=== PATIENT | female | born 1940 | race Caucasian/White ===

== ENCOUNTER 2017-08-03 22:46 | Inpatient (IN) | payer MEDICARE ==
--- NOTE | 2017-08-03 23:11 | ED ---
SOB HPI - General Chief Complaint: Shortness of Breath Stated Complaint: SOB Time Seen by Provider: 08/03/17 22:49 Source: patient Mode of arrival: ambulatory Limitations: no limitations - History of Present Illness Initial Comments: This patient is 76-year-old woman who presents to be evaluated for worsening shortness of breath. The patient states that it is been in about 1 week since she was in her usual state of health. She developed onset of some congestion and cough about a week ago. She states that after he continued to few days she scheduled and then saw her physician yesterday. She states that she had a chest x-ray performed and was started on azithromycin yesterday for diagnosed pneumonia. She states that she had worsening shortness of breath over the past day or so and tonight was not able to catch her breath so she was brought here for evaluation. Patient denies fever or chills. She denies chest pain. She denies underlying lung disease, but states she does have a heart valve condition. MD Complaint: shortness of breath, cough Onset/Timin -: week(s) Consistency: constant Improves With: nothing Worsens With: nothing Treatments Prior to Arrival: none - Related Data Home Medications Medication Instructions Recorded Confirmed Aspirin EC [Ecotrin] 325 mg PO DAILY 08/03/17 08/04/17 Atenolol 25 mg PO BID 08/03/17 08/04/17 Azithromycin [Zithromax Z-pack] See Taper PO DAILY 08/03/17 08/04/17 Febuxostat [Uloric] 40 mg PO DAILY 08/03/17 08/04/17 Irbesartan/Hydrochlorothiazide 1 tab PO DAILY 08/03/17 08/04/17 [Avalide 150-12.5 mg Tablet] Magnesium Carbonate 250 mg PO DAILY 08/03/17 08/04/17 Pantoprazole Sodium [Protonix] 40 mg PO DAILY 08/03/17 08/04/17 Pravastatin Sodium [Pravachol] 20 mg PO HS 08/03/17 08/04/17 Vortioxetine Hydrobromide 10 - 20 mg PO DIRECTED 08/03/17 08/05/17 [Trintellix] amLODIPine [Norvasc] 10 mg PO DAILY 08/03/17 08/04/17 metFORMIN HCL [Glucophage] 500 mg PO DAILY 08/03/17 08/04/17 Multivitamins, Thera [Multivitamin 1 tab PO DAILY 08/04/17 08/04/17 (formulary)] Allergies Allergy/AdvReac Type Severity Reaction Status Date / Time atorvastatin [From Lipitor] Allergy Unknown Verified 08/04/17 11:58 codeine Allergy Unknown Verified 08/04/17 11:58 duloxetine [From Cymbalta] Allergy Unknown Verified 08/04/17 11:58 ezetimibe [From Zetia] Allergy Unknown Verified 08/04/17 11:58 fenofibrate [From Tricor] Allergy Unknown Verified 08/04/17 11:58 latex Allergy Unknown Verified 08/04/17 11:58 niacin Allergy Unknown Verified 08/04/17 11:58 tetracycline Allergy Unknown Verified 08/04/17 11:58 Review of Systems ROS Statement: Those systems with pertinent positive or pertinent negative responses have been documented in the HPI. ROS Other: All systems not noted in ROS Statement are negative. Constitutional: Denies: fever, chills Respiratory: Reports: cough, dyspnea. Denies: wheezes, hemoptysis Cardiovascular: Reports: dyspnea on exertion. Denies: chest pain, palpitations , orthopnea, edema, syncope Gastrointestinal: Denies: abdominal pain, vomiting, diarrhea, melena Genitourinary: Denies: dysuria, hematuria Skin: Denies: rash Neurological: Denies: headache, weakness, numbness Past Medical History Past Medical History: Coronary Artery Disease (CAD), Diabetes Mellitus Additional Past Medical History / Comment(s): Gout, heart murmur. History of Any Multi-Drug Resistant Organisms: None Reported Past Surgical History: Appendectomy, Heart Catheterization With Stent Additional Past Surgical History / Comment(s): Ovary removal, 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 Past Psychological History: Anxiety, Depression Smoking Status: Former smoker Past Alcohol Use History: None Reported Past Drug Use History: None Reported General Exam Limitations: no limitations General appearance: alert, in no apparent distress Head exam: Present: atraumatic, normocephalic Eye exam: Present: normal appearance. Absent: scleral icterus, conjunctival injection ENT exam: Present: normal oropharynx Neck exam: Present: normal inspection Respiratory exam: Present: normal lung sounds bilaterally. Absent: respiratory distress, wheezes, rales, rhonchi, stridor Cardiovascular Exam: Present: regular rate, normal rhythm, systolic murmur ( There is a grade 3/6 systolic ejection murmur.). Absent: diastolic murmur, rubs , gallop GI/Abdominal exam: Present: soft. Absent: distended, tenderness, guarding, rebound, mass Extremities exam: Present: normal inspection, normal capillary refill. Absent: pedal edema, calf tenderness Back exam: Absent: CVA tenderness (R), CVA tenderness (L) Neurological exam: Present: alert Skin exam: Present: warm, dry, intact, normal color. Absent: rash Course Vital Signs 08/03/17 08/04/17 08/04/17 22:49 00:06 01:00 Temperature 97.9 F Pulse Rate 88 73 75 Respiratory 20 18 Rate Blood Pressure 159/67 171/70 O2 Sat by Pulse 91 L 95 Oximetry 08/04/17 01:11 Temperature Pulse Rate 75 Respiratory Rate Blood Pressure O2 Sat by Pulse Oximetry Medical Decision Making - Medical Decision Making This patient is 76-year-old woman presenting with progressive dyspnea over the past week. She is currently being treated for possible pneumonia with azithromycin started in the clinic. Today's x-ray does appear to show degree of fibrosis that was not present on the last x-ray although that was a number of years previous. Given that the patient's room air sats are on the low and, and she is not feeling well following the treatment here, will admit the patient for further treatment and consult pulmonology. Also patient has not had recent echo and does have significant murmur so that can be scheduled as well. - Lab Data Result diagrams: 08/08/17 06:06 08/08/17 06:06 Lab Results 08/03/17 08/03/17 08/03/17 Range/Units 22:45 22:45 22:45 WBC 8.9 (3.8-10.6) k/uL RBC 4.29 (3.80-5.40) m/uL Hgb 11.0 L (11.4-16.0) gm/dL Hct 34.7 (34.0-46.0) % MCV 80.9 (80.0-100.0) fL MCH 25.7 (25.0-35.0) pg MCHC 31.8 (31.0-37.0) g/dL RDW 15.2 (11.5-15.5) % Plt Count 282 (150-450) k/uL Neutrophils % 57 % Lymphocytes % 33 % Monocytes % 5 % Eosinophils % 3 % Basophils % 0 % Neutrophils # 5.1 (1.3-7.7) k/uL Lymphocytes # 2.9 (1.0-4.8) k/uL Monocytes # 0.5 (0-1.0) k/uL Eosinophils # 0.2 (0-0.7) k/uL Basophils # 0.0 (0-0.2) k/uL PT (9.0-12.0) sec INR (<1.2) APTT (22.0-30.0) sec Sodium 140 (137-145) mmol/L Potassium 4.7 (3.5-5.1) mmol/L Chloride 103 (98-107) mmol/L Carbon Dioxide 22 (22-30) mmol/L Anion Gap 15 mmol/L BUN 28 H (7-17) mg/dL Creatinine 1.10 H (0.52-1.04) mg/dL Est GFR (CKD-EPI)AfAm 56 (>60 ml/min/1.73 sqM) Est GFR (CKD-EPI)NonAf 49 (>60 ml/min/1.73 sqM) Glucose 123 H (74-99) mg/dL POC Glucose (mg/dL) (75-99) mg/dL POC Glu [facility] Calcium 9.7 (8.4-10.2) mg/dL Magnesium 1.8 (1.6-2.3) mg/dL Total Bilirubin 0.2 (0.2-1.3) mg/dL AST 30 (14-36) U/L ALT 36 (9-52) U/L Alkaline Phosphatase 96 (38-126) U/L Total Creatine Kinase 71 (30-135) U/L CK-MB (CK-2) 1.3 (0.0-2.4) ng/mL CK-MB (CK-2) Rel Index 1.8 Troponin I 0.014 (0.000-0.034) ng/mL NT-Pro-B Natriuret Pep pg/mL Total Protein 6.7 (6.3-8.2) g/dL Albumin 3.8 (3.5-5.0) g/dL 08/03/17 08/03/1718 Range/Units 22:45 22:45 17:08 WBC (3.8-10.6) k/uL RBC (3.80-5.40) m/uL Hgb (11.4-16.0) gm/dL Hct (34.0-46.0) % MCV (80.0-100.0) fL MCH (25.0-35.0) pg MCHC (31.0-37.0) g/dL RDW (11.5-15.5) % Plt Count (150-450) k/uL Neutrophils % % Lymphocytes % % Monocytes % % Eosinophils % % Basophils % % Neutrophils # (1.3-7.7) k/uL Lymphocytes # (1.0-4.8) k/uL Monocytes # (0-1.0) k/uL Eosinophils # (0-0.7) k/uL Basophils # (0-0.2) k/uL PT 9.8 (9.0-12.0) sec INR 1.0 (<1.2) APTT 22.4 (22.0-30.0) sec Sodium (137-145) mmol/L Potassium (3.5-5.1) mmol/L Chloride (98-107) mmol/L Carbon Dioxide (22-30) mmol/L Anion Gap mmol/L BUN (7-17) mg/dL Creatinine (0.52-1.04) mg/dL Est GFR (CKD-EPI)AfAm (>60 ml/min/1.73 sqM) Est GFR (CKD-EPI)NonAf (>60 ml/min/1.73 sqM) Glucose (74-99) mg/dL POC Glucose (mg/dL) 146 H (75-99) mg/dL POC Glu [facility] Sroka, Rosa Isela Calcium (8.4-10.2) mg/dL Magnesium (1.6-2.3) mg/dL Total Bilirubin (0.2-1.3) mg/dL AST (14-36) U/L ALT (9-52) U/L Alkaline Phosphatase (38-126) U/L Total Creatine Kinase (30-135) U/L CK-MB (CK-2) (0.0-2.4) ng/mL CK-MB (CK-2) Rel Index Troponin I (0.000-0.034) ng/mL NT-Pro-B Natriuret Pep 1300 pg/mL Total Protein (6.3-8.2) g/dL Albumin (3.5-5.0) g/dL 08/04/17 08/04/17 08/05/17 Range/Units 20:34 21:22 05:58 WBC 14.3 H (3.8-10.6) k/uL RBC 4.11 (3.80-5.40) m/uL Hgb 10.7 L (11.4-16.0) gm/dL Hct 32.6 L (34.0-46.0) % MCV 79.5 L (80.0-100.0) fL MCH 26.0 (25.0-35.0) pg MCHC 32.7 (31.0-37.0) g/dL RDW 14.9 (11.5-15.5) % Plt Count 337 (150-450) k/uL Neutrophils % 88 % Lymphocytes % 10 % Monocytes % 2 % Eosinophils % 0 % Basophils % 0 % Neutrophils # 12.6 H (1.3-7.7) k/uL Lymphocytes # 1.4 (1.0-4.8) k/uL Monocytes # 0.2 (0-1.0) k/uL Eosinophils # 0.1 (0-0.7) k/uL Basophils # 0.0 (0-0.2) k/uL PT (9.0-12.0) sec INR (<1.2) APTT (22.0-30.0) sec Sodium (137-145) mmol/L Potassium (3.5-5.1) mmol/L Chloride (98-107) mmol/L Carbon Dioxide (22-30) mmol/L Anion Gap mmol/L BUN (7-17) mg/dL Creatinine (0.52-1.04) mg/dL Est GFR (CKD-EPI)AfAm (>60 ml/min/1.73 sqM) Est GFR (CKD-EPI)NonAf (>60 ml/min/1.73 sqM) Glucose (74-99) mg/dL POC Glucose (mg/dL) 246 H (75-99) mg/dL POC Glu [facility] Bloink, Jennifer Calcium (8.4-10.2) mg/dL Magnesium (1.6-2.3) mg/dL Total Bilirubin (0.2-1.3) mg/dL AST (14-36) U/L ALT (9-52) U/L Alkaline Phosphatase (38-126) U/L Total Creatine Kinase (30-135) U/L CK-MB (CK-2) (0.0-2.4) ng/mL CK-MB (CK-2) Rel Index Troponin I 0.172 H* (0.000-0.034) ng/mL NT-Pro-B Natriuret Pep pg/mL Total Protein (6.3-8.2) g/dL Albumin (3.5-5.0) g/dL 08/05/17 08/05/17 08/05/17 Range/Units 05:58 05:58 05:58 WBC (3.8-10.6) k/uL RBC (3.80-5.40) m/uL Hgb (11.4-16.0) gm/dL Hct (34.0-46.0) % MCV (80.0-100.0) fL MCH (25.0-35.0) pg MCHC (31.0-37.0) g/dL RDW (11.5-15.5) % Plt Count (150-450) k/uL Neutrophils % % Lymphocytes % % Monocytes % % Eosinophils % % Basophils % % Neutrophils # (1.3-7.7) k/uL Lymphocytes # (1.0-4.8) k/uL Monocytes # (0-1.0) k/uL Eosinophils # (0-0.7) k/uL Basophils # (0-0.2) k/uL PT (9.0-12.0) sec INR (<1.2) APTT 52.1 H (22.0-30.0) sec Sodium 138 (137-145) mmol/L Potassium 5.2 H (3.5-5.1) mmol/L Chloride 102 (98-107) mmol/L Carbon Dioxide 22 (22-30) mmol/L Anion Gap 14 mmol/L BUN 37 H (7-17) mg/dL Creatinine 1.10 H (0.52-1.04) mg/dL Est GFR (CKD-EPI)AfAm 56 (>60 ml/min/1.73 sqM) Est GFR (CKD-EPI)NonAf 49 (>60 ml/min/1.73 sqM) Glucose 158 H (74-99) mg/dL POC Glucose (mg/dL) (75-99) mg/dL POC Glu [facility] Calcium 9.8 (8.4-10.2) mg/dL Magnesium (1.6-2.3) mg/dL Total Bilirubin (0.2-1.3) mg/dL AST (14-36) U/L ALT (9-52) U/L Alkaline Phosphatase (38-126) U/L Total Creatine Kinase (30-135) U/L CK-MB (CK-2) (0.0-2.4) ng/mL CK-MB (CK-2) Rel Index Troponin I 1.500 H* (0.000-0.034) ng/mL NT-Pro-B Natriuret Pep pg/mL Total Protein (6.3-8.2) g/dL Albumin (3.5-5.0) g/dL 08/05/17 08/05/17 Range/Units 06:15 11:35 WBC (3.8-10.6) k/uL RBC (3.80-5.40) m/uL Hgb (11.4-16.0) gm/dL Hct (34.0-46.0) % MCV (80.0-100.0) fL MCH (25.0-35.0) pg MCHC (31.0-37.0) g/dL RDW (11.5-15.5) % Plt Count (150-450) k/uL Neutrophils % % Lymphocytes % % Monocytes % % Eosinophils % % Basophils % % Neutrophils # (1.3-7.7) k/uL Lymphocytes # (1.0-4.8) k/uL Monocytes # (0-1.0) k/uL Eosinophils # (0-0.7) k/uL Basophils # (0-0.2) k/uL PT (9.0-12.0) sec INR (<1.2) APTT (22.0-30.0) sec Sodium (137-145) mmol/L Potassium (3.5-5.1) mmol/L Chloride (98-107) mmol/L Carbon Dioxide (22-30) mmol/L Anion Gap mmol/L BUN (7-17) mg/dL Creatinine (0.52-1.04) mg/dL Est GFR (CKD-EPI)AfAm (>60 ml/min/1.73 sqM) Est GFR (CKD-EPI)NonAf (>60 ml/min/1.73 sqM) Glucose (74-99) mg/dL POC Glucose (mg/dL) 176 H 239 H (75-99) mg/dL POC Glu [facility] Callie Hancock Stacie Calcium (8.4-10.2) mg/dL Magnesium (1.6-2.3) mg/dL Total Bilirubin (0.2-1.3) mg/dL AST (14-36) U/L ALT (9-52) U/L Alkaline Phosphatase (38-126) U/L Total Creatine Kinase (30-135) U/L CK-MB (CK-2) (0.0-2.4) ng/mL CK-MB (CK-2) Rel Index Troponin I (0.000-0.034) ng/mL NT-Pro-B Natriuret Pep pg/mL Total Protein (6.3-8.2) g/dL Albumin (3.5-5.0) g/dL - EKG Data -: EKG Interpreted by Ia EKG shows normal: sinus rhythm, axis (Normal), intervals (Normal), ST-T waves ( Normal) Rate: normal (Rate 77 bpm) Interpretation: LVH, other (Possible old septal infarct.) Disposition Clinical Impression: Pulmonary fibrosis, Dyspnea, Aortic stenosis Disposition: ADMITTED IP TO THIS HOSP Condition: Fair Is patient prescribed a controlled substance at d/c from ED?: No
[2017-08-03 23:24] LABS: Basophils % (A) 0 %; Eosinophils # (A) 0.2 k/uL (0-0.7); Eosinophils % (A) 3 %; HCT 34.7 % (34.0-46.0); Lymphocytes # (A) 2.9 k/uL (1.0-4.8); Lymphocytes % (A) 33 %; MCH 25.7 pg (25.0-35.0); MCHC 31.8 g/dL (31.0-37.0); MCV 80.9 fL (80.0-100.0); Mean Platelet Volume 7.3; Monocytes # (A) 0.5 k/uL (0-1.0); Monocytes % (A) 5 %; Neutrophils # (A) 5.1 k/uL (1.3-7.7); Neutrophils % (A) 57 %; Platelet Count 282 k/uL (150-450); RBC 4.29 m/uL (3.80-5.40); RDW 15.2 % (11.5-15.5); WBC 8.9 k/uL (3.8-10.6)
[2017-08-03 23:36] LABS: Albumin 3.8 g/dL (3.5-5.0); Calcium 9.7 mg/dL (8.4-10.2); Magnesium 1.8 mg/dL (1.6-2.3); Potassium 4.7 mmol/L (3.5-5.1); Total Bilirubin 0.2 mg/dL (0.2-1.3); Total Protein 6.7 g/dL (6.3-8.2)
--- NOTE | 2017-08-03 23:39 | XR ---
EXAMINATION TYPE: XR chest 2V DATE OF EXAM: 08/03/2017 COMPARISON: 02/02/2011 HISTORY: Short of breath TECHNIQUE: Frontal and lateral views of the chest are obtained. FINDINGS: Heart is normal. Thoracic aorta is atheromatous. There is no gross heart failure. There is coarsening of interstitial markings. There are chest leads. Bony thorax is intact. IMPRESSION: Pulmonary fibrotic changes. No heart failure. Fibrosis appears new compared to old exam.
[2017-08-03 23:42] LABS: Partial Thromboplastin Time 22.4 sec (22.0-30.0); Prothrombin Time 9.8 sec (9.0-12.0)
[2017-08-03 23:52] LABS: Creatine Kinase MB 1.3 ng/mL (0.0-2.4); Troponin I 0.014 ng/mL (0.000-0.034)
[2017-08-04] MEDS ORDERED: IPRATROPIUM-ALBUTEROL 3 ML NEB INHALATION STA (00:12)
[2017-08-04] MEDS ORDERED: predniSONE 20 MG TAB PO STA (00:24)
[2017-08-04 01:57] VITALS: BMI 37.8
[2017-08-04] MEDS: ATENOLOL 50 MG TAB PO SCH (07:28)
[2017-08-04] MEDS: amLODIPine 10 MG TAB PO SCH (07:28)
[2017-08-04] MEDS: metFORMIN 500 MG TAB PO SCH ×2 (07:29→07:34)
[2017-08-04] MEDS: MAGNESIUM OXIDE 400 MG TAB PO SCH (07:30)
[2017-08-04] MEDS: LOSARTAN-HCTZ 50-12.5 MG 1 EACH TAB PO SCH (07:30)
[2017-08-04] MEDS: ALLOPURINOL 100 MG TAB PO SCH (07:30)
[2017-08-04] MEDS: PANTOPRAZOLE 40 MG TABLET PO SCH (07:32)
[2017-08-04] MEDS: Vortioxetine Hydrobromide [Trintellix] 10 MG PO SCH (07:33)
[2017-08-04] MEDS ORDERED: AZITHROMYCIN 500 MG TAB PO SCH (09:00)
[2017-08-04] MEDS ORDERED: predniSONE 20 MG TAB PO SCH (09:00)
[2017-08-04] MEDS ORDERED: FLUoxetine HCL 20 MG CAP PO SCH (09:00)
[2017-08-04] MEDS ORDERED: ASPIRIN 325 MG TAB PO SCH ×2 (09:00→21:00)
[2017-08-04] MEDS: IPRATROPIUM-ALBUTEROL 3 ML NEB INHALATION SCH ×4 (09:02→20:24)
[2017-08-04] MEDS: BUDESONIDE 0.5 MG/2 ML NEBU INHALATION SCH ×2 (09:02→20:25)
[2017-08-04] MEDS ORDERED: RX INFO: IV CONTRAST WAS GIVEN 1 EACH MISC MISCELLANE PRN (11:54)
[2017-08-04] MEDS ORDERED: MULTIVITAMINS, THERA 1 EACH TAB PO SCH (12:00)
[2017-08-04] MEDS: INSULIN ASPART 100 UNIT/ML 1 ML 10 ML VIAL SQ SCH ×3 (13:30→22:55)
[2017-08-04] MEDS: methylPREDNISolone SOD SUCCI 125 MG/2 ML VIAL IV SCH ×2 (13:40→17:17)
[2017-08-04] MEDS ORDERED: ENOXAPARIN 30 MG/0.3 ML SYRINGE SQ SCH (14:00)
--- NOTE | 2017-08-04 14:06 | P.HPIM ---
History of Present Illness This is a pleasant 76 years old female with past medical history of CAD S/P stent, DM, hypertension, gout, cardiac murmur, hyperlipidemia, obesity who presents with progressive dyspnea associated with cough and yellowish phlegm over one week, patient denies chest pain. Patient was started on Zithromax already for respiratory infection. Repeat chest x-ray and emergency room showed new fibrosis with known new consolidation Review of Systems Review of Systems All systems: negative Constitutional: Denies chills, Denies fever Eyes: denies blurred vision, denies pain Ears, nose, mouth and throat: Denies headache, Denies sore throat Cardiovascular: Denies chest pain, Denies shortness of breath Respiratory: Reports congestion, Reports home oxygen, Denies cough Gastrointestinal: Denies abdominal pain, Denies diarrhea, Denies nausea, Denies vomiting Musculoskeletal: Denies myalgias Integumentary: Denies pruritus, Denies rash Neurological: Denies numbness, Denies weakness Psychiatric: Denies anxiety, Denies depression Endocrine: Denies fatigue, Denies weight change Past Medical History Past Medical History: Coronary Artery Disease (CAD), Diabetes Mellitus Additional Past Medical History / Comment(s): CAD, Hypertension, Gout, cardiac murmur, hyperlipidemia, obesity History of Any Multi-Drug Resistant Organisms: None Reported Past Surgical History: Appendectomy, Heart Catheterization With Stent Additional Past Surgical History / Comment(s): Oophorectomy (fibrous cyst) , 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) Date of Last Stent Placement:: unknown Past Psychological History: Anxiety, Depression Smoking Status: Former smoker (quit smoking 20 years ago and has 30 pyear) Past Alcohol Use History: None Reported Past Drug Use History: None Reported Medications and Allergies Home Medications Medication Instructions Recorded Confirmed Type Aspirin EC [Ecotrin] 325 mg PO DAILY 08/03/17 08/04/17 History Atenolol 25 mg PO BID 08/03/17 08/04/17 History Azithromycin [Zithromax Z-pack] See Taper PO DAILY 08/03/17 08/04/17 History Febuxostat [Uloric] 40 mg PO DAILY 08/03/17 08/04/17 History Irbesartan/Hydrochlorothiazide 1 tab PO DAILY 08/03/17 08/04/17 History [Avalide 150-12.5 mg Tablet] Magnesium Carbonate 250 mg PO DAILY 08/03/17 08/04/17 History Pantoprazole Sodium [Protonix] 40 mg PO DAILY 08/03/17 08/04/17 History Pravastatin Sodium [Pravachol] 20 mg PO HS 08/03/17 08/04/17 History Vortioxetine Hydrobromide 10 mg PO DIRECTED 08/03/17 08/04/17 History [Trintellix] amLODIPine [Norvasc] 10 mg PO DAILY 08/03/17 08/04/17 History metFORMIN HCL [Glucophage] 500 mg PO DAILY 08/03/17 08/04/17 History Multivitamins, Thera [Multivitamin 1 tab PO DAILY 08/04/17 08/04/17 History (formulary)] Allergies Allergy/AdvReac Type Severity Reaction Status Date / Time atorvastatin [From Lipitor] Allergy Unknown Verified 08/04/17 11:58 codeine Allergy Unknown Verified 08/04/17 11:58 duloxetine [From Cymbalta] Allergy Unknown Verified 08/04/17 11:58 ezetimibe [From Zetia] Allergy Unknown Verified 08/04/17 11:58 fenofibrate [From Tricor] Allergy Unknown Verified 08/04/17 11:58 latex Allergy Unknown Verified 08/04/17 11:58 niacin Allergy Unknown Verified 08/04/17 11:58 tetracycline Allergy Unknown Verified 08/04/17 11:58 Physical Exam Vitals: Vital Signs Temp Pulse Pulse Resp BP BP Pulse Ox 08/04/17 13:30 72 08/04/17 13:20 68 08/04/17 09:30 110 H 148/67 08/04/17 09:11 72 08/04/17 09:03 76 08/04/17 07:30 18 08/04/17 07:00 96.4 F L 78 20 186/79 94 L 08/04/17 01:48 98.1 F 87 16 166/67 95 08/04/17 01:11 75 08/04/17 01:00 75 08/04/17 00:06 73 18 171/70 95 08/03/17 22:49 97.9 F 88 20 159/67 91 L Intake and Output 08/03/17 08/04/17 08/04/17 22:59 06:59 14:59 Other: # Voids 2 Weight 97.522 kg 97 kg Constitutional: No acute distress, conversant, pleasant Eyes: Anicteric sclerae, moist conjunctiva, no lid-lag PERRLA ENMT: NC/AT Oropharynx clear, no erythema, exudates Neck: Supple, FROM, no masses, or JVD No carotid bruits No thyromegaly Lungs: Clear to auscultation Clear to percussion Normal respiratory effort, no accessory muscle use Cardiovascular: Heart regular in rate and rhythm, No murmurs, gallops, or rubs No peripheral edema Abdominal: Soft Nontender, no guarding, rebound or rigidity Abdomen moving with respiration Normoactive bowel sounds No palpable mass No abdominal wall hernia noted Skin: Normal temperature, tone, texture, turgor No induration No subcutaneous nodules No rash, lesions No ulcers Extremities: No digital cyanosis No clubbing Pedal pulses intact and symmetrical Radial pulses intact and symmetrical Normal gait and station No calf tenderness Psychiatric: Alert and oriented to person, place and time Appropriate affect Intact judgement Neuro: Muscles Strength 5/5 in all 4 extremities Sensation to light touch grossly present throughout Cranial nerves II-XII grossly intact No focal sensory deficits Results CBC & Chem 7: 08/03/17 22:45 08/03/17 22:45 Labs: Abnormal Lab Results - Last 24 Hours (Table) 08/03/17 08/03/17 Range/Units 22:45 22:45 Hgb 11.0 L (11.4-16.0) gm/dL BUN 28 H (7-17) mg/dL Creatinine 1.10 H (0.52-1.04) mg/dL Glucose 123 H (74-99) mg/dL Thrombosis Risk Factor Assmnt - Choose All That Apply Each Risk Factor Represents 3 Points: Age 75 years or older Thrombosis Risk Factor Assessment Total Risk Factor Score: 3 Thrombosis Risk Factor Assessment Level: Moderate Risk Assessment and Plan Plan: -COPD acute exacerbation, progressive. Continue with oxygen, breathing treatment, steroids, and antibiotic. Call pulmonary consult -Pulmonary fibrosis,On chest x-ray, call pulmonary consult -Dehydration, continue with IV fluid -Hypertension continue with HCTZ/low Zartan -DM hold metformin 500 twice a day, continue with ISS -Cardiac murmur, echo was already ordered and is pending DVT prophylaxis heparin GI prophylaxis Pepcid Patient was discussed about her problem list and management plan, although above , and she verbalized understanding and acceptance
[2017-08-04] MEDS ORDERED: SODIUM CHLORIDE 0.9% 1,000 ML IV SCH (14:15)
--- NOTE | 2017-08-04 14:38 | P.CNPUL ---
History of Present Illness Consult date: 08/04/17 Reason for consult: dyspnea History of present illness: Is a 76-year-old female patient with known history of coronary artery disease and previous coronary intervention and stenting many years back, who has been developing increased shortness of breath and cough and congestion over the past month or so. The patient was seen by the nurse practitioner at the primary care physician's office and the patient was given Zithromax. Nevertheless, the patient is not improved. In fact her exertional dyspnea was getting worse and she was also complaining of cough congestion and wheeze. For that reason she came into the hospital for further evaluation. Her chest x-ray shows no evidence of any pneumonia. Unlikely reports given, no clear indication of any pulmonary fibrosis. 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 She has quit smoking many years back. She does not utilize any form of maintenance respiratory medications at home. She is known to have cardiac murmur which is very typical of an underlying aortic valve disease, probably a stenosis that needs to be further followed up. She hasn't been seeing a foreign exchange student coordinator on a regular basis. She has trace edema in lower extremities. No previous history of DVT or pulmonary embolism. No orthopnea. No paroxysmal nocturnal dyspnea. She is obese with ongoing weight gain. Her EKG showing normal sinus rhythm with LVH criteria and septal infarct, likely old. The BNP level is mildly elevated and a troponin is negative. Review of Systems Constitutional: Reports as per HPI, Reports weight gain Eyes: denies blurred vision, denies bulging eye, denies decreased vision Ears: deny: decreased hearing, ear discharge, earache, tinnitus Ears, nose, mouth and throat: Denies headache, Denies sore throat Cardiovascular: Reports decreased exercise tolerance Respiratory: Reports cough, Reports dyspnea Genitourinary: Denies dysuria, Denies hematuria Menstruation: Reports as per HPI Musculoskeletal: Denies myalgias Musculoskeletal: absent: ankle pain, ankle stiffness, ankle swelling Integumentary: Denies pruritus, Denies rash Neurological: Denies numbness, Denies weakness Psychiatric: Reports as per HPI Endocrine: Reports as per HPI Hematologic/Lymphatic: Reports as per HPI Allergic/Immunologic: Reports as per HPI Past Medical History Past Medical History: Coronary Artery Disease (CAD), Diabetes Mellitus Additional Past Medical History / Comment(s): CAD, Hypertension, Gout, cardiac murmur, hyperlipidemia, obesity History of Any Multi-Drug Resistant Organisms: None Reported Past Surgical History: Appendectomy, Heart Catheterization With Stent Additional Past Surgical History / Comment(s): Oophorectomy (fibrous cyst) , 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) Date of Last Stent Placement:: unknown Past Psychological History: Anxiety, Depression Smoking Status: Former smoker (quit smoking 20 years ago and has 30 pyear) Past Alcohol Use History: None Reported Past Drug Use History: None Reported Medications and Allergies Home Medications Medication Instructions Recorded Confirmed Type Aspirin EC [Ecotrin] 325 mg PO DAILY 08/03/17 08/04/17 History Atenolol 25 mg PO BID 08/03/17 08/04/17 History Azithromycin [Zithromax Z-pack] See Taper PO DAILY 08/03/17 08/04/17 History Febuxostat [Uloric] 40 mg PO DAILY 08/03/17 08/04/17 History Irbesartan/Hydrochlorothiazide 1 tab PO DAILY 08/03/17 08/04/17 History [Avalide 150-12.5 mg Tablet] Magnesium Carbonate 250 mg PO DAILY 08/03/17 08/04/17 History Pantoprazole Sodium [Protonix] 40 mg PO DAILY 08/03/17 08/04/17 History Pravastatin Sodium [Pravachol] 20 mg PO HS 08/03/17 08/04/17 History Vortioxetine Hydrobromide 10 mg PO DIRECTED 08/03/17 08/04/17 History [Trintellix] amLODIPine [Norvasc] 10 mg PO DAILY 08/03/17 08/04/17 History metFORMIN HCL [Glucophage] 500 mg PO DAILY 08/03/17 08/04/17 History Multivitamins, Thera [Multivitamin 1 tab PO DAILY 08/04/17 08/04/17 History (formulary)] Allergies Allergy/AdvReac Type Severity Reaction Status Date / Time atorvastatin [From Lipitor] Allergy Unknown Verified 08/04/17 11:58 codeine Allergy Unknown Verified 08/04/17 11:58 duloxetine [From Cymbalta] Allergy Unknown Verified 08/04/17 11:58 ezetimibe [From Zetia] Allergy Unknown Verified 08/04/17 11:58 fenofibrate [From Tricor] Allergy Unknown Verified 08/04/17 11:58 latex Allergy Unknown Verified 08/04/17 11:58 niacin Allergy Unknown Verified 08/04/17 11:58 tetracycline Allergy Unknown Verified 08/04/17 11:58 Physical Exam Vitals: Vital Signs Temp Pulse Pulse Resp BP BP Pulse Ox 08/04/17 09:30 110 H 148/67 08/04/17 09:11 72 08/04/17 09:03 76 08/04/17 07:30 18 08/04/17 07:00 96.4 F L 78 20 186/79 94 L 08/04/17 01:48 98.1 F 87 16 166/67 95 08/04/17 01:11 75 08/04/17 01:00 75 08/04/17 00:06 73 18 171/70 95 08/03/17 22:49 97.9 F 88 20 159/67 91 L Intake and Output 08/03/17 08/04/17 08/04/17 22:59 06:59 14:59 Other: # Voids 2 Weight 97.522 kg 97 kg Obese, comfortable no acute distress Head exam was generally normal. There was no scleral icterus or corneal arcus. Mucous membranes were moist. Neck was supple and without jugular venous distension, thyromegaly, or carotid bruits. Carotids were easily palpable bilaterally. There was no adenopathy. Patient has Mallampati class IV with significant crowding of the posterior oropharynx Lung sounds are diminished bilaterally along with some scattered expiratory wheezes heard throughout the lung burk Heart sounds are regular and there is a harsh systolic ejection murmur grade 4/ 6 heard throughout the precordium mainly in the left lateral sternal border and apex radiating to the neck. Abdominal exam revealed normal bowel sounds. The abdomen was soft, non-tender, and without masses, organomegaly, or appreciable enlargement of the abdominal aorta. Examination of the extremities revealed easily palpable radial, femoral and pedal pulses. There was no cyanosis, clubbing or edema. Examination of the skin revealed no evidence of significant rashes, suspicious appearing nevi or other concerning lesions. Neurologically the patient is awake and alert and there is no focal neurological deficit Psychiatrically the patient has a normal mood and affect Results - Laboratory Findings CBC and BMP: 08/03/17 22:45 08/03/17 22:45 PT/INR, D-dimer PT 9.8 sec (9.0-12.0) 08/03/17 22:45 INR 1.0 (<1.2) 08/03/17 22:45 Abnormal lab findings: Abnormal Labs 08/03/17 08/03/17 22:45 22:45 Hgb 11.0 L BUN 28 H Creatinine 1.10 H Glucose 123 H - Diagnostic Findings Chest x-ray: image reviewed Assessment and Plan Plan: Assessment 1 shortness of breath on the basis of an acute COPD exacerbation. Nevertheless , the patient has an underlying valvular heart disease and needs to be further investigated. Strongly suspect aortic valve stenosis. 2 exertional dyspnea secondary to above 3 obesity with BMI of 37.9 4 coronary artery disease with previous coronary intervention and stenting 5 diabetes mellitus 6 hyperlipidemia. 7 gout Plan Proceed with a CT of the chest to investigate her shortness of breath. Echocardiogram. DuoNeb about treatments around the clock. IV Solu Medrol 63 g every 6 hours. Continue oral Zithromax. Outpatient pulmonary function test. We'll continue to follow
--- NOTE | 2017-08-04 15:20 | CT ---
EXAMINATION TYPE: CT chest angio for PE DATE OF EXAM: 08/04/2017 COMPARISON: NONE HISTORY: Dyspnea CT DLP: 622 mGycm. Automated Exposure Control for Dose Reduction was Utilized. CONTRAST: CTA scan of the thorax is performed with IV Contrast, patient injected with 80 mL of Isovue 370, pulm onary embolism protocol. MIP Images are created on CT scanner and reviewed. FINDINGS: LUNGS: There are 2 radiographic groundglass opacities scattered throughout the entirety of the lungs and scattered areas of atelectasis and pleural parenchymal scarring. No discrete pulmonary mass. Subp leural 2 mm right upper lobe pulmonary nodule seen laterally on image 40 of series 11. The lungs are grossly clear, there is no concerning parenchymal mass or nodule identified. There is no pleural ef fusion or pneumothorax seen. The tracheobronchial tree is patent. MEDIASTINUM: There is satisfactory enhancement of the pulmonary artery and its branches, there is no CT evidence for pulmonary embolism. Numerous enlarged mediastinal lymph nodes are seen measuring up t o 1.4 cm in the precarinal region and 1.3 cm in the subcarinal region.. No cardiomegaly or pericard ial effusion is seen. Moderate coronary artery calcifications are seen. Extensive atherosclerosis is seen of the thoracic aorta. No axillary adenopathy. OTHER: Liver is diffusely hypoattenuated most commonly related to hepatic steatosis. Moderate multile ambreen degenerative changes of the thoracic spine. IMPRESSION: 1. No evidence of pulmonary embolus. 2. Diffuse geographic ground glass opacities most commonly related to fluid overload. This may be car diogenic or noncardiogenic. Diffuse pneumonitis is considered much less likely. 3. Mediastinal adenopathy, possibly reactive. 4. 2 mm right upper lobe pulmonary nodule. CT thorax could be performed in 12 months to ensure stabil ity.
[2017-08-04 17:19] LABS: Glucose,Whole Blood 146 mg/dL (75-99)
[2017-08-04 20:39] LABS: Glucose,Whole Blood 246 mg/dL (75-99)
[2017-08-04] MEDS ORDERED: HEPARIN SODIUM,PORCINE 5,000 UNIT/ML 1 ML VIAL SQ SCH (21:00)
[2017-08-04] MEDS: ALBUTEROL NEBULIZED 2.5 MG/3 ML INHALATION SCH ×4 (21:34→23:14)
[2017-08-04] MEDS: FAMOTIDINE 20 MG/2 ML VIAL IV SCH (22:54)
[2017-08-04] MEDS: PRAVASTATIN SODIUM 20 MG TAB PO SCH (22:56)
[2017-08-04] MEDS ORDERED: HEPARIN SODIUM,PORCINE 5,000 UNIT/ML 1 ML VIAL IV ONE (23:14)
[2017-08-04] MEDS ORDERED: HEPARIN SODIUM,PORCINE 5,000 UNIT/ML 1 ML VIAL IV PRN (23:14)
[2017-08-05] MEDS: HEPARIN SODIUM,PORCINE/D5W PMX 25,000 UNIT in DEXTROSE/WATER 1 500ML.BAG IV SCH ×2 (00:13→21:32)
[2017-08-05] MEDS: methylPREDNISolone SOD SUCCI 125 MG/2 ML VIAL IV SCH ×2 (00:14→06:24)
[2017-08-05 06:17] LABS: Glucose,Whole Blood 176 mg/dL (75-99)
[2017-08-05] MEDS: INSULIN ASPART 100 UNIT/ML 1 ML 10 ML VIAL SQ SCH ×5 (06:24→21:37)
[2017-08-05 06:28] LABS: Basophils % (A) 0 %; Eosinophils # (A) 0.1 k/uL (0-0.7); Eosinophils % (A) 0 %; HCT 32.6 % (34.0-46.0); HGB 10.7 gm/dL (11.4-16.0); Lymphocytes # (A) 1.4 k/uL (1.0-4.8); Lymphocytes % (A) 10 %; MCHC 32.7 g/dL (31.0-37.0); MCV 79.5 fL (80.0-100.0); Mean Platelet Volume 7.2; Monocytes # (A) 0.2 k/uL (0-1.0); Monocytes % (A) 2 %; Neutrophils # (A) 12.6 k/uL (1.3-7.7); Neutrophils % (A) 88 %; Platelet Count 337 k/uL (150-450); RBC 4.11 m/uL (3.80-5.40); RDW 14.9 % (11.5-15.5); WBC 14.3 k/uL (3.8-10.6)
[2017-08-05 06:44] LABS: Calcium 9.8 mg/dL (8.4-10.2); Potassium 5.2 mmol/L (3.5-5.1)
[2017-08-05] MEDS: ALBUTEROL NEBULIZED 2.5 MG/3 ML INHALATION SCH ×4 (07:28→19:02)
[2017-08-05] MEDS: BUDESONIDE 0.5 MG/2 ML NEBU INHALATION SCH ×2 (07:28→19:05)
--- NOTE | 2017-08-05 09:07 | P.CRDCN ---
History of Present Illness Consult date: 08/05/17 Requesting physician: Suki Burris Consult reason: chest pain, shortness of breath Chief complaint: Chest tightness and shortness of breath History of present illness: This is a pleasant 76-year-old female with history of hyperlipidemia, hypertension, diabetes, prior stent placement, valvular issues, who used to follow with Dr. Worrell in the office, she has not seen him since 2013. She presents to the hospital on this occasion with what initially started as a congested cough. She had a chest x-ray performed at her primary care doctor, who felt that she may have early pneumonia so she started an antibiotic. In spite of that, patient became more and more short of breath, and she states that she was experiencing intermittent tightness in the upper part of her chest which she attributed to her Atrovent. Because of the shortness of breath and chest tightness she presented to the hospital. Chest x-ray on admission here showed pulmonary fibrotic changes with no heart failure. EKG shows normal sinus rhythm with no acute changes, subsequent EKG performed this morning showed normal sinus rhythm with mild ST-T wave changes in the inferior leads. CT of the chest was performed which did not reveal evidence for pulmonary embolism. Diffuse groundglass opacities were noted. Mediastinal adenopathy, possibly reactive. 2 mm right upper lobe pulmonary nodule noted. Patient was seen in consultation by pulmonary service, who felt that the shortness of breath may be secondary to acute COPD exacerbation and possibly underlying valvular heart disease. Duo neb and Solu-Medrol initiated. Blood pressure 152/ 70 with a heart rate in the 90s, 94% on 2 L of oxygen. White blood cell count on admission, 8.9, 14.3 this morning. Hemoglobin 10.7, platelets 337. Sodium 138, potassium 5.2, BUN 37, creatinine 1.1. Initial troponin 0.014, subsequent troponin 0.17, and a 1.5. BNP level 1300. At the time of my examination this morning, patient is currently free of any chest tightness, breathing has improved overall. Past Medical History Past Medical History: Coronary Artery Disease (CAD), Diabetes Mellitus Additional Past Medical History / Comment(s): CAD, Hypertension, Gout, cardiac murmur, hyperlipidemia, obesity History of Any Multi-Drug Resistant Organisms: None Reported Past Surgical History: Appendectomy, Heart Catheterization With Stent Additional Past Surgical History / Comment(s): Oophorectomy (fibrous cyst) , 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) Date of Last Stent Placement:: unknown Past Psychological History: Anxiety, Depression Smoking Status: Former smoker (quit smoking 20 years ago and has 30 pyear) Past Alcohol Use History: None Reported Past Drug Use History: None Reported Medications and Allergies Home Medications Medication Instructions Recorded Confirmed Type Aspirin EC [Ecotrin] 325 mg PO DAILY 08/03/17 08/04/17 History Atenolol 25 mg PO BID 08/03/17 08/04/17 History Azithromycin [Zithromax Z-pack] See Taper PO DAILY 08/03/17 08/04/17 History Febuxostat [Uloric] 40 mg PO DAILY 08/03/17 08/04/17 History Irbesartan/Hydrochlorothiazide 1 tab PO DAILY 08/03/17 08/04/17 History [Avalide 150-12.5 mg Tablet] Magnesium Carbonate 250 mg PO DAILY 08/03/17 08/04/17 History Pantoprazole Sodium [Protonix] 40 mg PO DAILY 08/03/17 08/04/17 History Pravastatin Sodium [Pravachol] 20 mg PO HS 08/03/17 08/04/17 History Vortioxetine Hydrobromide 10 mg PO DIRECTED 08/03/17 08/04/17 History [Trintellix] amLODIPine [Norvasc] 10 mg PO DAILY 08/03/17 08/04/17 History metFORMIN HCL [Glucophage] 500 mg PO DAILY 08/03/17 08/04/17 History Multivitamins, Thera [Multivitamin 1 tab PO DAILY 08/04/17 08/04/17 History (formulary)] Allergies Allergy/AdvReac Type Severity Reaction Status Date / Time atorvastatin [From Lipitor] Allergy Unknown Verified 08/04/17 11:58 codeine Allergy Unknown Verified 08/04/17 11:58 duloxetine [From Cymbalta] Allergy Unknown Verified 08/04/17 11:58 ezetimibe [From Zetia] Allergy Unknown Verified 08/04/17 11:58 fenofibrate [From Tricor] Allergy Unknown Verified 08/04/17 11:58 latex Allergy Unknown Verified 08/04/17 11:58 niacin Allergy Unknown Verified 08/04/17 11:58 tetracycline Allergy Unknown Verified 08/04/17 11:58 Physical Exam Vitals: Vital Signs Temp Pulse Pulse Resp BP BP Pulse Ox 08/05/17 08:26 97.4 F L 91 18 161/78 94 L 08/05/17 06:18 97/50 153/72 08/05/17 04:00 94 18 190/80 94 L 08/05/17 00:00 96.7 F L 88 18 149/58 93 L 08/04/17 22:40 97.6 F 94 16 142/58 95 08/04/17 20:35 86 16 08/04/17 20:25 86 16 08/04/17 15:48 18 08/04/17 15:00 97.0 F L 98 16 171/108 93 L 08/04/17 13:30 72 08/04/17 13:20 68 08/04/17 09:30 110 H 148/67 08/04/17 09:11 72 08/04/17 09:03 76 Intake and Output 08/04/17 08/05/17 08/05/17 22:59 06:59 14:59 Intake Total 0 Balance 0 Intake: Oral 0 Other: # Voids 1 1 Weight 99.6 kg PHYSICAL EXAMINATION: HEENT: Head is atraumatic, normocephalic. Pupils equal, round. Neck is supple. There is no elevated jugular venous pressure. HEART EXAMINATION: Heart S1-S2 not audible a systolic ejection murmur is heard CHEST EXAMINATION: Lungs reveal some fine expiratory wheezes throughout otherwise essentially clear. ABDOMEN: Soft, nontender. Bowel sounds are heard. No organomegaly noted. EXTREMITIES: 2+ peripheral pulses with no evidence of peripheral edema and no calf tenderness noted. NEUROLOGIC patient is awake, alert and oriented -3. . Results 08/05/17 05:58 08/05/17 05:58 Cardiac Enzymes 08/04/17 08/05/17 Range/Units 21:22 05:58 Troponin I 0.172 H* 1.500 H* (0.000-0.034) ng/mL Coagulation 08/05/17 Range/Units 05:58 APTT 52.1 H (22.0-30.0) sec CBC 08/05/17 Range/Units 05:58 WBC 14.3 H (3.8-10.6) k/uL RBC 4.11 (3.80-5.40) m/uL Hgb 10.7 L (11.4-16.0) gm/dL Hct 32.6 L (34.0-46.0) % Plt Count 337 (150-450) k/uL Comprehensive Metabolic Panel 08/05/17 Range/Units 05:58 Sodium 138 (137-145) mmol/L Potassium 5.2 H (3.5-5.1) mmol/L Chloride 102 (98-107) mmol/L Carbon Dioxide 22 (22-30) mmol/L BUN 37 H (7-17) mg/dL Creatinine 1.10 H (0.52-1.04) mg/dL Glucose 158 H (74-99) mg/dL Calcium 9.8 (8.4-10.2) mg/dL Current Medications Generic Name Dose Route Start Last Admin Trade Name Freq PRN Reason Stop Dose Admin Albuterol Sulfate 2.5 mg 08/05/17 02:00 08/05/17 07:28 Ventolin Nebulized INHALATION Not Given RT-QID [facility] Allopurinol 200 mg 08/04/17 09:00 08/04/17 07:30 Zyloprim PO 200 mg DAILY ALEXANDRA Administration Amlodipine Besylate 10 mg 08/04/17 09:00 08/04/17 07:28 Norvasc PO 10 mg DAILY ALEXANDRA Administration Aspirin 81 mg 08/05/17 09:00 Aspirin PO DAILY ALEXANDRA Atenolol 50 mg 08/04/17 09:00 08/04/17 07:28 Tenormin PO 50 mg DAILY ALEXANDRA Administration Azithromycin 250 mg 08/05/17 09:00 Zithromax PO 08/09/17 09:01 DAILY [facility] Budesonide 0.5 mg 08/04/17 08:00 08/05/17 07:28 Pulmicort INHALATION Not Given RT-BID ALEXANDRA Famotidine 20 mg 08/04/17 21:00 08/04/17 22:54 Pepcid IV 20 mg Q12HR ALEXANDRA Administration HCTZ/Losartan Potassium 1 each 08/04/17 09:00 08/04/17 07:30 Hyzaar 50-12.5 PO 1 each DAILY ALEXANDRA Administration Heparin Sodium (Porcine) 0 unit 08/04/17 23:14 Heparin IV PER PROTOCOL PRN Low PTT Protocol Heparin Sodium/Dextrose 25,000 500 mls @ 23.28 mls/hr 08/04/17 23:00 00:13 unit/ IV Solution IV 12 units/kg/hr .[id number] ALEXANDRA 23.28 mls/hr Protocol Administration 12 UNITS/KG/HR Insulin Aspart 0 unit 08/04/17 12:30 08/05/17 06:24 Novolog SQ 2 unit ACHS ALEXANDRA Administration Protocol Magnesium Oxide 400 mg 08/04/17 09:00 08/04/17 07:30 Mag-Ox PO 400 mg DAILY ALEXANDRA Administration Methylprednisolone Sodium Succinate 60 mg 08/04/17 12:00 08/05/17 06:24 Solu-Medrol IV 60 mg Q6HR ALEXANDRA Administration Miscellaneous Information 1 each 08/04/17 11:54 Rx Info: Iv Contrast Was Given MISCELLANE 08/06/17 11:54 DAILY PRN Per Protocol Vortioxetine 10 mg 08/04/17 09:00 08/04/17 07:33 Hydrobromide [ PO Not Given Trintellix] 10 Mg DAILY ALEXANDRA Pantoprazole Sodium 40 mg 08/04/17 09:00 08/04/17 07:32 Protonix PO 40 mg DAILY ALEXANDRA Administration Pravastatin Sodium 20 mg 08/04/17 21:00 08/04/17 22:56 Pravachol PO 20 mg HS ALEXANDRA Administration Intake and Output 08/04/17 08/05/17 08/05/17 22:59 06:59 14:59 Intake Total 0 Balance 0 Intake: Oral 0 Other: # Voids 1 1 Weight 99.6 kg 08/05/17 05:58 08/05/17 05:58 EKG Interpretations (text) EKG shows a normal sinus rhythm with LVH strain pattern, nonspecific ST-T wave changes noted on repeat EKG in the inferior leads. Assessment and Plan Plan: Assessment and plan #1 shortness of breath, likely combination of COPD exacerbation and aortic valve disorder #2 chest tightness, troponins 0.014, 0.172, 1.5. Suggesting possible acute coronary syndrome. #3 known history of coronary artery disease with prior RCA stenting #4 diabetes # 5 hypertension #6 hyperlipidemia #7 prior history of smoking Plan We will continue IV heparin. Obtain an echocardiogram with Doppler study to evaluate LV function and valves. Patient had intolerance to Lipitor in the past , we will start the patient on study along with the pravastatin she is on at this time. Patient was advised that she may need to undergo cardiac catheterization, the risks and the benefits were explained to her in detail, she is willing to proceed. Patient did have issues with her groin at the time of prior intervention, and is requesting if at all possible to have a radial approach. Further recommendations will be based on these findings and patient' s clinical course. DNP note has been reviewed, I agree with a documented findings and plan of care. Patient was seen and examined.
--- NOTE | 2017-08-05 10:22 | ECHOF ---
Referral Reason:evaluate murmur MEASUREMENTS -------- HEIGHT: 160.0 cm WEIGHT: 99.3 kg BP: 153/72 IVSd: 1.6 cm (0.6 - 1.1) LVIDd: 4.2 cm (3.9 - 5.3) LVPWd: 1.7 cm (0.6 - 1.1) IVSs: 2.2 cm LVIDs: 2.6 cm LVPWs: 2.0 cm LAESV Index (A-L): 28.99 ml/m Ao Diam: 2.4 cm (2.0 - 3.7) AV Cusp: 0.8 cm (1.5 - 2.6) LA Diam: 3.4 cm (2.7 - 3.8) MV EXCURSION: 13.883 mm (> 18.000) MV EF SLOPE: 51 mm/s (70 - 150) EPSS: 0.5 cm MV E Deny: 1.67 m/s MV DecT: 188 ms MV A Deny: 1.49 m/s MV E/A Ratio: 1.12 AV maxP.60 mmHg AV meanP.59 mmHg AR PHT: 306 ms RAP: 5.00 mmHg RVSP: 43.95 mmHg FINDINGS -------- Sinus rhythm. This was a technically adequate study. The left ventricular size is normal. There is severe concentric left ventricular hypertrophy. Ove rall left ventricular systolic function is normal with, an EF between 55 - 60 %. The right ventricle is normal in size and function. LA is midly dilated 29-33ml/m2. The right atrium is normal in size. Aortic valve is trileaflet and is severely thickened. There is mild aortic regurgitation. There i s severe aortic stenosis present. Peak/mean gradient across the Aortic Valve is 77.60mmHg / 52.59mm Hg. The mitral valve leaflets are mildly thickened. Moderate mitral regurgitation is present. Mild tricuspid regurgitation present. There is mild pulmonary hypertension. The right ventricular systolic pressure, as measured by Doppler, is 43.95mmHg. The pulmonic valve was not well visualized. There is no pulmonic regurgitation present. The aortic root size is normal. There is no pericardial effusion. CONCLUSIONS -------- 1. Sinus rhythm. 2. This was a technically adequate study. 3. The left ventricular size is normal. 4. There is severe concentric left ventricular hypertrophy. 5. Overall left ventricular systolic function is normal with, an EF between 55 - 60 %. 6. LA is midly dilated 29-33ml/m2. 7. Aortic valve is trileaflet and is severely thickened. 8. There is mild aortic regurgitation. 9. There is severe aortic stenosis present. 10. Peak/mean gradient across the Aortic Valve is 77.60mmHg / 52.59mmHg. 11. The mitral valve leaflets are mildly thickened. 12. Moderate mitral regurgitation is present. 13. Mild tricuspid regurgitation present. 14. There is mild pulmonary hypertension. 15. There is no pulmonic regurgitation present. 16. The aortic root size is normal. 17. There is no pericardial effusion. RESIDENTIAL LEASING MANAGER: Lou Drummond RDCS
--- NOTE | 2017-08-05 11:20 | P.PN ---
Subjective Progress Note Date: 08/05/17 Principal diagnosis: Acute exacerbation chronic obstructive pulmonary disease as well as valvular heart disease. Is a 76-year-old female patient with known history of coronary artery disease and previous coronary intervention and stenting many years back, who has been developing increased shortness of breath and cough and congestion over the past month or so. The patient was seen by the nurse practitioner at the primary care physician's office and the patient was given Zithromax. Nevertheless, the patient is not improved. In fact her exertional dyspnea was getting worse and she was also complaining of cough congestion and wheeze. For that reason she came into the hospital for further evaluation. Her chest x-ray shows no evidence of any pneumonia. Unlikely reports given, no clear indication of any pulmonary fibrosis. 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 She has quit smoking many years back. She does not utilize any form of maintenance respiratory medications at home. She is known to have cardiac murmur which is very typical of an underlying aortic valve disease, probably a stenosis that needs to be further followed up. She hasn't been seeing a auto repair technician on a regular basis. She has trace edema in lower extremities. No previous history of DVT or pulmonary embolism. No orthopnea. No paroxysmal nocturnal dyspnea. She is obese with ongoing weight gain. Her EKG showing normal sinus rhythm with LVH criteria and septal infarct, likely old. The BNP level is mildly elevated and a troponin is negative. The patient is seen again today 08/05/2017 in follow-up on the selective care unit. She is currently resting quite comfortably in bed. She is awake and alert in no acute distress. She states she is breathing easier today as compared to yesterday. She still has some dyspnea on minimal exertion however. No chest pain or palpitations. No cough or congestion. She is currently afebrile. Maintaining good O2 saturations in the mid 90s on 2 L/m per nasal cannula. She's been hemodynamically stable. White count 14.3. Hemoglobin 10.7. Creatinine 1.10. Troponin 0.172, 1.50. Cardiology is considering catheterization. She is on heparin drip. Echocardiogram reveals preserved left ventricular systolic function with ejection fraction 55-60%. She is noted to have severe aortic stenosis with a mean gradient 52.59 mmHg. Objective - Vital Signs Vital signs: Vital Signs Temp 97.4 F L 08/05/17 08:26 Pulse 84 08/05/17 10:33 Resp 18 08/05/17 08:26 BP 161/78 08/05/17 08:26 Pulse Ox 94 L 08/05/17 08:26 Intake & Output 08/04/17 08/05/17 08/05/17 18:59 06:59 18:59 Intake Total 0 Balance 0 Weight 99.6 kg Intake: Oral 0 Other: # Voids 3 1 # Bowel Movements 1 - Exam Obese, comfortable no acute distress Head exam was generally normal. There was no scleral icterus or corneal arcus. Mucous membranes were moist. Neck was supple and without jugular venous distension, thyromegaly, or carotid bruits. Carotids were easily palpable bilaterally. There was no adenopathy. Patient has Mallampati class IV with significant crowding of the posterior oropharynx Lung sounds are diminished bilaterally along with some scattered expiratory wheezes heard throughout the lung burk Heart sounds are regular and there is a harsh systolic ejection murmur grade 4/ 6 heard throughout the precordium mainly in the left lateral sternal border and apex radiating to the neck. Abdominal exam revealed normal bowel sounds. The abdomen was soft, non-tender, and without masses, organomegaly, or appreciable enlargement of the abdominal aorta. Examination of the extremities revealed easily palpable radial, femoral and pedal pulses. There was no cyanosis, clubbing or edema. Examination of the skin revealed no evidence of significant rashes, suspicious appearing nevi or other concerning lesions. Neurologically the patient is awake and alert and there is no focal neurological deficit Psychiatrically the patient has a normal mood and affect - Labs CBC & Chem 7: 08/05/17 05:58 08/05/17 05:58 Labs: Abnormal Lab Results - Last 24 Hours (Table) 08/04/17 08/04/17 08/04/17 Range/Units 17:08 20:34 21:22 WBC (3.8-10.6) k/uL Hgb (11.4-16.0) gm/dL Hct (34.0-46.0) % MCV (80.0-100.0) fL Neutrophils # (1.3-7.7) k/uL APTT (22.0-30.0) sec Potassium (3.5-5.1) mmol/L BUN (7-17) mg/dL Creatinine (0.52-1.04) mg/dL Glucose (74-99) mg/dL POC Glucose (mg/dL) 146 H 246 H (75-99) mg/dL Troponin I 0.172 H* (0.000-0.034) ng/mL 08/05/17 08/05/17 08/05/17 Range/Units 05:58 05:58 05:58 WBC 14.3 H (3.8-10.6) k/uL Hgb 10.7 L (11.4-16.0) gm/dL Hct 32.6 L (34.0-46.0) % MCV 79.5 L (80.0-100.0) fL Neutrophils # 12.6 H (1.3-7.7) k/uL APTT (22.0-30.0) sec Potassium 5.2 H (3.5-5.1) mmol/L BUN 37 H (7-17) mg/dL Creatinine 1.10 H (0.52-1.04) mg/dL Glucose 158 H (74-99) mg/dL POC Glucose (mg/dL) (75-99) mg/dL Troponin I 1.500 H* (0.000-0.034) ng/mL 08/05/17 08/05/17 Range/Units 05:58 06:15 WBC (3.8-10.6) k/uL Hgb (11.4-16.0) gm/dL Hct (34.0-46.0) % MCV (80.0-100.0) fL Neutrophils # (1.3-7.7) k/uL APTT 52.1 H (22.0-30.0) sec Potassium (3.5-5.1) mmol/L BUN (7-17) mg/dL Creatinine (0.52-1.04) mg/dL Glucose (74-99) mg/dL POC Glucose (mg/dL) 176 H (75-99) mg/dL Troponin I (0.000-0.034) ng/mL Assessment and Plan Assessment: Assessment 1 shortness of breath on the basis of an acute COPD exacerbation as well as severe aortic stenosis with a mean gradient of 52.59 mmHg 2 elevated troponins. Currently on a heparin drip. Plan is for catheterization. 3 obesity with BMI of 37.9 4 coronary artery disease with previous coronary intervention and stenting 5 diabetes mellitus 6 hyperlipidemia. 7 gout Plan: The patient was seen and evaluated by Dr. Slaughter. She is breathing easier today as compared to yesterday. Continue bronchodilators, decreased IV Solu- Medrol. Echocardiogram and labs were reviewed. The plan is for cardiac catheterization. She is currently on heparin drip. Protonix for GI prophylaxis. We will continue to follow and make further recommendations based on her clinical status. I, the cosigning physician, performed a history & physical examination of the patient. Lungs sounds with faint crackles in the posterior bases more so on the left. Maintaining good O2 saturations in the 90s on 2 L/m per nasal cannula. I discussed the assessment and plan of care with my nurse practitioner, Alina Musa. I attest to the above note as dictated by her.
[2017-08-05] MEDS: ATENOLOL 50 MG TAB PO SCH (11:33)
[2017-08-05] MEDS: LOSARTAN-HCTZ 50-12.5 MG 1 EACH TAB PO SCH (11:33)
[2017-08-05] MEDS: PANTOPRAZOLE 40 MG TABLET PO SCH (11:34)
[2017-08-05] MEDS: AZITHROMYCIN 500 MG TAB PO SCH (11:34)
[2017-08-05] MEDS: ALLOPURINOL 100 MG TAB PO SCH (11:34)
[2017-08-05] MEDS: amLODIPine 10 MG TAB PO SCH (11:34)
[2017-08-05] MEDS: MAGNESIUM OXIDE 400 MG TAB PO SCH (11:35)
[2017-08-05 11:36] LABS: Glucose,Whole Blood 239 mg/dL (75-99)
[2017-08-05] MEDS: ASPIRIN 81 MG PO SCH (11:36)
[2017-08-05] MEDS: FAMOTIDINE 20 MG/2 ML VIAL IV SCH (11:37)
[2017-08-05] MEDS: Vortioxetine Hydrobromide [Trintellix] 10 MG PO SCH (12:11)
[2017-08-05] MEDS ORDERED: ASPIRIN 81 MG PO STA (13:17)
[2017-08-05] MEDS ORDERED: NITROGLYCERIN SL TABS 0.4 MG TAB SUBLINGUAL PRN (13:17)
[2017-08-05] MEDS ORDERED: SODIUM CHLORIDE 0.9% 1,000 ML in EMPTY BAG 1 BAG IV ONE (13:17)
[2017-08-05] MEDS ORDERED: ALPRAZolam 0.5 MG TAB PO PRN (13:17)
[2017-08-05] MEDS ORDERED: ATORVASTATIN 80 MG TAB PO STA (13:17)
[2017-08-05] MEDS ORDERED: PANTOPRAZOLE 40 MG TABLET PO SCH (15:09)
[2017-08-05 16:34] LABS: Glucose,Whole Blood 154 mg/dL (75-99)
[2017-08-05] MEDS: methylPREDNISolone SOD SUCCI 40 MG/ML 1 ML VIAL IV SCH (17:31)
[2017-08-05 20:49] LABS: Glucose,Whole Blood 156 mg/dL (75-99)
[2017-08-05] MEDS: PRAVASTATIN SODIUM 20 MG TAB PO SCH (21:32)
--- NOTE | 2017-08-05 21:54 | P.PN ---
Subjective pt was lying in bed in mild distress, still dyspnic , pt has high troponin , cardilogist evaluated pt and pt is possible going for cath of the heart , pt has leukocytosis today at 14K but she is on steroid too no chest pain , no abd pain , no change in bowel or uring habit or fever , CTPA did not show PE but has possible fluid overload , Echo done showing severe Objective - Vital Signs Vital signs: Vital Signs Temp 97.6 F 08/05/17 16:00 Pulse 80 08/05/17 19:16 Resp 16 08/05/17 16:00 BP 145/56 08/05/17 16:00 Pulse Ox 92 L 08/05/17 16:00 Intake & Output 08/05/17 08/05/17 08/06/17 06:59 18:59 06:59 Intake Total 0 1185 496.252 Balance 0 1185 496.252 Weight 99.6 kg Intake: Intake, IV Titration 105 496.252 Amount Heparin Sodium,Porcine/ 496.252 D5w Pmx 25,000 unit In Dextrose/Water 1 500ml. bag @ 12 UNITS/KG/HR 23. 28 mls/hr IV .[id number] [facility] Rx#:[id number] Sodium Chloride 0.9% 1, 105 000 ml In Empty Bag 1 bag @ 1 ML/KG/HR 99.6 mls/hr IV .Q10H3M [facility] Rx#: [id number] Oral 0 1080 Other: # Voids 1 2 # Bowel Movements 0 - Exam Constitutional: No acute distress, conversant, pleasant Eyes: Anicteric sclerae, moist conjunctiva, no lid-lag PERRLA ENMT: NC/AT Oropharynx clear, no erythema, exudates Neck: Supple, FROM, no masses, or JVD No carotid bruits No thyromegaly Lungs: Clear to auscultation - has scattered wheezing B/L Normal respiratory effort, no accessory muscle use Cardiovascular: Heart regular in rate and rhythm, No murmurs, gallops, or rubs No peripheral edema Abdominal: Soft Nontender, no guarding, rebound or rigidity Abdomen moving with respiration Normoactive bowel sounds No palpable mass No abdominal wall hernia noted Skin: Normal temperature, tone, texture, turgor No induration No subcutaneous nodules No rash, lesions No ulcers Extremities: No digital cyanosis No clubbing Pedal pulses intact and symmetrical Radial pulses intact and symmetrical Normal gait and station No calf tenderness Psychiatric: Alert and oriented to person, place and time Appropriate affect Intact judgement Neuro: Muscles Strength 5/5 in all 4 extremities Sensation to light touch grossly present throughout Cranial nerves II-XII grossly intact No focal sensory deficits - Labs CBC & Chem 7: 18 05:58 18 05:58 Labs: Abnormal Lab Results - Last 24 Hours (Table) 08/04/17 08/05/17 08/05/17 Range/Units 21:22 05:58 05:58 WBC 14.3 H (3.8-10.6) k/uL Hgb 10.7 L (11.4-16.0) gm/dL Hct 32.6 L (34.0-46.0) % MCV 79.5 L (80.0-100.0) fL Neutrophils # 12.6 H (1.3-7.7) k/uL APTT (22.0-30.0) sec Potassium 5.2 H (3.5-5.1) mmol/L BUN 37 H (7-17) mg/dL Creatinine 1.10 H (0.52-1.04) mg/dL Glucose 158 H (74-99) mg/dL POC Glucose (mg/dL) (75-99) mg/dL Troponin I 0.172 H* (0.000-0.034) ng/mL 08/05/17 08/05/17 08/05/17 Range/Units 05:58 05:58 06:15 WBC (3.8-10.6) k/uL Hgb (11.4-16.0) gm/dL Hct (34.0-46.0) % MCV (80.0-100.0) fL Neutrophils # (1.3-7.7) k/uL APTT 52.1 H (22.0-30.0) sec Potassium (3.5-5.1) mmol/L BUN (7-17) mg/dL Creatinine (0.52-1.04) mg/dL Glucose (74-99) mg/dL POC Glucose (mg/dL) 176 H (75-99) mg/dL Troponin I 1.500 H* (0.000-0.034) ng/mL 08/05/17 08/05/17 08/05/17 Range/Units 11:35 16:32 20:46 WBC (3.8-10.6) k/uL Hgb (11.4-16.0) gm/dL Hct (34.0-46.0) % MCV (80.0-100.0) fL Neutrophils # (1.3-7.7) k/uL APTT (22.0-30.0) sec Potassium (3.5-5.1) mmol/L BUN (7-17) mg/dL Creatinine (0.52-1.04) mg/dL Glucose (74-99) mg/dL POC Glucose (mg/dL) 239 H 154 H 156 H (75-99) mg/dL Troponin I (0.000-0.034) ng/mL Assessment and Plan Plan: -COPD acute exacerbation, progressive. Continue with oxygen, breathing treatment, steroids, and antibiotic. pulmonary consult is appreciated -Pulmonary fibrosis On chest x-ray, pulmonary consult is appreciated , CTPA: possible fluid overload rather than fibrosis -Dehydration, resolving -Cardiac murmur, echo:severe , cardilogy following pt and plan now for cardiac cath -high troponin , going for cardiac cath on 08/06 -Hypertension continue with HCTZ/low Zartan -DM hold metformin 500 twice a day, continue with ISS DVT prophylaxis heparin drip GI prophylaxis Pepcid Patient was discussed about her problem list and management plan, although above , and she verbalized understanding and acceptance
[2017-08-06] MEDS ORDERED: SODIUM CHLORIDE 0.9% 1,000 ML in EMPTY BAG 1 BAG IV ONE
[2017-08-06] MEDS: methylPREDNISolone SOD SUCCI 40 MG/ML 1 ML VIAL IV SCH ×4 (00:58→23:10)
[2017-08-06] MEDS ORDERED: ASPIRIN 81 MG PO ONE (06:00)
[2017-08-06 06:14] LABS: Basophils % (A) 0 %; Eosinophils # (A) 0.1 k/uL (0-0.7); Eosinophils % (A) 1 %; HCT 34.2 % (34.0-46.0); HGB 10.9 gm/dL (11.4-16.0); Hypochromasia Slight; Lymphocytes # (A) 1.1 k/uL (1.0-4.8); Lymphocytes % (A) 6 %; MCH 25.9 pg (25.0-35.0); MCHC 31.9 g/dL (31.0-37.0); MCV 81.3 fL (80.0-100.0); Mean Platelet Volume 7.4; Monocytes # (A) 0.3 k/uL (0-1.0); Monocytes % (A) 2 %; Neutrophils # (A) 16.4 k/uL (1.3-7.7); Neutrophils % (A) 92 %; Platelet Count 353 k/uL (150-450); RBC 4.21 m/uL (3.80-5.40); RDW 15.3 % (11.5-15.5); WBC 17.9 k/uL (3.8-10.6)
[2017-08-06 06:16] LABS: Glucose,Whole Blood 159 mg/dL (75-99)
[2017-08-06 06:35] LABS: Calcium 9.7 mg/dL (8.4-10.2); Potassium 4.7 mmol/L (3.5-5.1)
[2017-08-06] MEDS: MAGNESIUM OXIDE 400 MG TAB PO SCH (06:37)
[2017-08-06] MEDS: ALPRAZolam 0.25 MG TAB PO PRN ×2 (06:37→21:17)
[2017-08-06] MEDS: PANTOPRAZOLE 40 MG TABLET PO SCH (06:37)
[2017-08-06] MEDS: amLODIPine 10 MG TAB PO SCH (06:38)
[2017-08-06] MEDS: AZITHROMYCIN 500 MG TAB PO SCH (06:38)
[2017-08-06] MEDS: ALLOPURINOL 100 MG TAB PO SCH (06:38)
[2017-08-06] MEDS: ATENOLOL 50 MG TAB PO SCH (06:38)
[2017-08-06] MEDS: LOSARTAN-HCTZ 50-12.5 MG 1 EACH TAB PO SCH (06:38)
[2017-08-06] MEDS: INSULIN ASPART 100 UNIT/ML 1 ML 10 ML VIAL SQ SCH ×4 (06:40→21:17)
[2017-08-06] MEDS ORDERED: INSULIN ASPART 100 UNIT/ML 1 ML 10 ML VIAL SQ SCH (07:30)
[2017-08-06] MEDS: ALBUTEROL NEBULIZED 2.5 MG/3 ML INHALATION SCH ×4 (08:01→19:29)
[2017-08-06] MEDS: BUDESONIDE 0.5 MG/2 ML NEBU INHALATION SCH ×2 (08:01→19:32)
[2017-08-06] MEDS: Vortioxetine Hydrobromide [Trintellix] 10 MG PO SCH (09:18)
[2017-08-06] MEDS: ASPIRIN 81 MG PO SCH (09:24)
[2017-08-06] MEDS ORDERED: hydrALAZINE HCL 20 MG/ML 1 ML VIAL IVP PRN (10:46)
--- NOTE | 2017-08-06 10:48 | P.PN ---
Subjective pt was lying in bed in mild distress, still dyspnic , pt has high troponin , still on heparin drip, mine exploration engineer evaluated pt and pt is possible going for cath of the heart , pt has leukocytosis today at 14K but she is on steroid too no chest pain , no abd pain , no change in bowel or uring habit or fever , CTPA did not show PE but has possible fluid overload , Echo done showing severe , her cr is up today to 1.3, pt informed about her cr and she agrees to go to cardiac cath on 08/06, she is going to cath today Objective - Vital Signs Vital signs: Vital Signs Temp 96.1 F L 08/06/17 08:00 Pulse 63 08/06/17 08:11 Resp 16 08/06/17 08:01 BP 161/69 08/06/17 08:00 Pulse Ox 95 08/06/17 08:01 Intake & Output 08/05/17 08/06/17 08/06/17 18:59 06:59 18:59 Intake Total 1185 708.876 Balance 1185 708.876 Weight 98.8 kg Intake: Intake, IV Titration 105 708.876 Amount Heparin Sodium,Porcine/ 708.876 D5w Pmx 25,000 unit In Dextrose/Water 1 500ml. bag @ 12 UNITS/KG/HR 23. 28 mls/hr IV .[id number] [facility] Rx#:[id number] Sodium Chloride 0.9% 1, 105 000 ml In Empty Bag 1 bag @ 1 ML/KG/HR 99.6 mls/hr IV .Q10H3M [facility] Rx#: [id number] Oral 1080 Other: # Voids 2 2 # Bowel Movements 0 - Exam Constitutional: No acute distress, conversant, pleasant Eyes: Anicteric sclerae, moist conjunctiva, no lid-lag PERRLA ENMT: NC/AT Oropharynx clear, no erythema, exudates Neck: Supple, FROM, no masses, or JVD No carotid bruits No thyromegaly Lungs: Clear to auscultation - has scattered wheezing B/L Normal respiratory effort, no accessory muscle use Cardiovascular: Heart regular in rate and rhythm, No murmurs, gallops, or rubs No peripheral edema Abdominal: Soft Nontender, no guarding, rebound or rigidity Abdomen moving with respiration Normoactive bowel sounds No palpable mass No abdominal wall hernia noted Skin: Normal temperature, tone, texture, turgor No induration No subcutaneous nodules No rash, lesions No ulcers Extremities: No digital cyanosis No clubbing Pedal pulses intact and symmetrical Radial pulses intact and symmetrical Normal gait and station No calf tenderness Psychiatric: Alert and oriented to person, place and time Appropriate affect Intact judgement Neuro: Muscles Strength 5/5 in all 4 extremities Sensation to light touch grossly present throughout Cranial nerves II-XII grossly intact No focal sensory deficits - Labs CBC & Chem 7: 08/06/17 05:30 08/06/17 05:30 Labs: Abnormal Lab Results - Last 24 Hours (Table) 08/05/17 08/05/17 08/05/17 Range/Units 11:35 16:32 20:46 WBC (3.8-10.6) k/uL Hgb (11.4-16.0) gm/dL Neutrophils # (1.3-7.7) k/uL APTT (22.0-30.0) sec BUN (7-17) mg/dL Creatinine (0.52-1.04) mg/dL Glucose (74-99) mg/dL POC Glucose (mg/dL) 239 H 154 H 156 H (75-99) mg/dL 08/06/17 08/06/17 08/06/17 Range/Units 05:30 05:30 05:45 WBC 17.9 H (3.8-10.6) k/uL Hgb 10.9 L (11.4-16.0) gm/dL Neutrophils # 16.4 H (1.3-7.7) k/uL APTT 44.4 H (22.0-30.0) sec BUN 46 H (7-17) mg/dL Creatinine 1.30 H (0.52-1.04) mg/dL Glucose 143 H (74-99) mg/dL POC Glucose (mg/dL) (75-99) mg/dL 08/06/17 Range/Units 06:12 WBC (3.8-10.6) k/uL Hgb (11.4-16.0) gm/dL Neutrophils # (1.3-7.7) k/uL APTT (22.0-30.0) sec BUN (7-17) mg/dL Creatinine (0.52-1.04) mg/dL Glucose (74-99) mg/dL POC Glucose (mg/dL) 159 H (75-99) mg/dL Assessment and Plan Plan: -COPD acute exacerbation, progressive. Continue with oxygen, breathing treatment, steroids, and antibiotic. pulmonary consult is appreciated -Pulmonary fibrosis On chest x-ray, pulmonary consult is appreciated , CTPA: possible fluid overload rather than fibrosis -Dehydration, resolving -Cardiac murmur, echo:severe , cardilogy following pt and plan now for cardiac cath -high troponin , on heparin drip, going for cardiac cath on 08/06 -Hypertension continue with HCTZ/losartan , dc losartan for now , start hydralazine., Check with mine exploration engineer team for further recommendation. D/W staff -DM hold metformin 500 twice a day, continue with ISS -Trending up creatinine from 1.1-1.3 DC HCTZ/losartan, DVT prophylaxis heparin drip GI prophylaxis Pepcid Patient was discussed about her problem list and management plan, although above , and she verbalized understanding and acceptance
[2017-08-06 11:40] LABS: Glucose,Whole Blood 120 mg/dL (75-99)
--- NOTE | 2017-08-06 12:48 | P.PN ---
Subjective Progress Note Date: 08/06/17 Principal diagnosis: Acute exacerbation chronic obstructive pulmonary disease as well as valvular heart disease. Is a 76-year-old female patient with known history of coronary artery disease and previous coronary intervention and stenting many years back, who has been developing increased shortness of breath and cough and congestion over the past month or so. The patient was seen by the nurse practitioner at the primary care physician's office and the patient was given Zithromax. Nevertheless, the patient is not improved. In fact her exertional dyspnea was getting worse and she was also complaining of cough congestion and wheeze. For that reason she came into the hospital for further evaluation. Her chest x-ray shows no evidence of any pneumonia. Unlikely reports given, no clear indication of any pulmonary fibrosis. 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 She has quit smoking many years back. She does not utilize any form of maintenance respiratory medications at home. She is known to have cardiac murmur which is very typical of an underlying aortic valve disease, probably a stenosis that needs to be further followed up. She hasn't been seeing a director of cath lab on a regular basis. She has trace edema in lower extremities. No previous history of DVT or pulmonary embolism. No orthopnea. No paroxysmal nocturnal dyspnea. She is obese with ongoing weight gain. Her EKG showing normal sinus rhythm with LVH criteria and septal infarct, likely old. The BNP level is mildly elevated and a troponin is negative. The patient is seen again today 08/05/2017 in follow-up on the selective care unit. She is currently resting quite comfortably in bed. She is awake and alert in no acute distress. She states she is breathing easier today as compared to yesterday. She still has some dyspnea on minimal exertion however. No chest pain or palpitations. No cough or congestion. She is currently afebrile. Maintaining good O2 saturations in the mid 90s on 2 L/m per nasal cannula. She's been hemodynamically stable. White count 14.3. Hemoglobin 10.7. Creatinine 1.10. Troponin 0.172, 1.50. Cardiology is considering catheterization. She is on heparin drip. Echocardiogram reveals preserved left ventricular systolic function with ejection fraction 55-60%. She is noted to have severe aortic stenosis with a mean gradient 52.59 mmHg. The patient is seen again today 08/06/2017 in follow-up on the selective care unit. She denies any worsening shortness of breath, cough or congestion. She does get quite dyspneic with minimal exertion. She is maintaining good O2 saturations in the mid 90s on 2 L/m per nasal cannula. The plan is for cardiac catheterization today. Objective - Vital Signs Vital signs: Vital Signs Temp 96.1 F L 08/06/17 08:00 Pulse 70 08/06/17 12:00 Resp 16 08/06/17 08:01 BP 174/69 08/06/17 12:00 Pulse Ox 94 L 08/06/17 12:00 Intake & Output 08/05/17 08/06/17 08/06/17 18:59 06:59 18:59 Intake Total 1185 708.876 Balance 1185 708.876 Weight 98.8 kg Intake: Intake, IV Titration 105 708.876 Amount Heparin Sodium,Porcine/ 708.876 D5w Pmx 25,000 unit In Dextrose/Water 1 500ml. bag @ 12 UNITS/KG/HR 23. 28 mls/hr IV .[id number] [facility] Rx#:[id number] Sodium Chloride 0.9% 1, 105 000 ml In Empty Bag 1 bag @ 1 ML/KG/HR 99.6 mls/hr IV .Q10H3M [facility] Rx#: [id number] Oral 1080 Other: # Voids 2 2 1 # Bowel Movements 0 0 - Exam Obese, comfortable no acute distress Head exam was generally normal. There was no scleral icterus or corneal arcus. Mucous membranes were moist. Neck was supple and without jugular venous distension, thyromegaly, or carotid bruits. Carotids were easily palpable bilaterally. There was no adenopathy. Patient has Mallampati class IV with significant crowding of the posterior oropharynx Lung sounds are diminished bilaterally along with some scattered expiratory wheezes heard throughout the lung burk Heart sounds are regular and there is a harsh systolic ejection murmur grade 4/ 6 heard throughout the precordium mainly in the left lateral sternal border and apex radiating to the neck. Abdominal exam revealed normal bowel sounds. The abdomen was soft, non-tender, and without masses, organomegaly, or appreciable enlargement of the abdominal aorta. Examination of the extremities revealed easily palpable radial, femoral and pedal pulses. There was no cyanosis, clubbing or edema. Examination of the skin revealed no evidence of significant rashes, suspicious appearing nevi or other concerning lesions. Neurologically the patient is awake and alert and there is no focal neurological deficit Psychiatrically the patient has a normal mood and affect - Labs CBC & Chem 7: 08/06/17 05:30 08/06/17 05:30 Labs: Abnormal Lab Results - Last 24 Hours (Table) 08/05/17 08/05/17 08/06/17 Range/Units 16:32 20:46 05:30 WBC 17.9 H (3.8-10.6) k/uL Hgb 10.9 L (11.4-16.0) gm/dL Neutrophils # 16.4 H (1.3-7.7) k/uL APTT (22.0-30.0) sec BUN (7-17) mg/dL Creatinine (0.52-1.04) mg/dL Glucose (74-99) mg/dL POC Glucose (mg/dL) 154 H 156 H (75-99) mg/dL 08/06/17 08/06/17 08/06/17 Range/Units 05:30 05:45 06:12 WBC (3.8-10.6) k/uL Hgb (11.4-16.0) gm/dL Neutrophils # (1.3-7.7) k/uL APTT 44.4 H (22.0-30.0) sec BUN 46 H (7-17) mg/dL Creatinine 1.30 H (0.52-1.04) mg/dL Glucose 143 H (74-99) mg/dL POC Glucose (mg/dL) 159 H (75-99) mg/dL 08/06/17 Range/Units 11:38 WBC (3.8-10.6) k/uL Hgb (11.4-16.0) gm/dL Neutrophils # (1.3-7.7) k/uL APTT (22.0-30.0) sec BUN (7-17) mg/dL Creatinine (0.52-1.04) mg/dL Glucose (74-99) mg/dL POC Glucose (mg/dL) 120 H (75-99) mg/dL Assessment and Plan Assessment: Assessment 1 shortness of breath on the basis of an acute COPD exacerbation as well as severe aortic stenosis with a mean gradient of 52.59 mmHg 2 elevated troponins. Currently on a heparin drip. Plan is for catheterization today. 3 obesity with BMI of 37.9 4 coronary artery disease with previous coronary intervention and stenting 5 diabetes mellitus 6 hyperlipidemia. 7 gout Plan: The patient was seen and evaluated by Dr. Slaughter. She is breathing easier today as compared to yesterday. Continue bronchodilators, decreased IV Solu- Medrol. The plan is for cardiac catheterization. We will continue to follow and make further recommendations based on her clinical status. I, the cosigning physician, performed a history & physical examination of the patient. Lungs sounds with faint crackles in the posterior bases more so on the left. Maintaining good O2 saturations in the 90s on 2 L/m per nasal cannula. I discussed the assessment and plan of care with my nurse practitioner, Alina Musa. I attest to the above note as dictated by her.
--- NOTE | 2017-08-06 15:52 | P.PN ---
Subjective Progress Note Date: 08/06/17 This is a pleasant 76-year-old female with history of hyperlipidemia, hypertension, diabetes, prior stent placement, valvular issues, who used to follow with Dr. Worrell in the office, she has not seen him since 2013. She presents to the hospital on this occasion with what initially started as a congested cough. She had a chest x-ray performed at her primary care doctor, who felt that she may have early pneumonia so she started an antibiotic. In spite of that, patient became more and more short of breath, and she states that she was experiencing intermittent tightness in the upper part of her chest which she attributed to her Atrovent. Because of the shortness of breath and chest tightness she presented to the hospital. Chest x-ray on admission here showed pulmonary fibrotic changes with no heart failure. EKG shows normal sinus rhythm with no acute changes, subsequent EKG performed this morning showed normal sinus rhythm with mild ST-T wave changes in the inferior leads. CT of the chest was performed which did not reveal evidence for pulmonary embolism. Diffuse groundglass opacities were noted. Mediastinal adenopathy, possibly reactive. 2 mm right upper lobe pulmonary nodule noted. Patient was seen in consultation by pulmonary service, who felt that the shortness of breath may be secondary to acute COPD exacerbation and possibly underlying valvular heart disease. Duo neb and Solu-Medrol initiated. Blood pressure 152/ 70 with a heart rate in the 90s, 94% on 2 L of oxygen. White blood cell count on admission, 8.9, 14.3 this morning. Hemoglobin 10.7, platelets 337. Sodium 138, potassium 5.2, BUN 37, creatinine 1.1. Initial troponin 0.014, subsequent troponin 0.17, and a 1.5. BNP level 1300. At the time of my examination this morning, patient is currently free of any chest tightness, breathing has improved overall. 08/06/2017 Patient seen and examined this morning, denies any further chest discomfort. She was originally scheduled to undergo cardiac catheterization today, but because of scheduling issues this was deferred until tomorrow. Echocardiogram with Doppler study revealed an ejection fraction of 55-60%, severe aortic stenosis was present. Objective - Vital Signs Vital signs: Vital Signs Temp 96.1 F L 08/06/17 08:00 Pulse 68 08/06/17 15:05 Resp 16 08/06/17 15:05 BP 174/69 08/06/17 12:00 Pulse Ox 95 08/06/17 15:00 Intake & Output 08/05/17 08/06/17 08/06/17 18:59 06:59 18:59 Intake Total 1185 708.876 Balance 1185 708.876 Weight 98.8 kg Intake: Intake, IV Titration 105 708.876 Amount Heparin Sodium,Porcine/ 708.876 D5w Pmx 25,000 unit In Dextrose/Water 1 500ml. bag @ 12 UNITS/KG/HR 23. 28 mls/hr IV .[id number] [facility] Rx#:[id number] Sodium Chloride 0.9% 1, 105 000 ml In Empty Bag 1 bag @ 1 ML/KG/HR 99.6 mls/hr IV .[id number] Rx#: [id number] Oral 1080 Other: # Voids 2 2 1 # Bowel Movements 0 0 - Exam PHYSICAL EXAMINATION: HEENT: Head is atraumatic, normocephalic. Pupils equal, round. Neck is supple. There is no elevated jugular venous pressure. HEART EXAMINATION: Heart S1 S2 not audible systolic ejection murmur is heard. CHEST EXAMINATION: Lungs are clear to auscultation and precussion. No chest wall tenderness is noted on palpation or with deep breathing. ABDOMEN: Soft, nontender. Bowel sounds are heard. No organomegaly noted. EXTREMITIES: 2+ peripheral pulses with no evidence of peripheral edema and no calf tenderness noted. NEUROLOGIC patient is awake, alert and oriented -3. . - Labs CBC & Chem 7: 08/06/17 05:30 08/06/17 05:30 Labs: Abnormal Lab Results - Last 24 Hours (Table) 08/05/17 08/05/17 08/06/17 Range/Units 16:32 20:46 05:30 WBC 17.9 H (3.8-10.6) k/uL Hgb 10.9 L (11.4-16.0) gm/dL Neutrophils # 16.4 H (1.3-7.7) k/uL APTT (22.0-30.0) sec BUN (7-17) mg/dL Creatinine (0.52-1.04) mg/dL Glucose (74-99) mg/dL POC Glucose (mg/dL) 154 H 156 H (75-99) mg/dL 08/06/17 08/06/17 08/06/17 Range/Units 05:30 05:45 06:12 WBC (3.8-10.6) k/uL Hgb (11.4-16.0) gm/dL Neutrophils # (1.3-7.7) k/uL APTT 44.4 H (22.0-30.0) sec BUN 46 H (7-17) mg/dL Creatinine 1.30 H (0.52-1.04) mg/dL Glucose 143 H (74-99) mg/dL POC Glucose (mg/dL) 159 H (75-99) mg/dL 08/06/17 Range/Units 11:38 WBC (3.8-10.6) k/uL Hgb (11.4-16.0) gm/dL Neutrophils # (1.3-7.7) k/uL APTT (22.0-30.0) sec BUN (7-17) mg/dL Creatinine (0.52-1.04) mg/dL Glucose (74-99) mg/dL POC Glucose (mg/dL) 120 H (75-99) mg/dL Assessment and Plan Plan: Assessment and plan #1 shortness of breath, likely combination of COPD exacerbation and aortic valve disorder #2 chest tightness, troponins 0.014, 0.172, 1.5. Suggesting possible acute coronary syndrome. #3 known history of coronary artery disease with prior RCA stenting #4 diabetes # 5 hypertension #6 hyperlipidemia #7 prior history of smoking Plan We will continue IV heparin. Patient will be scheduled to undergo cardiac catheterization tomorrow, the risks and the benefits were explained in detail. DNP note has been reviewed, I agree with a documented findings and plan of care. Patient was seen and examined.
[2017-08-06 16:42] LABS: Glucose,Whole Blood 197 mg/dL (75-99)
[2017-08-06] MEDS: HEPARIN SODIUM,PORCINE/D5W PMX 25,000 UNIT in DEXTROSE/WATER 1 500ML.BAG IV SCH (20:25)
[2017-08-06 20:58] LABS: Glucose,Whole Blood 211 mg/dL (75-99)
[2017-08-06] MEDS: PRAVASTATIN SODIUM 20 MG TAB PO SCH (21:17)
[2017-08-07 02:27] LABS: Calcium 9.2 mg/dL (8.4-10.2); Potassium 4.3 mmol/L (3.5-5.1)
[2017-08-07 02:53] LABS: Basophils % (A) 0 %; Eosinophils # (A) 0.1 k/uL (0-0.7); Eosinophils % (A) 0 %; HCT 34.4 % (34.0-46.0); HGB 10.7 gm/dL (11.4-16.0); Hypochromasia Slight; Lymphocytes % (A) 6 %; MCH 25.4 pg (25.0-35.0); MCV 81.8 fL (80.0-100.0); Mean Platelet Volume 6.8; Monocytes # (A) 0.5 k/uL (0-1.0); Monocytes % (A) 3 %; Neutrophils # (A) 14.9 k/uL (1.3-7.7); Neutrophils % (A) 90 %; Platelet Count 357 k/uL (150-450); RDW 15.3 % (11.5-15.5); WBC 16.5 k/uL (3.8-10.6)
[2017-08-07 05:53] LABS: Glucose,Whole Blood 165 mg/dL (75-99)
[2017-08-07] MEDS: INSULIN ASPART 100 UNIT/ML 1 ML 10 ML VIAL SQ SCH ×4 (06:44→21:50)
[2017-08-07] MEDS: PANTOPRAZOLE 40 MG TABLET PO SCH (06:44)
[2017-08-07] MEDS: MAGNESIUM OXIDE 400 MG TAB PO SCH (06:45)
[2017-08-07] MEDS: ASPIRIN 81 MG PO SCH (06:45)
[2017-08-07] MEDS: ALPRAZolam 0.25 MG TAB PO PRN (06:45)
[2017-08-07] MEDS: amLODIPine 10 MG TAB PO SCH (06:45)
[2017-08-07] MEDS: AZITHROMYCIN 500 MG TAB PO SCH (06:45)
[2017-08-07] MEDS: ALLOPURINOL 100 MG TAB PO SCH (06:45)
[2017-08-07] MEDS: ATENOLOL 50 MG TAB PO SCH (06:45)
[2017-08-07] MEDS: methylPREDNISolone SOD SUCCI 40 MG/ML 1 ML VIAL IV SCH ×3 (06:46→22:58)
[2017-08-07] MEDS: ALBUTEROL NEBULIZED 2.5 MG/3 ML INHALATION SCH ×4 (07:50→19:38)
[2017-08-07] MEDS: BUDESONIDE 0.5 MG/2 ML NEBU INHALATION SCH ×2 (07:50→19:39)
[2017-08-07] MEDS: Vortioxetine Hydrobromide [Trintellix] 10 MG PO SCH (08:51)
--- NOTE | 2017-08-07 10:03 | P.PN ---
Subjective Progress Note Date: 08/07/17 Principal diagnosis: Acute exacerbation chronic obstructive pulmonary disease as well as valvular heart disease. Is a 76-year-old female patient with known history of coronary artery disease and previous coronary intervention and stenting many years back, who has been developing increased shortness of breath and cough and congestion over the past month or so. The patient was seen by the nurse practitioner at the primary care physician's office and the patient was given Zithromax. Nevertheless, the patient is not improved. In fact her exertional dyspnea was getting worse and she was also complaining of cough congestion and wheeze. For that reason she came into the hospital for further evaluation. Her chest x-ray shows no evidence of any pneumonia. Unlikely reports given, no clear indication of any pulmonary fibrosis. 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 She has quit smoking many years back. She does not utilize any form of maintenance respiratory medications at home. She is known to have cardiac murmur which is very typical of an underlying aortic valve disease, probably a stenosis that needs to be further followed up. She hasn't been seeing a pinion and wheel truer on a regular basis. She has trace edema in lower extremities. No previous history of DVT or pulmonary embolism. No orthopnea. No paroxysmal nocturnal dyspnea. She is obese with ongoing weight gain. Her EKG showing normal sinus rhythm with LVH criteria and septal infarct, likely old. The BNP level is mildly elevated and a troponin is negative. The patient is seen again today 08/05/2017 in follow-up on the selective care unit. She is currently resting quite comfortably in bed. She is awake and alert in no acute distress. She states she is breathing easier today as compared to yesterday. She still has some dyspnea on minimal exertion however. No chest pain or palpitations. No cough or congestion. She is currently afebrile. Maintaining good O2 saturations in the mid 90s on 2 L/m per nasal cannula. She's been hemodynamically stable. White count 14.3. Hemoglobin 10.7. Creatinine 1.10. Troponin 0.172, 1.50. Cardiology is considering catheterization. She is on heparin drip. Echocardiogram reveals preserved left ventricular systolic function with ejection fraction 55-60%. She is noted to have severe aortic stenosis with a mean gradient 52.59 mmHg. The patient is seen again today 08/06/2017 in follow-up on the selective care unit. She denies any worsening shortness of breath, cough or congestion. She does get quite dyspneic with minimal exertion. She is maintaining good O2 saturations in the mid 90s on 2 L/m per nasal cannula. The plan is for cardiac catheterization today. The patient is seen again today 08/07/2017 in follow-up on the selective care unit. She is awake and alert in no acute distress. She is resting quite comfortably in bed. Her cardiac catheterization was rescheduled from yesterday to today. She denies any worsening shortness of breath, cough or congestion. No chest pain, palpitations lightheadedness or dizziness. She is maintaining O2 saturations in the 90s on room air. She's been afebrile. Hemodynamically stable. White count 16.5. Hemoglobin 10.7. Creatinine 1.20. Objective - Vital Signs Vital signs: Vital Signs Temp 96.8 F L 08/07/17 07:52 Pulse 74 08/07/17 08:03 Resp 20 08/07/17 07:52 BP 169/70 08/07/17 07:52 Pulse Ox 93 L 08/07/17 07:52 Intake & Output 08/06/17 08/07/17 08/07/17 18:59 06:59 18:59 Intake Total 767.376 227.627 720 Balance 767.376 227.627 720 Weight 100.4 kg Intake: Intake, IV Titration 287.376 227.627 Amount Heparin Sodium,Porcine/ 287.376 227.627 D5w Pmx 25,000 unit In Dextrose/Water 1 500ml. bag @ 12 UNITS/KG/HR 23. 28 mls/hr IV .[id number] [facility] Rx#:[id number] Oral 480 720 Other: # Voids 2 2 # Bowel Movements 0 - Exam Obese, comfortable no acute distress Head exam was generally normal. There was no scleral icterus or corneal arcus. Mucous membranes were moist. Neck was supple and without jugular venous distension, thyromegaly, or carotid bruits. Carotids were easily palpable bilaterally. There was no adenopathy. Patient has Mallampati class IV with significant crowding of the posterior oropharynx Lung sounds are diminished bilaterally along with some scattered expiratory wheezes heard throughout the lung burk Heart sounds are regular and there is a harsh systolic ejection murmur grade 4/ 6 heard throughout the precordium mainly in the left lateral sternal border and apex radiating to the neck. Abdominal exam revealed normal bowel sounds. The abdomen was soft, non-tender, and without masses, organomegaly, or appreciable enlargement of the abdominal aorta. Examination of the extremities revealed easily palpable radial, femoral and pedal pulses. There was no cyanosis, clubbing or edema. Examination of the skin revealed no evidence of significant rashes, suspicious appearing nevi or other concerning lesions. Neurologically the patient is awake and alert and there is no focal neurological deficit Psychiatrically the patient has a normal mood and affect - Labs CBC & Chem 7: 08/07/17 02:05 08/07/17 02:05 Labs: Abnormal Lab Results - Last 24 Hours (Table) 08/06/17 08/06/17 08/06/17 Range/Units 11:38 16:40 19:03 WBC (3.8-10.6) k/uL Hgb (11.4-16.0) gm/dL Neutrophils # (1.3-7.7) k/uL APTT 45.8 H (22.0-30.0) sec Carbon Dioxide (22-30) mmol/L BUN (7-17) mg/dL Creatinine (0.52-1.04) mg/dL Glucose (74-99) mg/dL POC Glucose (mg/dL) 120 H 197 H (75-99) mg/dL 08/06/17 08/07/17 08/07/17 Range/Units 20:53 02:05 02:05 WBC 16.5 H (3.8-10.6) k/uL Hgb 10.7 L (11.4-16.0) gm/dL Neutrophils # 14.9 H (1.3-7.7) k/uL APTT (22.0-30.0) sec Carbon Dioxide 18 L (22-30) mmol/L BUN 48 H (7-17) mg/dL Creatinine 1.20 H (0.52-1.04) mg/dL Glucose 158 H (74-99) mg/dL POC Glucose (mg/dL) 211 H (75-99) mg/dL 08/07/17 08/07/17 Range/Units 02:05 05:51 WBC (3.8-10.6) k/uL Hgb (11.4-16.0) gm/dL Neutrophils # (1.3-7.7) k/uL APTT 79.8 H (22.0-30.0) sec Carbon Dioxide (22-30) mmol/L BUN (7-17) mg/dL Creatinine (0.52-1.04) mg/dL Glucose (74-99) mg/dL POC Glucose (mg/dL) 165 H (75-99) mg/dL Assessment and Plan Assessment: Assessment 1 shortness of breath on the basis of an acute COPD exacerbation as well as severe aortic stenosis with a mean gradient of 52.59 mmHg 2 elevated troponins. Currently on a heparin drip. Plan is for catheterization today. 3 obesity with BMI of 37.9 4 coronary artery disease with previous coronary intervention and stenting 5 diabetes mellitus 6 hyperlipidemia. 7 gout Plan: The patient was seen and evaluated by Dr. Slaughter. She is breathing easier today as compared to yesterday. Continue bronchodilators, IV Solu-Medrol. The plan is for cardiac catheterization today. We will continue to follow and make further recommendations based on her clinical status. I, the cosigning physician, performed a history & physical examination of the patient. Lungs sounds with faint crackles in the posterior bases more so on the left. Maintaining good O2 saturations in the 90s on 2 L/m per nasal cannula. I discussed the assessment and plan of care with my nurse practitioner, Alina Musa. I attest to the above note as dictated by her.
[2017-08-07] MEDS ORDERED: IV FLUID CONTINUATION 1,000 ML IV ONE (11:20)
[2017-08-07] MEDS ORDERED: LIDOCAINE 2% INJ 20 MG/ML (20 ML MDV) ONE (11:25)
[2017-08-07] MEDS ORDERED: VERAPAMIL 2.5 MG/ML 2 ML AMP ONE (11:36)
[2017-08-07] MEDS ORDERED: fentaNYL (PF) 50 MCG/ML 2 ML AMP ONE (11:53)
[2017-08-07] MEDS ORDERED: MIDAZOLAM 2 MG/2 ML VIAL ONE (11:53)
[2017-08-07] MEDS: LIDOCAINE 2% INJ 20 MG/ML SQ ONE ×2 (11:53→12:09)
[2017-08-07] MEDS ORDERED: fentaNYL (PF) 50 MCG/ML 2 ML AMP IV ONE (11:54)
[2017-08-07] MEDS ORDERED: MIDAZOLAM 2 MG/2 ML VIAL IV ONE (11:56)
[2017-08-07] MEDS ORDERED: VERAPAMIL SYRINGE (5 MG/10 ML) INTRAARTER ONE (12:01)
[2017-08-07] MEDS ORDERED: RX INFO: IV CONTRAST WAS GIVEN 1 EACH MISC MISCELLANE PRN (12:47)
[2017-08-07] MEDS ORDERED: IOPAMIDOL-370 125ML BTL INJ ONE (12:50)
[2017-08-07] MEDS: SODIUM CHLORIDE 0.9% 1,000 ML IV SCH (13:26)
[2017-08-07] MEDS ORDERED: FUROSEMIDE 10 MG/ML 4 ML VIAL IV SCH (14:30)
[2017-08-07] MEDS: POTASSIUM CHLORIDE ER 20 MEQ TAB.ER PO SCH (15:02)
[2017-08-07 16:43] LABS: Glucose,Whole Blood 163 mg/dL (75-99)
[2017-08-07] MEDS: FUROSEMIDE 10 MG/ML 4 ML VIAL IV SCH (16:49)
[2017-08-07 21:26] LABS: Glucose,Whole Blood 188 mg/dL (75-99)
[2017-08-07] MEDS: PRAVASTATIN SODIUM 20 MG TAB PO SCH (21:51)
--- NOTE | 2017-08-07 22:22 | P.PN ---
Subjective pt was lying in bed in mild distress, still dyspnic ,pt went to cardiac cath today, results are pending, pt has leukocytosis today at 14K but she is on steroid too no chest pain , no abd pain , no change in bowel or urine habit or fever , CTPA did not show PE but has possible fluid overload , Echo done showing severe , her cr today 1.3 to 1.2 Objective - Vital Signs Vital signs: Vital Signs Temp 97 F L 08/07/17 20:00 Pulse 78 08/07/17 20:00 Resp 16 08/07/17 20:00 BP 146/62 08/07/17 20:00 Pulse Ox 94 L 08/07/17 20:00 Intake & Output 08/07/17 08/07/17 08/08/17 06:59 18:59 06:59 Intake Total 239.581 4967.383 Output Total 800 Balance 227.627 912.383 Weight 100.4 kg Intake: IV 200 Intake, IV Titration 227.627 792.383 Amount Heparin Sodium,Porcine/ 227.627 192.383 D5w Pmx 25,000 unit In Dextrose/Water 1 500ml. bag @ 12 UNITS/KG/HR 23. 28 mls/hr IV .[id number] [facility] Rx#:[id number] Sodium Chloride 0.9% 1, 600 000 ml @ 75 mls/hr IV . [id number] [facility] Rx#:[id number] Oral 720 Output: Urine 800 Other: Voiding Method Toilet # Voids 2 1 # Bowel Movements 1 - Exam Constitutional: No acute distress, conversant, pleasant Eyes: Anicteric sclerae, moist conjunctiva, no lid-lag PERRLA ENMT: NC/AT Oropharynx clear, no erythema, exudates Neck: Supple, FROM, no masses, or JVD No carotid bruits No thyromegaly Lungs: Clear to auscultation - has scattered wheezing B/L Normal respiratory effort, no accessory muscle use Cardiovascular: Heart regular in rate and rhythm, No murmurs, gallops, or rubs No peripheral edema Abdominal: Soft Nontender, no guarding, rebound or rigidity Abdomen moving with respiration Normoactive bowel sounds No palpable mass No abdominal wall hernia noted Skin: Normal temperature, tone, texture, turgor No induration No subcutaneous nodules No rash, lesions No ulcers Extremities: No digital cyanosis No clubbing Pedal pulses intact and symmetrical Radial pulses intact and symmetrical Normal gait and station No calf tenderness Psychiatric: Alert and oriented to person, place and time Appropriate affect Intact judgement Neuro: Muscles Strength 5/5 in all 4 extremities Sensation to light touch grossly present throughout Cranial nerves II-XII grossly intact No focal sensory deficits - Labs CBC & Chem 7: 08/07/17 02:05 08/07/17 02:05 Labs: Abnormal Lab Results - Last 24 Hours (Table) 08/07/17 08/07/17 08/07/17 Range/Units 02:05 02:05 02:05 WBC 16.5 H (3.8-10.6) k/uL Hgb 10.7 L (11.4-16.0) gm/dL Neutrophils # 14.9 H (1.3-7.7) k/uL APTT 79.8 H (22.0-30.0) sec Carbon Dioxide 18 L (22-30) mmol/L BUN 48 H (7-17) mg/dL Creatinine 1.20 H (0.52-1.04) mg/dL Glucose 158 H (74-99) mg/dL POC Glucose (mg/dL) (75-99) mg/dL 08/07/17 08/07/17 08/07/17 Range/Units 05:51 16:37 21:24 WBC (3.8-10.6) k/uL Hgb (11.4-16.0) gm/dL Neutrophils # (1.3-7.7) k/uL APTT (22.0-30.0) sec Carbon Dioxide (22-30) mmol/L BUN (7-17) mg/dL Creatinine (0.52-1.04) mg/dL Glucose (74-99) mg/dL POC Glucose (mg/dL) 165 H 163 H 188 H (75-99) mg/dL Assessment and Plan Plan: -COPD acute exacerbation, progressive. Continue with oxygen, breathing treatment, steroids, and antibiotic. pulmonary consult is appreciated -Pulmonary fibrosis On chest x-ray, pulmonary consult is appreciated , CTPA: possible fluid overload rather than fibrosis -Cardiac murmur, echo:severe , cardilogy following pt and plan now for cardiac cath -high troponin , on heparin drip, going for cardiac cath on 08/06 -Hypertension continue with HCTZ/losartan , dc losartan for now , start iv hydralazine., Check with pigment furnace tender team for further recommendation. D/W staff -DM hold metformin 500 twice a day, continue with ISS -Trending up creatinine from 1.1-1.3 DC HCTZ/losartan, cr improved to 1.2 DVT prophylaxis was heparin drip GI prophylaxis Pepcid Patient was discussed about her problem list and management plan, although above , and she verbalized understanding and acceptance
[2017-08-08] MEDS: SODIUM CHLORIDE 0.9% 1,000 ML IV SCH ×2 (03:21→11:41)
[2017-08-08 06:20] LABS: Glucose,Whole Blood 167 mg/dL (75-99)
[2017-08-08] MEDS: INSULIN ASPART 100 UNIT/ML 1 ML 10 ML VIAL SQ SCH ×4 (06:21→22:04)
[2017-08-08] MEDS: PANTOPRAZOLE 40 MG TABLET PO SCH (06:22)
[2017-08-08 06:33] LABS: Basophils % (A) 0 %; Eosinophils % (A) 0 %; HCT 31.8 % (34.0-46.0); Lymphocytes # (A) 0.8 k/uL (1.0-4.8); Lymphocytes % (A) 8 %; MCH 25.5 pg (25.0-35.0); MCHC 31.4 g/dL (31.0-37.0); MCV 81.3 fL (80.0-100.0); Mean Platelet Volume 6.6; Monocytes # (A) 0.3 k/uL (0-1.0); Monocytes % (A) 3 %; Neutrophils # (A) 8.9 k/uL (1.3-7.7); Neutrophils % (A) 88 %; Platelet Count 315 k/uL (150-450); RBC 3.91 m/uL (3.80-5.40); RDW 15.3 % (11.5-15.5); WBC 10.1 k/uL (3.8-10.6)
[2017-08-08 06:53] LABS: Calcium 9.2 mg/dL (8.4-10.2); Potassium 4.6 mmol/L (3.5-5.1)
[2017-08-08] MEDS: ALBUTEROL NEBULIZED 2.5 MG/3 ML INHALATION SCH ×4 (07:14→20:36)
[2017-08-08] MEDS: BUDESONIDE 0.5 MG/2 ML NEBU INHALATION SCH ×2 (07:14→20:36)
[2017-08-08] MEDS: FUROSEMIDE 10 MG/ML 4 ML VIAL IV SCH ×2 (07:43→20:43)
[2017-08-08] MEDS: AZITHROMYCIN 500 MG TAB PO SCH (07:43)
[2017-08-08] MEDS: ATENOLOL 50 MG TAB PO SCH (07:43)
[2017-08-08] MEDS: methylPREDNISolone SOD SUCCI 40 MG/ML 1 ML VIAL IV SCH (07:43)
[2017-08-08] MEDS: MAGNESIUM OXIDE 400 MG TAB PO SCH (07:43)
[2017-08-08] MEDS: amLODIPine 10 MG TAB PO SCH (07:43)
[2017-08-08] MEDS: Vortioxetine Hydrobromide [Trintellix] 10 MG PO SCH (07:44)
[2017-08-08] MEDS: ASPIRIN 81 MG PO SCH (07:44)
[2017-08-08] MEDS: POTASSIUM CHLORIDE ER 20 MEQ TAB.ER PO SCH (07:44)
[2017-08-08] MEDS: ALLOPURINOL 100 MG TAB PO SCH (07:44)
--- NOTE | 2017-08-08 11:19 | P.PN ---
Subjective Progress Note Date: 08/08/17 Principal diagnosis: Acute exacerbation of COPD and valvular heart disease Is a 76-year-old female patient with known history of coronary artery disease and previous coronary intervention and stenting many years back, who has been developing increased shortness of breath and cough and congestion over the past month or so. The patient was seen by the nurse practitioner at the primary care physician's office and the patient was given Zithromax. Nevertheless, the patient is not improved. In fact her exertional dyspnea was getting worse and she was also complaining of cough congestion and wheeze. For that reason she came into the hospital for further evaluation. Her chest x-ray shows no evidence of any pneumonia. Unlikely reports given, no clear indication of any pulmonary fibrosis. 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 She has quit smoking many years back. She does not utilize any form of maintenance respiratory medications at home. She is known to have cardiac murmur which is very typical of an underlying aortic valve disease, probably a stenosis that needs to be further followed up. She hasn't been seeing a sterilizer machine operator on a regular basis. She has trace edema in lower extremities. No previous history of DVT or pulmonary embolism. No orthopnea. No paroxysmal nocturnal dyspnea. She is obese with ongoing weight gain. Her EKG showing normal sinus rhythm with LVH criteria and septal infarct, likely old. The BNP level is mildly elevated and a troponin is negative. The patient is seen again today 08/05/2017 in follow-up on the selective care unit. She is currently resting quite comfortably in bed. She is awake and alert in no acute distress. She states she is breathing easier today as compared to yesterday. She still has some dyspnea on minimal exertion however. No chest pain or palpitations. No cough or congestion. She is currently afebrile. Maintaining good O2 saturations in the mid 90s on 2 L/m per nasal cannula. She's been hemodynamically stable. White count 14.3. Hemoglobin 10.7. Creatinine 1.10. Troponin 0.172, 1.50. Cardiology is considering catheterization. She is on heparin drip. Echocardiogram reveals preserved left ventricular systolic function with ejection fraction 55-60%. She is noted to have severe aortic stenosis with a mean gradient 52.59 mmHg. The patient is seen again today 08/06/2017 in follow-up on the selective care unit. She denies any worsening shortness of breath, cough or congestion. She does get quite dyspneic with minimal exertion. She is maintaining good O2 saturations in the mid 90s on 2 L/m per nasal cannula. The plan is for cardiac catheterization today. The patient is seen again today 08/07/2017 in follow-up on the selective care unit. She is awake and alert in no acute distress. She is resting quite comfortably in bed. Her cardiac catheterization was rescheduled from yesterday to today. She denies any worsening shortness of breath, cough or congestion. No chest pain, palpitations lightheadedness or dizziness. She is maintaining O2 saturations in the 90s on room air. She's been afebrile. Hemodynamically stable. White count 16.5. Hemoglobin 10.7. Creatinine 1.20. Reevaluated today on 08/08/2017, patient is doing quite well, relatively asymptomatic, she underwent cardiac catheterization yesterday, and she was told that she will not need any surgical intervention. No operative report noted on the chart, and no notes from cardiology on the chart from today. Pulmonary- lepe the patient is doing better, hardly any cough no wheezing no shortness of breath. Hence if cleared by cardiology patient could be considered for discharge planning from our perspective. Objective - Vital Signs Vital signs: Vital Signs Temp 96.9 F L 08/08/17 07:50 Pulse 68 08/08/17 11:02 Resp 18 08/08/17 07:51 BP 159/61 08/08/17 07:50 Pulse Ox 95 08/08/17 07:50 Intake & Output 08/07/17 08/08/17 08/08/17 18:59 06:59 18:59 Intake Total 1712.383 21 240 Output Total 800 Balance 912.383 21 240 Weight 100.1 kg Intake: IV 200 21 0.9 10 IV Solumedrol 11 Intake, IV Titration 792.383 Amount Heparin Sodium,Porcine/ 192.383 D5w Pmx 25,000 unit In Dextrose/Water 1 500ml. bag @ 12 UNITS/KG/HR 23. 28 mls/hr IV .[id number] [facility] Rx#:[id number] Sodium Chloride 0.9% 1, 600 000 ml @ 75 mls/hr IV . [id number] [facility] Rx#:[id number] Oral 720 240 Output: Urine 800 Other: Voiding Method Toilet Toilet # Voids 1 # Bowel Movements 1 - Exam Obese, comfortable no acute distress Head exam was generally normal. There was no scleral icterus or corneal arcus. Mucous membranes were moist. Neck was supple and without jugular venous distension, thyromegaly, or carotid bruits. Carotids were easily palpable bilaterally. There was no adenopathy. Patient has Mallampati class IV with significant crowding of the posterior oropharynx Lung sounds are diminished bilaterally along with some scattered expiratory wheezes heard throughout the lung burk Heart sounds are regular and there is a harsh systolic ejection murmur grade 4/ 6 heard throughout the precordium mainly in the left lateral sternal border and apex radiating to the neck. Abdominal exam revealed normal bowel sounds. The abdomen was soft, non-tender, and without masses, organomegaly, or appreciable enlargement of the abdominal aorta. Examination of the extremities revealed easily palpable radial, femoral and pedal pulses. There was no cyanosis, clubbing or edema. Examination of the skin revealed no evidence of significant rashes, suspicious appearing nevi or other concerning lesions. Neurologically the patient is awake and alert and there is no focal neurological deficit Psychiatrically the patient has a normal mood and affect - Labs CBC & Chem 7: 08/08/17 06:06 08/08/17 06:06 Labs: Abnormal Lab Results - Last 24 Hours (Table) 08/07/17 08/07/17 08/08/17 Range/Units 16:37 21:24 06:06 Hgb (11.4-16.0) gm/dL Hct (34.0-46.0) % Neutrophils # (1.3-7.7) k/uL Lymphocytes # (1.0-4.8) k/uL BUN 39 H (7-17) mg/dL Creatinine 1.10 H (0.52-1.04) mg/dL Glucose 143 H (74-99) mg/dL POC Glucose (mg/dL) 163 H 188 H (75-99) mg/dL 08/08/17 08/08/17 Range/Units 06:06 06:19 Hgb 10.0 L (11.4-16.0) gm/dL Hct 31.8 L (34.0-46.0) % Neutrophils # 8.9 H (1.3-7.7) k/uL Lymphocytes # 0.8 L (1.0-4.8) k/uL BUN (7-17) mg/dL Creatinine (0.52-1.04) mg/dL Glucose (74-99) mg/dL POC Glucose (mg/dL) 167 H (75-99) mg/dL Assessment and Plan Assessment: 1 shortness of breath on the basis of an acute COPD exacerbation as well as severe aortic stenosis with a mean gradient of 52.59 mmHg 2 elevated troponins. Currently on a heparin drip. Plan is for catheterization today. 3 obesity with BMI of 37.9 4 coronary artery disease with previous coronary intervention and stenting 5 diabetes mellitus 6 hyperlipidemia. 7 gout Plan: Continue present supportive care measures, consider discharge planning, and follow-up with us on outpatient basis however the patient needs to BE cleared by cardiology before discharge planning. We will go ahead and discontinue Solu-Medrol, and start on prednisone which needs to be tapered over 2 weeks. Time with Patient: Less than 30
[2017-08-08 11:36] LABS: Glucose,Whole Blood 135 mg/dL (75-99)
[2017-08-08] MEDS: predniSONE 20 MG TAB PO SCH (11:38)
--- NOTE | 2017-08-08 11:50 | P.PN ---
Subjective pt was lying in bed in mild distress, still dyspnic ,pt S/p cardiac cath and result is pending, her leukocytosis resolved, no abd pain , no change in bowel or urine habit or fever , no chest pain, CTPA did not show PE but has possible fluid overload , Echo done showing severe , her cr today 1.3 to 1.1 Pulmonary team evaluated the patient and they cleared her for discharge with 2 weeks of tapering steroids, she is currently on prednisone 40 mg daily. Objective - Vital Signs Vital signs: Vital Signs Temp 96.8 F L 08/08/17 11:15 Pulse 68 08/08/17 11:19 Resp 20 08/08/17 11:17 BP 152/76 08/08/17 11:15 Pulse Ox 95 08/08/17 11:15 Intake & Output 08/07/17 08/08/17 08/08/17 18:59 06:59 18:59 Intake Total 1712.383 21 240 Output Total 800 Balance 912.383 21 240 Weight 100.1 kg Intake: IV 200 21 0.9 10 IV Solumedrol 11 Intake, IV Titration 792.383 Amount Heparin Sodium,Porcine/ 192.383 D5w Pmx 25,000 unit In Dextrose/Water 1 500ml. bag @ 12 UNITS/KG/HR 23. 28 mls/hr IV .[id number] [facility] Rx#:[id number] Sodium Chloride 0.9% 1, 600 000 ml @ 75 mls/hr IV . [id number] [facility] Rx#:[id number] Oral 720 240 Output: Urine 800 Other: Voiding Method Toilet Toilet # Voids 1 # Bowel Movements 1 - Exam Constitutional: No acute distress, conversant, pleasant Eyes: Anicteric sclerae, moist conjunctiva, no lid-lag PERRLA ENMT: NC/AT Oropharynx clear, no erythema, exudates Neck: Supple, FROM, no masses, or JVD No carotid bruits No thyromegaly Lungs: Clear to auscultation - no more wheezing B/L Normal respiratory effort, no accessory muscle use Cardiovascular: Heart regular in rate and rhythm, No murmurs, gallops, or rubs No peripheral edema Abdominal: Soft Nontender, no guarding, rebound or rigidity Abdomen moving with respiration Normoactive bowel sounds No palpable mass No abdominal wall hernia noted Skin: Normal temperature, tone, texture, turgor No induration No subcutaneous nodules No rash, lesions No ulcers Extremities: No digital cyanosis No clubbing Pedal pulses intact and symmetrical Radial pulses intact and symmetrical Normal gait and station No calf tenderness Psychiatric: Alert and oriented to person, place and time Appropriate affect Intact judgement Neuro: Muscles Strength 5/5 in all 4 extremities Sensation to light touch grossly present throughout Cranial nerves II-XII grossly intact No focal sensory deficits - Labs CBC & Chem 7: 08/08/17 06:06 08/08/17 06:06 Labs: Abnormal Lab Results - Last 24 Hours (Table) 08/07/17 08/07/17 08/08/17 Range/Units 16:37 21:24 06:06 Hgb (11.4-16.0) gm/dL Hct (34.0-46.0) % Neutrophils # (1.3-7.7) k/uL Lymphocytes # (1.0-4.8) k/uL BUN 39 H (7-17) mg/dL Creatinine 1.10 H (0.52-1.04) mg/dL Glucose 143 H (74-99) mg/dL POC Glucose (mg/dL) 163 H 188 H (75-99) mg/dL 08/08/17 08/08/17 08/08/17 Range/Units 06:06 06:19 11:35 Hgb 10.0 L (11.4-16.0) gm/dL Hct 31.8 L (34.0-46.0) % Neutrophils # 8.9 H (1.3-7.7) k/uL Lymphocytes # 0.8 L (1.0-4.8) k/uL BUN (7-17) mg/dL Creatinine (0.52-1.04) mg/dL Glucose (74-99) mg/dL POC Glucose (mg/dL) 167 H 135 H (75-99) mg/dL Assessment and Plan Plan: -COPD acute exacerbation, progressive. Continue with oxygen, breathing treatment, steroids, and antibiotic. pulmonary consult is appreciated , patient can be discharged on tapered steroids -Pulmonary fibrosis On chest x-ray, pulmonary consult is appreciated , CTPA: possible fluid overload rather than fibrosis -Cardiac murmur, echo:severe , cardilogy following pt and plan now for cardiac cath -high troponin , on heparin drip, going for cardiac cath on 08/06 -Hypertension: Restart HCTZ/losartan -DM hold metformin 500 twice a day, continue with ISS -Trending up creatinine from 1.1-1.3 , cr improved to 1.1 DVT prophylaxis was heparin drip GI prophylaxis Pepcid Patient was discussed about her problem list and management plan, although above , and she verbalized understanding and acceptance
--- NOTE | 2017-08-08 15:09 | P.PN ---
Subjective Progress Note Date: 08/08/17 This is a pleasant 76-year-old female with history of hyperlipidemia, hypertension, diabetes, prior stent placement, valvular issues, who used to follow with Dr. Worrell in the office, she has not seen him since 2013. She presents to the hospital on this occasion with what initially started as a congested cough. She had a chest x-ray performed at her primary care doctor, who felt that she may have early pneumonia so she started an antibiotic. In spite of that, patient became more and more short of breath, and she states that she was experiencing intermittent tightness in the upper part of her chest which she attributed to her Atrovent. Because of the shortness of breath and chest tightness she presented to the hospital. Chest x-ray on admission here showed pulmonary fibrotic changes with no heart failure. EKG shows normal sinus rhythm with no acute changes, subsequent EKG performed this morning showed normal sinus rhythm with mild ST-T wave changes in the inferior leads. CT of the chest was performed which did not reveal evidence for pulmonary embolism. Diffuse groundglass opacities were noted. Mediastinal adenopathy, possibly reactive. 2 mm right upper lobe pulmonary nodule noted. Patient was seen in consultation by pulmonary service, who felt that the shortness of breath may be secondary to acute COPD exacerbation and possibly underlying valvular heart disease. Duo neb and Solu-Medrol initiated. Blood pressure 152/ 70 with a heart rate in the 90s, 94% on 2 L of oxygen. White blood cell count on admission, 8.9, 14.3 this morning. Hemoglobin 10.7, platelets 337. Sodium 138, potassium 5.2, BUN 37, creatinine 1.1. Initial troponin 0.014, subsequent troponin 0.17, and a 1.5. BNP level 1300. At the time of my examination this morning, patient is currently free of any chest tightness, breathing has improved overall. 08/06/2017 Patient seen and examined this morning, denies any further chest discomfort. She was originally scheduled to undergo cardiac catheterization today, but because of scheduling issues this was deferred until tomorrow. Echocardiogram with Doppler study revealed an ejection fraction of 55-60%, severe aortic stenosis was present. 08/08/2017 Patient seen and examined this morning, status post cardiac catheterization yesterday that did not reveal any significant obstructive coronary artery disease. Echocardiogram with Doppler study did reveal severe aortic stenosis, and patient was advised by Dr. Fu that she may need to have a ALLEY. Patient is going to think about whether or not she wants to pursue the ALLEY here or go out of town. Overall she is doing well today. She is sitting up in the chair, still complains of feeling mildly short of breath at times, although better when sitting up. She continues to be on IV Lasix, creatinine today is 1.1. We will continue with the IV Lasix for 24 hours, check lytes BUN creatinine and daily weights in the morning. Objective - Vital Signs Vital signs: Vital Signs Temp 96.8 F L 08/08/17 11:15 Pulse 68 08/08/17 11:19 Resp 20 08/08/17 11:17 BP 152/76 08/08/17 11:15 Pulse Ox 95 08/08/17 11:15 Intake & Output 08/07/17 08/08/17 08/08/17 18:59 06:59 18:59 Intake Total 1712.383 21 430 Output Total 800 Balance 912.383 21 430 Weight 100.1 kg Intake: IV 200 21 0.9 10 IV Solumedrol 11 Intake, IV Titration 792.383 Amount Heparin Sodium,Porcine/ 192.383 D5w Pmx 25,000 unit In Dextrose/Water 1 500ml. bag @ 12 UNITS/KG/HR 23. 28 mls/hr IV .[id number] [facility] Rx#:[id number] Sodium Chloride 0.9% 1, 600 000 ml @ 75 mls/hr IV . [id number] [facility] Rx#:[id number] Oral 720 430 Output: Urine 800 Other: Voiding Method Toilet Toilet # Voids 1 # Bowel Movements 1 - Exam PHYSICAL EXAMINATION: HEENT: Head is atraumatic, normocephalic. Pupils equal, round. Neck is supple. There is no elevated jugular venous pressure. HEART EXAMINATION: Heart S1 S2 not audible systolic ejection murmur is heard. CHEST EXAMINATION: Lungs are clear to auscultation and precussion. No chest wall tenderness is noted on palpation or with deep breathing. ABDOMEN: Soft, nontender. Bowel sounds are heard. No organomegaly noted. EXTREMITIES: 2+ peripheral pulses with no evidence of peripheral edema and no calf tenderness noted. Right radial site and right groin soft, no evidence of any hematoma. NEUROLOGIC patient is awake, alert and oriented -3. . - Labs CBC & Chem 7: 08/08/17 06:06 08/08/17 06:06 Labs: Abnormal Lab Results - Last 24 Hours (Table) 08/07/17 08/07/17 08/08/17 Range/Units 16:37 21:24 06:06 Hgb (11.4-16.0) gm/dL Hct (34.0-46.0) % Neutrophils # (1.3-7.7) k/uL Lymphocytes # (1.0-4.8) k/uL BUN 39 H (7-17) mg/dL Creatinine 1.10 H (0.52-1.04) mg/dL Glucose 143 H (74-99) mg/dL POC Glucose (mg/dL) 163 H 188 H (75-99) mg/dL 08/08/17 08/08/17 08/08/17 Range/Units 06:06 06:19 11:35 Hgb 10.0 L (11.4-16.0) gm/dL Hct 31.8 L (34.0-46.0) % Neutrophils # 8.9 H (1.3-7.7) k/uL Lymphocytes # 0.8 L (1.0-4.8) k/uL BUN (7-17) mg/dL Creatinine (0.52-1.04) mg/dL Glucose (74-99) mg/dL POC Glucose (mg/dL) 167 H 135 H (75-99) mg/dL Assessment and Plan Plan: Assessment and plan #1 shortness of breath, likely combination of COPD exacerbation and aortic valve disorder #2 chest tightness, troponins 0.014, 0.172, 1.5. Suggesting possible acute coronary syndrome. #3 known history of coronary artery disease with prior RCA stenting #4 diabetes # 5 hypertension #6 hyperlipidemia #7 prior history of smoking Plan She underwent a cardiac catheterization yesterday which did not reveal any significant obstructive coronary artery disease. Patient does have severe aortic stenosis. We will continue IV Lasix for 24 hours, check lytes BUN and creatinine in the morning. Patient was advised that as an outpatient she may need to undergo transesophageal echocardiographic study for further evaluation of the valve. DNP note has been reviewed, I agree with a documented findings and plan of care. Patient was seen and examined.
[2017-08-08 16:50] LABS: Glucose,Whole Blood 204 mg/dL (75-99)
[2017-08-08] MEDS: PRAVASTATIN SODIUM 20 MG TAB PO SCH (20:43)
[2017-08-08 21:54] LABS: Glucose,Whole Blood 151 mg/dL (75-99)
[2017-08-08] MEDS: ALPRAZolam 0.25 MG TAB PO PRN (22:44)
[2017-08-09] MEDS: SODIUM CHLORIDE 0.9% 1,000 ML IV SCH ×2 (04:53→10:39)
[2017-08-09 06:13] LABS: Basophils % (A) 0 %; Eosinophils # (A) 0.1 k/uL (0-0.7); Eosinophils % (A) 0 %; HGB 10.3 gm/dL (11.4-16.0); Lymphocytes % (A) 15 %; MCH 25.8 pg (25.0-35.0); MCV 80.5 fL (80.0-100.0); Mean Platelet Volume 6.6; Monocytes # (A) 0.7 k/uL (0-1.0); Monocytes % (A) 5 %; Neutrophils # (A) 10.6 k/uL (1.3-7.7); Neutrophils % (A) 79 %; Platelet Count 320 k/uL (150-450); RBC 3.98 m/uL (3.80-5.40); RDW 15.5 % (11.5-15.5); WBC 13.5 k/uL (3.8-10.6)
[2017-08-09 06:14] LABS: Glucose,Whole Blood 130 mg/dL (75-99)
[2017-08-09] MEDS: INSULIN ASPART 100 UNIT/ML 1 ML 10 ML VIAL SQ SCH ×2 (06:15→11:31)
[2017-08-09] MEDS: PANTOPRAZOLE 40 MG TABLET PO SCH (06:20)
[2017-08-09 06:22] LABS: Calcium 9.3 mg/dL (8.4-10.2); Potassium 4.2 mmol/L (3.5-5.1)
[2017-08-09] MEDS: ALBUTEROL NEBULIZED 2.5 MG/3 ML INHALATION SCH ×3 (07:05→15:23)
[2017-08-09] MEDS: BUDESONIDE 0.5 MG/2 ML NEBU INHALATION SCH (07:05)
[2017-08-09 08:28] VITALS: RESP 20
[2017-08-09] MEDS: FUROSEMIDE 10 MG/ML 4 ML VIAL IV SCH (08:32)
[2017-08-09] MEDS: predniSONE 20 MG TAB PO SCH (08:33)
[2017-08-09] MEDS: ASPIRIN 81 MG PO SCH (08:33)
[2017-08-09] MEDS: ALLOPURINOL 100 MG TAB PO SCH (08:33)
[2017-08-09] MEDS: amLODIPine 10 MG TAB PO SCH (08:33)
[2017-08-09] MEDS: MAGNESIUM OXIDE 400 MG TAB PO SCH (08:33)
[2017-08-09] MEDS: ATENOLOL 50 MG TAB PO SCH (08:33)
[2017-08-09] MEDS: POTASSIUM CHLORIDE ER 20 MEQ TAB.ER PO SCH (08:33)
[2017-08-09] MEDS: AZITHROMYCIN 500 MG TAB PO SCH (08:33)
[2017-08-09] MEDS: Vortioxetine Hydrobromide [Trintellix] 10 MG PO SCH (08:34)
[2017-08-09] MEDS ORDERED: LOSARTAN-HCTZ 50-12.5 MG 1 EACH TAB PO SCH (09:00)
[2017-08-09 11:30] LABS: Glucose,Whole Blood 99 mg/dL (75-99)
--- NOTE | 2017-08-09 11:44 | P.PN ---
Subjective Progress Note Date: 08/09/17 Principal diagnosis: Acute exacerbation chronic obstructive pulmonary disease as well as valvular heart disease. A 76-year-old female patient with known history of coronary artery disease and previous coronary intervention and stenting many years back, who has been developing increased shortness of breath and cough and congestion over the past month or so. The patient was seen by the nurse practitioner at the primary care physician's office and the patient was given Zithromax. Nevertheless, the patient is not improved. In fact her exertional dyspnea was getting worse and she was also complaining of cough congestion and wheeze. For that reason she came into the hospital for further evaluation. Her chest x-ray shows no evidence of any pneumonia. Unlikely reports given, no clear indication of any pulmonary fibrosis. 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 She has quit smoking many years back. She does not utilize any form of maintenance respiratory medications at home. She is known to have cardiac murmur which is very typical of an underlying aortic valve disease, probably a stenosis that needs to be further followed up. She hasn't been seeing a trailer mechanic on a regular basis. She has trace edema in lower extremities. No previous history of DVT or pulmonary embolism. No orthopnea. No paroxysmal nocturnal dyspnea. She is obese with ongoing weight gain. Her EKG showing normal sinus rhythm with LVH criteria and septal infarct, likely old. The BNP level is mildly elevated and a troponin is negative. The patient is seen again today 08/05/2017 in follow-up on the selective care unit. She is currently resting quite comfortably in bed. She is awake and alert in no acute distress. She states she is breathing easier today as compared to yesterday. She still has some dyspnea on minimal exertion however. No chest pain or palpitations. No cough or congestion. She is currently afebrile. Maintaining good O2 saturations in the mid 90s on 2 L/m per nasal cannula. She's been hemodynamically stable. White count 14.3. Hemoglobin 10.7. Creatinine 1.10. Troponin 0.172, 1.50. Cardiology is considering catheterization. She is on heparin drip. Echocardiogram reveals preserved left ventricular systolic function with ejection fraction 55-60%. She is noted to have severe aortic stenosis with a mean gradient 52.59 mmHg. The patient is seen again today 08/06/2017 in follow-up on the selective care unit. She denies any worsening shortness of breath, cough or congestion. She does get quite dyspneic with minimal exertion. She is maintaining good O2 saturations in the mid 90s on 2 L/m per nasal cannula. The plan is for cardiac catheterization today. The patient is seen again today 08/07/2017 in follow-up on the selective care unit. She is awake and alert in no acute distress. She is resting quite comfortably in bed. Her cardiac catheterization was rescheduled from yesterday to today. She denies any worsening shortness of breath, cough or congestion. No chest pain, palpitations lightheadedness or dizziness. She is maintaining O2 saturations in the 90s on room air. She's been afebrile. Hemodynamically stable. White count 16.5. Hemoglobin 10.7. Creatinine 1.20. Reevaluated today on 08/08/2017, patient is doing quite well, relatively asymptomatic, she underwent cardiac catheterization yesterday, and she was told that she will not need any surgical intervention. No operative report noted on the chart, and no notes from cardiology on the chart from today. Pulmonary- lepe the patient is doing better, hardly any cough no wheezing no shortness of breath. Hence if cleared by cardiology patient could be considered for discharge planning from our perspective. The patient is seen again today 08/09/2017 in follow-up on the selective care unit. She is currently sitting up in a chair at the bedside. She is awake and alert in no acute distress. No shortness of breath, cough or congestion. No chest pain or palpitations. She is maintaining good O2 saturations in the 90s on room air. She is afebrile. Hemodynamically stable. White count 13.5. Hemoglobin 10.3. Creatinine 1.10. Cardiac catheterization did not reveal any obstructive coronary artery disease. There is severe aortic stenosis noted. The patient is planning to be seen out of town in this regard. Objective - Vital Signs Vital signs: Vital Signs Temp 96.8 F L 08/09/17 11:33 Pulse 65 08/09/17 11:33 Resp 20 08/09/17 11:33 BP 144/66 08/09/17 11:33 Pulse Ox 95 08/09/17 11:33 Intake & Output 05/08/09/17 08/09/17 18:59 06:59 18:59 Intake Total 610 20 360 Output Total 575 Balance 610 20 -215 Weight 99.4 kg Intake: IV 20 0.9 20 Oral 610 360 Output: Urine 575 Other: Voiding Method Toilet Toilet Toilet # Voids 2 1 2 # Bowel Movements 1 - Exam Obese, comfortable no acute distress Head exam was generally normal. There was no scleral icterus or corneal arcus. Mucous membranes were moist. Neck was supple and without jugular venous distension, thyromegaly, or carotid bruits. Carotids were easily palpable bilaterally. There was no adenopathy. Patient has Mallampati class IV with significant crowding of the posterior oropharynx Lung sounds are diminished bilaterally Heart sounds are regular and there is a harsh systolic ejection murmur grade 4/ 6 heard throughout the precordium mainly in the left lateral sternal border and apex radiating to the neck. Abdominal exam revealed normal bowel sounds. The abdomen was soft, non-tender, and without masses, organomegaly, or appreciable enlargement of the abdominal aorta. Examination of the extremities revealed easily palpable radial, femoral and pedal pulses. There was no cyanosis, clubbing or edema. Examination of the skin revealed no evidence of significant rashes, suspicious appearing nevi or other concerning lesions. Neurologically the patient is awake and alert and there is no focal neurological deficit Psychiatrically the patient has a normal mood and affect - Labs CBC & Chem 7: 08/09/17 05:45 08/09/17 05:45 Labs: Abnormal Lab Results - Last 24 Hours (Table) 08/08/17 08/08/17 08/09/17 Range/Units 16:48 21:53 05:45 WBC 13.5 H (3.8-10.6) k/uL Hgb 10.3 L (11.4-16.0) gm/dL Hct 32.0 L (34.0-46.0) % Neutrophils # 10.6 H (1.3-7.7) k/uL BUN (7-17) mg/dL Creatinine (0.52-1.04) mg/dL Glucose (74-99) mg/dL POC Glucose (mg/dL) 204 H 151 H (75-99) mg/dL 08/09/17 08/09/17 Range/Units 05:45 06:12 WBC (3.8-10.6) k/uL Hgb (11.4-16.0) gm/dL Hct (34.0-46.0) % Neutrophils # (1.3-7.7) k/uL BUN 37 H (7-17) mg/dL Creatinine 1.10 H (0.52-1.04) mg/dL Glucose 120 H (74-99) mg/dL POC Glucose (mg/dL) 130 H (75-99) mg/dL Assessment and Plan Assessment: Assessment 1 shortness of breath on the basis of an acute COPD exacerbation as well as severe aortic stenosis with a mean gradient of 52.59 mmHg 2 elevated troponins. No significant obstructive coronary artery disease per cardiac catheterization. 3 obesity with BMI of 37.9 4 coronary artery disease with previous coronary intervention and stenting 5 diabetes mellitus 6 hyperlipidemia. 7 gout Plan: The patient was seen and evaluated by Dr. Slaughter. She is breathing easier today as compared to yesterday. She is cleared for discharge from the pulmonary standpoint. Continue albuterol. Complete a prednisone taper. She is offered an appointment in our office for further pulmonary workup however she does state she has physicians out of town. She also plans to see a trailer mechanic out of town regarding the severe aortic stenosis. We'll see her on as-needed basis. I, the cosigning physician, performed a history & physical examination of the patient. Lungs sounds clear. Diminished. Maintaining good O2 saturations in the 90s on room air. I discussed the assessment and plan of care with my nurse practitioner, Alina Musa. I attest to the above note as dictated by her.
[2017-08-09] MEDS ORDERED: ALBUTEROL NEBULIZED 2.5 MG/3 ML INHALATION PRN (11:45)
[2017-08-09 15:40] VITALS: BP 155/66; PULSE 79; TEMP 97.1
[2017-08-09] MEDS ORDERED: FUROSEMIDE 40 MG TAB PO SCH (16:00)
--- NOTE | 2017-08-09 16:01 | P.PN ---
Subjective Progress Note Date: 08/09/17 This patient is admitted to the hospital with shortness of breath. She is known to have aortic stenosis and also ischemic heart disease. She had a cardiac catheterization yesterday and was found to have patent stents in the right coronary artery without any other significant obstructive disease. Appear gained of 35 was obtained across the aortic valve. Patient's end- diastolic pressures were high. His foot felt that patient had diastolic CHF. She was treated with IV Lasix with improvement of her symptoms. She is switched to by mouth Lasix. Her groin site is soft. Radial puncture site is healing well. Patient is being discharged home. Follow-up as an outpatient in one week Objective - Vital Signs Vital signs: Vital Signs Temp 97.1 F L 08/09/17 15:35 Pulse 76 08/09/17 15:38 Resp 20 08/09/17 15:35 BP 155/66 08/09/17 15:35 Pulse Ox 95 08/09/17 15:35 Intake & Output 08/08/17 08/09/17 08/09/17 18:59 06:59 18:59 Intake Total 610 20 478 Output Total 575 Balance 610 20 -97 Weight 99.4 kg Intake: IV 20 0.9 20 Oral 610 478 Output: Urine 575 Other: Voiding Method Toilet Toilet Toilet # Voids 2 1 2 # Bowel Movements 1 - Exam GENERAL EXAM: Patient is alert and oriented and doesn't appear to be in any acute distress HEENT: Normocephalic. Normal reaction of pupils, equal size, normal range of extraocular motion. No erythema or exudates in the throat. NECK: No masses, no nuchal rigidity. CHEST: No chest wall deformity. LUNGS: Equal air entry with no crackles or wheeze. HEART: S1 and S2 normal . Systolic murmur in the aortic area ABDOMEN: No hepatosplenomegaly, normal bowel sounds, no guarding or rigidity. SKIN: No rashes CENTRAL NERVOUS SYSTEM: No focal deficits. EXTREMITIES: No cyanosis, clubbing or edema. - Labs CBC & Chem 7: 08/09/17 05:45 08/09/17 05:45 Labs: Abnormal Lab Results - Last 24 Hours (Table) 08/08/17 08/08/17 08/09/17 Range/Units 16:48 21:53 05:45 WBC 13.5 H (3.8-10.6) k/uL Hgb 10.3 L (11.4-16.0) gm/dL Hct 32.0 L (34.0-46.0) % Neutrophils # 10.6 H (1.3-7.7) k/uL BUN (7-17) mg/dL Creatinine (0.52-1.04) mg/dL Glucose (74-99) mg/dL POC Glucose (mg/dL) 204 H 151 H (75-99) mg/dL 08/09/17 08/09/17 Range/Units 05:45 06:12 WBC (3.8-10.6) k/uL Hgb (11.4-16.0) gm/dL Hct (34.0-46.0) % Neutrophils # (1.3-7.7) k/uL BUN 37 H (7-17) mg/dL Creatinine 1.10 H (0.52-1.04) mg/dL Glucose 120 H (74-99) mg/dL POC Glucose (mg/dL) 130 H (75-99) mg/dL Assessment and Plan (1) Diastolic CHF Current Visit: Yes Status: Acute Code(s): I50.30 - UNSPECIFIED DIASTOLIC ( CONGESTIVE) HEART FAILURE SNOMED Code(s): 776253428 (2) Aortic stenosis Current Visit: Yes Status: Acute Code(s): I35.0 - NONRHEUMATIC AORTIC (VALVE ) STENOSIS SNOMED Code(s): 58855858 (3) Pulmonary fibrosis Current Visit: Yes Status: Acute Code(s): J84.10 - PULMONARY FIBROSIS, UNSPECIFIED SNOMED Code(s): 51502875 (4) CAD (coronary artery disease) Current Visit: Yes Status: Acute Code(s): I25.10 - ATHSCL HEART DISEASE OF [place] CORONARY ARTERY W/O ANG PCTRS SNOMED Code(s): 06163317 Plan: Patient is critically stable. Being discharged on by mouth diuretics along with rest of the medication. Follow-up in the office in one week
--- NOTE | 2017-08-10 18:58 | P.DS ---
Providers Date of admission: 08/05/17 13:39 Attending physician: Suki Burris Consults: 08/04/17 00:25 Consult Physician Routine Consulting Provider: Joseph David Consult Reason/Comments: new onset pulmonary fibrosis Do you want consulting provider notified?: Yes 08/04/17 21:22 Consult Physician Routine Consulting Provider: Billy Duarte Consult Reason/Comments: fluid overload Do you want consulting provider notified?: Yes Primary care physician: [facility] Course: Date of service: 08/09/2017 This is a pleasant 76 years old female with past medical history of CAD S/P stent, DM, hypertension, gout, cardiac murmur, hyperlipidemia, obesity who presents with progressive dyspnea associated with cough and yellowish phlegm over one week, patient denies chest pain. Repeat chest x-ray and emergency room showed new fibrosis. CTPA: possible fluid overload rather than fibrosis pt had elevated Troponin 0.172, 1.50. . She was treated with heparin drip. , Cardiology team performed cardiac catheterization showed patent stents in the right coronary artery without any other significant obstructive disease. Echocardiogram reveals preserved left ventricular systolic function with ejection fraction 55-60%. Patient's end-diastolic pressures were high. Hit is felt that patient had diastolic CHF. She is noted to have severe aortic stenosis with a mean gradient 52.59 mmHg. Pt was advised that as an outpatient she may need to undergo transesophageal echocardiographic study for further evaluation of the valve. As per cardiology note "patient was advised by Dr. Fu that she may need to have a ALLEY for her . Patient is going to think about whether or not she wants to pursue the ALLEY here or go out of town." pt was evaluated by junior database administrator and diagnosed with COPD acute exacerbation, progressive. pt is treated with oxygen, breathing treatment, steroids, and antibiotic. pt showed interval improvement and upon discharge pt states "my breathing now is better than normal" patient is discharged on tapered steroids pt is Hypertensive on HCTZ/losartan and Diabetic on metformin 500 twice a day, cr upon discharge is 1.1 pt problem and management plan was discussed with pt and she verbalized understanding and acceptance pt was cleared by cardiology and junior database administrator teams for discharge pt appointment with cardiology and pulmonology officed are made, pt infomred and she agrees with them pt is found stable and can be discharged home but she needs f/u as outpt exam general: comfortable , AAOx3, not in distress , breathing qiuetly CVS: s1s2, RRR, No murmur Lung: B/L CTA, no wheezing abd: soft, NT, ND, positive BS ext: no edema time spent more than 35 min Patient Condition at Discharge: Good Plan - Discharge Summary New Discharge Prescriptions: New Albuterol Inhaler [Ventolin Hfa Inhaler] 1 - 2 puff INHALATION RT-Q6H PRN #1 inhaler PRN Reason: Dyspnea ALPRAZolam [Xanax] 0.25 mg PO HS PRN #4 tab PRN Reason: Mild Anxiety Atenolol [Tenormin] 50 mg PO DAILY #30 tab Budesonide [Pulmicort] 0.5 mg INHALATION RT-BID #1 nebu Furosemide [Lasix] 40 mg PO BID@0900,1600 #60 tab Potassium Chloride ER [K-Dur 20] 20 meq PO DAILY 30 Days #30 tab.er.prt predniSONE 0 mg PO DIRECTED #15 tab Continue Magnesium Carbonate 250 mg PO DAILY Aspirin EC [Ecotrin] 325 mg PO DAILY Pravastatin Sodium [Pravachol] 20 mg PO HS Pantoprazole Sodium [Protonix] 40 mg PO DAILY metFORMIN HCL [Glucophage] 500 mg PO DAILY amLODIPine [Norvasc] 10 mg PO DAILY Febuxostat [Uloric] 40 mg PO DAILY Irbesartan/Hydrochlorothiazide [Avalide 150-12.5 mg Tablet] 1 tab PO DAILY Atenolol 25 mg PO BID Vortioxetine Hydrobromide [Trintellix] 10 - 20 mg PO DIRECTED Discontinued Azithromycin [Zithromax Z-pack] See Taper PO DAILY Multivitamins, Thera [Multivitamin (formulary)] 1 tab PO DAILY Discharge Medication List Aspirin EC [Ecotrin] 325 mg PO DAILY 08/03/17 [History] Atenolol 25 mg PO BID 08/03/17 [History] Febuxostat [Uloric] 40 mg PO DAILY 08/03/17 [History] Irbesartan/Hydrochlorothiazide [Avalide 150-12.5 mg Tablet] 1 tab PO DAILY 08/03 [History] Magnesium Carbonate 250 mg PO DAILY 08/03/17 [History] Pantoprazole Sodium [Protonix] 40 mg PO DAILY 08/03/17 [History] Pravastatin Sodium [Pravachol] 20 mg PO HS 08/03/17 [History] Vortioxetine Hydrobromide [Trintellix] 10 - 20 mg PO DIRECTED 08/03/17 [ History] amLODIPine [Norvasc] 10 mg PO DAILY 08/03/17 [History] metFORMIN HCL [Glucophage] 500 mg PO DAILY 08/03/17 [History] ALPRAZolam [Xanax] 0.25 mg PO HS PRN #4 tab 08/09/17 [Rx] Albuterol Inhaler [Ventolin Hfa Inhaler] 1 - 2 puff INHALATION RT-Q6H PRN #1 inhaler 08/09/17 [Rx] Atenolol [Tenormin] 50 mg PO DAILY #30 tab 08/09/17 [Rx] Budesonide [Pulmicort] 0.5 mg INHALATION RT-BID #1 nebu 08/09/17 [Rx] Furosemide [Lasix] 40 mg PO BID@0900,1600 #60 tab 08/09/17 [Rx] Potassium Chloride ER [K-Dur 20] 20 meq PO DAILY 30 Days #30 tab.er.prt [Rx] predniSONE 0 mg PO DIRECTED #15 tab 08/09/17 [Rx] Follow up Appointment(s)/Referral(s): Juan Slaughter MD [STAFF PHYSICIAN] - 1 Week Mellissa Espinal DO [Primary Care Provider] - 08/13/17 11:00 am (Saturday) Bruno Fu MD [STAFF PHYSICIAN] - 08/23/17 2:15 pm Patient Instructions/Handouts: *Surgery [facility] - After Heart Catheterization - Cap Maker Instructions, Left Heart Catheterization (DC), Meal Planning with Diabetes Exchanges (DC) Activity/Diet/Wound Care/Special Instructions: diabetic diet of 1800 k Du per day please check your sugar 3 times before meals and at bed time and bring the reading to your doctor in one week Discharge Disposition: HOME SELF-CARE
== END 2017-08-09 16:32 | disposition home or self-care (01) | DRG 190 ==
LOC: EC 22:46 → 4MS4W 08-04 00:28 → 6SEL 08-04 22:43 → OBSVTOIN 08-05 13:39
PROVIDERS: ADMIT Hospitalist; ATTEND Hospitalist
DX: J44.1 Chronic obstructive pulmonary disease with (acute) exacerbation (principal); J18.9 Pneumonia, unspecified organism; I50.30 Unspecified diastolic (congestive) heart failure; E86.0 Dehydration; J84.10 Pulmonary fibrosis, unspecified; I11.0 Hypertensive heart disease with heart failure; E11.9 Type 2 diabetes mellitus without complications; F32.9 Major depressive disorder, single episode, unspecified; R01.1 Cardiac murmur, unspecified; M10.9 Gout, unspecified; F41.9 Anxiety disorder, unspecified; I25.10 Atherosclerotic heart disease of native coronary artery without angina pectoris; I35.0 Nonrheumatic aortic (valve) stenosis; J44.0 Chronic obstructive pulmonary disease with (acute) lower respiratory infection; E66.9 Obesity, unspecified; R77.8 Other specified abnormalities of plasma proteins; E78.5 Hyperlipidemia, unspecified; Z88.8 Allergy status to other drugs, medicaments and biological substances; Z88.6 Allergy status to analgesic agent; Z88.1 Allergy status to other antibiotic agents; Z91.040 Latex allergy status; Z79.899 Other long term (current) drug therapy; Z79.84 Long term (current) use of oral hypoglycemic drugs; Z79.82 Long term (current) use of aspirin; Z87.891 Personal history of nicotine dependence; Z68.37 Body mass index [BMI] 37.0-37.9, adult; Z95.5 Presence of coronary angioplasty implant and graft
CPT/HCPCS: 36415; 71046; 71275; 80048; 80053; 82550; 82553; 83735; 83880; 84484; 85025; 85610; 85730; 87077; 87086; 87186; 93005; 93306; 93458; 94640; 94760; 99285

== ENCOUNTER → 2017-09-18 | Day surgery (SDC) | payer MEDICARE ==
[2017-09-12 11:17] VITALS: BMI 37.3
[~2017-09-18] MED LIST: MIDAZOLAM 2 MG/2 ML VIAL ONE; SODIUM CHLORIDE 0.9% 500 ML IV ONE; fentaNYL (PF) 50 MCG/ML 2 ML AMP ONE
[2017-09-18 07:59] LABS: Glucose,Whole Blood 120 mg/dL (75-99)
[2017-09-18] MEDS: BENZOCAINE SPRAY 1 CAN TOPICAL ONE ×2 (08:32→08:38)
[2017-09-18] MEDS: MIDAZOLAM 2 MG/2 ML VIAL IVP ONE ×2 (08:42→08:45)
[2017-09-18] MEDS: fentaNYL (PF) 50 MCG/ML 2 ML AMP IVP ONE ×2 (08:42→08:45)
--- NOTE | 2017-09-18 11:09 | ECHOT ---
TRANSESOPHAGEAL ECHOCARDIOGRAM INDICATIONS: Assessment of aortic stenosis and regurgitation and evidence of CHF. The patient has history of hypertension, diabetes, and also moderate mitral regurgitation. Informed consent was obtained from the patient verbally. PROCEDURE: The patient was brought to the lab in a fasting state. She was prepped and draped in the usual fashion. The throat was sprayed with Cetacaine. The patient was given IV Versed a total of 2 mg in bolus of 1 mg and also 37.5 mcg of fentanyl for sedation. A lubricated Omni probe was introduced into the oropharynx and was advanced into the esophagus. Multiple views were obtained, both from the esophagus and also stomach. The patient tolerated the procedure well. No immediate complications. FINDINGS: The aortic valve is sclerotic, but tricuspid with . By planimetry, we got a valve area of 0.721 square centimeters. There is also moderate to severe aortic regurgitation. Aortic root is measured about 2.2 cm. There is moderate mitral regurgitation, which is central. Mitral valve structure otherwise seemed to be normal. The PISA is about 2.5. Left atrium is dilated. The left atrial appendage is free of any clot. There is no reversal of flow in the pulmonary veins. Left ventricle function appeared to be preserved. The interatrial septum appeared to be intact without any spontaneous shunt. There is no shunt detected with injection of the contrast saline bubbles. A peak gradient of about 49 with a mean of 28 was obtained across the aortic valve. FINAL IMPRESSION: 1. Severe aortic stenosis. 2. [id number] aortic regurgitation. 3. Moderate mitral regurgitation. 4. Preserved left ventricular function. 5. No clot in the left atrial appendage. 6. No reversal of flow in the pulmonary veins. 7. Left atrium is enlarged. PLAN: The patient will continue current medical therapy and will be discharged home later today. A cardiac surgery consult is requested for possible aortic valve replacement plus or minus mitral valve repair. MMODL / IJN: [id number] /
--- NOTE | 2017-09-18 11:47 | P.GSCN ---
History of Present Illness Consult date: 09/18/17 Reason for Consult: Aortic stenosis, surgical recommendations. Requesting physician: Bruno Fu History of present illness: This is a 76-year-old female patient who follows on an outpatient basis with a nurse practitioner and Dr. Rodriguez's office. She has been followed by cardiology associates for some time regarding aortic stenosis. Recently she has noticed she is had increasing shortness of breath, fatigue, and inability to perform her normal daily activities. She was recently hospitalized with increasing shortness of breath and cough and was worked up for heart failure. She had heart catheterization done at that time which demonstrated no significant obstructive disease. During that admission she had a transthoracic echocardiogram completed which demonstrated a normal ejection fraction of 55-60% , mild aortic regurgitation, severe aortic stenosis with peak/mean gradients across the aortic valve of 77.6/52.59 mmHg, and moderate mitral regurgitation. She was thought to have diastolic heart failure, was treated with diuretics, and continued to feel better. She was discharged to follow up with Dr. Fu in the office. She was recommended to have a transesophageal echocardiogram which was completed this morning which demonstrated a tricuspid aortic valve, severe aortic stenosis with peak/mean gradients of 49/28 mmHg, moderate to severe aortic regurgitation, moderate mitral regurgitation, and preserved left ventricular function. Dr. Hanson from cardiothoracic surgery was consulted regarding surgical aortic valve replacement. Review of Systems Review of systems was completed and was negative except as noted. - Constitutional Reports fatigue - Cardiovascular Reports decreased exercise tolerance, Reports dyspnea on exertion - Respiratory Reports cough, Reports dyspnea Past Medical History Past Medical History: Coronary Artery Disease (CAD), Heart Failure, Diabetes Mellitus, Hyperlipidemia, Hypertension Additional Past Medical History / Comment(s): heart murmur; Hx gout; see Dr Fu's H&P , gout, diastolic heart failure History of Any Multi-Drug Resistant Organisms: None Reported Past Surgical History: Appendectomy, Heart Catheterization, Heart Catheterization With Stent Additional Past Surgical History / Comment(s): Ovary removal, 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 Bilateral carotid endarterectomy. Past Anesthesia/Blood Transfusion Reactions: No Reported Reaction Date of Last Stent Placement:: unknown Past Psychological History: No Psychological Hx Reported Smoking Status: Former smoker Past Alcohol Use History: None Reported Past Drug Use History: None Reported - Past Family History Mother Family Medical History: No Reported History Medications and Allergies Home Medications Medication Instructions Recorded Confirmed Type Aspirin EC [Ecotrin] 325 mg PO DAILY 08/03/17 09/12/17 History Atenolol 25 mg PO BID 08/03/17 09/12/17 History Febuxostat [Uloric] 40 mg PO DAILY 08/03/17 09/12/17 History Magnesium Carbonate 250 mg PO DAILY 08/03/17 09/12/17 History Pantoprazole Sodium [Protonix] 40 mg PO DAILY 08/03/17 09/12/17 History Pravastatin Sodium [Pravachol] 20 mg PO HS 08/03/17 09/12/17 History amLODIPine [Norvasc] 10 mg PO DAILY 08/03/17 09/12/17 History metFORMIN HCL [Glucophage] 500 mg PO DAILY 08/03/17 09/12/17 History Albuterol Inhaler [Ventolin Hfa 1 - 2 puff INHALATION RT-Q6H PRN 08/09/17 Rx Inhaler] #1 inhaler Furosemide [Lasix] 40 mg PO BID@0900,1600 #60 tab 08/09/17 09/12/17 Rx Potassium Chloride ER [K-Dur 20] 20 meq PO DAILY 30 Days #30 08/09/17 09/12/17 Rx tab.er.prt Budesonide [Pulmicort] 0.5 mg INHALATION RT-BID PRN 09/12/17 09/12/17 History Allergies Allergy/AdvReac Type Severity Reaction Status Date / Time atorvastatin [From Lipitor] Allergy Unknown Verified 08/04/17 11:58 codeine Allergy Rash/Hives Verified 09/12/17 11:09 duloxetine [From Cymbalta] Allergy Unknown Verified 09/12/17 11:09 ezetimibe [From Zetia] Allergy Unknown Verified 08/04/17 11:58 fenofibrate [From Tricor] Allergy Unknown Verified 08/04/17 11:58 latex Allergy Rash/Hives Verified 09/12/17 11:09 niacin Allergy Unknown Verified 08/04/17 11:58 tetracycline Allergy Unknown Verified 08/04/17 11:58 Surgical - Exam - General well developed, well nourished, no distress, no pain, obese - Eyes PERRL, normal ocular movement - ENT no hearing loss, poor correction - Neck no masses, trachea midline - Respiratory Lungs sounds clear bilaterally. Respirations even, nonlabored. Currently 2 L nasal cannula with oxygen saturation 96%. No chest wall deformities. - Cardiovascular S1, S2 present. Systolic murmur present with radiation to her neck. Regular rate and rhythm, sinus rhythm on telemetry. Palpable peripheral pulses bilaterally. No edema present. No calf pain or tenderness noted. - Abdomen Abdomen: soft, non tender, bowel sounds - Genitourinary Deferred - Rectum Deferred - Integumentary Well-healed bilateral endarterectomy scars present. no rash, no growths - Neurologic normal coordination, normal sensation - Psychiatric oriented to time, oriented to person, oriented to place, speech is normal, memory intact Results - Labs Abnormal Lab Results - Last 24 Hours (Table) 09/18/17 Range/Units 07:57 POC Glucose (mg/dL) 120 H (75-99) mg/dL Assessment and Plan (1) Hypertension Current Visit: Yes Status: Chronic Code(s): I10 - ESSENTIAL (PRIMARY) HYPERTENSION SNOMED Code(s): 14288042 (2) Hyperlipidemia Current Visit: Yes Status: Chronic Code(s): E78.5 - HYPERLIPIDEMIA, UNSPECIFIED SNOMED Code(s): 02861907 (3) Gout Current Visit: Yes Status: Chronic Code(s): M10.9 - GOUT, UNSPECIFIED SNOMED Code(s): 95988027 (4) History of left-sided carotid endarterectomy Current Visit: No Status: Resolved Code(s): Z98.890 - OTHER SPECIFIED POSTPROCEDURAL STATES SNOMED Code(s): 405375128 (5) History of right-sided carotid endarterectomy Current Visit: No Status: Resolved Code(s): Z98.890 - OTHER SPECIFIED POSTPROCEDURAL STATES SNOMED Code(s): 050224796 (6) Tobacco dependence in remission Current Visit: No Status: Resolved Code(s): F17.201 - NICOTINE DEPENDENCE, UNSPECIFIED, IN REMISSION SNOMED Code(s): 448363100 (7) Obesity (BMI 30-39.9) Current Visit: Yes Status: Chronic Code(s): E66.9 - OBESITY, UNSPECIFIED SNOMED Code(s): 526406339 (8) Diabetes mellitus Current Visit: Yes Status: Chronic Code(s): E11.9 - TYPE 2 DIABETES MELLITUS WITHOUT COMPLICATIONS SNOMED Code(s): 64641185 (9) Aortic stenosis Current Visit: Yes Status: Chronic Code(s): I35.0 - NONRHEUMATIC AORTIC ( VALVE) STENOSIS SNOMED Code(s): 50899448 (10) CAD (coronary artery disease) Current Visit: No Status: Resolved Code(s): I25.10 - ATHSCL HEART DISEASE OF [place] CORONARY ARTERY W/O ANG PCTRS SNOMED Code(s): 99450589 (11) Diastolic CHF Current Visit: Yes Status: Chronic Code(s): I50.30 - UNSPECIFIED DIASTOLIC ( CONGESTIVE) HEART FAILURE SNOMED Code(s): 419965840 (12) Mitral regurgitation Current Visit: Yes Status: Chronic Code(s): I34.0 - NONRHEUMATIC MITRAL ( VALVE) INSUFFICIENCY SNOMED Code(s): 61104720 (13) Aortic insufficiency Current Visit: Yes Status: Chronic Code(s): I35.1 - NONRHEUMATIC AORTIC ( VALVE) INSUFFICIENCY SNOMED Code(s): 57168715 Plan: The patient was seen and examined in the extended stay unit after her transesophageal echocardiogram. Transverse diagnostics reviewed. Preoperative teaching initiated with the patient and her daughter. Appointment made for patient to see Dr. Hanson in the office to discuss plans for aortic valve replacement. Continue medical management per primary care and cardiology services. Patient will need to have dental clearance before any surgical intervention and preoperative testing would need to be initiated. This was discussed with the patient and her daughter, and they are in agreement. More recommendations to follow. Thank you Dr. Fu for this consult. We look forward to working with you in the care of your patient. Time with Patient: Greater than 30
== END ==
LOC: CATHCVL 07:27
PROVIDERS: ATTEND Internal Medicine Cardiovascular Disease
DX: I08.0 Rheumatic disorders of both mitral and aortic valves (principal); I25.10 Atherosclerotic heart disease of native coronary artery without angina pectoris; I11.0 Hypertensive heart disease with heart failure; I50.32 Chronic diastolic (congestive) heart failure; Z87.891 Personal history of nicotine dependence; E11.9 Type 2 diabetes mellitus without complications; Z79.84 Long term (current) use of oral hypoglycemic drugs; E66.9 Obesity, unspecified; Z68.37 Body mass index [BMI] 37.0-37.9, adult; Z79.82 Long term (current) use of aspirin; Z79.899 Other long term (current) drug therapy; Z88.1 Allergy status to other antibiotic agents; Z91.040 Latex allergy status; Z88.5 Allergy status to narcotic agent; Z91.018 Allergy to other foods
CPT/HCPCS: 93312; 93320; 93325; J2250; J3010

== ENCOUNTER 2018-04-22 07:57 | Emergency (ER) | payer MEDICARE ==
[2018-04-22 08:09] VITALS: RESP 18; TEMP 97.6
[2018-04-22] MEDS ORDERED: DIPH,PERTUS(ACELL)TETVAC-LF 0.5 ML VIAL IM ONE (08:20)
[2018-04-22] MEDS ORDERED: LIDOCAINE 1% INJ 10MG/ML (20 ML MDV) SQ STA (08:26)
--- NOTE | 2018-04-22 08:42 | ED ---
General Adult HPI <Santos Rivera - Last Filed: 04/22/18 10:43> - General Source: patient, EMS, RN notes reviewed Mode of arrival: EMS Limitations: no limitations <Eliecer Amor - Last Filed: 04/22/18 11:05> - General Chief complaint: Fall Stated complaint: Fall Time Seen by Provider: 04/22/18 08:12 - History of Present Illness Initial comments: Patient 69-year-old female presenting to the emergency room today by EMS, the chief complaint of a fall that occurred just prior to arrival. Patient states that she woke up this morning she was going to the bathroom tripped over the bathroom rug falling forward onto the ground. She does admit to cut into the house and had a bloody nose. Patient also admits to come to the right hand. She states she's unsure of her tetanus status. Patient states was no loss consciousness. She denies any back pain, extremity pain. (Eliecer Amor) - Related Data Home Medications Medication Instructions Recorded Confirmed RX: Aspirin EC [Ecotrin] 325 mg PO DAILY 08/03/17 04/22/18 RX: Atenolol 25 mg PO BID 08/03/17 04/22/18 RX: Febuxostat [Uloric] 40 mg PO DAILY 08/03/17 04/22/18 RX: Pantoprazole Sodium [Protonix] 40 mg PO HS 08/03/17 04/22/18 RX: Pravastatin Sodium [Pravachol] 20 mg PO HS 08/03/17 04/22/18 RX: amLODIPine [Norvasc] 10 mg PO DAILY 08/03/17 04/22/18 RX: metFORMIN HCL [Glucophage] 500 mg PO DAILY 08/03/17 04/22/18 RX: Budesonide [Pulmicort] 0.5 mg INHALATION RT-BID PRN 09/12/17 04/22/18 Magnesium Oxide [Mendez] 500 mg PO DAILY 04/22/18 04/22/18 Mometasone/Formoterol [Dulera 200 2 puff INHALATION RT-BID 04/22/18 04/22/18 Mcg/5 Mcg Inhaler] RX: Irbesartan/Hydrochlorothiazide 1 tab PO DAILY 04/22/18 04/22/18 [Irbesartan-Hctz 150-12.5 mg Tb] Previous Rx's Medication Instructions Recorded RX: Furosemide [Lasix] 40 mg PO BID@0900,1600 #60 tab 08/09/17 RX: Potassium Chloride ER [K-Dur 20 meq PO DAILY 30 Days #30 08/09/17 20] tab.er.prt Allergies Allergy/AdvReac Type Severity Reaction Status Date / Time atorvastatin [From Lipitor] Allergy Unknown Verified 04/22/18 10:54 codeine Allergy Rash/Hives Verified 04/22/18 10:54 duloxetine [From Cymbalta] Allergy Unknown Verified 04/22/18 10:54 ezetimibe [From Zetia] Allergy Unknown Verified 04/22/18 10:54 fenofibrate [From Tricor] Allergy Unknown Verified 04/22/18 10:54 latex Allergy Rash/Hives Verified 04/22/18 10:54 niacin Allergy Unknown Verified 04/22/18 10:54 tetracycline Allergy Unknown Verified 04/22/18 10:54 Review of Systems ROS Other: All systems not noted in ROS Statement are negative. <Santos Rivera - Last Filed: 04/22/18 10:43> ROS Other: All systems not noted in ROS Statement are negative. <Eliecer Amor - Last Filed: 04/22/18 11:05> ROS Statement: Those systems with pertinent positive or pertinent negative responses have been documented in the HPI. 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 Bilateral carotid endarterectomy. Aortic valve replacement 02/2018 Past Anesthesia/Blood Transfusion Reactions: No Reported Reaction Date of Last Stent Placement:: unknown Past Psychological History: Anxiety, Depression Smoking Status: Former smoker Past Alcohol Use History: None Reported Past Drug Use History: None Reported - Past Family History Mother Family Medical History: No Reported History <Eliecer Amor - Last Filed: 04/22/18 11:05> General Exam <Santos Rivera - Last Filed: 04/22/18 10:43> Limitations: no limitations <Eliecer Amor - Last Filed: 04/22/18 11:05> - General Exam Comments Initial Comments: General: The patient is awake and alert, in no distress, and does not appear acutely ill. Eye: Pupils are equal, round and reactive to light, extra-ocular movements are intact. No nystagmus. There is normal conjunctiva bilaterally. No signs of icterus. Ears, nose, mouth and throat: There are moist mucous membranes and no oral lesions. Neck: The neck is supple Cardiovascular: There is a regular rate and rhythm. No murmur, rub or gallop is appreciated. Respiratory: Lungs are clear to auscultation, respirations are non-labored, breath sounds are equal. No wheezes, stridor, rales, or rhonchi. Gastrointestinal: Abdomen soft nontender. Musculoskeletal: Normal ROM, no tenderness. No tenderness to cervical, thoracic or lumbar spine. No bony tenderness to the upper and lower extremities. Strength 5/5. Sensation intact. Pulses equal bilaterally 2+. Neurological: A&O x 3. CN II-XII intact, There are no obvious motor or sensory deficits. Coordination appears grossly intact. Speech is normal. Skin: Superficial laceration to the bridge of nose. Laceration to the upper lip. Laceration to the palmar aspect of right hand. Psychiatric: Cooperative, appropriate mood & affect, normal judgment. (Eliecer Amor) Course <Santos Rivera - Last Filed: 04/22/18 10:43> <Eliecer Amor - Last Filed: 04/22/18 11:05> Vital Signs 04/22/18 04/22/18 07:59 09:17 Temperature 97.6 F Pulse Rate 95 Respiratory 18 Rate Blood Pressure 192/74 215/74 O2 Sat by Pulse 95 Oximetry - Reevaluation(s) Reevaluation #1: 04/22/18 10:43 PA supervision: I proceeded [id number] evaluation the patient did discuss the findings with the patient and her daughter. Patient does have a left lip laceration as well as a hand laceration were repaired. I do agree with the assessment and plan. (Santos Rivera) Procedures <Santos Rivera - Last Filed: 04/22/18 10:43> <Eliecer Amor - Last Filed: 04/22/18 11:05> - Procedures Initial comment: Patient had superficial laceration across the nasal bridge with no sutures were required. Second laceration Patient does have a 1 cm laceration to the upper lip just across into the posterior border. The skin was anesthetized with 1% lidocaine. The laceration was then cleansed with and irrigated with normal saline. The wound was inspected, and there was no evidence of injury to deep structures. No foreign body was noted in the wound. A total of 3 skin sutures were placed utilizing 5-0 nylon. Laceration was to the right hypothenar eminence and a be shaped measuring a total of 4 cm in total length.The skin was anesthetized with 1% lidocaine. The laceration was then cleansed with and irrigated with normal saline. The wound was inspected, and there was no evidence of injury to deep structures. No foreign body was noted in the wound. A total of 10 skin sutures were placed utilizing 4-0 nylon. (Eliecer Amor) Medical Decision Making <Santos Rivera - Last Filed: 04/22/18 10:43> <Eliecer Amor - Last Filed: 04/22/18 11:05> - Medical Decision Making Patient reexamined at this time shows no signs of distress. She is resting comfortably. Patient's CT of the head and neck is negative for any acute abnormality. CT of facial bones didn't show nasal bone fracture. No septal hematoma. Patient's blood pressure elevated here in the emergency room but did not take her morning medications. She was given her morning meds and blood pressure is improving. Patient's lacerations were closed here in emergency room. Tetanus updated. Patient will be discharged home. (Eliecer Amor) Disposition <Santos Rivera - Last Filed: 04/22/18 10:43> Is patient prescribed a controlled substance at d/c from ED?: No Time of Disposition: 11:04 <Eliecer Amor - Last Filed: 04/22/18 11:05> Clinical Impression: Fall, Laceration of hand, Facial laceration, Nasal fracture Disposition: HOME SELF-CARE Condition: Good Instructions (If sedation given, give patient instructions): Laceration (DC) Additional Instructions: Please return to the emergency room in 8-10 days to have sutures removed of the hand. Sutures to the patient is removed in 5 days. Please watch for any signs of infection which may include increased pain, swelling, redness, fever or chills. Please return to emergency room for any signs of infection do occur. Please use clean soap and water over the area to prevent scabbing over your stitches. Please leave wound covered for the first 24-48 hours and then leave wound open to air. Please return to the emergency room for any other concerns. Referrals: Mellissa Espinal DO [Primary Care Provider] - 1-2 days
--- NOTE | 2018-04-22 08:45 | CT ---
EXAMINATION TYPE: CT brain yahaira carreon DATE OF EXAM: 04/22/2018 COMPARISON: None HISTORY: fall today with facial lacerations CT DLP: CSP: 373.9 Brain/Facial : 645.[address] of the brain was performed. The ventricles, basal cisterns and sulci overlying the cerebral convexities demonstrate enlargement. There is no evidence for intracranial hemorrhage or sulcal effacement. There is decreased attenuatio n about the periventricular white matter and deep white matter of both cerebral hemispheres, compatib le with chronic small vessel ischemia. Remote insult high right frontal parietal region. No mass effects are seen. If symptoms persist consider MRI. Osseous calvarium is intact. IMPRESSION: 1. Age related atrophic and chronic small vessel ischemic change without acute intracranial process seen at this time. CT Cervical Spine: Unenhanced CT of the cervical spine was performed with bone and soft tissue window settings submitted . Coronal and sagittal reconstruction is obtained. There is normal alignment and prevertebral soft tissues. No evidence for acute cervical fracture . Scattered degenerative disc disease and spondylosis. Biapical scarring. IMPRESSION: 1. No evidence for acute fracture or subluxation of the cervical spine.
--- NOTE | 2018-04-22 08:49 | CT ---
EXAMINATION TYPE: CT facial bones wo con DATE OF EXAM: 04/22/2018 COMPARISON: None HISTORY: fall today with facial lacerations CT DLP: 645.[address] of the facial bones was performed in the axial and coronal planes. Bone and soft tissu e window settings are submitted. Paranasal soft tissue swelling noted. Small nondisplaced fracture at the tip of the nasal bone. No ad ditional facial bone fractures identified. The globes are intact. Paranasal sinuses are well-aerated. Mild mucosal thickening left maxillary sinus and ethmoid air cell s. Incidental dentigerous cyst left hemimandible. IMPRESSION: 1. Nondisplaced nasal bone fracture at its tip. Surrounding soft tissue swelling.
[2018-04-22] MEDS ORDERED: TOPICAL SKIN ADHESIVE 1 EACH AMP TOPICAL ONE (08:54)
[2018-04-22] MEDS ORDERED: FUROSEMIDE 40 MG TAB PO STA (09:21)
[2018-04-22] MEDS ORDERED: amLODIPine 10 MG TAB PO STA (09:21)
[2018-04-22 11:07] LABS: Glucose,Whole Blood 124 mg/dL (75-99)
[2018-04-22 11:17] VITALS: BP 177/97; PULSE 92
== END 2018-04-22 11:17 | disposition home or self-care (01) ==
LOC: EC 07:57
DX: S02.2XXA Fracture of nasal bones, initial encounter for closed fracture (principal); S61.411A Laceration without foreign body of right hand, initial encounter; S01.511A Laceration without foreign body of lip, initial encounter; I25.10 Atherosclerotic heart disease of native coronary artery without angina pectoris; I11.0 Hypertensive heart disease with heart failure; I50.9 Heart failure, unspecified; E11.9 Type 2 diabetes mellitus without complications; M10.9 Gout, unspecified; E78.5 Hyperlipidemia, unspecified; F32.9 Major depressive disorder, single episode, unspecified; F41.9 Anxiety disorder, unspecified; Z87.891 Personal history of nicotine dependence; Z23 Encounter for immunization; Z79.82 Long term (current) use of aspirin; Z79.84 Long term (current) use of oral hypoglycemic drugs; Z79.899 Other long term (current) drug therapy; Z88.5 Allergy status to narcotic agent; Z91.040 Latex allergy status; Z88.1 Allergy status to other antibiotic agents; Z88.8 Allergy status to other drugs, medicaments and biological substances; Z95.5 Presence of coronary angioplasty implant and graft; Z95.2 Presence of prosthetic heart valve; W18.09XA Striking against other object with subsequent fall, initial encounter; Y92.002 Bathroom of unspecified non-institutional (private) residence as the place of occurrence of the external cause
CPT/HCPCS: 36415; 72125; 70486; 70450; 90715; 99284; 90471; 12011; 12002; J2001

== ENCOUNTER → 2018-09-02 | Outpatient (CLI) | payer MEDICARE ==
--- NOTE | 2018-09-02 15:21 | US ---
EXAMINATION TYPE: US kidneys/renal and bladder DATE OF EXAM: 09/02/2018 COMPARISON: NONE CLINICAL HISTORY: N17.9 Acute kidney injury. Diabetic; valve replacement in March 2018 EXAM MEASUREMENTS: Right Kidney: 10.9 x 6.0 x 5.1 cm Left Kidney: 7.9 x 4.2 x 3.8 cm Post Void Residual Volume: 20.1 mL Right Kidney: No hydronephrosis or masses seen. Mild cortical renal thinning. Left Kidney: thin cortex, smaller than right kidney. Cortical medullary differentiation is diminished . Bladder: wnl as seen Bilateral Jets seen: no, only right ureteral jet was seen after 3 minute observation Normal Post Void Residual: yes Possible small pleural effusions noted bilaterally. There is no evidence for hydronephrosis at this point in time. No nephrolithiasis is seen. No taras s are identified. The urinary bladder is anechoic. IMPRESSION: Sonographic sequela of medical renal disease, greater on the left than the right. No hydronephrosis o r nephrolithiasis of either kidney. Small bilateral pleural effusions are questioned.
== END | disposition home or self-care (01) ==
LOC: RADUSWWP 14:10
PROVIDERS: ATTEND Internal Medicine Nephrology
DX: N28.9 Disorder of kidney and ureter, unspecified (principal); N17.9 Acute kidney failure, unspecified
CPT/HCPCS: 76770

== ENCOUNTER → 2018-09-26 | Outpatient (CLI) | payer MEDICARE ==
--- NOTE | 2018-09-26 09:48 | US ---
EXAMINATION TYPE: US renal artery duplex complete DATE OF EXAM: 09/26/2018 COMPARISON: US CLINICAL HISTORY: I10 Primary hypertension, I12.9 Hypertensive. MEASUREMENTS: Aortic peak systolic velocity: 113.6. RENAL SIZE: Rt Kidney: 11.2 x 5.3 x 6.1 cm Lt Kidney: 7.4 x 4.1 x 3.8 cm RESISTANCE INDEX Right: 0.6 Left: unable to obtain RA/AO RATIO (< 3.5 ) Right: 1.5 Left: unable to obtain RA VELOCITY ( < 180 cm/s) Right: 172 Left: unable to obtain Aorta is heavily calcified. Right kidney is unremarkable. Left kidney is atrophic. Unable to detect a rterial signals, venous flow is documented. No evidence of renal artery stenosis on the right side, e albino though there is turbulent flow pattern demonstrated on color doppler. Unable to produce arterial doppler signals on the left side either in the renal artery or the kidney itself. IMPRESSION: 1. Left kidney is very atrophic. Venous flow is demonstrated. Unable to detect an adequate arterial s ignal either within the kidney or at the level of the renal artery. Unclear if this is due to technic al limitations or to a chronic subtotal occlusion of the left renal artery. 2. Borderline elevated right renal artery velocity of 172 cm/s. This still falls within acceptable li mits. The renal artery to aortic ratio also falls within acceptable limits. No right renal artery lee nosis by Doppler criteria.
== END | disposition home or self-care (01) ==
LOC: RADUSWWP 07:19
PROVIDERS: ATTEND Family Medicine
DX: I12.9 Hypertensive chronic kidney disease with stage 1 through stage 4 chronic kidney disease, or unspecified chronic kidney disease (principal); N18.9 Chronic kidney disease, unspecified
CPT/HCPCS: 93975

== ENCOUNTER → 2018-10-24 | Outpatient (CLI) | payer MEDICARE ==
--- NOTE | 2018-10-25 11:30 | US ---
EXAMINATION TYPE: US carotid duplex BILAT DATE OF EXAM: 10/24/2018 COMPARISON: CTA neck CLINICAL HISTORY: R09.89, G45.8Other transient cerebral ischemic att. Bilateral CEA. EXAM MEASUREMENTS: RIGHT: Peak Systolic Velocity (PSV) cm/sec ----- Right CCA: 133.5 ----- Right ICA: 188.3 ----- Right ECA: 278.3 ICA/CCA ratio: 1.4 RIGHT: End Diastole cm/sec ----- Right CCA: 20.4 ----- Right ICA: 31.8 ----- Right ECA: 25.7 LEFT: Peak Systolic Velocity (PSV) cm/sec ----- Left CCA: 196.0 ----- Left ICA: 196.0 ----- Left ECA: 236.7 ICA/CCA ratio: 1.0 LEFT: End Diastole cm/sec ----- Left CCA: 26.8 ----- Left ICA: 11.6 ----- Left ECA: 21.5 VERTEBRALS (direction of flow): Right Vertebral: Antegrade Left Vertebral: Antegrade, and only seen low in neck. Rhythm: Normal Abnormally elevated PSV is present in bilateral CCA, ECA and ICA post bilateral carotid endarterectom y with irregular, mixed wall plaque noted in bilateral CCA, ECA, and ICA. Bilateral ICA/CCA ratios do not reflect abnormal carotid status since bilateral distal CCA is elevated. Soliman scale images show significant eccentric plaque centered near right carotid bulb. Increased peak systolic velocity right internal carotid artery noted. Moderate to severe eccentric plaque centered a t left carotid bulb is present. Increased peak systolic velocity left internal carotid artery noted. Elevated velocity bilateral common carotid arteries is present. This raises concern for underlying hy pertension or proximal significant stenosis. IMPRESSION: Abnormal study with severe eccentric plaque bilaterally and elevated peak systolic veloci ties, cannot exclude hemodynamically significant stenosis. Further investigation with CTA or MRA of t he neck is advised. Criteria for Assigning % of Stenosis / Diameter reduction (Estimation based on the indirect measurements of the internal carotid artery velocities (ICA PSV). 1. Normal (no stenosis)=ICA PSV < 125 cm/s: ratio < 2.0: ICA EDV<40 cm/s. 2. Less than 50% stenosis=ICA PSV < 125 cm/s: ratio < 2.0: ICA EDV<40 cm/s. 3. 50 to 69% stenosis=ICA PSV of 125 to 230 cm/s: ration 2.0 ? 4.0: ICA EDV 40-100 cm/s. 4. Greater than 70% stenosis to near occlusion= ICA PSV > 230 cm/s: ratio > 4.0: ICA EDV > 100 cm/s. 5. Near occlusion= ICA PSV velocities may be low or undetectable: variable ratio and ICA EDV. 6. Total occlusion=unable to detect flow.
== END | disposition home or self-care (01) ==
LOC: RADUSWWP 15:14
PROVIDERS: ATTEND Family Medicine
DX: G45.8 Other transient cerebral ischemic attacks and related syndromes (principal); R09.89 Other specified symptoms and signs involving the circulatory and respiratory systems
CPT/HCPCS: 93880

== ENCOUNTER → 2018-11-28 | Outpatient (CLI) | payer MEDICARE ==
--- NOTE | 2018-11-28 14:26 | MR ---
EXAMINATION TYPE: MR angio neck wo con DATE OF EXAM: 11/28/2018 COMPARISON: Carotid ultrasound dated 10/24/2018 HISTORY: Occlusion and stenosis of unspecified carotid TECHNIQUE: Multiplanar, MRA of the neck was performed without intravenous contrast using [id number] imaging. Three-D imaging of the vasculature of the neck was performed at a separate workstation an d submitted for review. FINDINGS: The examination is markedly limited secondary to extensive patient motion. There appears to be complete occlusion of the left vertebral artery from origin to nearly the formation of the basila r artery. Minimal flow in the most distal aspect of the vertebral artery may be retrograde from the b asilar artery. Stenosis is presumed of the distal common carotid arteries, microadenoma just proximal to the common carotid arteries however exam is nondiagnostic for evaluation of degree of stenosis se condary to extensive patient motion. There is also caliber narrowing of the proximal bilateral marketing summer intern al carotid arteries and eccentric plaque formation of the bilateral common carotid arteries. No focal occlusion is seen of the common carotid arteries, carotid bulbs, or right vertebral artery. IMPRESSION: 1. 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 2. Exam is extremely limited secondary to extensive patient motion and nondiagnostic for evaluation o f degree of stenosis. Nonocclusive stenoses are seen in the distal common carotid arteries, carotid b ulbs and proximal internal carotid arteries bilaterally. For assessment of degree of stenosis CTA nec k would be recommended as this is a much shorter exam and the patient may be able to remain still. If there is claustrophobia anxiolytics could be administered.
== END | disposition home or self-care (01) ==
LOC: RADMRIMAIN 11:53
PROVIDERS: ATTEND Nurse Practitioner Family
DX: I65.02 Occlusion and stenosis of left vertebral artery (principal)
CPT/HCPCS: 70547

== ENCOUNTER 2020-05-16 11:22 | Day surgery (SDC) | payer MEDICARE ==
[2020-05-12 16:34] VITALS: BMI 36.2
[~2020-05-16 11:22] MED LIST changes: +HYDROmorphone 0.5 MG/0.5 ML SYRINGE IVP PRN; +LACTATED RINGERS 1,000 ML IV SCH; +LIDOCAINE 1% (10MG/ML) FOR IV START INTRADERMA PRN; -MIDAZOLAM 2 MG/2 ML VIAL ONE; -SODIUM CHLORIDE 0.9% 500 ML IV ONE; -fentaNYL (PF) 50 MCG/ML 2 ML AMP ONE
[2020-05-16] MEDS ORDERED: ONDANSETRON 4 MG/2 ML VIAL ONE (11:42)
[2020-05-16 12:09] LABS: Glucose,Whole Blood 107 mg/dL (75-99)
[2020-05-16 12:14] LABS: HCT 34.6 % (34.0-46.0); HGB 11.5 gm/dL (11.4-16.0); MCH 28.7 pg (25.0-35.0); MCHC 33.1 g/dL (31.0-37.0); MCV 86.7 fL (80.0-100.0); Mean Platelet Volume 7.2; Platelet Count 224 k/uL (150-450); RBC 3.99 m/uL (3.80-5.40); RDW 14.5 % (11.5-15.5); WBC 7.7 k/uL (3.8-10.6)
[2020-05-16] MEDS ORDERED: SODIUM CHLORIDE 0.9% 1,000 ML IV ONE (12:17)
[2020-05-16] MEDS ORDERED: LIDOCAINE 1% (10MG/ML) FOR IV START INTRADERMA ONE (12:20)
[2020-05-16 12:24] LABS: Calcium 9.9 mg/dL (8.4-10.2); Potassium 4.3 mmol/L (3.5-5.1)
[2020-05-16] MEDS ORDERED: DEXAMETHASONE SOD PHOSPHATE 4 MG/ML 1 ML VIAL IV ONE (12:45)
[2020-05-16] MEDS ORDERED: ONDANSETRON 4 MG/2 ML VIAL IVP ONE (12:45)
[2020-05-16] MEDS ORDERED: MIDAZOLAM 2 MG/2 ML VIAL IV ONE (12:46)
[2020-05-16] MEDS ORDERED: ROPIVACAINE 5 MG/ML 30 ML VIAL ONE (13:01)
[2020-05-16] MEDS ORDERED: SUCCINYLCHOLINE CHLORIDE 100 MG/5 ML SYR IV ONE (13:01)
[2020-05-16] MEDS ORDERED: PROPOFOL 10 MG/ML 20 ML VIAL IV ONE (13:01)
[2020-05-16] MEDS ORDERED: LIDOCAINE 1% INJ 10MG/ML (20 ML MDV) ONE (13:01)
[2020-05-16] MEDS ORDERED: fentaNYL (PF) 50 MCG/ML 2 ML AMP ONE (13:01)
[2020-05-16] MEDS ORDERED: MIDAZOLAM 2 MG/2 ML VIAL ONE (13:01)
[2020-05-16] MEDS ORDERED: ePHEDrine SULFATE/0.9% NACL/PF 50 MG/5 ML SYRINGE IV ONE (13:01)
[2020-05-16] MEDS ORDERED: ceFAZolin 2,000 MG in SODIUM CHLORIDE 0.9% 500 ML IRRIGATION ONE (13:57)
[2020-05-16] MEDS ORDERED: HEPARIN SODIUM,PORCINE 2,000 UNIT in SODIUM CHLORIDE 0.9% 500 ML 500 ML IRRIGATION ONE (13:57)
--- NOTE | 2020-05-16 14:31 | P.ANPRN ---
Procedure Note - Anesthesia - Nerve Block Performed Right Supraclavicular Time Out Performed: Yes (12:45) Date of Procedure: 05/16/20 Procedure Start Time: 12:45 Procedure Stop Time: 12:59 Location of Patient: PreOp Indication: Acute Post-Operative Pain, Requested by Surgeon (Dr Vizcarra) Sedation Type: Sedate with meaningful contact maintained Preparation: Sterile Prep Position: Supine Catheter: None Needle Types: Pajunk (22g) Ultrasound used to visualize needle placement: Yes Ultrasound used to observe medication spread: Yes Injectate: 0.5% Ropivacaine (see comment for volume) (20cc) Blood Aspirated: No Pain Paresthesia on Injection Noted: No Resistance on Injection: Normal Image Stored and Saved: Yes Events: Uneventful and Well Tolerated
[2020-05-16 15:23] VITALS: RESP 16; TEMP 97
--- NOTE | 2020-05-16 15:35 | P.OP ---
Date of Procedure: 05/16/20 Preoperative Diagnosis: ESRD Postoperative Diagnosis: Same Procedure(s) Performed: Right upper extremity basilic vein transposition stage 1 Anesthesia: regional Surgeon: Abel Vizcarra Estimated Blood Loss (ml): 5 Pathology: none sent Condition: stable Disposition: PACU Indications for Procedure: 79-year-old female with history of end-stage renal disease on hemodialysis via right sided tunneled catheter presents for creation of right upper extremity basilic vein transposition. Patient underwent vein mapping in the office which demonstrated poor basilic and cephalic veins on the left upper extremity and therefore right upper extremity was utilized due to a large basilic vein above the elbow. 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 She has been having symptoms from the subclavian artery on the left consistent with numbness and weakness. She does state having some minor symptoms on the right upper extre mity but she states are not significant. She presents today for creation of the basilic vein transposition on the right. Description of Procedure: After written informed consent was obtained the patient all risks benefits competitions were described the patient is brought to the operative suite and laid in the supine position with the right arm placed on an armboard. The arm was prepped and draped in usual sterile fashion after appropriate anesthetic was performed per the anesthesiologist. Timeout was performed in normal fashion and antibiotics were administered prior to incision. A transverse incision was then created over the basilic vein just proximal to the elbow and dissection was carried down to the vein utilizing electrocautery. The vein was then dissected free in a circumferential manner. The brachial artery was then dissected free in a circumferential manner and controlled with vessel loops. Patient was administered heparin and the basilic vein was ligated distally with 4-0 silk suture and swung over to the brachial artery. An arteriotomy was then created in the brachial artery with an 11 blade scalpel and extended with Fong wu scissors for a 4 mm arteriotomy. Inflow and outflow was assessed and was adequate. The basilic vein was spatulated and an end to side anastomosis was then created with 6-0 Prolene suture. Prior to last bernal tures being placed control was released revealing good pulsatile blood flow into the anastomosis as well as good backbleeding from the vein itself. Final sutures were then placed and control was released. Good palpable thrill was noted and palpable ulnar pulse was noted but slightly diminished. Good multiphasic signal noted at the palmar arch. The area was then copiously irrigated with antibiotic solution and the incision was closed in a multilayer fashion. The skin was cleansed and dressings were placed. Patient tolerated procedure well and was sent to PACU for recovery. Plan - Discharge Summary Discharge Rx Participant: No New Discharge Prescriptions: No Action Aspirin EC [Ecotrin] 325 mg PO DAILY Pravastatin Sodium [Pravachol] 20 mg PO HS Pantoprazole Sodium [Protonix] 40 mg PO HS amLODIPine [Norvasc] 10 mg PO HS Febuxostat [Uloric] 40 mg PO HS Mometasone/Formoterol [Dulera 200 Mcg/5 Mcg Inhaler] 2 puff INHALATION RT-BID Furosemide [Lasix] 60 mg PO HS Metoprolol Tartrate [Lopressor] 50 mg PO QAM Losartan Potassium [Cozaar] 25 mg PO HS Metoprolol Tartrate [Lopressor] 25 mg PO HS Daily Vitamin 800 1 tab PO DAILY Discharge Medication List Aspirin EC [Ecotrin] 325 mg PO DAILY 08/03/17 [History] Febuxostat [Uloric] 40 mg PO HS 08/03/17 [History] Pantoprazole Sodium [Protonix] 40 mg PO HS 08/03/17 [History] Pravastatin Sodium [Pravachol] 20 mg PO HS 08/03/17 [History] amLODIPine [Norvasc] 10 mg PO HS 08/03/17 [History] Mometasone/Formoterol [Dulera 200 Mcg/5 Mcg Inhaler] 2 puff INHALATION RT-BID 04/22/18 [History] Daily Vitamin 800 1 tab PO DAILY 05/12/20 [History] Furosemide [Lasix] 60 mg PO HS 05/12/20 [History] Losartan Potassium [Cozaar] 25 mg PO HS 05/12/20 [History] Metoprolol Tartrate [Lopressor] 25 mg PO HS 05/12/20 [History] Metoprolol Tartrate [Lopressor] 50 mg PO QAM 05/12/20 [History] Follow up Appointment(s)/Referral(s): Abel Vizcarra DO [STAFF PHYSICIAN] - 2 Weeks Activity/Diet/Wound Care/Special Instructions: squeeze exercises for right hand 10x/ hour. ok to remove dressing and wrap in 48 hours. Discharge Disposition: HOME SELF-CARE
[2020-05-16 17:41] VITALS: BP 141/71; PULSE 76
== END 2020-05-16 17:55 | disposition home or self-care (01) ==
LOC: OR 11:22
PROVIDERS: ATTEND Surgery
DX: I12.0 Hypertensive chronic kidney disease with stage 5 chronic kidney disease or end stage renal disease (principal); E11.22 Type 2 diabetes mellitus with diabetic chronic kidney disease; N18.6 End stage renal disease; K21.9 Gastro-esophageal reflux disease without esophagitis; M10.9 Gout, unspecified; J44.9 Chronic obstructive pulmonary disease, unspecified; F32.9 Major depressive disorder, single episode, unspecified; Z79.82 Long term (current) use of aspirin; Z79.51 Long term (current) use of inhaled steroids; Z79.899 Other long term (current) drug therapy; Z88.5 Allergy status to narcotic agent; Z88.8 Allergy status to other drugs, medicaments and biological substances; Z88.1 Allergy status to other antibiotic agents; Z91.040 Latex allergy status; Z95.4 Presence of other heart-valve replacement; Z98.49 Cataract extraction status, unspecified eye; Z98.890 Other specified postprocedural states; Z87.891 Personal history of nicotine dependence
CPT/HCPCS: 64415; 76942; 80048; 85027; 36819; J2250; J1644; J1100; J0690 ×2; J2405; J2001; J3010; J2795; J0330; J2704

== ENCOUNTER 2020-08-16 05:49 | Day surgery (SDC) | payer MEDICARE ==
[2020-08-11 15:36] VITALS: BMI 35.5
[2020-08-16] MEDS ORDERED: LIDOCAINE 1% (10MG/ML) FOR IV START INTRADERMA PRN (06:06)
[2020-08-16] MEDS ORDERED: LACTATED RINGERS 1,000 ML IV SCH (06:06)
[2020-08-16] MEDS ORDERED: MIDAZOLAM 2 MG/2 ML VIAL IV PRN (06:06)
[2020-08-16] MEDS ORDERED: DEXAMETHASONE SOD PHOSPHATE 4 MG/ML 1 ML VIAL IV ONE (06:06)
[2020-08-16] MEDS ORDERED: ONDANSETRON 4 MG/2 ML VIAL IVP ONE (06:06)
[2020-08-16] MEDS ORDERED: LIDOCAINE 1% (10MG/ML) FOR IV START INTRADERMA ONE (06:38)
[2020-08-16] MEDS ORDERED: SODIUM CHLORIDE 0.9% 1,000 ML IV ONE (06:38)
[2020-08-16 06:50] LABS: Glucose,Whole Blood 108 mg/dL (75-99)
[2020-08-16] MEDS ORDERED: HYDROmorphone 0.5 MG/0.5 ML SYRINGE IVP PRN (07:00)
[2020-08-16 07:06] LABS: Calcium 9.4 mg/dL (8.4-10.2); Potassium 4.3 mmol/L (3.5-5.1)
[2020-08-16] MEDS ORDERED: SUCCINYLCHOLINE CHLORIDE 100 MG/5 ML SYR IV ONE ×2 (07:25)
[2020-08-16] MEDS ORDERED: ROCURONIUM 10 MG/ML (5 ML VIAL) IV ONE (07:25)
[2020-08-16] MEDS ORDERED: fentaNYL (PF) 50 MCG/ML 2 ML AMP ONE (07:25)
[2020-08-16] MEDS ORDERED: PROPOFOL 10 MG/ML 20 ML VIAL IV ONE (07:25)
[2020-08-16] MEDS ORDERED: HEPARIN SODIUM,PORCINE 5,000 UNIT/ML 1 ML VIAL ONE (07:25)
[2020-08-16] MEDS ORDERED: PHENYLEPHRINE-0.9% NACL SYG 1,000 MCG/10 ML SYRINGE ONE (07:25)
[2020-08-16] MEDS ORDERED: NEOSTIGMINE 1 MG/ML 10 ML VIAL ONE (07:25)
[2020-08-16] MEDS ORDERED: LIDOCAINE 1% INJ 10MG/ML (20 ML MDV) ONE (07:25)
[2020-08-16] MEDS ORDERED: GLYCOPYRROLATE 0.2 MG/ML 2 ML VIAL ONE (07:25)
[2020-08-16] MEDS ORDERED: ceFAZolin 2,000 MG in SODIUM CHLORIDE 0.9% 500 ML IRRIGATION ONE (08:03)
[2020-08-16] MEDS ORDERED: HEPARIN SODIUM,PORCINE 2,000 UNIT in SODIUM CHLORIDE 0.9% 500 ML 500 ML IRRIGATION ONE (08:04)
[2020-08-16] MEDS ORDERED: LIDOCAINE 1% INJ 10MG/ML (20 ML MDV) SQ ONE (08:15)
[2020-08-16 10:48] VITALS: RESP 16; TEMP 96.9
[2020-08-16 14:21] LABS: Glucose,Whole Blood 139 mg/dL (75-99)
[2020-08-16 15:04] VITALS: BP 146/74; PULSE 69
--- NOTE | 2020-08-22 10:22 | P.OP ---
Date of Procedure: 08/16/20 Preoperative Diagnosis: End-stage renal disease Postoperative Diagnosis: Same Procedure(s) Performed: Right basilic vein transposition stage II Anesthesia: MELITON Surgeon: Abel Vizcarra Estimated Blood Loss (ml): 50 Pathology: none sent Condition: stable Disposition: PACU Indications for Procedure: 79-year-old female with history of chronic kidney disease presents to the hospital for second stage basilic vein transposition. She had an ultrasound in the office which demonstrated widely patent fistula with good sizes. Description of Procedure: After written informed consent was obtained the patient all risks benefits competitions were described the patient is brought to the operative suite and laid in the supine position with the right arm placed on an armboard. The arm was prepped and draped in usual sterile fashion after appropriate anesthetic was performed per the anesthesiologist. Timeout was performed in normal fashion and antibiotics were administered prior to incision. A vertical incision was then created over the basilic vein just proximal to the elbow and dissection was carried down to the vein utilizing electrocautery. The vein was then dissected free in a circumferential manner. This was then followed up the medial aspect of the upper arm with serial incisions created to get access to the basilic vein. The basilic vein was dissected in a circumferential manner with branches ligated with 3-0 silk suture. Once comple te dissection was carried out to the axilla the vein at the elbow just proximal to the previous anastomosis was clamped and ligated. Patient was then administered 3000 units of heparin. The vein was then marked and tunneled from the axilla to the existing anastomosis at the elbow. An end and anastomosis was then created with 7-0 Prolene suture. Prior to last sutures being placed control was released revealing good pulsatile blood flow into the anastomosis as well as good backbleeding from the vein itself. Final sutures were then placed and control was released. Good palpable thrill was noted throughout the entirety of the fistula. Ultrasound was then utilized to visualize the fistula which demonstrated no evidence of twisting with good pulsatile blood flow throughout the entirety of the vein. The area was then copiously irrigated with an biotics solution and the incisions were then closed in a multilayer fashion. The skin was cleansed and dressings were placed. Patient tolerated procedure well had a palpable radial pulse at the conclusion of the procedure.
== END 2020-08-16 15:00 | disposition home or self-care (01) ==
LOC: OR 05:49
PROVIDERS: ATTEND Surgery
DX: I12.0 Hypertensive chronic kidney disease with stage 5 chronic kidney disease or end stage renal disease (principal); N18.6 End stage renal disease; I25.10 Atherosclerotic heart disease of native coronary artery without angina pectoris; J84.10 Pulmonary fibrosis, unspecified; Z88.5 Allergy status to narcotic agent; Z88.8 Allergy status to other drugs, medicaments and biological substances; Z95.5 Presence of coronary angioplasty implant and graft; M10.9 Gout, unspecified; K21.9 Gastro-esophageal reflux disease without esophagitis; Z79.899 Other long term (current) drug therapy
CPT/HCPCS: 36819; 80048; J1644; J1100; J2710; J0690 ×2; J2405; J2001; J3010; J2370; J0330; J2704

== ENCOUNTER 2021-04-11 12:56 | Inpatient (IN) | payer MEDICARE ==
--- NOTE | 2021-04-11 13:32 | ED ---
General Adult HPI - General Chief complaint: Shortness of Breath Stated complaint: SOB Time Seen by Provider: 04/11/21 13:01 Source: patient, EMS Mode of arrival: ambulatory Limitations: no limitations - History of Present Illness Initial comments: Dictation was produced using [employer] dictation software. please excuse any grammatical, word or spelling errors. Chief Complaint: 80-year-old female sent in from primary care physician's office for hypoxia History of Present Illness: She is 80-year-old female past medical history coronary artery disease, heart. Diabetes presents emergency department for hypoxia. Patient is dialysis Saturday. She described dialysis yesterday. Patient is at her PCPs office where she was found to be hypoxic measuring 80%. She was sent to our emergency department. Patient states that she has had a cough for the last 7 days. [place] some medicine for cough. Denies any of 6. her. She was distress for COVID-19 at the PCPs office found to be negative. She denies any fevers. States that the cough is better today than it was yesterday. Patient states she has history of low oxygen levels that have been noted by dialysis staff in the past. The ROS documented in this emergency department record has been reviewed and confirmed by me. Those systems with pertinent positive or negative responses have been documented in the HPI. All other systems are other negative and/or noncontributory. PHYSICAL EXAM: General Impression: Alert and oriented x3, not in acute distress HEENT: Normocephalic atraumatic, extra-ocular movements intact, pupils equal and reactive to light bilaterally, mucous membranes moist. Cardiovascular: Heart regular rate and rhythm Chest: Able to complete full sentences, no retractions, no tachypnea, diffuse lung crackles Abdomen: abdomen soft, non-tender, non-distended, no organomegaly Musculoskeletal: Pulses present and equal in all extremities, 1+ pitting peripheral edema Motor: no focal deficits noted Neurological: CN II-XII grossly intact, no focal motor or sensory deficits noted Skin: Intact with no visualized rashes Psych: Normal affect and mood ED course: 80-year-old female presents emergency department for hypoxia vital signs upon arrival shows oxygen of 89% on room air, rest of vital signs within acceptable limits. Patient placed on 2 L nasal cannula with improvement of oxygen levels to about 94%. Limited evaluation obtained. CBC within acceptable limits. Hemoglobin was 9.5 which is around patient's baseline. She has a hemoglobin 9.9 from 5 days ago. Hemoglobin continued to be monitored. Coag panel is unremarkable. Metabolic panel shows some 132. Troponin is 1.540. Patient has history of elevated troponin. Her troponin from July 2017 was 1.50. She is not having active chest symptoms. Brain natruretic peptide is 15,900. COVID-19 test negative. Chest x-ray shows pulmonary edema. Patient denies any cough symptoms today. She denies any constitutional symptoms. Patient has crackles bilaterally. Clinical presentation more likely heart failure but overload state. Given degree of hypoxia patient requiring oxygen supplementation. She'll be admitted to [facility] hospitalist group. Cardiology and nephrology will be consulted. Patient is agreeable to plan. EKG interpretation: Ventricular rate 83, sinus rhythm,. Interval to 20, QRS 160, QTc 460. No [place] prolongation, no QTC prolongation, no ST or T-wave changes noted. EKG compared to 08/03/2017 showing no changes. Overall, this EKG is unremarkable - Related Data Home Medications Medication Instructions Recorded Confirmed Febuxostat [Uloric] 40 mg PO HS 08/03/17 04/11/21 Pantoprazole Sodium [Protonix] 40 mg PO HS 08/03/17 04/11/21 Pravastatin Sodium [Pravachol] 20 mg PO HS 08/03/17 04/11/21 amLODIPine [Norvasc] 10 mg PO HS 08/03/17 04/11/21 Mometasone/Formoterol [Dulera 200 2 puff INHALATION RT-BID 04/22/18 04/11/21 Mcg/5 Mcg Inhaler] Metoprolol Tartrate [Lopressor] 25 mg PO HS 05/12/20 04/11/21 Aspirin EC [Ecotrin Low Dose] 81 mg PO HS 04/11/21 04/11/21 Cholecalciferol (Vitamin D3) 75 mcg PO DAILY 04/11/21 04/11/21 [Vitamin D3 (3000 Iu)] Dialyvite 800 1 tab PO HS 04/11/21 04/11/21 Fluticasone Nasal [place] [Flonase 2 spray EA NOSTRIL HS 04/11/21 04/11/21 Nasal [place]] Furosemide [Lasix] 60 mg PO HS 04/11/21 04/11/21 Lidocaine-Prilocaine Cream [Emla 1 applic TOPICAL DAILY PRN 04/11/21 04/11/21 Cream 2.5%/2.5%] Losartan Potassium [Cozaar] 50 mg PO HS 04/11/21 04/11/21 Magnesium Oxide [Mag-Ox] 250 mg PO HS 04/11/21 04/11/21 Metoprolol Tartrate [Lopressor] 50 mg PO QAM 04/11/21 04/11/21 Allergies Allergy/AdvReac Type Severity Reaction Status Date / Time atorvastatin [From Lipitor] Allergy Unknown Verified 04/11/21 14:11 codeine Allergy Rash/Hives Verified 04/11/21 14:11 duloxetine [From Cymbalta] Allergy Unknown Verified 04/11/21 14:11 ezetimibe [From Zetia] Allergy Unknown Verified 04/11/21 14:11 fenofibrate [From Tricor] Allergy Unknown Verified 04/11/21 14:11 latex Allergy Rash/Hives Verified 04/11/21 14:11 niacin Allergy Unknown Verified 04/11/21 14:11 tetracycline Allergy Unknown Verified 04/11/21 14:11 Review of Systems ROS Statement: Those systems with pertinent positive or pertinent negative responses have been documented in the HPI. ROS Other: All systems not noted in ROS Statement are negative. Past Medical History Past Medical History: Coronary Artery Disease (CAD), Heart Failure, Diabetes Mellitus, Hyperlipidemia, Hypertension, Renal Disease Additional Past Medical History / Comment(s): has hemodialysis MON,WED,FRI for 3 1/2 in [facility] Feb 2020,heart murmur; Hx gout; see Dr Fu's H&P , gout, diastolic heart failure History of Any Multi-Drug Resistant Organisms: None Reported Past Surgical History: Appendectomy, Heart Catheterization, Heart Catheterization With Stent Additional Past Surgical History / Comment(s): IV catheter rt chest, Ovary removal, 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 Bilateral carotid endarterectomy. Aortic valve replacement 02/2018 Past Anesthesia/Blood Transfusion Reactions: No Reported Reaction Date of Last Stent Placement:: unknown Past Psychological History: Anxiety, Depression Smoking Status: Former smoker Past Alcohol Use History: None Reported Past Drug Use History: None Reported - Past Family History Mother Family Medical History: No Reported History Sister(s) Family Medical History: Cancer General Exam Limitations: no limitations Course Vital Signs 04/11/21 13:06 Temperature 98.9 F Pulse Rate 88 Respiratory 18 Rate Blood Pressure 98/51 O2 Sat by Pulse 89 L Oximetry Medical Decision Making - Lab Data Result diagrams: 04/11/21 13:33 04/11/21 13:33 Lab Results 04/11/21 04/11/21 04/11/21 Range/Units 13:33 13:33 13:33 WBC 10.1 (3.8-10.6) k/uL RBC 3.14 L (3.80-5.40) m/uL Hgb 9.5 L (11.4-16.0) gm/dL Hct 28.5 L (34.0-46.0) % MCV 90.8 (80.0-100.0) fL MCH 30.4 (25.0-35.0) pg MCHC 33.5 (31.0-37.0) g/dL RDW 15.1 (11.5-15.5) % Plt Count 293 (150-450) k/uL MPV 7.6 Neutrophils % 76 % Lymphocytes % 16 % Monocytes % 5 % Eosinophils % 2 % Basophils % 1 % Neutrophils # 7.7 (1.3-7.7) k/uL Lymphocytes # 1.7 (1.0-4.8) k/uL Monocytes # 0.5 (0-1.0) k/uL Eosinophils # 0.2 (0-0.7) k/uL Basophils # 0.1 (0-0.2) k/uL PT 10.6 (9.0-12.0) sec INR 1.0 (<1.2) APTT 19.2 L (22.0-30.0) sec Sodium 132 L (137-145) mmol/L Potassium 3.7 (3.5-5.1) mmol/L Chloride 94 L (98-107) mmol/L Carbon Dioxide 28 (22-30) mmol/L Anion Gap 10 mmol/L BUN 37 H (7-17) mg/dL Creatinine 3.74 H (0.52-1.04) mg/dL Est GFR (CKD-EPI)AfAm 12 (>60 ml/min/1.73 sqM) Est GFR (CKD-EPI)NonAf 11 (>60 ml/min/1.73 sqM) Glucose 106 H (74-99) mg/dL Calcium 9.1 (8.4-10.2) mg/dL Magnesium 1.9 (1.6-2.3) mg/dL Troponin I (0.000-0.034) ng/mL NT-Pro-B Natriuret Pep pg/mL Coronavirus (PCR) (Not Detectd) 04/11/21 04/11/21 04/11/21 Range/Units 13:33 13:33 13:33 WBC (3.8-10.6) k/uL RBC (3.80-5.40) m/uL Hgb (11.4-16.0) gm/dL Hct (34.0-46.0) % MCV (80.0-100.0) fL MCH (25.0-35.0) pg MCHC (31.0-37.0) g/dL RDW (11.5-15.5) % Plt Count (150-450) k/uL MPV Neutrophils % % Lymphocytes % % Monocytes % % Eosinophils % % Basophils % % Neutrophils # (1.3-7.7) k/uL Lymphocytes # (1.0-4.8) k/uL Monocytes # (0-1.0) k/uL Eosinophils # (0-0.7) k/uL Basophils # (0-0.2) k/uL PT (9.0-12.0) sec INR (<1.2) APTT (22.0-30.0) sec Sodium (137-145) mmol/L Potassium (3.5-5.1) mmol/L Chloride (98-107) mmol/L Carbon Dioxide (22-30) mmol/L Anion Gap mmol/L BUN (7-17) mg/dL Creatinine (0.52-1.04) mg/dL Est GFR (CKD-EPI)AfAm (>60 ml/min/1.73 sqM) Est GFR (CKD-EPI)NonAf (>60 ml/min/1.73 sqM) Glucose (74-99) mg/dL Calcium (8.4-10.2) mg/dL Magnesium (1.6-2.3) mg/dL Troponin I 1.540 H* (0.000-0.034) ng/mL NT-Pro-B Natriuret Pep 20661 pg/mL Coronavirus (PCR) Not Detected (Not Detectd) Disposition Clinical Impression: Hypoxia, Fluid overload Disposition: ADMITTED IP TO THIS HOSP Condition: Fair Referrals: Mellissa Espinal DO [Primary Care Provider] - 1-2 days
[2021-04-11 13:46] LABS: Basophils # (A) 0.1 k/uL (0-0.2); Basophils % (A) 1 %; Eosinophils # (A) 0.2 k/uL (0-0.7); Eosinophils % (A) 2 %; HCT 28.5 % (34.0-46.0); HGB 9.5 gm/dL (11.4-16.0); Lymphocytes # (A) 1.7 k/uL (1.0-4.8); Lymphocytes % (A) 16 %; MCH 30.4 pg (25.0-35.0); MCHC 33.5 g/dL (31.0-37.0); MCV 90.8 fL (80.0-100.0); Mean Platelet Volume 7.6; Monocytes # (A) 0.5 k/uL (0-1.0); Monocytes % (A) 5 %; Neutrophils # (A) 7.7 k/uL (1.3-7.7); Neutrophils % (A) 76 %; Platelet Count 293 k/uL (150-450); RBC 3.14 m/uL (3.80-5.40); RDW 15.1 % (11.5-15.5); WBC 10.1 k/uL (3.8-10.6)
--- NOTE | 2021-04-11 13:51 | XR ---
EXAMINATION TYPE: XR chest 1V portable DATE OF EXAM: 04/11/2021 COMPARISON: 08/03/2017 HISTORY: Cough and shortness of breath TECHNIQUE: Single frontal view of the chest is obtained. FINDINGS: Diffuse interstitial pattern with small bilateral effusions and cardiomegaly. There is anne ateral perihilar areas of consolidation. No pneumothorax. Diffuse osteopenia and arthropathy of the s houlders. IMPRESSION: 1. Correlate for CHF with pulmonary edema versus bilateral pneumonia.
[2021-04-11 13:58] LABS: Calcium 9.1 mg/dL (8.4-10.2); Magnesium 1.9 mg/dL (1.6-2.3); Potassium 3.7 mmol/L (3.5-5.1)
[2021-04-11 14:09] LABS: Prothrombin Time 10.6 sec (9.0-12.0)
[2021-04-11 14:12] LABS: Partial Thromboplastin Time 19.2 sec (22.0-30.0)
[2021-04-11] MEDS ORDERED: LIDOCAINE-PRILOCAINE 2.5-2.5% CREAM 5 GM TUBE TOPICAL PRN (15:46)
[2021-04-11] MEDS ORDERED: LIDOCAINE-PRILOCAINE 2.5-2.5% CREAM 5 GM TUBE TOPICAL ONE (15:47)
[2021-04-11] MEDS: SYMBICORT 160-4.5 MCG INHALER INHALATION SCH (20:32)
[2021-04-11] MEDS: FUROSEMIDE 10 MG/ML 4 ML VIAL IV SCH (21:59)
[2021-04-11] MEDS: LOSARTAN 50 MG TAB PO SCH (22:01)
[2021-04-11] MEDS: PRAVASTATIN SODIUM 20 MG TAB PO SCH (22:01)
[2021-04-11] MEDS: MAGNESIUM OXIDE 400 MG TAB PO SCH (22:01)
[2021-04-11] MEDS: METOPROLOL TARTRATE 25 MG TAB PO SCH (22:02)
[2021-04-11] MEDS: PANTOPRAZOLE 40 MG TABLET PO SCH (22:02)
[2021-04-11] MEDS: amLODIPine 10 MG TAB PO SCH (22:03)
[2021-04-11] MEDS: ASPIRIN 81 MG PO SCH (22:03)
[2021-04-12] MEDS: allopurinoL 100 MG TAB PO SCH ×2 (01:25→21:09)
[2021-04-12] MEDS: FOLIC ACID-VIT B COMPLEX-VIT C 1 CAP PO SCH ×2 (01:25→21:10)
[2021-04-12] MEDS: FLUTICASONE 50MCG/SPRAY NASAL 16GM EA NOSTRIL SCH ×2 (01:25→21:10)
[2021-04-12 07:45] LABS: Basophils % (A) 0 %; Eosinophils # (A) 0.1 k/uL (0-0.7); Eosinophils % (A) 2 %; HCT 27.3 % (34.0-46.0); Lymphocytes # (A) 1.5 k/uL (1.0-4.8); Lymphocytes % (A) 17 %; MCH 29.9 pg (25.0-35.0); MCHC 32.9 g/dL (31.0-37.0); MCV 90.8 fL (80.0-100.0); Mean Platelet Volume 7.6; Monocytes # (A) 0.4 k/uL (0-1.0); Monocytes % (A) 5 %; Neutrophils # (A) 6.3 k/uL (1.3-7.7); Neutrophils % (A) 75 %; Platelet Count 310 k/uL (150-450); RDW 14.8 % (11.5-15.5); WBC 8.5 k/uL (3.8-10.6)
[2021-04-12 08:01] LABS: Calcium 8.9 mg/dL (8.4-10.2); Potassium 3.5 mmol/L (3.5-5.1)
--- NOTE | 2021-04-12 09:12 | P.NPCON ---
History of Present Illness - Reason for Consult end stage renal disease - History of Present Illness Reason for consultation: End-stage renal disease History of present illness: Patient is a 80-year-old female seen in renal consultation for end-stage renal disease. Patient was seen and examined in the emergency room. She is maintained on hemodialysis on Saturday schedule. She has AV fi stula. Patient states she's been having a cough for the last couple of weeks. She also admits to worsening shortness of breath over the last 1 week. Patient states she is getting short of breath even from walking one room to another. She denies chest pain. No vomiting or diarrhea. Oral intake has been fair. No fever or chills. She tested negative for coronavirus. last hemodialysis was on Saturday. Hemodynamically stable. Chest x-ray suggestive of fluid overload. She does have good urine output. Vital signs are stable. General: The patient appeared well nourished and normally developed. HEENT: Head exam is unremarkable. On nasal cannula. LUNGS: Breath sounds decreased. HEART: Rate and Rhythm are regular. ABDOMEN: Soft, no distention. EXTREMITITES: No edema. Past Medical History Past Medical History: Coronary Artery Disease (CAD), Heart Failure, Diabetes Mellitus, Hyperlipidemia, Hypertension, Renal Disease Additional Past Medical History / Comment(s): has [facility] SAT,SAT[facility],heart murmur; Hx gout; see Dr Fu's H&P , gout, diastolic heart failure History of Any Multi-Drug Resistant Organisms: None Reported Past Surgical History: Appendectomy, Heart Catheterization, Heart Catheterization With Stent Additional Past Surgical History / Comment(s): IV catheter rt chest, Ovary removal, 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 Bilateral carotid endarterectomy. Aortic valve replacement 02/2018 Past Anesthesia/Blood Transfusion Reactions: No Reported Reaction Date of Last Stent Placement:: unknown Past Psychological History: Anxiety, Depression Smoking Status: Former smoker Past Alcohol Use History: None Reported Past Drug Use History: None Reported - Past Family History Mother Family Medical History: No Reported History Sister(s) Family Medical History: Cancer Medications and Allergies Home Medications Medication Instructions Recorded Confirmed Type Febuxostat [Uloric] 40 mg PO HS 08/03/17 04/11/21 History Pantoprazole Sodium [Protonix] 40 mg PO HS 08/03/17 04/11/21 History Pravastatin Sodium [Pravachol] 20 mg PO HS 08/03/17 04/11/21 History amLODIPine [Norvasc] 10 mg PO HS 08/03/17 04/11/21 History Mometasone/Formoterol [Dulera 200 2 puff INHALATION RT-BID 04/22/18 04/11/21 History Mcg/5 Mcg Inhaler] Metoprolol Tartrate [Lopressor] 25 mg PO HS 05/12/20 04/11/21 History Aspirin EC [Ecotrin Low Dose] 81 mg PO HS 04/11/21 04/11/21 History Cholecalciferol (Vitamin D3) 75 mcg PO DAILY 04/11/21 04/11/21 History [Vitamin D3 (3000 Iu)] Dialyvite 800 1 tab PO HS 04/11/21 04/11/21 History Fluticasone Nasal [place] [Flonase 2 spray EA NOSTRIL HS 04/11/21 04/11/21 History Nasal [place]] Furosemide [Lasix] 60 mg PO HS 04/11/21 04/11/21 History Lidocaine-Prilocaine Cream [Emla 1 applic TOPICAL DAILY PRN 04/11/21 04/11/21 History Cream 2.5%/2.5%] Losartan Potassium [Cozaar] 50 mg PO HS 04/11/21 04/11/21 History Magnesium Oxide [Mag-Ox] 250 mg PO HS 04/11/21 04/11/21 History Metoprolol Tartrate [Lopressor] 50 mg PO QAM 04/11/21 04/11/21 History Allergies Allergy/AdvReac Type Severity Reaction Status Date / Time atorvastatin [From Lipitor] Allergy Unknown Verified 04/11/21 14:11 codeine Allergy Rash/Hives Verified 04/11/21 14:11 duloxetine [From Cymbalta] Allergy Unknown Verified 04/11/21 14:11 ezetimibe [From Zetia] Allergy Unknown Verified 04/11/21 14:11 fenofibrate [From Tricor] Allergy Unknown Verified 04/11/21 14:11 latex Allergy Rash/Hives Verified 04/11/21 14:11 niacin Allergy Unknown Verified 04/11/21 14:11 tetracycline Allergy Unknown Verified 04/11/21 14:11 Physical Exam Vitals: Vital Signs Temp Pulse Resp BP Pulse Ox 04/12/21 03:45 98.5 F 82 16 120/55 91 L 04/12/21 00:00 80 16 160/88 97 04/11/21 15:00 89 16 98/75 94 L 04/11/21 13:06 98.9 F 88 18 98/51 89 L 04/11/21 13:00 18 Results - Lab Results Most recent lab results Calcium 8.9 mg/dL (8.4-10.2) 04/12/21 07:16 Magnesium 2.0 mg/dL (1.6-2.3) 04/12/21 07:16 04/12/21 07:16 04/12/21 07:16 Assessment and Plan Plan: Assessment: 1. End-stage renal disease maintained on hemodialysis on Saturday schedule. 2. Acute hypoxic respiratory failure. 3. Volume overload. 4. Hypertension with chronic kidney disease. 5. Anemia of chronic kidney disease. Plan: Hemodialysis today. Check iron studies. Check phosphorus level. Follow-up echo. Thank you for the consultation. I will continue to follow the patient with you during her hospital stay.
[2021-04-12] MEDS: FUROSEMIDE 10 MG/ML 4 ML VIAL IV SCH ×2 (10:28→21:10)
[2021-04-12] MEDS: CHOLECALCIFEROL 25 MCG (1000 IU) TABLET PO SCH (10:28)
[2021-04-12] MEDS: METOPROLOL TARTRATE 50 MG TAB PO SCH (10:28)
[2021-04-12 10:38] LABS: Phosphorus 4.2 mg/dL (2.5-4.5)
--- NOTE | 2021-04-12 11:05 | P.CRDCN ---
History of Present Illness Consult date: 04/12/21 History of present illness: HISTORY OF PRESENTING ILLNESS This is a pleasant 80-year-old female past medical history significant for coronary artery disease, heart failure, diabetes, hyperlipidemia, hypertension, chronic renal disease on dialysis Saturday, right arm AV fistula. She follows in the office with Dr Fu. We have been asked to see in consultation for heart failure, fluid overload. Patient reports that she has been feeling short of breath and had a negative cough for the last 3 weeks. She was seen at her primary's office and was found to be hypoxic with an oxygen saturation of 88%. Patient also reports orthopnea and PND. She would also wake up at night with chest tightness. Patient is eating and resting comfortably in bed. States she is still unable to lay flat. She has dyspnea with activity and mild lower extremity edema. She denies chest pain, palpitations, dizziness, syncope. Blood pressure is 120/55, heart rate 82, respirations 16, 91% on 2 L nasal cannula, afebrile. DIAGNOSTICS EKG reveals sinus rhythm with a first-degree AV block. Echocardiogram pending Chest xray correlates for CHF with pulmonary edema versus bilateral pneumonia . Laboratory reviewed, WBC 8.5, hemoglobin 9, sodium 133, potassium 3.5, BUN 47, creatinine 4.91, troponins 1.54, 1.66, 1.63, proBNP 15,900. Current cardiac medications include amlodipine 10 mg daily, aspirin 81 mg daily, Lasix 40 mg IV every 12, losartan 50 mg daily, metoprolol 50 mg in the morning, 25 mg at night, pravastatin 20 mg at bedtime. Review of Systems REVIEW OF SYSTEMS At the time of my exam: CONSTITUTIONAL: Denies fever or chills. EYES: Negative for vision changes ENT: Negative for hearing loss CARDIOVASCULAR: Denies chest pain, shortness of breath, diaphoresis, orthopnea, PND or palpitations. VASCULAR: Ankle edema RESPIRATORY: cough and shortness of breath with activity, unable to lie flat GASTROINTESTINAL: Denies abdominal pain, diarrhea, constipation, nausea or vomiting. MUSCULOSKELETAL: Denies myalgias. NEUROLOGIC: Denies numbness, tingling, headache or weakness. ENDOCRINE: Denies fatigue, weight change, polydipsia or polyurina. GENITOURINARY: Denies burning, hematuria or urgency with micturation. HEMATOLOGIC: Denies history of anemia or bleeding. DERMATOLOGY: Denies rash or skin sores PSYCH: Negative for depression or hallucinations. Past Medical History Past Medical History: Coronary Artery Disease (CAD), Heart Failure, Diabetes Mellitus, Hyperlipidemia, Hypertension, Renal Disease Additional Past Medical History / Comment(s): has hemodialysis MON,WED,FRI for 3 1/2 in [facility] Feb 2020,heart murmur; Hx gout; see Dr Fu's H&P , gout, diastolic heart failure History of Any Multi-Drug Resistant Organisms: None Reported Past Surgical History: Appendectomy, Heart Catheterization, Heart Catheterization With Stent Additional Past Surgical History / Comment(s): IV catheter rt chest, Ovary removal, 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 Bilateral carotid endarterectomy. Aortic valve replacement 02/2018 Past Anesthesia/Blood Transfusion Reactions: No Reported Reaction Date of Last Stent Placement:: unknown Past Psychological History: Anxiety, Depression Smoking Status: Former smoker Past Alcohol Use History: None Reported Past Drug Use History: None Reported - Past Family History Mother Family Medical History: No Reported History Sister(s) Family Medical History: Cancer Medications and Allergies Home Medications Medication Instructions Recorded Confirmed Type Febuxostat [Uloric] 40 mg PO HS 08/03/17 04/11/21 History Pantoprazole Sodium [Protonix] 40 mg PO HS 08/03/17 04/11/21 History Pravastatin Sodium [Pravachol] 20 mg PO HS 08/03/17 04/11/21 History amLODIPine [Norvasc] 10 mg PO HS 08/03/17 04/11/21 History Mometasone/Formoterol [Dulera 200 2 puff INHALATION RT-BID 04/22/18 04/11/21 History Mcg/5 Mcg Inhaler] Metoprolol Tartrate [Lopressor] 25 mg PO HS 05/12/20 04/11/21 History Aspirin EC [Ecotrin Low Dose] 81 mg PO HS 04/11/21 04/11/21 History Cholecalciferol (Vitamin D3) 75 mcg PO DAILY 04/11/21 04/11/21 History [Vitamin D3 (3000 Iu)] Dialyvite 800 1 tab PO HS 04/11/21 04/11/21 History Fluticasone Nasal [place] [Flonase 2 spray EA NOSTRIL HS 04/11/21 04/11/21 History Nasal [place]] Furosemide [Lasix] 60 mg PO HS 04/11/21 04/11/21 History Lidocaine-Prilocaine Cream [Emla 1 applic TOPICAL DAILY PRN 04/11/21 04/11/21 History Cream 2.5%/2.5%] Losartan Potassium [Cozaar] 50 mg PO HS 04/11/21 04/11/21 History Magnesium Oxide [Mag-Ox] 250 mg PO HS 04/11/21 04/11/21 History Metoprolol Tartrate [Lopressor] 50 mg PO QAM 04/11/21 04/11/21 History Allergies Allergy/AdvReac Type Severity Reaction Status Date / Time atorvastatin [From Lipitor] Allergy Unknown Verified 04/11/21 14:11 codeine Allergy Rash/Hives Verified 04/11/21 14:11 duloxetine [From Cymbalta] Allergy Unknown Verified 04/11/21 14:11 ezetimibe [From Zetia] Allergy Unknown Verified 04/11/21 14:11 fenofibrate [From Tricor] Allergy Unknown Verified 04/11/21 14:11 latex Allergy Rash/Hives Verified 04/11/21 14:11 niacin Allergy Unknown Verified 04/11/21 14:11 tetracycline Allergy Unknown Verified 04/11/21 14:11 Physical Exam Vitals: Vital Signs Temp Pulse Resp BP Pulse Ox 04/12/21 03:45 98.5 F 82 16 120/55 91 L 04/12/21 00:00 80 16 160/88 97 04/11/21 15:00 89 16 98/75 94 L 04/11/21 13:06 98.9 F 88 18 98/51 89 L 04/11/21 13:00 18 PHYSICAL EXAMINATION VITAL SIGNS: Reviewed CONSTITUTIONAL: No apparent distress. HEENT: Head is normocephalic. Pupils are equal, round. Sclerae anicteric. Mucous membranes of the mouth are moist. NECK: No JVD. No carotid bruit. RESPIRATORY: Lungs are diminished to auscultation. No chest wall tenderness is noted on palpation or with deep breathing. CARDIAC: Regular rate and rhythm. S1, S2 heard. gallops or rub. Continuous murmur heard throughout, right arm AV fistula-positive thrill and bruit ABDOMEN: Soft, nontender. EXTREMITIES: 2+ peripheral pulses, mild lower extremity edema and no calf tenderness. NEUROLOGIC EXAMINATION: Patient is awake, alert and oriented x3. INTEGUMENTARY: Warm, absent for rashes or sores PSYCH: Negative for depression or hallucinations, mood appropriate. Results 04/12/21 07:16 04/12/21 07:16 Cardiac Enzymes 04/11/21 04/11/21 04/12/21 Range/Units 13:33 23:15 07:16 Troponin I 1.540 H* 1.660 H* 1.630 H* (0.000-0.034) ng/mL Coagulation 04/11/21 Range/Units 13:33 PT 10.6 (9.0-12.0) sec APTT 19.2 L (22.0-30.0) sec CBC 04/11/21 04/12/21 Range/Units 13:33 07:16 WBC 10.1 8.5 (3.8-10.6) k/uL RBC 3.14 L 3.00 L (3.80-5.40) m/uL Hgb 9.5 L 9.0 L (11.4-16.0) gm/dL Hct 28.5 L 27.3 L (34.0-46.0) % Plt Count 293 310 (150-450) k/uL Comprehensive Metabolic Panel 04/11/21 04/12/21 Range/Units 13:33 07:16 Sodium 132 L 133 L (137-145) mmol/L Potassium 3.7 3.5 (3.5-5.1) mmol/L Chloride 94 L 94 L (98-107) mmol/L Carbon Dioxide 28 29 (22-30) mmol/L BUN 37 H 47 H (7-17) mg/dL Creatinine 3.74 H 4.91 H (0.52-1.04) mg/dL Glucose 106 H 109 H (74-99) mg/dL Calcium 9.1 8.9 (8.4-10.2) mg/dL Current Medications Generic Name Dose Route Start Last Admin Trade Name Freq PRN Reason Stop Dose Admin Allopurinol 200 mg 04/11/21 21:00 04/12/21 01:25 Allopurinol 100 Mg Tab PO Not Given HS ALEXANDRA Amlodipine Besylate 10 mg 04/11/21 21:00 04/11/21 22:03 Amlodipine 10 Mg Tab PO 10 mg HS ALEXANDRA Administration Aspirin 81 mg 04/11/21 21:00 04/11/21 22:03 Aspirin 81 Mg PO 81 mg HS [facility] Administration Budesonide/Formoterol Fumarate 2 puff 04/11/21 20:00 04/11/21 20:32 Symbicort 160-4.5 Mcg Inhaler INHALATION 2 puff RT-BID ALEXANDRA Administration Cholecalciferol 75 mcg 04/12/21 09:00 04/12/21 10:28 Cholecalciferol 25 Mcg (1000 Iu) Tablet PO 75 mcg DAILY ALEXANDRA Administration Fluticasone Propionate 2 spray 04/11/21 21:00 04/12/21 01:25 Fluticasone 50mcg/[place] Nasal 16gm EA NOSTRIL Not Given HS [facility] Furosemide 40 mg 04/11/21 21:00 04/12/21 10:28 Furosemide 10 Mg/Ml 4 Ml Vial IV Not Given Q12HR [facility] Lidocaine/Prilocaine 1 applic 04/11/21 15:46 Lidocaine-Prilocaine 2.5-2.5% Cream 5 Gm Tube TOPICAL DAILY PRN port access Protocol Losartan Potassium 50 mg 04/11/21 21:00 04/11/21 22:01 Losartan 50 Mg Tab PO 50 mg HS [facility] Administration Magnesium Oxide 400 mg 04/11/21 21:00 04/11/21 22:01 Magnesium Oxide 400 Mg Tab PO 400 mg HS [facility] Administration Metoprolol Tartrate 25 mg 04/11/21 21:00 04/11/21 22:02 Metoprolol Tartrate 25 Mg Tab PO 25 mg HS [facility] Administration Metoprolol Tartrate 50 mg 04/12/21 09:00 04/12/21 10:28 Metoprolol Tartrate 50 Mg Tab PO Not Given QAM [facility] Multivit/Ca Carb/B Cmplx/FA/Prenat 1 each 04/11/21 21:00 04/12/21 01:25 Folic Acid-Vit B Complex-Vit C 1 Cap PO Not Given HS [facility] Pantoprazole Sodium 40 mg 04/11/21 21:00 04/11/21 22:02 Pantoprazole 40 Mg Tablet PO 40 mg HS [facility] Administration Pravastatin Sodium 20 mg 04/11/21 21:00 04/11/21 22:01 Pravastatin Sodium 20 Mg Tab PO 20 mg HS ALEXANDRA Administration 04/12/21 07:16 04/12/21 07:16 Assessment and Plan Assessment: Acute on chronic congestive heart failure Chronic end-stage renal disease requiring dialysis Elevated troponins likely related to advanced renal disease Hypertension Hyperlipidemia Plan: Continue to diurese with IV diuretics as tolerated by renal function Echocardiogram pending Continue with dialysis schedule Continue telemetry monitoring Continue with all current cardiac medications Further recommendations based on clinical course The above impression and plan of care have been discussed and directed by the signing physician. Yas Hurtado, nurse practitioner, acting as scribe for signing physician.
--- NOTE | 2021-04-12 12:00 | ECHOF ---
Referral Reason:shortness of breath, CHF, ESRD MEASUREMENTS -------- HEIGHT: 160.0 cm WEIGHT: 91.2 kg BP: 120/55 RVIDd: 3.0 cm (< 3.3) IVSd: 1.1 cm (0.6 - 1.1) LVIDd: 5.4 cm (3.9 - 5.3) LVPWd: 1.1 cm (0.6 - 1.1) IVSs: 1.8 cm LVIDs: 3.4 cm LVPWs: 1.8 cm LA Diam: 4.0 cm (2.7 - 3.8) LAESV Index (A-L): 23.83 ml/m Ao Diam: 2.1 cm (2.0 - 3.7) MV EXCURSION: 13.883 mm (> 18.000) MV EF SLOPE: 21 mm/s (70 - 150) EPSS: 0.9 cm MV E Deny: 1.92 m/s MV DecT: 212 ms MV A Deny: 1.73 m/s MV E/A Ratio: 1.11 AV maxP.46 mmHg AV meanP.64 mmHg RAP: 5.00 mmHg RVSP: 51.70 mmHg FINDINGS -------- Sinus rhythm. This was a technically adequate study. The left ventricular size is normal. There is borderline concentric left ventricular hypertrophy. Overall left ventricular systolic function is normal with, an EF between 55 - 60 %. The right ventricle is normal in size. Normal LA size by volume 22+/-6 ml/m2. The right atrium is normal in size. Interatrial and interventricular septum intact. Peak/mean gradient across the Aortic Valve is 31.46mmHg / 14.64mmHg. Normally functioning bioprosth etic valve. There is trivial dee-prosthetic regurgitation of the bioprosthetic aortic valve. TAV R procedure done The mitral valve leaflets are mildly thickened. Mild mitral annular calcification present. Modera te mitral regurgitation is present. The peak and mean MV gradients are 23.91mmHg 8.08mmHg as measu red by doppler. [id number] tricuspid regurgitation present. There is moderate pulmonary hypertension. The r ight ventricular systolic pressure, as measured by Doppler, is 51.70mmHg. The pulmonic valve is normal. The aortic root size is normal. Normal inferior vena cava with normal inspiratory collapse consistent with estimated right atrial pre ssure of 5 mmHg. There is no pericardial effusion. CONCLUSIONS -------- 1. The left ventricular size is normal. 2. There is borderline concentric left ventricular hypertrophy. 3. Overall left ventricular systolic function is normal with, an EF between 55 - 60 %. 4. Peak/mean gradient across the Aortic Valve is 31.46mmHg / 14.64mmHg. 5. Normally functioning bioprosthetic valve. 6. There is trivial dee-prosthetic regurgitation of the bioprosthetic aortic valve. 7. TAVR procedure done 8. The mitral valve leaflets are mildly thickened. 9. Mild mitral annular calcification present. 10. Moderate mitral regurgitation is present. 11. The peak and mean MV gradients are 23.91mmHg 8.08mmHg as measured by doppler. 12. [id number] tricuspid regurgitation present. 13. There is moderate pulmonary hypertension. 14. The right ventricular systolic pressure, as measured by Doppler, is 51.70mmHg. 15. Normal inferior vena cava with normal inspiratory collapse consistent with estimated right atrial pressure of 5 mmHg. 16. There is no pericardial effusion. MANAGER HEART FAILURE: Angely Davidson RDCS
[2021-04-12] MEDS: SYMBICORT 160-4.5 MCG INHALER INHALATION SCH ×2 (12:25→19:33)
--- NOTE | 2021-04-12 12:54 | P.HPIM ---
History of Present Illness H&P Date: 04/11/21 This is a 80-year-old female who had been having worsening shortness of breath over the last few days and went to her PCP and was given a steroid taper and continued with cough and oxygen saturation was found to be 80% and sent here from her primary care's office for further evaluation. Patient does have history of end-stage renal disease and is maintained on Saturday/Saturday/Saturday schedule and has been compliant. She reports to being vaccinated for COVID-19 and COVID-19 testing was negative. Patient denied any fevers or increasing cough with sputum just a dry hacking cough. Patient does have a past medical history of coronary artery disease, heart failure, diabetes mellitus, hyperlip idemia, hypertension, end-stage renal disease. Chest x-ray shows correlate for CHF with pulmonary edema versus bilateral pneumonia with small bilateral pleural effusions and cardiomegaly noted. 2-D echo was ordered and patient will be started on IV Lasix and nephrology also consulted along with cardiology for increased troponins. EKG revealed sinus rhythm with first-degree AV block with left axis deviation and left ventricular hypertrophy with QRS widening and repolarization abnormality. Labs: WBC is 10.1, hemoglobin is 9.5, platelets are 293, sodium is 132, potassium is 3.7, BUN is 37, creatinine 3.74, magnesium 1.9, initial troponin 1.540, BNP 15,900, COVID-19 negative Review of systems: Constitutional: reports of fatigue, no reports of fever, or chills Cardiovascular: No reports of chest pain or palpitations Respiratory: reports of shortness of breath and dry hacking cough GI: No reports of nausea, vomiting, or diarrhea : No reports of dysuria or retention Neurovascular: No reports of weakness or numbness All medications have been reviewed Active Medications Allopurinol (Allopurinol 100 Mg Tab) 200 mg PO [facility] Last Admin: 04/12/21 01:25 Dose: Not Given Documented by: Amlodipine Besylate (Amlodipine 10 Mg Tab) 10 mg PO [facility] Last Admin: 04/11/21 22:03 Dose: 10 mg Documented by: Aspirin (Aspirin 81 Mg) 81 mg PO [facility] Last Admin: 04/11/21 22:03 Dose: 81 mg Documented by: Budesonide/Formoterol Fumarate (Symbicort 160-4.5 Mcg Inhaler) 2 puff INHALATION RT-BID [facility]END[facility] TO [facility] Last Admin: 04/11/21 20:32 Dose: 2 puff Documented by: Cholecalciferol (Cholecalciferol 25 Mcg (1000 Iu) Tablet) 75 mcg PO DAILY PENDING [facility] TO [facility] Fluticasone Propionate (Fluticasone 50mcg/[place] Nasal 16gm) 2 spray EA NOSTRIL [facility] Last Admin: 04/12/21 01:25 Dose: Not Given Documented by: Furosemide (Furosemide 10 Mg/Ml 4 Ml Vial) 40 mg IV Q12HR [facility] Last Admin: 04/11/21 21:59 Dose: 40 mg Documented by: Lidocaine/Prilocaine (Lidocaine-Prilocaine 2.5-2.5% Cream 5 Gm Tube) 1 applic TOPICAL DAILY PRN; Protocol PRN Reason: port access Losartan Potassium (Losartan 50 Mg Tab) 50 mg PO [facility] Last Admin: 04/11/21 22:01 Dose: 50 mg Documented by: Magnesium Oxide (Magnesium Oxide 400 Mg Tab) 400 mg PO [facility] Last Admin: 04/11/21 22:01 Dose: 400 mg Documented by: Metoprolol Tartrate (Metoprolol Tartrate 25 Mg Tab) 25 mg PO [facility] Last Admin: 04/11/21 22:02 Dose: 25 mg Documented by: Metoprolol Tartrate (Metoprolol Tartrate 50 Mg Tab) 50 mg PO [facility] Multivit/Ca Carb/B Cmplx/FA/Prenat (Folic Acid-Vit B Complex-Vit C 1 Cap) 1 each PO [facility] Last Admin: 04/12/21 01:25 Dose: Not Given Documented by: Pantoprazole Sodium (Pantoprazole 40 Mg Tablet) 40 mg PO [facility] Last Admin: 04/11/21 22:02 Dose: 40 mg Documented by: Pravastatin Sodium (Pravastatin Sodium 20 Mg Tab) 20 mg PO [facility] Last Admin: 04/11/21 22:01 Dose: 20 mg Documented by: Physical Exam: Gen: This is 80-year-old female, alert and oriented 3. HEENT: Head is atraumatic, normocephalic. Pupils equal, round. Sclerae is anicteric. NECK: Supple. No JVD. No lymphadenopathy. No thyromegaly. subcutaneous emphysema noted in the neck and chest wall area bilaterally. LUNGS: Diminished breath sounds bilaterally with no wheezing or rhonchi noted some mild bibasilar crackles noted. No intercostal retractions. HEART: S1, S2 are muffled ABDOMEN: Soft. Bowel sounds are present. No masses. No tenderness. EXTREMITIES: No pedal edema. No calf tenderness. NEUROLOGICAL: Patient is awake, alert and oriented 3, no focal deficit noted Assessment: Shortness of breath most likely secondary to volume overload Acute on chronic congestive heart failure with diastolic dysfunction, EF 55-60% with moderate pulmonary hypertension noted Severe aortic stenosis regurgitation noted on echo Elevated troponins most likely secondary to chronic kidney disease Elevated BNP Acute hypoxic respiratory failure secondary to above End-stage renal disease on hemodialysis Saturday/Saturday/Saturday hypertension Diabetes mellitus type 2 Anemia of chronic kidney disease GI prophylaxis DVT prophylaxis Plan: Recommend to continue with current medications and cardiology and nephrology consulted. Patient continues shortness of breath and will continue supplemental oxygen and wean FiO2 as tolerated. Patient was started on IV Lasix and will continue and nephrology consulted as patient is maintaining on hemodialysis Saturday/Saturday/Saturday with her next session being due tomorrow. Patient's BNP was elevated and 2-D echo was ordered showing an LV systolic function normal with an EF of 55-60% with moderate pulmonary hypertension and severe aortic stenosis with regurgitation noted. We'll monitor troponins and cardiology has been consulted. Encourage increased activity as tolerated. patient does have history of diabetes although is diet controlled and does not take any medications for this and will continue to monitor closely and use sliding scale as needed. recommend repeat labs and await cardiology consultation. Prognosis remains guarded with multiple complex medical issues noted. Review of Systems Constitutional: Denies chills, Denies fever Ears, nose, mouth and throat: Denies headache, Denies sore throat Cardiovascular: Reports dyspnea on exertion, Reports shortness of breath Respiratory: Reports congestion, Reports cough, Reports dyspnea Gastrointestinal: Denies abdominal pain, Denies diarrhea, Denies nausea, Denies vomiting Genitourinary: Denies dysuria, Denies hematuria Musculoskeletal: Denies myalgias Integumentary: Denies pruritus, Denies rash Neurological: Denies numbness, Denies weakness Endocrine: Denies fatigue, Denies weight change Past Medical History Past Medical History: Coronary Artery Disease (CAD), Heart Failure, Diabetes Mellitus, Hyperlipidemia, Hypertension, Renal Disease Additional Past Medical History / Comment(s): has hemodialysis SAT,SAT,FRI for 3 1/2 in [facility] Feb 2020,heart murmur; Hx gout; see Dr Fu's H&P , gout, diastolic heart failure History of Any Multi-Drug Resistant Organisms: None Reported Past Surgical History: Appendectomy, Heart Catheterization, Heart Catheterization With Stent Additional Past Surgical History / Comment(s): IV catheter rt chest, Ovary removal, 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 Bilateral carotid endarterectomy. Aortic valve replacement 02/2018 Past Anesthesia/Blood Transfusion Reactions: No Reported Reaction Date of Last Stent Placement:: unknown Past Psychological History: Anxiety, Depression Smoking Status: Former smoker Past Alcohol Use History: None Reported Past Drug Use History: None Reported - Past Family History Mother Family Medical History: No Reported History Sister(s) Family Medical History: Cancer Father Family Medical History: Myocardial Infarction ([place]) Additional Family Medical History / Comment(s): Father of a [place] in his 60s. Medications and Allergies Home Medications Medication Instructions Recorded Confirmed Type Febuxostat [Uloric] 40 mg PO HS 08/03/17 04/11/21 History Pantoprazole Sodium [Protonix] 40 mg PO HS 08/03/17 04/11/21 History Pravastatin Sodium [Pravachol] 20 mg PO HS 08/03/17 04/11/21 History amLODIPine [Norvasc] 10 mg PO HS 08/03/17 04/11/21 History Mometasone/Formoterol [Dulera 200 2 puff INHALATION RT-BID 04/22/18 04/11/21 History Mcg/5 Mcg Inhaler] Metoprolol Tartrate [Lopressor] 25 mg PO HS 05/12/20 04/11/21 History Aspirin EC [Ecotrin Low Dose] 81 mg PO HS 04/11/21 04/11/21 History Cholecalciferol (Vitamin D3) 75 mcg PO DAILY 04/11/21 04/11/21 History [Vitamin D3 (3000 Iu)] Dialyvite 800 1 tab PO HS 04/11/21 04/11/21 History Fluticasone Nasal [place] [Flonase 2 spray EA NOSTRIL HS 04/11/21 04/11/21 History Nasal [place]] Furosemide [Lasix] 60 mg PO HS 04/11/21 04/11/21 History Lidocaine-Prilocaine Cream [Emla 1 applic TOPICAL DAILY PRN 04/11/21 04/11/21 History Cream 2.5%/2.5%] Losartan Potassium [Cozaar] 50 mg PO HS 04/11/21 04/11/21 History Magnesium Oxide [Mag-Ox] 250 mg PO HS 04/11/21 04/11/21 History Metoprolol Tartrate [Lopressor] 50 mg PO QAM 04/11/21 04/11/21 History Allergies Allergy/AdvReac Type Severity Reaction Status Date / Time atorvastatin [From Lipitor] Allergy Unknown Verified 04/11/21 14:11 codeine Allergy Rash/Hives Verified 04/11/21 14:11 duloxetine [From Cymbalta] Allergy Unknown Verified 04/11/21 14:11 ezetimibe [From Zetia] Allergy Unknown Verified 04/11/21 14:11 fenofibrate [From Tricor] Allergy Unknown Verified 04/11/21 14:11 latex Allergy Rash/Hives Verified 04/11/21 14:11 niacin Allergy Unknown Verified 04/11/21 14:11 tetracycline Allergy Unknown Verified 04/11/21 14:11 Physical Exam Vitals: Vital Signs Temp Pulse Resp BP Pulse Ox 04/11/21 13:06 98.9 F 88 18 98/51 89 L Intake and Output 04/11/21 04/11/21 04/11/21 06:59 14:59 22:59 Other: Weight 91.172 kg Results CBC & Chem 7: 04/12/21 07:16 04/12/21 07:16 Labs: Abnormal Lab Results - Last 24 Hours (Table) 04/11/21 04/11/21 04/11/21 Range/Units 13:33 13:33 13:33 RBC 3.14 L (3.80-5.40) m/uL Hgb 9.5 L (11.4-16.0) gm/dL Hct 28.5 L (34.0-46.0) % APTT 19.2 L (22.0-30.0) sec Sodium 132 L (137-145) mmol/L Chloride 94 L (98-107) mmol/L BUN 37 H (7-17) mg/dL Creatinine 3.74 H (0.52-1.04) mg/dL Glucose 106 H (74-99) mg/dL Troponin I (0.000-0.034) ng/mL 04/11/21 Range/Units 13:33 RBC (3.80-5.40) m/uL Hgb (11.4-16.0) gm/dL Hct (34.0-46.0) % APTT (22.0-30.0) sec Sodium (137-145) mmol/L Chloride (98-107) mmol/L BUN (7-17) mg/dL Creatinine (0.52-1.04) mg/dL Glucose (74-99) mg/dL Troponin I 1.540 H* (0.000-0.034) ng/mL Thrombosis Risk Factor Assmnt - DVT/VTE Prophylaxis DVT/VTE Prophylaxis: Pharmacologic Prophylaxis ordered Assessment and Plan Time with Patient: Greater than 30
[2021-04-12 14:57] LABS: % Iron Saturation 9.59 (12.00-45.00)
[2021-04-12] MEDS ORDERED: BENZONATATE 100 MG CAP PO PRN (15:41)
[2021-04-12] MEDS: SODIUM FERRIC GLUCONAT-SUCROSE 125 MG in SODIUM CHLORIDE 0.9% 100 ML IVPB SCH (16:30)
[2021-04-12 21:05] LABS: Glucose,Whole Blood 114 mg/dL (75-99)
[2021-04-12] MEDS: ASPIRIN 81 MG PO SCH (21:09)
[2021-04-12] MEDS: METOPROLOL TARTRATE 25 MG TAB PO SCH (21:09)
[2021-04-12] MEDS: PANTOPRAZOLE 40 MG TABLET PO SCH (21:09)
[2021-04-12] MEDS: LOSARTAN 50 MG TAB PO SCH (21:10)
[2021-04-12] MEDS: MAGNESIUM OXIDE 400 MG TAB PO SCH (21:10)
[2021-04-12] MEDS: PRAVASTATIN SODIUM 20 MG TAB PO SCH (21:10)
[2021-04-12] MEDS: amLODIPine 10 MG TAB PO SCH (21:10)
[2021-04-12] MEDS: HEPARIN SODIUM,PORCINE/PF 5,000 UNIT/0.5 ML SYRINGE SQ SCH (21:11)
--- NOTE | 2021-04-13 05:00 | P.PN ---
Subjective Progress Note Date: 04/12/21 This is a 80-year-old female who had been having worsening shortness of breath over the last few days and went to her PCP and was given a steroid taper and continued with cough and oxygen saturation was found to be 80% and sent here from her primary care's office for further evaluation. Patient does have history of end-stage renal disease and is maintained on Saturday/Saturday/Saturday schedule and has been compliant. She reports to being vaccinated for COVID-19 and COVID-19 testing was negative. Patient denied any fevers or increasing cough with sputum just a dry hacking cough. Patient does have a past medical history of coronary artery disease, heart failure, diabetes mellitus, hyperlipidemia, hypertension, end-stage renal disease. Chest x-ray shows correlate for CHF with pulmonary edema versus bilateral pneumonia with small bilateral pleural effusions and cardiomegaly noted. 2-D echo was ordered and patient will be started on IV Lasix and nephrology also consulted along with cardiology for increased troponins. EKG revealed sinus rhythm with first-degree AV block with left axis deviation and left ventricular hypertrophy with QRS widening and repolarization abnormality. 04/12/2021 Patient is seen and evaluated in follow-up this morning with no acute overnight issues noted. Patient continued on IV lasix and nephrology and cardiology following. Patient had mildly elevated troponins and most likely related to chronic kidney disease. Patient denies any chest pain or palpitations. Patient is scheduled for hemodialysis today. Patient continues with shortness of breath and maintained on 2-3 L via NC. Patient has been refusing IV lasix as she has been having increased urination. Patient tolerating diet with no reports of nausea or vomiting noted. Iron studies ordered Labs: WBC is 8.5, hemoglobin is 9.0, platelets are 310, sodium is 133, potassium 3.5, BUN 47, creatinine 4.91, calcium 8.9, phosphorus 4.2, magnesium 2.0, iron 18, TIBC 188, transferrin 134, troponin 1.630 Review of systems: Constitutional: reports of fatigue, no reports of fever, or chills Cardiovascular: No reports of chest pain or palpitations Respiratory: reports of shortness of breath and dry hacking cough GI: No reports of nausea, vomiting, or diarrhea : No reports of dysuria or retention Neurovascular: No reports of weakness or numbness All medications have been reviewed Active Medications Allopurinol (Allopurinol 100 Mg Tab) 200 mg PO [facility] Last Admin: 04/12/21 01:25 Dose: Not Given Documented by: Amlodipine Besylate (Amlodipine 10 Mg Tab) 10 mg PO [facility] Last Admin: 04/11/21 22:03 Dose: 10 mg Documented by: Aspirin (Aspirin 81 Mg) 81 mg PO [facility] Last Admin: 04/11/21 22:03 Dose: 81 mg Documented by: Budesonide/Formoterol Fumarate (Symbicort 160-4.5 Mcg Inhaler) 2 puff INHALATION RT-BID [facility] Last Admin: 04/12/21 12:25 Dose: Not Given Documented by: Cholecalciferol (Cholecalciferol 25 Mcg (1000 Iu) Tablet) 75 mcg PO DAILY [facility] Last Admin: 04/12/21 10:28 Dose: 75 mcg Documented by: Fluticasone Propionate (Fluticasone 50mcg/[place] Nasal 16gm) 2 spray EA NOSTRIL [facility] Last Admin: 04/12/21 01:25 Dose: Not Given Documented by: Furosemide (Furosemide 10 Mg/Ml 4 Ml Vial) 40 mg IV Q12HR [facility] Last Admin: 04/12/21 10:28 Dose: Not Given Documented by: Heparin Sodium (Porcine) (Heparin Sodium,Porcine/Pf 5,000 Unit/0.5 Ml Syringe) 5,000 unit SQ Q12HR [facility] Lidocaine/Prilocaine (Lidocaine-Prilocaine 2.5-2.5% Cream 5 Gm Tube) 1 applic TOPICAL DAILY PRN; Protocol PRN Reason: port access Losartan Potassium (Losartan 50 Mg Tab) 50 mg PO [facility] Last Admin: 04/11/21 22:01 Dose: 50 mg Documented by: Magnesium Oxide (Magnesium Oxide 400 Mg Tab) 400 mg PO [facility] Last Admin: 04/11/21 22:01 Dose: 400 mg Documented by: Metoprolol Tartrate (Metoprolol Tartrate 25 Mg Tab) 25 mg PO [facility] Last Admin: 04/11/21 22:02 Dose: 25 mg Documented by: Metoprolol Tartrate (Metoprolol Tartrate 50 Mg Tab) 50 mg PO QAM [facility] Last Admin: 04/12/21 10:28 Dose: Not Given Documented by: Multivit/Ca Carb/B Cmplx/FA/Prenat (Folic Acid-Vit B Complex-Vit C 1 Cap) 1 each PO [facility] Last Admin: 04/12/21 01:25 Dose: Not Given Documented by: Pantoprazole Sodium (Pantoprazole 40 Mg Tablet) 40 mg PO [facility] Last Admin: 04/11/21 22:02 Dose: 40 mg Documented by: Pravastatin Sodium (Pravastatin Sodium 20 Mg Tab) 20 mg PO [facility] Last Admin: 04/11/21 22:01 Dose: 20 mg Documented by: Physical Exam: Gen: This is 80-year-old female, alert and oriented 3. HEENT: Head is atraumatic, normocephalic. Pupils equal, round. Sclerae is anicteric. NECK: Supple. No JVD. No lymphadenopathy. No thyromegaly. LUNGS: Diminished breath sounds bilaterally with no wheezing or rhonchi noted some mild bibasilar crackles noted. No intercostal retractions. HEART: S1, S2 are muffled ABDOMEN: Soft. Bowel sounds are present. No masses. No tenderness. EXTREMITIES: No pedal edema. No calf tenderness. NEUROLOGICAL: Patient is awake, alert and oriented 3, no focal deficit noted Assessment: Shortness of breath most likely secondary to volume overload Acute on chronic congestive heart failure with diastolic dysfunction, EF 55-60% with moderate pulmonary hypertension noted Severe aortic stenosis regurgitation noted on echo Elevated troponins most likely secondary to chronic kidney disease Elevated BNP Acute hypoxic respiratory failure secondary to above End-stage renal disease on hemodialysis Saturday/Saturday/Saturday hypertension Diabetes mellitus type 2 Anemia of chronic kidney disease GI prophylaxis DVT prophylaxis Plan: Recommend to continue with current medications and cardiology and nephrology following. Patient continues shortness of breath and will continue supplemental oxygen and wean FiO2 as tolerated. Patient continued on IV Lasix and will continue and nephrology following and ordered hemodialysis. 2-D echo was ordered showing an LV systolic function normal with an EF of 55-60% with moderate pulmonary hypertension and severe aortic stenosis with regurgitation noted. Cardiology following. Encourage increased activity as tolerated. patient does have history of diabetes although is diet controlled and does not take any medications for this and will continue to monitor closely and use sli ding scale as needed. Iron studies are low and will transfuse IV iron. Will perform home 02 study. Possible discharge in 24-48 hours. Objective - Vital Signs Vital signs: Vital Signs Temp 98.5 F 04/12/21 03:45 Pulse 89 04/12/21 10:00 Resp 18 04/12/21 10:00 BP 120/55 04/12/21 03:45 Pulse Ox 97 04/12/21 10:00 Intake & Output 04/11/21 04/12/21 04/12/21 18:59 06:59 18:59 Weight 91.172 kg - Labs CBC & Chem 7: 04/12/21 07:16 04/12/21 07:16 Labs: Abnormal Lab Results - Last 24 Hours (Table) 04/11/21 04/11/21 04/11/21 Range/Units 13:33 13:33 13:33 RBC 3.14 L (3.80-5.40) m/uL Hgb 9.5 L (11.4-16.0) gm/dL Hct 28.5 L (34.0-46.0) % APTT 19.2 L (22.0-30.0) sec Sodium 132 L (137-145) mmol/L Chloride 94 L (98-107) mmol/L BUN 37 H (7-17) mg/dL Creatinine 3.74 H (0.52-1.04) mg/dL Glucose 106 H (74-99) mg/dL Troponin I (0.000-0.034) ng/mL 04/11/21 04/11/21 04/12/21 Range/Units 13:33 23:15 07:16 RBC 3.00 L (3.80-5.40) m/uL Hgb 9.0 L (11.4-16.0) gm/dL Hct 27.3 L (34.0-46.0) % APTT (22.0-30.0) sec Sodium (137-145) mmol/L Chloride (98-107) mmol/L BUN (7-17) mg/dL Creatinine (0.52-1.04) mg/dL Glucose (74-99) mg/dL Troponin I 1.540 H* 1.660 H* (0.000-0.034) ng/mL 04/12/21 04/12/21 Range/Units 07:16 07:16 RBC (3.80-5.40) m/uL Hgb (11.4-16.0) gm/dL Hct (34.0-46.0) % APTT (22.0-30.0) sec Sodium 133 L (137-145) mmol/L Chloride 94 L (98-107) mmol/L BUN 47 H (7-17) mg/dL Creatinine 4.91 H (0.52-1.04) mg/dL Glucose 109 H (74-99) mg/dL Troponin I 1.630 H* (0.000-0.034) ng/mL
[2021-04-13] MEDS: SYMBICORT 160-4.5 MCG INHALER INHALATION SCH ×2 (08:00→20:38)
[2021-04-13] MEDS: METOPROLOL TARTRATE 50 MG TAB PO SCH (08:52)
[2021-04-13] MEDS: HEPARIN SODIUM,PORCINE/PF 5,000 UNIT/0.5 ML SYRINGE SQ SCH ×2 (08:53→20:29)
[2021-04-13] MEDS: CHOLECALCIFEROL 25 MCG (1000 IU) TABLET PO SCH (08:53)
[2021-04-13] MEDS: FUROSEMIDE 10 MG/ML 4 ML VIAL IV SCH ×3 (08:53→20:30)
--- NOTE | 2021-04-13 09:28 | P.PN ---
Subjective Patient is seen in follow-up for end-stage renal disease. She is maintained on hemodialysis on Saturday schedule. Sitting up in chair. Denies chest pain or shortness of breath. On 3 L nasal cannula. Blood pressure stable. Vital signs are stable. General: The patient appeared well nourished and normally developed. HEENT: Head exam is unremarkable. LUNGS: Breath sounds decreased. HEART: Rate and Rhythm are regular. ABDOMEN: Soft, no distention. EXTREMITITES: No edema. Objective - Vital Signs Vital signs: Vital Signs Temp 97.7 F 04/13/21 08:00 Pulse 89 04/13/21 08:00 Resp 18 04/13/21 08:00 BP 108/48 04/13/21 08:00 Pulse Ox 100 04/13/21 08:03 Intake & Output 04/12/21 04/13/21 04/13/21 18:59 06:59 18:59 Intake Total 300 360 Output Total 2000 Balance -1700 360 Weight 91.9 kg Intake: Oral 360 Hemodialysis 300 Output: Hemodialysis 1999 Other: # Voids 2 - Labs CBC & Chem 7: 04/12/21 07:16 04/12/21 07:16 Labs: Abnormal Lab Results - Last 24 Hours (Table) 04/12/21 04/12/21 Range/Units 07:16 21:03 POC Glucose (mg/dL) 114 H (75-99) mg/dL Iron 18 L (50-170) ug/dL TIBC 188 L (228-460) ug/dL % Saturation 9.59 L (12.00-45.00) Transferrin 134.0 L (204.0-354.0) mg/dL Ferritin 1795.0 H (10.0-291.0) ng/mL Assessment and Plan Plan: Assessment: 1. End-stage renal disease maintained on hemodialysis on Saturday schedule. 2. Acute hypoxic respiratory failure. 3. Volume overload. Tolerated 2 L ultrafiltration yesterday. 4. Hypertension with chronic kidney disease. Controlled. 5. Anemia of chronic kidney disease. High ferritin noted. 6. Acute on chronic diastolic CHF and moderate mitral regurgitation and pulmonary hypertension. Plan: Hemodialysis tomorrow. Add Aranesp. Phosphorus 4.2. Hold amlodipine and losartan for systolic blood pressure less than 120. Decrease dose of amlodipine to 5 mg daily.
[2021-04-13 09:39] LABS: Calcium 8.8 mg/dL (8.4-10.2); Potassium 3.5 mmol/L (3.5-5.1)
[2021-04-13 09:49] LABS: Glucose,Whole Blood 110 mg/dL (75-99)
[2021-04-13] MEDS ORDERED: DARBEPOETIN ALFA 40 MCG/0.4 ML SYRINGE SQ SCH (10:00)
--- NOTE | 2021-04-13 10:13 | XR ---
EXAMINATION TYPE: XR chest 1V portable DATE OF EXAM: 04/13/2021 COMPARISON: 04/11/2021 INDICATION: Short of breath TECHNIQUE: Single frontal view of the chest is obtained. FINDINGS: The heart size is normal. The pulmonary vasculature is normal. Patchy suprahilar infiltrates are present bilaterally appears stable from comparison. Small left pleu ral effusion is not excluded. IMPRESSION: 1. Stable patchy bilateral suprahilar infiltrates. 2. Small left pleural effusion.
[2021-04-13 10:22] VITALS: BMI 35.9
[2021-04-13] MEDS: SODIUM FERRIC GLUCONAT-SUCROSE 125 MG in SODIUM CHLORIDE 0.9% 100 ML IVPB SCH (11:06)
--- NOTE | 2021-04-13 11:45 | P.PN ---
Subjective HISTORY OF PRESENTING ILLNESS This is a pleasant 80-year-old female past medical history significant for coronary artery disease sp prior PCI to RCA, chronic diastolic heart failure, diabetes, hyperlipidemia, hypertension, End stage renal disease on dialysis Saturday, right arm AV fistula. She follows in the office with Dr Fu. We have been asked to see in consultation for heart failure, fluid overload. Patient reports that she has been feeling short of breath and had a negative cough for the last 3 weeks. She was seen at her primary's office and was found to be hypoxic with an oxygen saturation of 88% and had symptoms of orthopnea and PND. Patient was started on IV Lasix. She also received hemodialysis with 2L removed. She is feeling much better. Her breathing has improved. Her echocardiogram revealed EF 5560%, normal functioning bioprosthetic aortic valve. Trivial Prosthetic regurgitation of the bioprosthetic aortic valve, moderate mitral regurgitation, mild to moderate tricuspid regurgitation, moderat e pulmonary hypertension with RVSP of 52 mmHg. Telemetry reviewed she is in sinus mechanism HR 70s-80s Labs, Sodium 134, K 3.5, BUN 33, sCr 3.76. She's currently maintained on aspirin 81 mg daily, amlodipine 5 mg nightly, Lasix 40 mg IV twice a day, losartan 50 mg nightly, metoprolol tartrate 25 mg nightly, 50 mg in the morning, pravastatin 20 mg nightly GENERAL: Well-appearing, well-nourished and in no acute distress. NECK: Supple without JVD or thyromegaly. LUNGS: Breath sounds mild crackles in the bases to auscultation bilaterally. Respiration equal and unlabored. No wheezes, rales or rhonchi. HEART: Regular rate and rhythm without murmurs, rubs or gallops. S1 and S2 heard. EXTREMITIES: Normal range of motion, no edema. No clubbing or cyanosis. Peripheral pulses intact. ASSESSMENT Acute on chronic diastolic congestive heart failure End-stage renal disease on dialysis Elevated troponins likely related to advanced renal disease, no indicative of acute coronary syndrome Hypertension Hyperlipidemia Type 2 diabetes Coronary artery disease with prior PCI to RCA PLAN Patient has improved since admission, 2D echocardiogram reviewed. We will switch patient to PO Lasix Continue home cardiac medications Further recommendations based on clinical course Nurse Practitioner note has been reviewed, I agree with a documented findings and plan of care. Patient was seen and examined. Objective - Vital Signs Vital signs: Vital Signs Temp 97.7 F 04/13/21 08:00 Pulse 89 04/13/21 08:00 Resp 18 04/13/21 08:00 BP 108/48 04/13/21 08:00 Pulse Ox 100 04/13/21 08:03 Intake & Output 04/12/21 04/13/21 04/13/21 18:59 06:59 18:59 Intake Total 300 360 Output Total 1999 Balance -1700 360 Weight 91.9 kg 91.9 kg Intake: Oral 360 Hemodialysis 300 Output: Hemodialysis 1999 Other: # Voids 2 - Labs CBC & Chem 7: 04/12/21 07:16 04/13/21 09:07 Labs: Abnormal Lab Results - Last 24 Hours (Table) 04/12/21 04/12/21 04/13/21 Range/Units 07:16 21:03 06:20 Sodium (137-145) mmol/L BUN (7-17) mg/dL Creatinine (0.52-1.04) mg/dL Glucose (74-99) mg/dL POC Glucose (mg/dL) 114 H 110 H (75-99) mg/dL Iron 18 L (50-170) ug/dL TIBC 188 L (228-460) ug/dL % Saturation 9.59 L (12.00-45.00) Transferrin 134.0 L (204.0-354.0) mg/dL Ferritin 1795.0 H (10.0-291.0) ng/mL 04/13/21 Range/Units 09:07 Sodium 134 L (137-145) mmol/L BUN 33 H (7-17) mg/dL Creatinine 3.76 H (0.52-1.04) mg/dL Glucose 116 H (74-99) mg/dL POC Glucose (mg/dL) (75-99) mg/dL Iron (50-170) ug/dL TIBC (228-460) ug/dL % Saturation (12.00-45.00) Transferrin (204.0-354.0) mg/dL Ferritin (10.0-291.0) ng/mL
[2021-04-13 11:58] LABS: Glucose,Whole Blood 97 mg/dL (75-99)
--- NOTE | 2021-04-13 15:37 | P.PN ---
Subjective Progress Note Date: 04/13/21 This is a 80-year-old female who had been having worsening shortness of breath over the last few days and went to her PCP and was given a steroid taper and continued with cough and oxygen saturation was found to be 80% and sent here from her primary care's office for further evaluation. Patient does have history of end-stage renal disease and is maintained on Saturday/Saturday/Saturday schedule and has been compliant. She reports to being vaccinated for COVID-19 and COVID-19 testing was negative. Patient denied any fevers or increasing cough with sputum just a dry hacking cough. Patient does have a past medical history of coronary artery disease, heart failure, diabetes mellitus, hyperlipidemia, hypertension, end-stage renal disease. Chest x-ray shows correlate for CHF with pulmonary edema versus bilateral pneumonia with small bilateral pleural effusions and cardiomegaly noted. 2-D echo was ordered and patient will be started on IV Lasix and nephrology also consulted along with cardiology for increased troponins. EKG revealed sinus rhythm with first-degree AV block with left axis deviation and left ventricular hypertrophy with QRS widening and repolarization abnormality. 04/12/2021 Patient is seen and evaluated in follow-up this morning with no acute overnight issues noted. Patient continued on IV lasix and nephrology and cardiology following. Patient had mildly elevated troponins and most likely related to chronic kidney disease. Patient denies any chest pain or palpitations. Patient is scheduled for hemodialysis today. Patient continues with shortness of breath and maintained on 2-3 L via NC. Patient has been refusing IV lasix as she has been having increased urination. Patient tolerating diet with no reports of nausea or vomiting noted. Iron studies ordered 04/13/2021 Patient is seen today currently sitting up in the chair on 5 L at 100% and discussed with the patient along with nursing staff about weaning FiO2 as tolerated. Patient currently on 3 L and continues to maintain oxygen saturation above 90%. Patient is also being followed by cardiology and switched to oral Lasix although would still consider IV Lasix for another 24 hours as her chest x-ray continues to show improvement. Patient is receiving dialysis and is scheduled for hemodialysis tomorrow with nephrology following. Case management also consulted with the possibility of home oxygen being required and will perform home O2 eval. Encouraged increased activity as tolerated and increase ambulation. Labs: Sodium is 134, potassium is 3.5, BUN is 33, creatinine is 3.76, calcium is 8.8 Review of systems: Constitutional: no reports of fatigue, no reports of fever, or chills Cardiovascular: No reports of chest pain or palpitations Respiratory: no reports of worsening shortness of breath and somewhat improved cough GI: No reports of nausea, vomiting, or diarrhea : No reports of dysuria or retention Neurovascular: No reports of weakness or numbness All medications have been reviewed Active Medications Allopurinol (Allopurinol 100 Mg Tab) 200 mg PO [facility] Last Admin: 04/12/21 21:09 Dose: 200 mg Documented by: Amlodipine Besylate (Amlodipine 5 Mg Tab) 5 mg PO [facility] Aspirin (Aspirin 81 Mg) 81 mg PO [facility] Last Admin: 04/12/21 21:09 Dose: 81 mg Documented by: Benzonatate (Benzonatate 100 Mg Cap) 100 mg PO TID PRN PRN Reason: Cough Budesonide/Formoterol Fumarate (Symbicort 160-4.5 Mcg Inhaler) 2 puff INHALATION RT-BID [facility] Last Admin: 04/13/21 08:00 Dose: 2 puff Documented by: Cholecalciferol (Cholecalciferol 25 Mcg (1000 Iu) Tablet) 75 mcg PO DAILY [facility] Last Admin: 04/13/21 08:53 Dose: 75 mcg Documented by: Darbepoetin Rafael (Darbepoetin Rafael 40 Mcg/0.4 Ml Syringe) 40 mcg SQ Q7D [facility] Fluticasone Propionate (Fluticasone 50mcg/[place] Nasal 16gm) 2 spray EA NOSTRIL [facility] Last Admin: 04/12/21 21:10 Dose: Not Given Documented by: Furosemide (Furosemide 40 Mg Tab) 40 mg PO BID@0900,1600 [facility] Heparin Sodium (Porcine) (Heparin Sodium,Porcine/Pf 5,000 Unit/0.5 Ml Syringe) 5,000 unit SQ Q12HR [facility] Last Admin: 04/13/21 08:53 Dose: Not Given Documented by: Lidocaine/Prilocaine (Lidocaine-Prilocaine 2.5-2.5% Cream 5 Gm Tube) 1 applic TOPICAL DAILY PRN; Protocol PRN Reason: port access Losartan Potassium (Losartan 50 Mg Tab) 50 mg PO [facility] Last Admin: 04/12/21 21:10 Dose: 50 mg Documented by: Magnesium Oxide (Magnesium Oxide 400 Mg Tab) 400 mg PO [facility] Last Admin: 04/12/21 21:10 Dose: 400 mg Documented by: Metoprolol Tartrate (Metoprolol Tartrate 25 Mg Tab) 25 mg PO [facility] Last Admin: 04/12/21 21:09 Dose: 25 mg Documented by: Metoprolol Tartrate (Metoprolol Tartrate 50 Mg Tab) 50 mg PO [facility] Last Admin: 04/13/21 08:52 Dose: 50 mg Documented by: Multivit/Ca Carb/B Cmplx/FA/Prenat (Folic Acid-Vit B Complex-Vit C 1 Cap) 1 each PO [facility] Last Admin: 04/12/21 21:10 Dose: 1 each Documented by: Pantoprazole Sodium (Pantoprazole 40 Mg Tablet) 40 mg PO [facility] Last Admin: 04/12/21 21:09 Dose: 40 mg Documented by: Pravastatin Sodium (Pravastatin Sodium 20 Mg Tab) 20 mg PO [facility] Last Admin: 04/12/21 21:10 Dose: 20 mg Documented by: Physical Exam: Gen: This is 80-year-old female, alert and oriented 3. HEENT: Head is atraumatic, normocephalic. Pupils equal, round. Sclerae is anicteric. NECK: Supple. No JVD. No lymphadenopathy. No thyromegaly. LUNGS: Diminished breath sounds bilaterally with no wheezing or noted, mild scattered rhonchi noted. No intercostal retractions. HEART: S1, S2 are muffled ABDOMEN: Soft. Bowel sounds are present. No masses. No tenderness. EXTREMITIES: No pedal edema. No calf tenderness. NEUROLOGICAL: Patient is awake, alert and oriented 3, no focal deficit noted Assessment: Shortness of breath most likely secondary to volume overload Acute on chronic congestive heart failure with diastolic dysfunction, EF 55-60% with moderate pulmonary hypertension noted Severe aortic stenosis regurgitation noted on echo Elevated troponins most likely secondary to chronic kidney disease Elevated BNP Acute hypoxic respiratory failure secondary to above End-stage renal disease on hemodialysis Saturday/Saturday/Saturday hypertension Diabetes mellitus type 2 Anemia of chronic kidney disease GI prophylaxis DVT prophylaxis Plan: Recommend to continue with current medications and cardiology and nephrology following. Patient continues shortness of breath and will continue supplemental oxygen and wean FiO2 as tolerated. Oxygen saturation is 100% on 5 L and discussed with nursing staff and patient about weaning as tolerated. Patient continued on oral Lasix although would consider continuing IV Lasix for another 24 hours . nephrology following and receiving hemodialysis at her scheduled days of Saturday/Saturday/Saturday.. 2-D echo was ordered showing an LV systolic function normal with an EF of 55-60% with moderate pulmonary hypertension and severe aortic stenosis with regurgitation noted. Cardiology following. Encourage increased activity as tolerated. patient does have history of diabetes although is diet controlled and does not take any medications for this and will continue to monitor closely and use sliding scale as needed. Will perform home 02 study. Case management provided prescription for possible home O2 if required. Possible discharge in 24 hours. Objective - Vital Signs Vital signs: Vital Signs Temp 97.7 F 04/13/21 08:00 Pulse 89 04/13/21 08:00 Resp 18 04/13/21 08:00 BP 108/48 04/13/21 08:00 Pulse Ox 100 04/13/21 08:03 Intake & Output 04/12/21 04/13/21 04/13/21 18:59 06:59 18:59 Intake Total 300 360 Output Total 2000 Balance -1700 360 Weight 91.9 kg Intake: Oral 360 Hemodialysis 300 Output: Hemodialysis 1999 Other: # Voids 2 - Labs CBC & Chem 7: 04/12/21 07:16 04/13/21 09:07 Labs: Abnormal Lab Results - Last 24 Hours (Table) 04/12/21 04/12/21 Range/Units 07:16 21:03 POC Glucose (mg/dL) 114 H (75-99) mg/dL Iron 18 L (50-170) ug/dL TIBC 188 L (228-460) ug/dL % Saturation 9.59 L (12.00-45.00) Transferrin 134.0 L (204.0-354.0) mg/dL Ferritin 1795.0 H (10.0-291.0) ng/mL
[2021-04-13] MEDS ORDERED: FUROSEMIDE 40 MG TAB PO SCH (16:00)
[2021-04-13 16:52] LABS: Glucose,Whole Blood 113 mg/dL (75-99)
[2021-04-13 20:24] LABS: Glucose,Whole Blood 117 mg/dL (75-99)
[2021-04-13] MEDS: allopurinoL 100 MG TAB PO SCH (20:28)
[2021-04-13] MEDS: PANTOPRAZOLE 40 MG TABLET PO SCH (20:28)
[2021-04-13] MEDS: amLODIPine 5 MG TAB PO SCH (20:28)
[2021-04-13] MEDS: METOPROLOL TARTRATE 25 MG TAB PO SCH (20:28)
[2021-04-13] MEDS: LOSARTAN 50 MG TAB PO SCH (20:28)
[2021-04-13] MEDS: FOLIC ACID-VIT B COMPLEX-VIT C 1 CAP PO SCH (20:28)
[2021-04-13] MEDS: PRAVASTATIN SODIUM 20 MG TAB PO SCH (20:28)
[2021-04-13] MEDS: MAGNESIUM OXIDE 400 MG TAB PO SCH (20:28)
[2021-04-13] MEDS: ASPIRIN 81 MG PO SCH (20:29)
[2021-04-13] MEDS: FLUTICASONE 50MCG/SPRAY NASAL 16GM EA NOSTRIL SCH (20:29)
[2021-04-14 06:23] LABS: Glucose,Whole Blood 109 mg/dL (75-99)
[2021-04-14] MEDS: SYMBICORT 160-4.5 MCG INHALER INHALATION SCH ×2 (08:53→19:39)
--- NOTE | 2021-04-14 08:53 | P.PN ---
Subjective Patient is seen in follow-up for end-stage renal disease. She is maintained on hemodialysis on Saturday schedule. Sitting up in chair. Denies chest pain or shortness of breath. On 4 L nasal cannula. Blood pressure stable. States she had an anxiety attack yesterday evening. Vital signs are stable. General: The patient appeared well nourished and normally developed. HEENT: Head exam is unremarkable. LUNGS: Breath sounds decreased. HEART: Rate and Rhythm are regular. ABDOMEN: Soft, no distention. EXTREMITITES: No edema. Objective - Vital Signs Vital signs: Vital Signs Temp 97.6 F 04/13/21 15:51 Pulse 78 04/14/21 03:36 Resp 17 04/14/21 03:36 BP 109/57 04/14/21 03:36 Pulse Ox 96 04/14/21 03:36 Intake & Output 04/13/21 04/14/21 04/14/21 18:59 06:59 18:59 Intake Total 600 Balance 600 Weight 91.9 kg 92.9 kg Intake: Oral 600 Other: # Voids 1 2 # Bowel Movements 1 - Labs CBC & Chem 7: 04/12/21 07:16 04/13/21 09:07 Labs: Abnormal Lab Results - Last 24 Hours (Table) 04/13/21 04/13/21 04/13/21 Range/Units 06:20 09:07 16:33 Sodium 134 L (137-145) mmol/L BUN 33 H (7-17) mg/dL Creatinine 3.76 H (0.52-1.04) mg/dL Glucose 116 H (74-99) mg/dL POC Glucose (mg/dL) 110 H 113 H (75-99) mg/dL 04/13/21 04/14/21 Range/Units 20:22 06:20 Sodium (137-145) mmol/L BUN (7-17) mg/dL Creatinine (0.52-1.04) mg/dL Glucose (74-99) mg/dL POC Glucose (mg/dL) 117 H 109 H (75-99) mg/dL Assessment and Plan Plan: Assessment: 1. End-stage renal disease maintained on hemodialysis on Saturday schedule. 2. Acute hypoxic respiratory failure. 3. Volume overload. 4. Hypertension with chronic kidney disease. Controlled. 5. Anemia of chronic kidney disease. High ferritin noted.on Aranesp. 6. Acute on chronic diastolic CHF and moderate mitral regurgitation and pulmonary hypertension. Plan: Hemodialysis today. Phosphorus 4.2. Hold amlodipine and losartan for systolic blood pressure less than 120.
[2021-04-14] MEDS: METOPROLOL TARTRATE 50 MG TAB PO SCH (09:43)
[2021-04-14] MEDS: HEPARIN SODIUM,PORCINE/PF 5,000 UNIT/0.5 ML SYRINGE SQ SCH ×3 (09:43→21:03)
[2021-04-14] MEDS: CHOLECALCIFEROL 25 MCG (1000 IU) TABLET PO SCH (09:43)
[2021-04-14] MEDS: FUROSEMIDE 10 MG/ML 4 ML VIAL IV SCH ×2 (09:44→20:45)
[2021-04-14 11:37] LABS: Glucose,Whole Blood 104 mg/dL (75-99)
--- NOTE | 2021-04-14 12:42 | P.PN ---
Subjective HISTORY OF PRESENTING ILLNESS This is a pleasant 80-year-old female past medical history significant for coronary artery disease sp prior PCI to RCA, chronic diastolic heart failure, diabetes, hyperlipidemia, hypertension, End stage renal disease on dialysis Saturday, right arm AV fistula. She follows in the office with Dr Fu. We have been asked to see in consultation for heart failure, fluid overload. Patient reports that she has been feeling short of breath and had a negative cough for the last 3 weeks. She was seen at her primary's office and was found to be hypoxic with an oxygen saturation of 88% and had symptoms of orthopnea and PND. Patient was started on IV Lasix. She also received hemodialysis with 2L removed. She is feeling much better. Her breathing has improved. Patient endorses not much urine output change from IV Lasix. Overnight she states she had an anxiety attack, was short of breath worried about going home. She states this resolved once she did proper breathing exercises. She was placed back on IV Lasix Her echocardiogram revealed EF 5560%, normal functioning bioprosthetic aortic valve. Trivial Prosthetic regurgitation of the bioprosthetic aortic valve, moderate mitral regurgitation, mild to moderate tricuspid regurgitation, moderate pulmonary hypertension with RVSP of 52 mmHg. Telemetry reviewed she is in sinus mechanism HR 70s-80s She's currently maintained on aspirin 81 mg daily, amlodipine 5 mg nightly, Lasix 40 mg IV twice a day, losartan 50 mg nightly, metoprolol tartrate 25 mg nightly, 50 mg in the morning, pravastatin 20 mg nightly GENERAL: Well-appearing, well-nourished and in no acute distress. NECK: Supple without JVD or thyromegaly. LUNGS: Breath sounds mild crackles in the bases to auscultation bilaterally. Respiration equal and unlabored. No wheezes, rales or rhonchi. HEART: Regular rate and rhythm without murmurs, rubs or gallops. S1 and S2 heard. EXTREMITIES: Normal range of motion, no edema. No clubbing or cyanosis. Peripheral pulses intact. ASSESSMENT Acute on chronic diastolic congestive heart failure End-stage renal disease on dialysis Elevated troponins likely related to advanced renal disease, no indicative of acute coronary syndrome Hypertension Hyperlipidemia Type 2 diabetes Coronary artery disease with prior PCI to RCA PLAN Patient has improved since admission, 2D echocardiogram reviewed. Recommend transitioning to PO Lasix. Plan for Hemodialysis today. Continue home cardiac medications Further recommendations based on clinical course Nurse Practitioner note has been reviewed, I agree with a documented findings and plan of care. Patient was seen and examined. Objective - Vital Signs Vital signs: Vital Signs Temp 97.6 F 04/13/21 15:51 Pulse 78 04/14/21 03:36 Resp 17 04/14/21 03:36 BP 109/57 04/14/21 03:36 Pulse Ox 96 04/14/21 03:36 Intake & Output 04/13/21 04/14/21 04/14/21 18:59 06:59 18:59 Intake Total 600 240 Output Total 0 Balance 600 240 Weight 91.9 kg 92.9 kg Intake: Oral 600 240 Output: Urine 0 Stool 0 Other: # Voids 1 2 0 # Bowel Movements 1 0 - Labs CBC & Chem 7: 04/12/21 07:16 04/13/21 09:07 Labs: Abnormal Lab Results - Last 24 Hours (Table) 04/13/21 04/13/21 04/13/21 Range/Units 06:20 09:07 16:33 Sodium 134 L (137-145) mmol/L BUN 33 H (7-17) mg/dL Creatinine 3.76 H (0.52-1.04) mg/dL Glucose 116 H (74-99) mg/dL POC Glucose (mg/dL) 110 H 113 H (75-99) mg/dL 04/13/21 04/14/21 Range/Units 20:22 06:20 Sodium (137-145) mmol/L BUN (7-17) mg/dL Creatinine (0.52-1.04) mg/dL Glucose (74-99) mg/dL POC Glucose (mg/dL) 117 H 109 H (75-99) mg/dL
--- NOTE | 2021-04-14 15:38 | P.PN ---
Subjective Progress Note Date: 04/14/21 This is a 80-year-old female who had been having worsening shortness of breath over the last few days and went to her PCP and was given a steroid taper and continued with cough and oxygen saturation was found to be 80% and sent here from her primary care's office for further evaluation. Patient does have history of end-stage renal disease and is maintained on Saturday/Saturday/Saturday schedule and has been compliant. She reports to being vaccinated for COVID-19 and COVID-19 testing was negative. Patient denied any fevers or increasing cough with sputum just a dry hacking cough. Patient does have a past medical history of coronary artery disease, heart failure, diabetes mellitus, hyperlipidemia, hypertension, end-stage renal disease. Chest x-ray shows correlate for CHF with pulmonary edema versus bilateral pneumonia with small bilateral pleural effusions and cardiomegaly noted. 2-D echo was ordered and patient will be started on IV Lasix and nephrology also consulted along with cardiology for increased troponins. EKG revealed sinus rhythm with first-degree AV block with left axis deviation and left ventricular hypertrophy with QRS widening and repolarization abnormality. 04/12/2021 Patient is seen and evaluated in follow-up this morning with no acute overnight issues noted. Patient continued on IV lasix and nephrology and cardiology following. Patient had mildly elevated troponins and most likely related to chronic kidney disease. Patient denies any chest pain or palpitations. Patient is scheduled for hemodialysis today. Patient continues with shortness of breath and maintained on 2-3 L via NC. Patient has been refusing IV lasix as she has been having increased urination. Patient tolerating diet with no reports of nausea or vomiting noted. Iron studies ordered 04/13/2021 Patient is seen today currently sitting up in the chair on 5 L at 100% and discussed with the patient along with nursing staff about weaning FiO2 as tolerated. Patient currently on 3 L and continues to maintain oxygen saturation above 90%. Patient is also being followed by cardiology and switched to oral Lasix although would still consider IV Lasix for another 24 hours as her chest x-ray continues to show improvement. Patient is receiving dialysis and is scheduled for hemodialysis tomorrow with nephrology following. Case management also consulted with the possibility of home oxygen being required and will perform home O2 eval. Encouraged increased activity as tolerated and increase ambulation. 04/14/2021 Patient is seen in follow-up this morning currently weaning FiO2 as tolerated and maintained on 3 L via nasal cannula. Patient continues with shortness of breath and also appears to be a component of anxiety as patient is extremely anxious about going home and continuing to be short of breath. Will have physical therapy evaluate the patient and encouraged increased activity as tolerated. Patient to receive dialysis today and maintained on Saturday/Saturday/Saturday schedule with nephrology following closely. Recommend continue with IV Lasix every 12 hours and will reevaluate in the morning. Review of systems: Constitutional: no reports of fatigue, no reports of fever, or chills, reports anxiety Cardiovascular: No reports of chest pain or palpitations Respiratory: no reports of worsening shortness of breath and somewhat improved cough, although reports continued shortness of breath with exertion GI: No reports of nausea, vomiting, or diarrhea : No reports of dysuria or retention Neurovascular: No reports of weakness or numbness All medications have been reviewed Active Medications Allopurinol (Allopurinol 100 Mg Tab) 200 mg PO [facility] Last Admin: 04/13/21 20:28 Dose: 200 mg Documented by: Amlodipine Besylate (Amlodipine 5 Mg Tab) 5 mg PO [facility] Last Admin: 04/13/21 20:28 Dose: 5 mg Documented by: Aspirin (Aspirin 81 Mg) 81 mg PO [facility] Last Admin: 04/13/21 20:29 Dose: 81 mg Documented by: Benzonatate (Benzonatate 100 Mg Cap) 100 mg PO TID PRN PRN Reason: Cough Budesonide/Formoterol Fumarate (Symbicort 160-4.5 Mcg Inhaler) 2 puff INHALATION RT-BID [facility] Last Admin: 04/14/21 08:53 Dose: 2 puff Documented by: Cholecalciferol (Cholecalciferol 25 Mcg (1000 Iu) Tablet) 75 mcg PO DAILY [facility] Last Admin: 04/14/21 09:43 Dose: 75 mcg Documented by: Darbepoetin Rafael (Darbepoetin Rafael 40 Mcg/0.4 Ml Syringe) 40 mcg SQ Q7D [facility] Last Admin: 04/13/21 17:50 Dose: 40 mcg Documented by: Fluticasone Propionate (Fluticasone 50mcg/[place] Nasal 16gm) 2 spray EA NOSTRIL [facility] Last Admin: 01/20/22 20:29 Dose: Not Given Documented by: Furosemide (Furosemide 10 Mg/Ml 4 Ml Vial) 40 mg IV Q12HR [facility] Last Admin: 04/14/21 09:44 Dose: 40 mg Documented by: Heparin Sodium (Porcine) (Heparin Sodium,Porcine/Pf 5,000 Unit/0.5 Ml Syringe) 5,000 unit SQ Q12HR [facility] Last Admin: 04/14/21 09:43 Dose: Not Given Documented by: Lidocaine/Prilocaine (Lidocaine-Prilocaine 2.5-2.5% Cream 5 Gm Tube) 1 applic TOPICAL DAILY PRN; Protocol PRN Reason: port access Losartan Potassium (Losartan 50 Mg Tab) 50 mg PO [facility] Last Admin: 04/13/21 20:28 Dose: 50 mg Documented by: Magnesium Oxide (Magnesium Oxide 400 Mg Tab) 400 mg PO [facility] Last Admin: 04/13/21 20:28 Dose: 400 mg Documented by: Metoprolol Tartrate (Metoprolol Tartrate 25 Mg Tab) 25 mg PO [facility] Last Admin: 04/13/21 20:28 Dose: 25 mg Documented by: Metoprolol Tartrate (Metoprolol Tartrate 50 Mg Tab) 50 mg PO [facility] Last Admin: 04/14/21 09:43 Dose: 50 mg Documented by: Multivit/Ca Carb/B Cmplx/FA/Prenat (Folic Acid-Vit B Complex-Vit C 1 Cap) 1 each PO [facility] Last Admin: 04/13/21 20:28 Dose: 1 each Documented by: Pantoprazole Sodium (Pantoprazole 40 Mg Tablet) 40 mg PO [facility] Last Admin: 04/13/21 20:28 Dose: 40 mg Documented by: Pravastatin Sodium (Pravastatin Sodium 20 Mg Tab) 20 mg PO [facility] Last Admin: 04/13/21 20:28 Dose: 20 mg Documented by: Physical Exam: Gen: This is 80-year-old female, alert and oriented 3. Currently 94% on 2 L via nasal cannula HEENT: Head is atraumatic, normocephalic. Pupils equal, round. Sclerae is anicteric. NECK: Supple. No JVD. No lymphadenopathy. No thyromegaly. LUNGS: Diminished breath sounds bilaterally with no wheezing or noted, mild scattered rhonchi noted. No intercostal retractions. HEART: S1, S2 are muffled ABDOMEN: Soft. Bowel sounds are present. No masses. No tenderness. EXTREMITIES: No pedal edema. No calf tenderness. NEUROLOGICAL: Patient is awake, alert and oriented 3, no focal deficit noted Assessment: Shortness of breath most likely secondary to volume overload Acute on chronic congestive heart failure with diastolic dysfunction, EF 55-60% with moderate pulmonary hypertension noted Severe aortic stenosis regurgitation noted on echo Elevated troponins most likely secondary to chronic kidney disease Elevated BNP Acute hypoxic respiratory failure secondary to above End-stage renal disease on hemodialysis Saturday/Saturday/Saturday hypertension Diabetes mellitus type 2 Anemia of chronic kidney disease GI prophylaxis DVT prophylaxis Plan: Recommend to continue with current medications and cardiology and nephrology following. Patient continues with shortness of breath and will continue supplemental oxygen and wean FiO2 as tolerated. Patient currently maintained on 3 L and titrating down to 2 L and will continue with another 24 hours of IV Lasix with continued attempts to wean the patient off oxygen prior to discharge. nephrology following and receiving hemodialysis at her scheduled days of Saturday/Saturday/Saturday. Cardiology following as needed and patient will follow- up outpatient once discharged. Encourage increased activity as tolerated. Patient states she was told she is unable to get out of the bed or chair without assistance and will have physical therapy evaluate the patient patient does have history of diabetes although is diet controlled and does not take any medications for this and will continue to monitor closely and use sliding scale as needed. Case management provided prescription for possible home O2 if required. Possible discharge in 24 hours. Objective - Vital Signs Vital signs: Vital Signs Temp 98.8 F 04/14/21 08:00 Pulse 84 04/14/21 08:00 Resp 18 04/14/21 08:00 BP 125/56 04/14/21 08:00 Pulse Ox 97 04/14/21 08:00 Intake & Output 04/13/21 04/14/21 04/14/21 18:59 06:59 18:59 Intake Total 600 240 Output Total 0 Balance 600 240 Weight 91.9 kg 92.9 kg Intake: Oral 600 240 Output: Urine 0 Stool 0 Other: # Voids 1 2 0 # Bowel Movements 1 0 - Labs CBC & Chem 7: 04/12/21 07:16 04/13/21 09:07 Labs: Abnormal Lab Results - Last 24 Hours (Table) 01/20/22 01/20/22 01/21/22 Range/Units 16:33 20:22 06:20 POC Glucose (mg/dL) 113 H 117 H 109 H (75-99) mg/dL
[2021-04-14 16:28] LABS: Glucose,Whole Blood 124 mg/dL (75-99)
[2021-04-14] MEDS ORDERED: LORazepam 0.5 MG TAB PO STA (19:07)
[2021-04-14 20:07] LABS: Glucose,Whole Blood 118 mg/dL (75-99)
[2021-04-14] MEDS: allopurinoL 100 MG TAB PO SCH (20:44)
[2021-04-14] MEDS: LOSARTAN 50 MG TAB PO SCH (20:44)
[2021-04-14] MEDS: amLODIPine 5 MG TAB PO SCH (20:44)
[2021-04-14] MEDS: ASPIRIN 81 MG PO SCH (20:44)
[2021-04-14] MEDS: FOLIC ACID-VIT B COMPLEX-VIT C 1 CAP PO SCH (20:45)
[2021-04-14] MEDS: MAGNESIUM OXIDE 400 MG TAB PO SCH (20:45)
[2021-04-14] MEDS: FLUTICASONE 50MCG/SPRAY NASAL 16GM EA NOSTRIL SCH (20:46)
[2021-04-14] MEDS: PRAVASTATIN SODIUM 20 MG TAB PO SCH (21:07)
[2021-04-14] MEDS: PANTOPRAZOLE 40 MG TABLET PO SCH (21:07)
[2021-04-14] MEDS: METOPROLOL TARTRATE 25 MG TAB PO SCH (21:07)
[2021-04-14 23:36] VITALS: RESP 18
[2021-04-15 06:52] LABS: Glucose,Whole Blood 101 mg/dL (75-99)
[2021-04-15] MEDS: SYMBICORT 160-4.5 MCG INHALER INHALATION SCH (07:30)
[2021-04-15] MEDS: HEPARIN SODIUM,PORCINE/PF 5,000 UNIT/0.5 ML SYRINGE SQ SCH (08:26)
[2021-04-15 08:28] VITALS: BP 114/65; PULSE 87; TEMP 97.7
[2021-04-15] MEDS: CHOLECALCIFEROL 25 MCG (1000 IU) TABLET PO SCH (10:52)
[2021-04-15] MEDS: METOPROLOL TARTRATE 50 MG TAB PO SCH (10:52)
[2021-04-15] MEDS: FUROSEMIDE 10 MG/ML 4 ML VIAL IV SCH (10:52)
--- NOTE | 2021-04-15 10:52 | P.DS ---
Providers Date of admission: 04/11/21 14:28 Attending physician: Yanci Concepcion Consults: 04/11/21 14:28 Consult Physician Routine Consulting Provider: Amadou Weiss Consult Reason/Comments: fluid overload Do you want consulting provider notified?: Yes Consult Physician Routine Consulting Provider: Ashkan Chowdary Consult Reason/Comments: heart failure Do you want consulting provider notified?: Yes Primary care physician: [facility] Course: This is a 80-year-old female who had been having worsening shortness of breath over the last few days and went to her PCP and was given a steroid taper and continued with cough and oxygen saturation was found to be 80% and sent here from her primary care's office for further evaluation. Patient does have history of end-stage renal disease and is maintained on Saturday/Saturday/Saturday schedule and has been compliant. She reports to being vaccinated for COVID-19 and COVID-19 testing was negative. Patient denied any fevers or increasing cough with sputum just a dry hacking cough. Patient does have a past medical history of coronary artery disease, heart failure, diabetes mellitus, hyperlipidemia, hypertension, end-stage renal disease. Chest x-ray shows correlate for CHF with pulmonary edema versus bilateral pneumonia with small bilateral pleural effusions and cardiomegaly noted. 2-D echo was ordered and patient will be started on IV Lasix and nephrology also consulted along with cardiology for increased troponins. EKG revealed sinus rhythm with first-degree AV block with left axis deviation and left ventricular hypertrophy with QRS widening and repolarization abnormality. 04/12/2021 Patient is seen and evaluated in follow-up this morning with no acute overnight issues noted. Patient continued on IV lasix and nephrology and cardiology following. Patient had mildly elevated troponins and most likely related to chronic kidney disease. Patient denies any chest pain or palpitations. Patient is scheduled for hemodialysis today. Patient continues with shortness of breath and maintained on 2-3 L via NC. Patient has been refusing IV lasix as she has been having increased urination. Patient tolerating diet with no reports of nausea or vomiting noted. Iron studies ordered 04/13/2021 Patient is seen today currently sitting up in the chair on 5 L at 100% and discussed with the patient along with nursing staff about weaning FiO2 as tolerated. Patient currently on 3 L and continues to maintain oxygen saturation above 90%. Patient is also being followed by cardiology and switched to oral Lasix although would still consider IV Lasix for another 24 hours as her chest x-ray continues to show improvement. Patient is receiving dialysis and is scheduled for hemodialysis tomorrow with nephrology following. Case management also consulted with the possibility of home oxygen being required and will perform home O2 eval. Encouraged increased activity as tolerated and increase ambulation. 04/14/2021 Patient is seen in follow-up this morning currently weaning FiO2 as tolerated and maintained on 3 L via nasal cannula. Patient continues with shortness of breath and also appears to be a component of anxiety as patient is extremely anxious about going home and continuing to be short of breath. Will have physical therapy evaluate the patient and encouraged increased activity as tolerated. Patient to receive dialysis today and maintained on Saturday/Saturday/Saturday schedule with nephrology following closely. Recommend continue with IV Lasix every 12 hours and will reevaluate in the morning. 04/15/2021 Patient is unable to be clinically at this time test x-ray showed significant improvement patient will be discharged today may require oxygen upon discharge. Patient is presently on 2 L saturating well. Physical Exam: Gen: This is 80-year-old female, alert and oriented 3. on 2 L via nasal cannula HEENT: Head is atraumatic, normocephalic. Pupils equal, round. Sclerae is anicteric. NECK: Supple. No JVD. No lymphadenopathy. No thyromegaly. LUNGS: Diminished breath sounds bilaterally with no wheezing or noted, mild scattered rhonchi noted. No intercostal retractions. HEART: S1, S2 are muffled ABDOMEN: Soft. Bowel sounds are present. No masses. No tenderness. EXTREMITIES: No pedal edema. No calf tenderness. NEUROLOGICAL: Patient is awake, alert and oriented 3, no focal deficit noted Assessment: Shortness of breath most likely secondary to volume overload from congestive heart failure chronic diastolic dysfunction with acute exacerbation. Patient will be discharged on 40 mg oral twice a day of Lasix Acute on chronic congestive heart failure with diastolic dysfunction, EF 55-60% with moderate pulmonary hypertension noted Severe aortic stenosis regurgitation noted on echo Elevated troponins most likely secondary to chronic kidney disease Acute hypoxic respiratory failure secondary to above End-stage renal disease on hemodialysis Saturday/Saturday/Saturday hypertension Diabetes mellitus type 2 Anemia of chronic kidney disease GI prophylaxis DVT prophylaxis Patient Condition at Discharge: Fair Plan - Discharge Summary New Discharge Prescriptions: Continue Pravastatin Sodium [Pravachol] 20 mg PO HS Pantoprazole Sodium [Protonix] 40 mg PO HS Febuxostat [Uloric] 40 mg PO HS Mometasone/Formoterol [Dulera 200 Mcg-5 Mcg Inhaler] 2 puff INHALATION RT-BID Metoprolol Tartrate [Lopressor] 25 mg PO HS Losartan Potassium [Cozaar] 50 mg PO HS Fluticasone Nasal [place] [Flonase Nasal [place]] 2 spray EA NOSTRIL HS Metoprolol Tartrate [Lopressor] 50 mg PO QAM Lidocaine-Prilocaine Cream [Emla Cream 2.5%/2.5%] 1 applic TOPICAL DAILY PRN PRN Reason: port access Cholecalciferol (Vitamin D3) [Vitamin D3 (3000 Iu)] 75 mcg PO DAILY Aspirin EC [Ecotrin Low Dose] 81 mg PO HS Dialyvite 800 1 tab PO HS Magnesium Oxide [Mag-Ox] 250 mg PO HS Changed Furosemide [Lasix] 40 mg PO BID #0 Discontinued amLODIPine [Norvasc] 10 mg PO HS Discharge Medication List Febuxostat [Uloric] 40 mg PO HS 08/03/17 [History] Pantoprazole Sodium [Protonix] 40 mg PO HS 08/03/17 [History] Pravastatin Sodium [Pravachol] 20 mg PO HS 08/03/17 [History] Mometasone/Formoterol [Dulera 200 Mcg-5 Mcg Inhaler] 2 puff INHALATION RT-BID 04/22/18 [History] Metoprolol Tartrate [Lopressor] 25 mg PO HS 05/12/20 [History] Aspirin EC [Ecotrin Low Dose] 81 mg PO HS 04/11/21 [History] Cholecalciferol (Vitamin D3) [Vitamin D3 (3000 Iu)] 75 mcg PO DAILY 04/11/21 [History] Dialyvite 800 1 tab PO HS 04/11/21 [History] Fluticasone Nasal [place] [Flonase Nasal [place]] 2 spray EA NOSTRIL HS 04/11/21 [History] Lidocaine-Prilocaine Cream [Emla Cream 2.5%/2.5%] 1 applic TOPICAL DAILY PRN 04/11/21 [History] Losartan Potassium [Cozaar] 50 mg PO HS 04/11/21 [History] Magnesium Oxide [Mag-Ox] 250 mg PO HS 04/11/21 [History] Metoprolol Tartrate [Lopressor] 50 mg PO QAM 04/11/21 [History] Furosemide [Lasix] 40 mg PO BID #0 04/15/21 [Rx] Follow up Appointment(s)/Referral(s): [facility] [NON-STAFF] - 1 Week Mellissa Espinal DO [Primary Care Provider] - 3 Days Amadou Weiss DO [STAFF PHYSICIAN] - 1 Week Ran Worrell MD [STAFF PHYSICIAN] - 1 Week
[2021-04-15 11:31] LABS: Glucose,Whole Blood 90 mg/dL (75-99)
--- NOTE | 2021-04-15 13:41 | P.PN ---
Subjective Progress Note Date: 04/15/21 This is a pleasant 80-year-old female past medical history significant for coronary artery disease sp prior PCI to RCA, chronic diastolic heart failure, diabetes, hyperlipidemia, hypertension, End stage renal disease on dialysis Saturday, right arm AV fistula. She follows in the office with Dr Fu. We have been asked to see in consultation for heart failure, fluid overload. Patient reports that she has been feeling short of breath and had a cough for the last 3 weeks. She was seen at her primary's office and was found to be hypoxic with an oxygen saturation of 88% and had symptoms of orthopnea and PND. Patient states her breathing has greatly improved. She is on 2 L nasal cannula. She has been getting up and going to the bathroom without oxygen. Patient is very anxious about going home. She is doing well. Will discontinue IV Lasix and change her back to her home dose of 40 mg twice a day by mouth. Telemetry shows she remains in sinus rhythm. Patient is seen sitting in the chair eating her breakfast, no signs of acute distress. She denies chest pain, dizziness, syncope, or edema. She reports she does have some mild shortness of breath when she returns back from the bathroom. Will try to wean patient off oxygen as tolerated. She's currently maintained on aspirin 81 mg daily, amlodipine 5 mg nightly, Lasix 40 mg PO twice a day, losartan 50 mg nightly, metoprolol tartrate 25 mg nightly, 50 mg in the morning, pravastatin 20 mg nightly Objective - Vital Signs Vital signs: Vital Signs Temp 97.7 F 04/15/21 08:00 Pulse 87 04/15/21 08:00 Resp 18 04/15/21 08:00 BP 114/65 04/15/21 08:00 Pulse Ox 94 L 04/15/21 08:00 Intake & Output 04/14/21 04/15/21 04/15/21 18:59 06:59 18:59 Intake Total 360 Output Total 1300 Balance -940 Intake: Oral 360 Output: Urine 0 Stool 0 Hemodialysis 1300 Other: # Voids 2 1 # Bowel Movements 0 - Exam PHYSICAL EXAM: VITAL SIGNS: Reviewed. GENERAL: Well-developed in no acute distress. HEENT: Head is normocephalic. Pupils are equal, round. Sclerae anicteric. Mucous membranes of the mouth are moist. NECK: Supple. No JVD or thyromegaly RESPIRATORY: Respirations even and unlabored. Lungs diminished to auscultation bilaterally. CARDIO: Regular rate and rhythm. S1 and S2 heard. No murmur or gallops. EXTREMITIES: Normal range of motion. No clubbing or cyanosis. Peripheral pulses intact. Negative for bilateral lower extremity edema NEURO: Orientated to person, time, mood is appropriate - Labs CBC & Chem 7: 04/12/21 07:16 04/13/21 09:07 Labs: Abnormal Lab Results - Last 24 Hours (Table) 04/14/21 04/14/21 04/15/21 Range/Units 16:26 19:51 06:50 POC Glucose (mg/dL) 124 H 118 H 101 H (75-99) mg/dL Assessment and Plan Assessment: Acute on chronic congestive heart failure end-stage renal disease requiring dialysis Elevated troponins likely related to advanced renal disease, none dictated of acute coronary syndrome Hypertension Hyperlipidemia Coronary artery disease with prior PCI to the RCA Plan: Change Lasix to 40 mg by mouth twice a day Continue with dialysis schedule Continue telemetry monitoring Continue with all current cardiac medications Wean patient to room air as tolerated From a cardiology standpoint patient is clear to be discharged, if primary agrees Further recommendations based on clinical course The above impression and plan of care have been discussed and directed by the signing physician. Yas Hurtado, nurse practitioner, acting as scribe for signing physician.
[2021-04-15] MEDS ORDERED: FUROSEMIDE 40 MG TAB PO SCH (16:00)
== END 2021-04-15 14:02 | disposition home or self-care (01) | DRG 291 ==
LOC: EC 12:56 → 3SCARD 14:28
PROVIDERS: ADMIT Internal Medicine; ATTEND Internal Medicine
PROC: 5A1D70Z Performance of Urinary Filtration, Intermittent, Less than 6 Hours Per Day (ICD-10-PCS; principal; 2021-04-12)
DX: I13.2 Hypertensive heart and chronic kidney disease with heart failure and with stage 5 chronic kidney disease, or end stage renal disease (principal); I50.33 Acute on chronic diastolic (congestive) heart failure; N18.6 End stage renal disease; J96.01 Acute respiratory failure with hypoxia; I27.20 Pulmonary hypertension, unspecified; D63.1 Anemia in chronic kidney disease; E11.22 Type 2 diabetes mellitus with diabetic chronic kidney disease; Z99.2 Dependence on renal dialysis; Z20.822 Contact with and (suspected) exposure to COVID-19; E78.5 Hyperlipidemia, unspecified; F41.1 Generalized anxiety disorder; F32.A Depression, unspecified; I44.0 Atrioventricular block, first degree; I08.0 Rheumatic disorders of both mitral and aortic valves; R77.8 Other specified abnormalities of plasma proteins; I25.10 Atherosclerotic heart disease of native coronary artery without angina pectoris; Z79.82 Long term (current) use of aspirin; Z79.51 Long term (current) use of inhaled steroids; Z79.899 Other long term (current) drug therapy; Z86.16 Personal history of COVID-19; Z87.39 Personal history of other diseases of the musculoskeletal system and connective tissue; Z95.5 Presence of coronary angioplasty implant and graft; Z90.49 Acquired absence of other specified parts of digestive tract; Z90.721 Acquired absence of ovaries, unilateral; Z95.3 Presence of xenogenic heart valve; Z86.79 Personal history of other diseases of the circulatory system; Z87.891 Personal history of nicotine dependence; Z98.890 Other specified postprocedural states; Z88.1 Allergy status to other antibiotic agents; Z91.040 Latex allergy status; Z88.5 Allergy status to narcotic agent; Z88.8 Allergy status to other drugs, medicaments and biological substances; Z91.048 Other nonmedicinal substance allergy status; Z80.9 Family history of malignant neoplasm, unspecified; Z82.49 Family history of ischemic heart disease and other diseases of the circulatory system; Z71.3 Dietary counseling and surveillance
CPT/HCPCS: 36415; 71045; 80048; 82728; 83540; 83550; 83735; 83880; 84100; 84484; 85025; 85610; 85730; 87635; 90935; 93005; 93306; 94640; 94760; 96365; 96366; 96375; 99285

== ENCOUNTER 2022-01-01 20:39 | Inpatient (IN) | payer MEDICARE ==
[2022-01-01] MEDS ORDERED: SODIUM CHLORIDE 0.9% 500 ML 500 ML IV STA (20:53)
--- NOTE | 2022-01-01 21:36 | CT ---
EXAMINATION TYPE: CT brain yahaira wo con DATE OF EXAM: 01/01/2022 COMPARISON: 04/22/2018 HISTORY: pain after fall CT DLP: 1358.7 mGycm Automated exposure control for dose reduction was used. Images of the brain and cervical spine obtained with no contrast. There is some cerebral cortical atrophy. There is no mass effect or midline shift. No sign of intracr anial hemorrhage. There is moderate hypodensity in the white matter in both temporal lobes. This is m ore severe on the right side. There is evidence of old right posterior temporal parietal cortical inf arct. There is old right posterior frontal lobe cortical infarct. The cervical vertebra have normal alignment. There is degenerative disc space narrowing at C4-5 and C 5-6 with spurring of the endplates. Facet joints are intact. No compression fracture. IMPRESSION: Spondylotic changes in the cervical spine. No fracture. No change. 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 No acute intracranial abnormality. No ch radha compared to old exam.
--- NOTE | 2022-01-01 21:37 | XR ---
EXAMINATION TYPE: XR thoracic spine 2V DATE OF EXAM: 01/01/2022 COMPARISON: 08/03/2017 HISTORY: Fall. Pain TECHNIQUE: 3 views FINDINGS: The thoracic vertebrae are fairly normal alignment. Posterior element are intact. No parasp inal mass. No compression fracture. There is stent at the aortic valve. IMPRESSION: No acute abnormality of the thoracic spine. No compression fracture. No change.
--- NOTE | 2022-01-01 21:40 | XR ---
EXAMINATION TYPE: XR lumbar spine 2 or 3V DATE OF EXAM: 01/01/2022 COMPARISON: NONE HISTORY: Fall. Pain TECHNIQUE: 3 views FINDINGS: The lumbar vertebra show fairly normal alignment. There is a mild degenerative subluxation at L4-5. Abdominal aorta is atheromatous. There is disc space narrowing throughout the lumbar spine. No compression fracture. Sacroiliac joints are intact. IMPRESSION: Spondylotic changes. Degenerative first degree L4-5 spondylolisthesis. No acute fracture seen.
--- NOTE | 2022-01-01 21:43 | XR ---
EXAMINATION TYPE: XR chest 1V DATE OF EXAM: 01/01/2022 COMPARISON: 04/13/2021 HISTORY: Fall. Pain TECHNIQUE: Single view FINDINGS: Heart is enlarged. There is coarse interstitial density in the lungs. No heart failure. The re is slight blunting of the costophrenic angles. IMPRESSION: Interstitial fibrotic changes. Small pleural effusions. There is clearing of the airspace consolidation left upper lobe compared to old exam. Mild heart failure is possible.
[2022-01-01 21:50] LABS: Anisocytosis Slight; Basophils % (A) 0 %; Eosinophils # (A) 0.2 k/uL (0-0.7); Eosinophils % (A) 2 %; HCT 43.3 % (34.0-46.0); HGB 14.1 gm/dL (11.4-16.0); Hypochromasia Moderate; Lymphocytes # (A) 0.6 k/uL (1.0-4.8); Lymphocytes % (A) 6 %; MCH 28.5 pg (25.0-35.0); MCHC 32.4 g/dL (31.0-37.0); MCV 87.8 fL (80.0-100.0); Mean Platelet Volume 9.4; Monocytes # (A) 0.4 k/uL (0-1.0); Monocytes % (A) 4 %; Neutrophils # (A) 9.5 k/uL (1.3-7.7); Neutrophils % (A) 88 %; Platelet Count 115 k/uL (150-450); RBC 4.93 m/uL (3.80-5.40); RDW 19.9 % (11.5-15.5); WBC 10.8 k/uL (3.8-10.6)
[2022-01-01 22:00] LABS: Albumin 3.2 g/dL (3.5-5.0); Calcium 8.1 mg/dL (8.4-10.2); Magnesium 1.8 mg/dL (1.6-2.3); Potassium 3.4 mmol/L (3.5-5.1); Total Bilirubin 1.8 mg/dL (0.2-1.3); Total Protein 5.8 g/dL (6.3-8.2)
--- NOTE | 2022-01-01 22:42 | ED ---
Fall HPI - General Chief Complaint: Fall Stated Complaint: fall, hit head Time Seen by Provider: 01/01/22 20:41 Source: patient, EMS Mode of arrival: EMS - History of Present Illness Initial Comments: Patient is a an 81-year-old female with a past medical history of early dementia , coronary artery disease, diabetes mellitus, hypertension, hyperlipidemia, heart failure, and ESRD on dialysis MWF presents to the emergency department after fall. Daughter helps provide history at bedside. Patient fell this evening in the bathroom, hitting her head on the way down. Fall was unwitnessed but daughter was outside in the hallway. Denies loss of consciousness. Patient uses baby aspirin otherwise no blood thinner use Patient states she felt well before the fall and fell due to tripping on her walker. She does report intermittent aching chest pain in the center of her chest since the fall. There is no radiation. Also reports generalized back pain. Denies other injury inc luding neck pain. She denies fever, chills, lightheadedness, dizziness, shortness of breath, nausea, vomiting. - Related Data Home Medications Medication Instructions Recorded Confirmed Febuxostat [Uloric] 40 mg PO HS 08/03/17 04/11/21 Pantoprazole Sodium [Protonix] 40 mg PO HS 08/03/17 04/11/21 Pravastatin Sodium [Pravachol] 20 mg PO HS 08/03/17 04/11/21 Mometasone/Formoterol [Dulera 200 2 puff INHALATION RT-BID 04/22/18 04/11/21 Mcg-5 Mcg Inhaler] Metoprolol Tartrate [Lopressor] 25 mg PO HS 05/12/20 04/11/21 Aspirin EC [Ecotrin Low Dose] 81 mg PO HS 04/11/21 04/11/21 Cholecalciferol (Vitamin D3) 75 mcg PO DAILY 04/11/21 04/11/21 [Vitamin D3 (3000 Iu)] Dialyvite 800 1 tab PO HS 04/11/21 04/11/21 Fluticasone Nasal [place] [Flonase 2 spray EA NOSTRIL HS 04/11/21 04/11/21 Nasal [place]] Lidocaine-Prilocaine Cream [Emla 1 applic TOPICAL DAILY PRN 04/11/21 04/11/21 Cream 2.5%/2.5%] Losartan Potassium [Cozaar] 50 mg PO HS 04/11/21 04/11/21 Magnesium Oxide [Mag-Ox] 250 mg PO HS 04/11/21 04/11/21 Metoprolol Tartrate [Lopressor] 50 mg PO QAM 04/11/21 04/11/21 Previous Rx's Medication Instructions Recorded Furosemide [Lasix] 40 mg PO BID #0 04/15/21 Allergies Allergy/AdvReac Type Severity Reaction Status Date / Time atorvastatin [From Lipitor] Allergy Unknown Verified 04/11/21 14:11 codeine Allergy Rash/Hives Verified 04/11/21 14:11 duloxetine [From Cymbalta] Allergy Unknown Verified 04/11/21 14:11 ezetimibe [From Zetia] Allergy Unknown Verified 04/11/21 14:11 fenofibrate [From Tricor] Allergy Unknown Verified 04/11/21 14:11 latex Allergy Rash/Hives Verified 04/11/21 14:11 niacin Allergy Unknown Verified 04/11/21 14:11 tetracycline Allergy Unknown Verified 04/11/21 14:11 Review of Systems ROS Statement: Those systems with pertinent positive or pertinent negative responses have been documented in the HPI. ROS Other: All systems not noted in ROS Statement are negative. Past Medical History Past Medical History: Coronary Artery Disease (CAD), Heart Failure, Diabetes Mellitus, Hyperlipidemia, Hypertension, Renal Disease Additional Past Medical History / Comment(s): has hemodialysis MON,WED,FRI for 3 1/2 in [facility] Feb 2020,heart murmur; Hx gout; see Dr Fu's H&P , gout, diastolic heart failure History of Any Multi-Drug Resistant Organisms: None Reported Past Surgical History: Appendectomy, Heart Catheterization, Heart Catheterization With Stent Additional Past Surgical History / Comment(s): IV catheter rt chest, Ovary removal, 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 Bilateral carotid endarterectomy. Aortic valve replacement 02/2018 Past Anesthesia/Blood Transfusion Reactions: No Reported Reaction Date of Last Stent Placement:: unknown Past Psychological History: Anxiety, Depression Smoking Status: Former smoker Past Alcohol Use History: None Reported Past Drug Use History: None Reported - Past Family History Mother Family Medical History: No Reported History Sister(s) Family Medical History: Cancer Father Family Medical History: Myocardial Infarction ([place]) Additional Family Medical History / Comment(s): Father of a [place] in his 60s. General Exam General appearance: alert, in no apparent distress Head exam: Present: normocephalic, normal inspection. Absent: atraumatic (occipital hematoma ) Eye exam: Present: normal appearance, PERRL, EOMI. Absent: scleral icterus, conjunctival injection, periorbital swelling Neck exam: Present: normal inspection. Absent: tenderness, meningismus, lymphadenopathy Respiratory exam: Present: normal lung sounds bilaterally, chest wall tenderness (middle chest ). Absent: respiratory distress, wheezes, rales, rhonchi, stridor Cardiovascular Exam: Present: regular rate, normal rhythm, normal heart sounds. Absent: systolic murmur, diastolic murmur, rubs, gallop, clicks Back exam: Present: normal inspection, full ROM, paraspinal tenderness (thoracic and lumbar ), vertebral tenderness (thoracic/lumbar ) Neurological exam: Present: alert, oriented X3, CN II-XII intact Psychiatric exam: Present: normal affect, normal mood Skin exam: Present: warm, dry, intact, normal color. Absent: rash Course Vital Signs 01/01/22 20:41 Temperature 97.8 F Pulse Rate 100 Respiratory 18 Rate Blood Pressure 140/75 O2 Sat by Pulse 100 Oximetry Medical Decision Making - Medical Decision Making This is an 81-year-old female presenting with chest pain after fall. Patient well-appearing and in no apparent distress. Vitals stable. She declines pain medication including Nitro. EKG shows sinus rhythm with occasional supraventricular premature complexes. There is evidence of acute ischemic changes. CT of the brain and C-spine without contrast is negative for acute process. X-ray imaging of the thoracic and lumbar spine is negative for fracture. X-ray of the chest shows small pleural effusions. Laboratory studies obtained. Kidney function consistent with end-stage renal disease. Troponin is elevated at 0.104 however this appears to be chronic in nature due to ESRD. Troponin significantly lower than previous visit on 04/12/21, 1.630. However in the setting of acute chest pain, will admit patient for trending of troponin. Case discussed with PROSPER Holliday who accepts admission. Patient admitted in stable condition. Dr. Brenner is my attending. - Lab Data Result diagrams: 01/01/22 21:28 01/01/22 21:28 Lab Results 10/01/1301/01/22 01/01/22 Range/Units 21:28 21:28 21:28 WBC 10.8 H (3.8-10.6) k/uL RBC 4.93 (3.80-5.40) m/uL Hgb 14.1 (11.4-16.0) gm/dL Hct 43.3 (34.0-46.0) % MCV 87.8 (80.0-100.0) fL MCH 28.5 (25.0-35.0) pg MCHC 32.4 (31.0-37.0) g/dL RDW 19.9 H (11.5-15.5) % Plt Count 115 L (150-450) k/uL MPV 9.4 Neutrophils % 88 % Lymphocytes % 6 % Monocytes % 4 % Eosinophils % 2 % Basophils % 0 % Neutrophils # 9.5 H (1.3-7.7) k/uL Lymphocytes # 0.6 L (1.0-4.8) k/uL Monocytes # 0.4 (0-1.0) k/uL Eosinophils # 0.2 (0-0.7) k/uL Basophils # 0.0 (0-0.2) k/uL Hypochromasia Moderate Anisocytosis Slight Sodium 134 L (137-145) mmol/L Potassium 3.4 L (3.5-5.1) mmol/L Chloride 95 L (98-107) mmol/L Carbon Dioxide 25 (22-30) mmol/L Anion Gap 14 mmol/L BUN 29 H (7-17) mg/dL Creatinine 3.11 H (0.52-1.04) mg/dL Est GFR (CKD-EPI)AfAm 15 (>60 ml/min/1.73 sqM) Est GFR (CKD-EPI)NonAf 13 (>60 ml/min/1.73 sqM) Glucose 88 (74-99) mg/dL Calcium 8.1 L (8.4-10.2) mg/dL Magnesium 1.8 (1.6-2.3) mg/dL Total Bilirubin 1.8 H (0.2-1.3) mg/dL AST 55 H (14-36) U/L ALT 42 H (4-34) U/L Alkaline Phosphatase 161 H (38-126) U/L Troponin I 0.104 H* (0.000-0.034) ng/mL NT-Pro-B Natriuret Pep pg/mL Total Protein 5.8 L (6.3-8.2) g/dL Albumin 3.2 L (3.5-5.0) g/dL 01/01/22 Range/Units 21:28 WBC (3.8-10.6) k/uL RBC (3.80-5.40) m/uL Hgb (11.4-16.0) gm/dL Hct (34.0-46.0) % MCV (80.0-100.0) fL MCH (25.0-35.0) pg MCHC (31.0-37.0) g/dL RDW (11.5-15.5) % Plt Count (150-450) k/uL MPV Neutrophils % % Lymphocytes % % Monocytes % % Eosinophils % % Basophils % % Neutrophils # (1.3-7.7) k/uL Lymphocytes # (1.0-4.8) k/uL Monocytes # (0-1.0) k/uL Eosinophils # (0-0.7) k/uL Basophils # (0-0.2) k/uL Hypochromasia Anisocytosis Sodium (137-145) mmol/L Potassium (3.5-5.1) mmol/L Chloride (98-107) mmol/L Carbon Dioxide (22-30) mmol/L Anion Gap mmol/L BUN (7-17) mg/dL Creatinine (0.52-1.04) mg/dL Est GFR (CKD-EPI)AfAm (>60 ml/min/1.73 sqM) Est GFR (CKD-EPI)NonAf (>60 ml/min/1.73 sqM) Glucose (74-99) mg/dL Calcium (8.4-10.2) mg/dL Magnesium (1.6-2.3) mg/dL Total Bilirubin (0.2-1.3) mg/dL AST (14-36) U/L ALT (4-34) U/L Alkaline Phosphatase (38-126) U/L Troponin I (0.000-0.034) ng/mL NT-Pro-B Natriuret Pep 085829 pg/mL Total Protein (6.3-8.2) g/dL Albumin (3.5-5.0) g/dL - EKG Data EKG Comments: EKG taken at 22:56 Sinus rhythm with occasional supraventricular premature complexes Ventricular rate 99 DC interval 194 QRS duration 114 QTc 429 Disposition Clinical Impression: Fall, Chest pain, Acute electrocardiogram changes, Elevated troponin, CKD (chronic kidney disease) Disposition: ADMITTED IP TO THIS HOSP Condition: Fair Referrals: Mellissa Espinal DO [Primary Care Provider] - 1-2 days
[2022-01-01] MEDS ORDERED: NITROGLYCERIN SL TABS 0.4 MG TAB SUBLINGUAL PRN (22:43)
--- NOTE | 2022-01-01 22:46 | CT ---
EXAMINATION TYPE: CT facial bones wo con DATE OF EXAM: 01/01/2022 COMPARISON: 04/22/2018 HISTORY: fall CT DLP: 660.7 mGycm Automated exposure control for dose reduction was used. Images obtained from the bottom of the mandible to the top of the frontal sinuses with no contrast. The mandibular ring appears intact. The temporomandibular joints are intact. Diabetic arches are inta ct. Maxilla is intact. No sign of orbital blowout fracture. The orbital margins are intact. No eviden ce of retro-orbital mass. The globes are symmetric. The nasal bone appears intact. Maxillary spine is intact. IMPRESSION: No evidence of acute traumatic injury of the facial bones.
[2022-01-01] MEDS ORDERED: NALOXONE 0.4 MG/ML 1 ML VIAL IV PRN (23:28)
[2022-01-01] MEDS ORDERED: BENZONATATE 100 MG CAP PO STA (23:41)
[2022-01-02] MEDS: SYMBICORT 160-4.5 MCG INHALER INHALATION SCH ×2 (07:41→19:44)
[2022-01-02] MEDS: FUROSEMIDE 40 MG TAB PO SCH ×2 (08:32→21:26)
[2022-01-02] MEDS: HEPARIN SODIUM,PORCINE/PF 5,000 UNIT/0.5 ML SYRINGE SQ SCH ×2 (08:32→21:26)
[2022-01-02] MEDS ORDERED: LOSARTAN 50 MG TAB PO SCH (21:00)
[2022-01-02 21:08] LABS: Glucose,Whole Blood 91 mg/dL (70-110)
[2022-01-02] MEDS: PANTOPRAZOLE 40 MG TABLET PO SCH (21:25)
[2022-01-02] MEDS: allopurinoL 100 MG TAB PO SCH (21:25)
[2022-01-02] MEDS: PRAVASTATIN SODIUM 20 MG TAB PO SCH (21:25)
[2022-01-02] MEDS: MAGNESIUM OXIDE 400 MG TAB PO SCH (21:25)
[2022-01-02] MEDS: MULTIVITAMINS, THERA 1 EACH TAB PO SCH (21:26)
[2022-01-02] MEDS: METOPROLOL TARTRATE 25 MG TAB PO SCH (21:26)
[2022-01-02] MEDS: ASPIRIN 81 MG PO SCH (21:26)
[2022-01-02] MEDS ORDERED: POTASSIUM CHLORIDE ER 20 MEQ TAB.ER PO STA (21:41)
--- NOTE | 2022-01-02 21:48 | P.HPIM ---
History of Present Illness H&P Date: 01/02/22 Chief Complaint: Fall Patient is a 81-year-old female with a known history of chronic CHF with preserved ejection fraction, coronary artery disease history of stent placement, history of TAVR, moderate pulmonary hypertension and moderate MR, ESRD on hemodialysis Saturday and history of COVID-19 infection February 2020, anxiety depression and previous history of smoking presents to ER status post fall. Patient fell in the bathroom and hitting her head on the way down. Patient states that she fell due to tripping on her walker. Patient otherwise denied any loss of consciousness. Patient is an adequate historian. Patient states that she has been having intermittent chest pain since fall. No radiation of the pain. Also complains of back pain and neck pain. Patient has been afebrile. Denies any recent illnesses. CT head and cervical spine showed spondylitic changes in the cervical spine. No fracture. No change. Cerebral atrophy and wall right hemispheric cortical infarcts. No acute intracranial abnormality. No change from prior study. X-ray of the thoracic spine showed no compression fracture. No acute abnormality noted. X-ray of the lumbar spine shows spondylitic changes and degenerative positivity L4-L5 spondylolisthesis. No acute fracture seen. Chest x-ray showed interstitial fibrotic changes. Small pleural effusions. There is clearing of the bases consolidation left upper lobe compatible exam. Mild heart failure is possible. See clearly please showed no acute fracture traumatic injury of the facial bones. EKG showed sinus rhythm with occasional supraventricular premature complexes. Laboratory data WBC 10.8 hemoglobin 14.1 and platelets 115 Sodium 134 potassium 3.4 Chloride 95 BUN 29 and creatinine 3.11 AST 55 ALT 42 alk phos 161 Troponin 0.104 and 0.117 and 0.107 proBNP [id number] Review of Systems Constitutional: Patient denies any fever or chills . Patient does have generalized weakness. Abdomen: Patient denied any nausea or vomiting or abd. pain Cardiovascular: Patient denies any chest pain or short of breath no palpitations. Respiratory: patient denied any cough . no sputum production. Denied shortness of breath Neurologic: Patient denied any numbness or tingling headache. Musculoskeletal: Patient denies any complaints of joint swelling or deformity. Complete review of systems could not be obtained from the patient. Past Medical History Past Medical History: Coronary Artery Disease (CAD), Heart Failure, Diabetes Mellitus, Hyperlipidemia, Hypertension, Renal Disease Additional Past Medical History / Comment(s): has hemodialysis MON,WED,FRI for 3 1/2 in [facility] Feb 2020,heart murmur; Hx gout; see Dr Fu's H&P , gout, diastolic heart failure History of Any Multi-Drug Resistant Organisms: None Reported Past Surgical History: Appendectomy, Heart Catheterization, Heart Catheterization With Stent Additional Past Surgical History / Comment(s): IV catheter rt chest, Ovary removal, 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 Bilateral carotid endarterectomy. Aortic valve replacement 02/2018 Past Anesthesia/Blood Transfusion Reactions: No Reported Reaction Date of Last Stent Placement:: unknown Past Psychological History: Anxiety, Depression Smoking Status: Former smoker Past Alcohol Use History: None Reported Past Drug Use History: None Reported - Past Family History Mother Family Medical History: No Reported History Sister(s) Family Medical History: Cancer Father Family Medical History: Myocardial Infarction ([place]) Additional Family Medical History / Comment(s): Father of a [place] in his 60s. Medications and Allergies Home Medications Medication Instructions Recorded Confirmed Type Febuxostat [Uloric] 40 mg PO HS 08/03/17 01/02/22 History Pantoprazole Sodium [Protonix] 40 mg PO HS 08/03/17 01/02/22 History Pravastatin Sodium [Pravachol] 20 mg PO HS 08/03/17 01/02/22 History Mometasone/Formoterol [Dulera 200 2 puff INHALATION RT-BID 04/22/18 01/02/22 History Mcg-5 Mcg Inhaler] Aspirin EC [Ecotrin Low Dose] 81 mg PO HS 04/11/21 01/02/22 History Dialyvite 800 1 tab PO HS 04/11/21 01/02/22 History Lidocaine-Prilocaine Cream [Emla 1 applic TOPICAL DAILY PRN 04/11/21 01/02/22 History Cream 2.5%/2.5%] Furosemide [Lasix] 60 mg PO DAILY 01/02/22 01/02/22 History Sertraline [Zoloft] 50 mg PO DAILY 01/02/22 01/02/22 History levOCARNitine [Levocarnitine] 660 mg PO TID 01/02/22 01/02/22 History Allergies Allergy/AdvReac Type Severity Reaction Status Date / Time atorvastatin [From Lipitor] Allergy Unknown Verified 01/02/22 08:12 codeine Allergy Rash/Hives Verified 01/02/22 08:12 duloxetine [From Cymbalta] Allergy Unknown Verified 01/02/22 08:12 ezetimibe [From Zetia] Allergy Unknown Verified 01/02/22 08:12 fenofibrate [From Tricor] Allergy Unknown Verified 01/02/22 08:12 latex Allergy Rash/Hives Verified 01/02/22 08:12 niacin Allergy Unknown Verified 01/02/22 08:12 tetracycline Allergy Unknown Verified 01/02/22 08:12 Physical Exam Vitals: Vital Signs Temp Pulse Resp BP Pulse Ox 01/02/22 07:50 97.8 F 105 H 18 147/89 100 01/02/22 05:26 102 H 18 103/61 95 01/02/22 02:00 94 100/68 93 L 01/01/22 22:49 101 H 18 114/68 97 01/01/22 20:41 97.8 F 100 18 140/75 100 Intake and Output 01/01/22 01/02/22 01/02/22 22:59 06:59 14:59 Other: Weight 94.619 kg PHYSICAL EXAMINATION: Patient is lying in the bed comfortably, no acute distress, awake alert and oriented but seems to be confused... HEENT: Normocephalic. Neck is supple. Pupils reactive. Nostrils clear. Oral cavity is moist. Neck reveals no JVD, carotid bruits, or thyromegaly. CHEST EXAMINATION: Trachea is central. Symmetrical expansion. Lung burk clear to auscultation and percussion. CARDIAC: Normal S1, S2 with no gallops. No murmurs ABDOMEN: Soft. Bowel sounds present. Nontender. No organomegaly. No abdominal bruits. Extremities: Bilateral 2+ pedal edema. No clubbing or cyanosis Neurologically awake, alert, oriented x2-3 with well-coordinated movements. No focal deficits noted Skin: No rash or skin lesions. Psychiatric: Coperative. Nonsuicidal, Musculoskeletal: No joint swelling or deformity. Normal range of motion. Results CBC & Chem 7: 01/01/22 21:28 01/01/22 21:28 Labs: Abnormal Lab Results - Last 24 Hours (Table) 01/01/22 01/01/2222 Range/Units 21:28 21:28 21:28 WBC 10.8 H (3.8-10.6) k/uL RDW 19.9 H (11.5-15.5) % Plt Count 115 L (150-450) k/uL Neutrophils # 9.5 H (1.3-7.7) k/uL Lymphocytes # 0.6 L (1.0-4.8) k/uL Sodium 134 L (137-145) mmol/L Potassium 3.4 L (3.5-5.1) mmol/L Chloride 95 L (98-107) mmol/L BUN 29 H (7-17) mg/dL Creatinine 3.11 H (0.52-1.04) mg/dL Calcium 8.1 L (8.4-10.2) mg/dL Total Bilirubin 1.8 H (0.2-1.3) mg/dL AST 55 H (14-36) U/L ALT 42 H (4-34) U/L Alkaline Phosphatase 161 H (38-126) U/L Troponin I 0.104 H* (0.000-0.034) ng/mL Total Protein 5.8 L (6.3-8.2) g/dL Albumin 3.2 L (3.5-5.0) g/dL 01/02/22 01/02/22 Range/Units 00:29 03:19 WBC (3.8-10.6) k/uL RDW (11.5-15.5) % Plt Count (150-450) k/uL Neutrophils # (1.3-7.7) k/uL Lymphocytes # (1.0-4.8) k/uL Sodium (137-145) mmol/L Potassium (3.5-5.1) mmol/L Chloride (98-107) mmol/L BUN (7-17) mg/dL Creatinine (0.52-1.04) mg/dL Calcium (8.4-10.2) mg/dL Total Bilirubin (0.2-1.3) mg/dL AST (14-36) U/L ALT (4-34) U/L Alkaline Phosphatase (38-126) U/L Troponin I 0.117 H* 0.109 H* (0.000-0.034) ng/mL Total Protein (6.3-8.2) g/dL Albumin (3.5-5.0) g/dL Thrombosis Risk Factor Assmnt - DVT/VTE Prophylaxis DVT/VTE Prophylaxis: Pharmacologic Prophylaxis ordered Assessment and Plan Assessment: Status post mechanical fall. Patient tripped over her walker and fell on the floor hitting her head. Acute on chronic CHF with preserved ejection fraction ESRD on hemodialysis Saturday and Saturday Elevated troponin level likely due to demand ischemia and CKD History of TAVR in February 2018 Moderate MR and moderate pulmonary hypertension. Mild transaminitis Hypokalemia Coronary artery history of stent placement Bilateral carotid endarterectomy Hypertension Hyperlipidemia Diabetes type 2 diet controlled Anxiety/depression Persistent smoking DVT prophylaxis with heparin subcu Plan: Patient will continue on telemetry monitoring. Follow-up serial troponins. 2D echocardiogram was ordered. Cardiology consult due to elevated troponin level. Replace potassium and continue with Lasix 40 mg IV every 12 as blood pressure tolerates. Continue with aspirin and statins and metoprolol and other home medications. DuoNebs as needed. Continued pain management and follow-up closely. Time with Patient: Greater than 30
[2022-01-03] MEDS: FLUTICASONE 50MCG/SPRAY NASAL 16GM EA NOSTRIL SCH ×2 (01:20→22:58)
[2022-01-03] MEDS: SYMBICORT 160-4.5 MCG INHALER INHALATION SCH ×2 (07:45→20:04)
[2022-01-03] MEDS: HEPARIN SODIUM,PORCINE/PF 5,000 UNIT/0.5 ML SYRINGE SQ SCH ×2 (09:08→21:29)
[2022-01-03] MEDS: FUROSEMIDE 40 MG TAB PO SCH ×2 (09:08→09:14)
--- NOTE | 2022-01-03 10:01 | P.NPCON ---
History of Present Illness - Reason for Consult end stage renal disease - History of Present Illness Reason for consultation: End-stage renal disease History of present illness: Patient is a 81-year-old female seen in consultation for end-stage renal disease. She is maintained on hemodialysis on Saturday schedule via right upper extremity AV fistula. Patient presented to the hospital after she sustained a fall at home. Patient states she was going to the bathroom, felt weak and fell. She denies seizure activity. She does admit to passing out but not sure for how long. She does admit to dizziness with positional changes. No acute fracture was noted on imaging. Patient's blood pressure is noted to be low in the systolic 80s and diastolic 50s. In terms of antihypertensives p atient is currently on metoprolol as well as losartan. Patient has a history of diastolic CHF with moderate tricuspid regurgitation and pulmonary hypertension. No fever or chills. No vomiting or diarrhea. States she lives with her daughter. Vital signs are stable. Blood pressure low. General: No acute distress. HEENT: Head exam is unremarkable. On nasal cannula. LUNGS: Breath sounds decreased. HEART: Rate and Rhythm are regular. ABDOMEN: Soft, no distention. EXTREMITITES: No edema. Generalized bruising noted. Past Medical History Past Medical History: Coronary Artery Disease (CAD), Heart Failure, Diabetes Mellitus, Hyperlipidemia, Hypertension, Renal Disease Additional Past Medical History / Comment(s): has hemodialysis SAT,SAT,SAT for 3 1/2 in [facility] Feb 2020,heart murmur; Hx gout; see Dr Fu's H&P , gout, diastolic heart failure History of Any Multi-Drug Resistant Organisms: None Reported Past Surgical History: Appendectomy, Heart Catheterization, Heart Catheterization With Stent Additional Past Surgical History / Comment(s): IV catheter rt chest, Ovary removal, 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 Bilateral carotid endarterectomy. Aortic valve replacement 02/2018 Past Anesthesia/Blood Transfusion Reactions: No Reported Reaction Date of Last Stent Placement:: unknown Past Psychological History: Anxiety, Depression Smoking Status: Former smoker Past Alcohol Use History: None Reported Past Drug Use History: None Reported - Past Family History Mother Family Medical History: No Reported History Sister(s) Family Medical History: Cancer Father Family Medical History: Myocardial Infarction ([place]) Additional Family Medical History / Comment(s): Father of a [place] in his 60s. Medications and Allergies Home Medications Medication Instructions Recorded Confirmed Type Febuxostat [Uloric] 40 mg PO HS 08/03/17 01/02/22 History Pantoprazole Sodium [Protonix] 40 mg PO HS 08/03/17 01/02/22 History Pravastatin Sodium [Pravachol] 20 mg PO HS 08/03/17 01/02/22 History Mometasone/Formoterol [Dulera 200 2 puff INHALATION RT-BID 04/22/18 01/02/22 History Mcg-5 Mcg Inhaler] Aspirin EC [Ecotrin Low Dose] 81 mg PO HS 04/11/21 01/02/22 History Dialyvite 800 1 tab PO HS 04/11/21 01/02/22 History Lidocaine-Prilocaine Cream [Emla 1 applic TOPICAL DAILY PRN 04/11/21 01/02/22 History Cream 2.5%/2.5%] Furosemide [Lasix] 60 mg PO DAILY 01/02/22 01/02/22 History Sertraline [Zoloft] 50 mg PO DAILY 01/02/22 01/02/22 History levOCARNitine [Levocarnitine] 660 mg PO TID 01/02/22 01/02/22 History Allergies Allergy/AdvReac Type Severity Reaction Status Date / Time atorvastatin [From Lipitor] Allergy Unknown Verified 01/02/22 08:12 codeine Allergy Rash/Hives Verified 01/02/22 08:12 duloxetine [From Cymbalta] Allergy Unknown Verified 01/02/22 08:12 ezetimibe [From Zetia] Allergy Unknown Verified 01/02/22 08:12 fenofibrate [From Tricor] Allergy Unknown Verified 01/02/22 08:12 latex Allergy Rash/Hives Verified 01/02/22 08:12 niacin Allergy Unknown Verified 01/02/22 08:12 tetracycline Allergy Unknown Verified 01/02/22 08:12 Physical Exam Vitals: Vital Signs Temp Pulse Pulse Pulse Resp BP BP 01/03/22 09:05 98.6 F 86 18 83/53 01/03/22 04:00 98.4 F 83 19 88/57 01/03/22 01:56 106 H 01/03/22 00:45 98.5 F 83 18 88/58 01/02/22 20:00 97.5 F L 106 H 14 100/58 01/02/22 17:58 97.6 F 102 H 16 117/69 01/02/22 16:25 101 H 18 90/52 01/02/22 13:52 99 18 124/89 Pulse Ox 01/03/22 09:05 96 01/03/22 04:00 98 01/03/22 01:56 01/03/22 00:45 94 L 01/02/22 20:00 100 01/02/22 17:58 100 01/02/22 16:25 100 01/02/22 13:52 99 Intake and Output 01/02/22 01/03/22 01/03/22 22:59 06:59 14:59 Intake Total 540 118 Balance 540 118 Intake: Oral 540 118 Other: Voiding Method Diaper Diaper # Voids 0 Weight 94.619 kg 94 kg Results - Lab Results Most recent lab results Calcium 8.1 mg/dL (8.4-10.2) L 01/01/22 21:28 Magnesium 1.8 mg/dL (1.6-2.3) 01/01/22 21:28 01/01/22 21:28 01/01/22 21:28 Assessment and Plan Plan: Assessment: 1. End-stage renal disease making on hemodialysis on Saturday schedule via right upper extremity AV fistula. 2. Fall. Patient is hypotensive. No acute fracture noted. 3. Hypokalemia, replaced. 4. Acute on chronic diastolic CHF with moderate tricuspid regurgitation and pulmonary hypertension. 5. Volume overload. Plan: Hemodialysis today. Stop all antihypertensives. Add midodrine 5 mg 3 times daily. Hold for systolic blood pressure greater than 110. Cardiology also consulted for the syncope. Check phosphorus level. Thank you for the consultation. I will continue to follow the patient with you during her hospital stay.
[2022-01-03 10:09] LABS: Anisocytosis Moderate; Basophils % (A) 0 %; Eosinophils % (A) 0 %; HCT 43.3 % (34.0-46.0); HGB 13.6 gm/dL (11.4-16.0); Hypochromasia Moderate; Lymphocytes % (A) 11 %; MCH 28.1 pg (25.0-35.0); MCHC 31.5 g/dL (31.0-37.0); MCV 89.3 fL (80.0-100.0); Mean Platelet Volume 9.7; Monocytes # (A) 0.3 k/uL (0-1.0); Monocytes % (A) 3 %; Neutrophils # (A) 7.1 k/uL (1.3-7.7); Neutrophils % (A) 84 %; Platelet Count 134 k/uL (150-450); RBC 4.85 m/uL (3.80-5.40); RDW 20.5 % (11.5-15.5); WBC 8.4 k/uL (3.8-10.6)
[2022-01-03 10:29] LABS: Calcium 9.3 mg/dL (8.4-10.2); Potassium 4.6 mmol/L (3.5-5.1)
--- NOTE | 2022-01-03 11:42 | P.CRDCN ---
History of Present Illness Consult date: 01/03/22 Consult reason: congestive heart failure History of present illness: The patient is an 81-year-old female with multiple comorbid conditions including end-stage renal disease, who presented to the hospital after experiencing a syncopal spell. The patient believes that she had gotten dizzy and lost consciousness, but the fall was not witnessed. The patient previously followed with Dr. Fu, however is unsure if she's been continuing with a technical administrative assistant since his long-term. DIAGNOSTICS: EKG shows sinus rhythm with PACs and PVCs Chest x-ray shows interstitial fibrotic changes with small pleural effusions Head and C-spine CT shows no fracture. 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 Thoracic, lumbar, and facial computed tomography scan showed no evidence of fracture Lab data: W BCE 0.4, hemoglobin 13.6, hematocrit 43.3, platelet 134, sodium 134, potassium 4.6, BUN 42, creatinine 4.79, troponin 0.10, 0.11, 0.10, BNP 131,000 PAST MEDICAL HISTORY: Congestive heart failure, end-stage renal disease, hypertension, dyslipidemia REVIEW OF SYSTEMS: No fever or chills. Positive cough or expectoration. No diaphoresis. Patient denies current headache, dizziness, blurred vision, double vision. Patient denies any stomach discomfort. No nausea, vomiting. No hematochezia. No hematemesis. Denies any black stools or blood in his stools. Denies dysuria or hematuria. No muscle weakness or numbness. Positive for orthopedic discomfort. No chest pain or chest pressure. PHYSICAL EXAMINATION: This is a 81-year-old female in mild distress. Patient reports orthopedic discomfort HEENT: Head is atraumatic, normocephalic. Pupils are equal, round. Sclerae anicteric. Conjunctivae are clear. Mucous membranes of the mouth are moist. Neck is supple. There is no jugular venous distention. No carotid bruit is heard. CHEST EXAMINATION: Bilateral expiratory wheezes. No chest wall tenderness is noted on palpation or with deep breathing. HEART EXAMINATION: Heart regular rate and rhythm. S1, S2 heard. Systolic murmur. No gallops or rub. ABDOMEN: Soft, nontender. Bowel sounds are heard. No organomegaly noted. EXTREMITIES: 2+ peripheral pulses with no evidence of peripheral edema. NEUROLOGIC EXAMINATION: Patient is awake, alert and oriented x2. FINAL ASSESSMENT AND PLAN: Chronic diastolic heart failure, elevated BNP Syncope and collapse, likely secondary to hypotension Elevated troponins, secondary to advanced renal disease, flat trend End-stage renal disease, on dialysis History of hypertension History of dyslipidemia PLAN: Recommend reducing losartan and furosemide These medications have since been discontinued by nephrology Echocardiogram pending Further recommendations to be based upon clinical course I am dictating on behalf of Dr Billy Duarte's history/physical and assessment/pl an. Past Medical History Past Medical History: Coronary Artery Disease (CAD), Heart Failure, Diabetes Mellitus, Hyperlipidemia, Hypertension, Renal Disease Additional Past Medical History / Comment(s): has hemodialysis MON,WED,FRI for 3 1/2 in [facility],covid Feb 2020,heart murmur; Hx gout; see Dr Fu's H&P , gout, diastolic heart failure History of Any Multi-Drug Resistant Organisms: None Reported Past Surgical History: Appendectomy, Heart Catheterization, Heart Cat heterization With Stent Additional Past Surgical History / Comment(s): IV catheter rt chest, Ovary removal, 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 Bilateral carotid endarterectomy. Aortic valve replacement 02/2018 Past Anesthesia/Blood Transfusion Reactions: No Reported Reaction Date of Last Stent Placement:: unknown Past Psychological History: Anxiety, Depression Smoking Status: Former smoker Past Alcohol Use History: None Reported Past Drug Use History: None Reported - Past Family History Mother Family Medical History: No Reported History Sister(s) Family Medical History: Cancer Father Family Medical History: Myocardial Infarction ([place]) Additional Family Medical History / Comment(s): Father of a [place] in his 60s. Medications and Allergies Home Medications Medication Instructions Recorded Confirmed Type Febuxostat [Uloric] 40 mg PO HS 08/03/17 01/02/22 History Pantoprazole Sodium [Protonix] 40 mg PO HS 08/03/17 01/02/22 History Pravastatin Sodium [Pravachol] 20 mg PO HS 08/03/17 01/02/22 History Mometasone/Formoterol [Dulera 200 2 puff INHALATION RT-BID 04/22/18 01/02/22 History Mcg-5 Mcg Inhaler] Aspirin EC [Ecotrin Low Dose] 81 mg PO HS 04/11/21 01/02/22 History Dialyvite 800 1 tab PO HS 04/11/21 01/02/22 History Lidocaine-Prilocaine Cream [Emla 1 applic TOPICAL DAILY PRN 04/11/21 01/02/22 History Cream 2.5%/2.5%] Furosemide [Lasix] 60 mg PO DAILY 01/02/22 01/02/22 History Sertraline [Zoloft] 50 mg PO DAILY 01/02/22 01/02/22 History levOCARNitine [Levocarnitine] 660 mg PO TID 01/02/22 01/02/22 History Allergies Allergy/AdvReac Type Severity Reaction Status Date / Time atorvastatin [From Lipitor] Allergy Unknown Verified 01/02/22 08:12 codeine Allergy Rash/Hives Verified 01/02/22 08:12 duloxetine [From Cymbalta] Allergy Unknown Verified 01/02/22 08:12 ezetimibe [From Zetia] Allergy Unknown Verified 01/02/22 08:12 fenofibrate [From Tricor] Allergy Unknown Verified 01/02/22 08:12 latex Allergy Rash/Hives Verified 01/02/22 08:12 niacin Allergy Unknown Verified 01/02/22 08:12 tetracycline Allergy Unknown Verified 01/02/22 08:12 Physical Exam Vitals: Vital Signs Temp Pulse Pulse Pulse Resp BP BP 01/03/22 09:05 98.6 F 86 18 83/53 01/03/22 04:00 98.4 F 83 19 88/57 01/03/22 01:56 106 H 01/03/22 00:45 98.5 F 83 18 88/58 01/02/22 20:00 97.5 F L 106 H 14 100/58 01/02/22 17:58 97.6 F 102 H 16 117/69 01/02/22 16:25 101 H 18 90/52 01/02/22 13:52 99 18 124/89 Pulse Ox 01/03/22 09:05 96 01/03/22 04:00 98 01/03/22 01:56 01/03/22 00:45 94 L 01/02/22 20:00 100 01/02/22 17:58 100 01/02/22 16:25 100 01/02/22 13:52 99 Intake and Output 01/02/22 01/03/22 01/03/22 22:59 06:59 14:59 Intake Total 540 118 Balance 540 118 Intake: Oral 540 118 Other: Voiding Method Diaper Diaper Diaper # Voids 0 Weight 94.619 kg 94 kg Results 01/03/22 08:54 01/03/22 08:54 CBC 01/03/22 Range/Units 08:54 WBC 8.4 (3.8-10.6) k/uL RBC 4.85 (3.80-5.40) m/uL Hgb 13.6 (11.4-16.0) gm/dL Hct 43.3 (34.0-46.0) % Plt Count 134 L (150-450) k/uL Comprehensive Metabolic Panel 01/03/22 Range/Units 08:54 Sodium 134 L (137-145) mmol/L Potassium 4.6 (3.5-5.1) mmol/L Chloride 92 L (98-107) mmol/L Carbon Dioxide 28 (22-30) mmol/L BUN 42 H (7-17) mg/dL Creatinine 4.79 H (0.52-1.04) mg/dL Glucose 92 (74-99) mg/dL Calcium 9.3 (8.4-10.2) mg/dL Current Medications Generic Name Dose Route Start Last Admin Trade Name Freq PRN Reason Stop Dose Admin Allopurinol 200 mg 01/02/22 21:00 01/02/22 21:25 Allopurinol 100 Mg Tab PO 200 mg HS ALEXANDRA Administration Aspirin 81 mg 01/02/22 21:00 01/02/22 21:26 Aspirin 81 Mg PO 81 mg HS ALEXANDRA Administration Budesonide/Formoterol Fumarate 2 puff 01/02/22 08:00 01/03/22 07:45 Symbicort 160-4.5 Mcg Inhaler INHALATION Not Given RT-BID ALEXANDRA Fluticasone Propionate 2 spray 01/02/22 21:00 01/03/22 01:20 Fluticasone 50mcg/[place] Nasal 16gm EA NOSTRIL Not Given HS ALEXANDRA Heparin Sodium (Porcine) 5,000 unit 01/02/22 09:00 01/03/22 09:08 Heparin Sodium,Porcine/Pf 5,000 Unit/0.5 Ml Syringe SQ 5,000 unit Q12HR ALEXANDRA Administration Magnesium Oxide 200 mg 01/02/22 21:00 01/02/22 21:25 Magnesium Oxide 400 Mg Tab PO 200 mg HS ALEXANDRA Administration Metoprolol Tartrate 25 mg 01/02/22 21:00 01/02/22 21:26 Metoprolol Tartrate 25 Mg Tab PO 25 mg HS ALEXANDRA Administration Midodrine 5 mg 01/03/22 10:30 Midodrine 5 Mg Tab PO AC-TID ALEXANDRA Multivitamins 1 each 01/02/22 21:00 01/02/22 21:26 Multivitamins, Thera 1 Each Tab PO 1 each HS ALEXANDRA Administration Naloxone HCl 0.2 mg 01/01/22 23:28 Naloxone 0.4 Mg/Ml 1 Ml Vial IV Q2M PRN Opioid Reversal Nitroglycerin 0.4 mg 01/01/22 22:43 Nitroglycerin Sl Tabs 0.4 Mg Tab SUBLINGUAL Q5M PRN Chest Pain Pantoprazole Sodium 40 mg 01/02/22 21:00 01/02/22 21:25 Pantoprazole 40 Mg Tablet PO 40 mg HS ALEXANDRA Administration Pravastatin Sodium 20 mg 01/02/22 21:00 01/02/22 21:25 Pravastatin Sodium 20 Mg Tab PO 20 mg HS ALEXANDRA Administration Intake and Output 01/02/22 01/03/22 01/03/22 22:59 06:59 14:59 Intake Total 540 118 Balance 540 118 Intake: Oral 540 118 Other: Voiding Method Diaper Diaper Diaper # Voids 0 Weight 94.619 kg 94 kg 01/03/22 08:54 01/03/22 08:54
[2022-01-03] MEDS: MIDODRINE 5 MG TAB PO SCH ×4 (11:44→19:10)
[2022-01-03 11:49] LABS: Glucose,Whole Blood 90 mg/dL (70-110)
[2022-01-03] MEDS ORDERED: MIDODRINE 5 MG TAB PO SCH (12:30)
[2022-01-03] MEDS ORDERED: LORazepam 1 MG/0.5 ML VIAL IV PRN (13:45)
[2022-01-03] MEDS ORDERED: MIDODRINE 5 MG TAB PO PRN (14:13)
[2022-01-03 14:33] LABS: Glucose,Whole Blood 129 mg/dL (70-110)
[2022-01-03] MEDS ORDERED: SODIUM CHLORIDE 0.9% 500 ML 500 ML IV ONE (14:43)
[2022-01-03 14:51] LABS: ABG Base Excess 7.5 mmol/L; ABG HCO3 32 mmol/L (21-25); ABG Oxygen Saturation 98.9 % (94-97); ABG PCO2 47 mmHg (35-45); ABG PH 7.44 (7.35-7.45); ABG PO2 164 mmHg (83-108); ABG TCO2 33 mmol/L (19-24)
[2022-01-03] MEDS ORDERED: VANCOMYCIN IV PER PHARMACY 1 EACH MISC MISCELLANE PRN (15:15)
[2022-01-03 15:25] LABS: Anisocytosis Moderate; Basophils % (A) 0 %; Eosinophils # (A) 0.1 k/uL (0-0.7); Eosinophils % (A) 1 %; HCT 39.6 % (34.0-46.0); HGB 12.5 gm/dL (11.4-16.0); Hypochromasia Moderate; Lymphocytes # (A) 0.6 k/uL (1.0-4.8); Lymphocytes % (A) 8 %; MCH 28.3 pg (25.0-35.0); MCHC 31.6 g/dL (31.0-37.0); MCV 89.7 fL (80.0-100.0); Mean Platelet Volume 9.4; Monocytes # (A) 0.3 k/uL (0-1.0); Monocytes % (A) 4 %; Neutrophils # (A) 6.6 k/uL (1.3-7.7); Neutrophils % (A) 87 %; Platelet Count 120 k/uL (150-450); RBC 4.42 m/uL (3.80-5.40); RDW 20.4 % (11.5-15.5); WBC 7.6 k/uL (3.8-10.6)
--- NOTE | 2022-01-03 15:26 | XR ---
EXAMINATION TYPE: XR chest 1V portable DATE OF EXAM: 01/03/2022 Comparison: 01/01/2022 Clinical History: 81-year-old female shortness of breath Findings: Endovascular aortic valve prosthesis. Heart mildly enlarged. Atherosclerotic arch calcifications. Tra ce to small right pleural effusion noted. Interstitial/vascular prominence bilaterally slightly incre ased. Impression: Correlate for mild CHF with pulmonary vascular congestion, slightly worsened from 01/01/2022. Trace e ffusions.
[2022-01-03 15:35] LABS: Potassium 4.4 mmol/L (3.5-5.1)
--- NOTE | 2022-01-03 15:41 | P.CNPUL ---
History of Present Illness Consult date: 01/03/22 Chief complaint: Altered mentation, hypotension History of present illness: 81-year-old female patient with end-stage renal disease was having some difficulties with hypotension and altered mentation on the medical floor on the ICU consultation was requested. I came to see the patient and the patient was having borderline hypotension and the systolic blood pressure was ranging between 80 and 100 mmHg. She was arousable. Clinically however she was altered. She was unable to answer questions appropriately. She is mentally on hemodialysis 3 times a week Wednesdays and Fridays as scheduled and the patient has a functioning AV fistula in the right upper extremity. The patient was at home and she had a episode of fall/syncope. She sustained a trauma to her facial area. No reported seizure activity. When she came into the emergency, she was noted to have a lower blood pressure. She was taking medication at home and this included a combination of metoprolol and losartan. She is known to have diastolic heart failure. Left ejection fraction is preserved. She is known to have previous history of aortic valve stenosis that she has undergone a previous TAVR catheter procedure. No fever. No chills. No night sweats. While undergoing hemodialysis, the patient became more agitated. She was given a dose of Ativan 1 mg which made her more lethargic. Based on this, and ICU consultation was requested. The workup for now has included a chest x-ray that showed cardiomegaly and mild pulmonary vascular congestion. Otherwise no other significant abnormalities noted. No airspace disease. No consolidation. No lung collapse. No pneumothorax. The blood work shows a white cell count of 7.6 with a hemoglobin 12.5 and a platelet count of 120. The electrode from yesterday showed a BUN of 42 with a creatinine of 4.79. Sodium level was at 134 and the potassium level was at 4.6. Serum bicarb is at 28. Blood gas was done on 832% FiO2 and the patient's pH was 7.44 with episodes of 47 and pO2 of 164. The CAT scan of the face that was done in emergency department showed no evidence of any traumatic fracture involving the facial bones. X-ray of the lumbar and thoracic spine was done that shows spondylitic changes involving the L4-L5 spine and no acute fracture involving the thoracic and lumbar spine. CAT scan of the head of the cervical spine showed no evidence of any acute abnormalities. 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 No evidence of any acute bleeding. The patient was afebrile. The patient was seen by the A team and the patient was given a bolus of 450 mL of fluid and her blood pressures under better control for now. She does have extensive edema in the lower extremities in the thighs and some in that upper extremity. She follows some occasional commands. She is still lethargic and confused at this point in time without any significant agitation. Review of Systems ROS unobtainable: due to mental status Past Medical History Past Medical History: Coronary Artery Disease (CAD), Heart Failure, Diabetes Mellitus, Hyperlipidemia, Hypertension, Renal Disease Additional Past Medical History / Comment(s): has hemodialysis SAT,SAT,SAT for 3 1/2 in [facility] Feb 2020,heart murmur; Hx gout; see Dr Fu's H&P , gout, diastolic heart failure History of Any Multi-Drug Resistant Organisms: None Reported Past Surgical History: Appendectomy, Heart Catheterization, Heart Cat heterization With Stent Additional Past Surgical History / Comment(s): IV catheter rt chest, Ovary removal, 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 Bilateral carotid endarterectomy. Aortic valve replacement 02/2018 Past Anesthesia/Blood Transfusion Reactions: No Reported Reaction Date of Last Stent Placement:: unknown Past Psychological History: Anxiety, Depression Smoking Status: Former smoker Past Alcohol Use History: None Reported Past Drug Use History: None Reported - Past Family History Mother Family Medical History: No Reported History Sister(s) Family Medical History: Cancer Father Family Medical History: Myocardial Infarction ([place]) Additional Family Medical History / Comment(s): Father of a [place] in his 60s. Medications and Allergies Home Medications Medication Instructions Recorded Confirmed Type Febuxostat [Uloric] 40 mg PO HS 08/03/17 01/02/22 History Pantoprazole Sodium [Protonix] 40 mg PO HS 08/03/17 01/02/22 History Pravastatin Sodium [Pravachol] 20 mg PO HS 08/03/17 01/02/22 History Mometasone/Formoterol [Dulera 200 2 puff INHALATION RT-BID 04/22/18 01/02/22 History Mcg-5 Mcg Inhaler] Aspirin EC [Ecotrin Low Dose] 81 mg PO HS 04/11/21 01/02/22 History Dialyvite 800 1 tab PO HS 04/11/21 01/02/22 History Lidocaine-Prilocaine Cream [Emla 1 applic TOPICAL DAILY PRN 04/11/21 01/02/22 History Cream 2.5%/2.5%] Furosemide [Lasix] 60 mg PO DAILY 01/02/22 01/02/22 History Sertraline [Zoloft] 50 mg PO DAILY 01/02/22 01/02/22 History levOCARNitine [Levocarnitine] 660 mg PO TID 01/02/22 01/02/22 History Allergies Allergy/AdvReac Type Severity Reaction Status Date / Time atorvastatin [From Lipitor] Allergy Unknown Verified 01/02/22 08:12 codeine Allergy Rash/Hives Verified 01/02/22 08:12 duloxetine [From Cymbalta] Allergy Unknown Verified 01/02/22 08:12 ezetimibe [From Zetia] Allergy Unknown Verified 01/02/22 08:12 fenofibrate [From Tricor] Allergy Unknown Verified 01/02/22 08:12 latex Allergy Rash/Hives Verified 01/02/22 08:12 niacin Allergy Unknown Verified 01/02/22 08:12 tetracycline Allergy Unknown Verified 01/02/22 08:12 Physical Exam Vitals: Vital Signs Temp Pulse Pulse Resp BP Pulse Ox 01/03/22 11:44 97.8 F 85 20 87/54 95 01/03/22 09:05 98.6 F 86 18 83/53 96 01/03/22 04:00 98.4 F 83 19 88/57 98 01/03/22 01:56 106 H 01/03/22 00:45 98.5 F 83 18 88/58 94 L 01/02/22 20:00 97.5 F L 106 H 14 100/58 100 01/02/22 17:58 97.6 F 102 H 16 117/69 100 01/02/22 16:25 101 H 18 90/52 100 Intake and Output 01/03/22 01/03/22 01/03/22 06:59 14:59 22:59 Intake Total 118 Balance 118 Intake: Oral 118 Other: Voiding Method Diaper Diaper # Voids 0 Weight 94 kg General appearance the patient was lethargic, confused, no significant agitation. Probably she was on the effect of Ativan and somewhat sedated on 3 L O2 nasal cannula with a pulse ox of 95%. Head exam was generally normal. There was no scleral icterus or corneal arcus. Mucous membranes were moist. HEENT: Head is atraumatic, normocephalic. Pupils are equal, round. Sclerae anicteric. Conjunctivae are clear. Mucous membranes of the mouth are moist. Neck is supple. There is no jugular venous distention. No carotid bruit is heard. CHEST EXAMINATION: Bilateral expiratory wheezes. No chest wall tenderness is noted on palpation or with deep breathing. HEART EXAMINATION: Heart regular rate and rhythm. S1, S2 heard. Systolic murmur. No gallops or rub. ABDOMEN: Soft, nontender. Bowel sounds are heard. No organomegaly noted. EXTREMITIES: 2+ peripheral pulses with no evidence of peripheral edema. The patient has a functioning AV fistula in the right upper extremity. NEUROLOGIC EXAMINATION: Patient is arousable, and she would withdraw to painful stimulation in all 4 extremities. She was able to squeeze my fingers using her hands and she was able to wiggle her toes upon command. Pupils are round 2-3 mm in size and reactive to light. No facial asymmetry. Results - Laboratory Findings CBC and BMP: 01/03/22 14:59 01/03/22 14:59 ABG ABG pH 7.44 (7.35-7.45) 01/03/22 14:49 ABG pCO2 47 mmHg (35-45) H 01/03/22 14:49 ABG pO2 164 mmHg (83-108) H 01/03/22 14:49 ABG O2 Saturation 98.9 % (94-97) H 01/03/22 14:49 PT/INR, D-dimer D-Dimer 2.28 mg/L FEU (<0.60) H 01/03/22 14:59 Abnormal lab findings: Abnormal Labs 01/01/22 01/01/22 01/01/22 21:28 21:28 21:28 WBC 10.8 H RDW 19.9 H Plt Count 115 L Neutrophils # 9.5 H Lymphocytes # 0.6 L D-Dimer ABG pCO2 ABG pO2 ABG HCO3 ABG Total CO2 ABG O2 Saturation Sodium 134 L Potassium 3.4 L Chloride 95 L BUN 29 H Creatinine 3.11 H POC Glucose (mg/dL) Calcium 8.1 L Total Bilirubin 1.8 H AST 55 H ALT 42 H Alkaline Phosphatase 161 H Troponin I 0.104 H* Total Protein 5.8 L Albumin 3.2 L 01/02/22 01/02/22 01/03/22 00:29 03:19 08:54 WBC RDW 20.5 H Plt Count 134 L Neutrophils # Lymphocytes # D-Dimer ABG pCO2 ABG pO2 ABG HCO3 ABG Total CO2 ABG O2 Saturation Sodium Potassium Chloride BUN Creatinine POC Glucose (mg/dL) Calcium Total Bilirubin AST ALT Alkaline Phosphatase Troponin I 0.117 H* 0.109 H* Total Protein Albumin 01/03/22 01/03/22 01/03/22 08:54 14:32 14:49 WBC RDW Plt Count Neutrophils # Lymphocytes # D-Dimer ABG pCO2 47 H ABG pO2 164 H ABG HCO3 32 H ABG Total CO2 33 H ABG O2 Saturation 98.9 H Sodium 134 L Potassium Chloride 92 L BUN 42 H Creatinine 4.79 H POC Glucose (mg/dL) 129 H Calcium Total Bilirubin AST ALT Alkaline Phosphatase Troponin I Total Protein Albumin 01/03/22 01/03/22 14:59 14:59 WBC RDW 20.4 H Plt Count 120 L Neutrophils # Lymphocytes # 0.6 L D-Dimer 2.28 H ABG pCO2 ABG pO2 ABG HCO3 ABG Total CO2 ABG O2 Saturation Sodium Potassium Chloride BUN Creatinine POC Glucose (mg/dL) Calcium Total Bilirubin AST ALT Alkaline Phosphatase Troponin I Total Protein Albumin - Diagnostic Findings Chest x-ray: image reviewed Assessment and Plan Plan: Altered mental status, currently under investigation. The patient's CAT scan of the brain showed no acute abnormalities and that showed old stroke with cerebral atrophy. Patient was given Ativan for some of his agitation. The patient may have an underlying metabolic encephalopathy along with hypotension. Rule out underlying sepsis. The patient will need close monitoring Hypotension, given a bolus of 2 mL of normal saline, currently normotensive and she is not requiring any pressors. No significant tachycardia. No leukocytosis. No fever End-stage renal disease currently on hemodialysis via a fistula in the right upper extremity CHF with preserved LV function TAVR for severe aortic stenosis Volume overload with increased edema in lower extremities bilaterally Fall/syncope without any major facial or spine trauma. The patient has some bruising over the face on the right Hyperlipidemia History of hypertension Coronary artery disease with previous cardiac intervention and stenting Diabetes mellitus Gout COPD Previous history of COVID 19 infection in February 2022 Plan Septic workup and obtain blood cultures Give the patient goes a vancomycin pending further cultures Avoid Ativan Transfer the patient with intensive care unit for blood pressure and neurologic monitoring. No focal neurological deficits. No seizure activity noted. Rule out metabolic encephalopathy. Nephrology will be assisting with dialysis and the patient may need pressors during dialysis should she develop any hypotension Hold antihypertensive medications for now I think this is a legitimate transfer. We'll transfer the patient with ICU for monitoring. She is a full CODE STATUS. Her oxygenation is stable. Avoid using Ativan for now.
[2022-01-03] MEDS ORDERED: VANCOMYCIN 1,500 MG in SODIUM CHLORIDE 0.9% 250 ML IVPB ONE (16:00)
[2022-01-03] MEDS: allopurinoL 100 MG TAB PO SCH (21:26)
[2022-01-03] MEDS: ASPIRIN 81 MG PO SCH (21:27)
[2022-01-03] MEDS: MAGNESIUM OXIDE 400 MG TAB PO SCH (21:27)
[2022-01-03] MEDS: MULTIVITAMINS, THERA 1 EACH TAB PO SCH (21:27)
[2022-01-03] MEDS: METOPROLOL TARTRATE 25 MG TAB PO SCH (21:27)
[2022-01-03] MEDS: PRAVASTATIN SODIUM 20 MG TAB PO SCH (21:28)
[2022-01-03] MEDS: PANTOPRAZOLE 40 MG TABLET PO SCH (21:28)
[2022-01-04] MEDS: MIDODRINE 5 MG TAB PO SCH ×3 (06:32→18:27)
[2022-01-04 06:36] LABS: Glucose,Whole Blood 160 mg/dL (70-110)
[2022-01-04] MEDS: SYMBICORT 160-4.5 MCG INHALER INHALATION SCH ×2 (07:44→20:24)
[2022-01-04 07:48] LABS: Anisocytosis Moderate; Basophils % (A) 0 %; Eosinophils # (A) 0.1 k/uL (0-0.7); Eosinophils % (A) 1 %; HCT 42.4 % (34.0-46.0); HGB 13.3 gm/dL (11.4-16.0); Hypochromasia Marked; Lymphocytes # (A) 0.6 k/uL (1.0-4.8); Lymphocytes % (A) 9 %; MCH 28.4 pg (25.0-35.0); MCHC 31.3 g/dL (31.0-37.0); MCV 90.8 fL (80.0-100.0); Mean Platelet Volume 8.8; Monocytes # (A) 0.3 k/uL (0-1.0); Monocytes % (A) 4 %; Neutrophils # (A) 5.8 k/uL (1.3-7.7); Neutrophils % (A) 85 %; Platelet Count 123 k/uL (150-450); RBC 4.67 m/uL (3.80-5.40); RDW 20.1 % (11.5-15.5); WBC 6.8 k/uL (3.8-10.6)
[2022-01-04 08:05] LABS: Calcium 8.8 mg/dL (8.4-10.2); Potassium 4.5 mmol/L (3.5-5.1)
[2022-01-04] MEDS: HEPARIN SODIUM,PORCINE/PF 5,000 UNIT/0.5 ML SYRINGE SQ SCH ×2 (08:57→20:17)
--- NOTE | 2022-01-04 10:31 | P.PN ---
Subjective Progress Note Date: 01/04/22 81-year-old female patient with end-stage renal disease was having some difficulties with hypotension and altered mentation on the medical floor on the ICU consultation was requested. I came to see the patient and the patient was having borderline hypotension and the systolic blood pressure was ranging between 80 and 100 mmHg. She was arousable. Clinically however she was altered. She was unable to answer questions appropriately. She is mentally on hemodialysis 3 times a week Wednesdays and Fridays as scheduled and the patient has a functioning AV fistula in the right upper extremity. The patient was at home and she had a episode of fall/syncope. She sustained a trauma to her facial area. No reported seizure activity. When she came into the emergency, she was noted to have a lower blood pressure. She was taking medication at home and this included a combination of metoprolol and losartan. She is known to have diastolic heart failure. Left ejection fraction is preserved. She is known to have previous history of aortic valve stenosis that she has undergone a previous TAVR catheter procedure. No fever. No chills. No night sweats. While undergoing hemodialysis, the patient became more agitated. She was given a dose of Ativan 1 mg which made her more lethargic. Based on this, and ICU consultation was requested. The workup for now has included a chest x-ray that showed cardiomegaly and mild pulmonary vascular congestion. Otherwise no other significant abnormalities noted. No airspace disease. No consolidation. No lung collapse. No pneumothorax. The blood work shows a white cell count of 7.6 with a hemoglobin 12.5 and a platelet count of 120. The electrode from yesterday showed a BUN of 42 with a creatinine of 4.79. Sodium level was at 134 and the potassium level was at 4.6. Serum bicarb is at 28. Blood gas was done on 832% FiO2 and the patient's pH was 7.44 with episodes of 47 and pO2 of 164. The CAT scan of the face that was done in emergency department showed no evidence of any traumatic fracture involving the facial bones. X-ray of the lumbar and thoracic spine was done that shows spondylitic changes involving the L4-L5 spine and no acute fracture involving the thoracic and lumbar spine. CAT scan of the head of the cervical spine showed no evidence of any acute abnormalities. There was some cerebral atrophy and old right he mispheric cortical infarct. No evidence of any acute bleeding. The patient was afebrile. The patient was seen by the A team and the patient was given a bolus of 450 mL of fluid and her blood pressures under better control for now. She does have extensive edema in the lower extremities in the thighs and some in that upper extremity. She follows some occasional commands. She is still lethargic and confused at this point in time without any significant agitation. 01/04 2022, the patient remains quite lethargic and arousable. Upon stimulation, she wakes up and she follows commands and answers questions. Nevertheless, once left unstimulated, she will go down and relax and sleep. Her blood pressure still borderline. Her systolic blood pressure has been in the low 80s. The patient has extensive third spacing in extracellular edema and the patient is going to need hemodialysis today. Blood pressure is obviously concerned and would like to support the blood transfusion is needed if needed. Meanwhile, suspected an underlying septic event. Given a dose of vancomycin yesterday pending cultures. The white cell count of 6.15.3, platelet count of 123, blood gas from yesterday was adequate. His sodium level is at 134 with a potassium level of 4.5, knee and is a 49 with a creatinine of 5.1. Cultures are negative. Troponins were minimally elevated. ProBNP level is positive at 31,000. Note that she originally came into the hospital because of a fall/syncope. No skeletal injuries. Echocardiogram was ordered and it is also still pending for now. Meanwhile, we will going to proceed with dialysis and will try to do some 3 L of ultrafiltration if possible. Her pulse ox is 97% while her being on 2 L of action by nasal cannula. She passed her swallow and her appetite is poor oral intake is very much minimal or diminished at this point in time. The antihypertensive medication has been discontinued or placed on hold. Objective - Vital Signs Vital signs: Vital Signs Temp 97.3 F L 01/04/22 08:00 Pulse 79 01/04/22 10:00 Resp 14 01/04/22 10:00 BP 92/53 01/04/22 10:00 Pulse Ox 98 01/04/22 10:00 FiO2 Intake & Output 01/03/22 01/04/22 01/04/22 18:59 06:59 18:59 Intake Total 118 490 60 Balance 118 490 60 Weight 93.6 kg Intake: IV 240 60 0.9 @ 20 240 60 Intake, IV Titration 250 Amount Vancomycin 1,500 mg In 250 Sodium Chloride 0.9% 250 ml @ 125 mls/hr IVPB ONCE ONE Rx#:[id number] Oral 118 Other: Voiding Method Diaper # Voids 0 0 0 - Exam General appearance the patient was lethargic, confused, no significant agitation. Probably she was on the effect of Ativan and somewhat sedated on 3 L O2 nasal cannula with a pulse ox of 95%. Head exam was generally normal. There was no scleral icterus or corneal arcus. Mucous membranes were moist. HEENT: Head is atraumatic, normocephalic. Pupils are equal, round. Sclerae anicteric. Conjunctivae are clear. Mucous membranes of the mouth are moist. Neck is supple. There is no jugular venous distention. No carotid bruit is heard. CHEST EXAMINATION: Bilateral expiratory wheezes. No chest wall tenderness is noted on palpation or with deep breathing. HEART EXAMINATION: Heart regular rate and rhythm. S1, S2 heard. Systolic murmur. No gallops or rub. ABDOMEN: Soft, nontender. Bowel sounds are heard. No organomegaly noted. EXTREMITIES: 2+ peripheral pulses with no evidence of peripheral edema. The patient has a functioning AV fistula in the right upper extremity. NEUROLOGIC EXAMINATION: Patient is arousable, and she would withdraw to painful stimulation in all 4 extremities. She was able to squeeze my fingers using her hands and she was able to wiggle her toes upon command. Pupils are round 2-3 mm in size and reactive to light. No facial asymmetry. - Labs CBC & Chem 7: 01/04/22 07:04 01/04/22 07:04 Labs: Abnormal Lab Results - Last 24 Hours (Table) 01/03/22 01/03/22 01/03/22 Range/Units 08:54 14:32 14:49 RDW (11.5-15.5) % Plt Count (150-450) k/uL Lymphocytes # (1.0-4.8) k/uL D-Dimer (<0.60) mg/L FEU ABG pCO2 47 H (35-45) mmHg ABG pO2 164 H (83-108) mmHg ABG HCO3 32 H (21-25) mmol/L ABG Total CO2 33 H (19-24) mmol/L ABG O2 Saturation 98.9 H (94-97) % Sodium 134 L (137-145) mmol/L Chloride 92 L (98-107) mmol/L BUN 42 H (7-17) mg/dL Creatinine 4.79 H (0.52-1.04) mg/dL Glucose (74-99) mg/dL POC Glucose (mg/dL) 129 H (70-110) mg/dL Troponin I (0.000-0.034) ng/mL 01/03/22 01/03/22 01/03/22 Range/Units 14:59 14:59 14:59 RDW 20.4 H (11.5-15.5) % Plt Count 120 L (150-450) k/uL Lymphocytes # 0.6 L (1.0-4.8) k/uL D-Dimer 2.28 H (<0.60) mg/L FEU ABG pCO2 (35-45) mmHg ABG pO2 (83-108) mmHg ABG HCO3 (21-25) mmol/L ABG Total CO2 (19-24) mmol/L ABG O2 Saturation (94-97) % Sodium 134 L (137-145) mmol/L Chloride 94 L (98-107) mmol/L BUN 45 H (7-17) mg/dL Creatinine 4.87 H (0.52-1.04) mg/dL Glucose 135 H (74-99) mg/dL POC Glucose (mg/dL) (70-110) mg/dL Troponin I (0.000-0.034) ng/mL 01/03/22 01/04/22 01/04/22 Range/Units 14:59 06:35 07:04 RDW 20.1 H (11.5-15.5) % Plt Count 123 L (150-450) k/uL Lymphocytes # 0.6 L (1.0-4.8) k/uL D-Dimer (<0.60) mg/L FEU ABG pCO2 (35-45) mmHg ABG pO2 (83-108) mmHg ABG HCO3 (21-25) mmol/L ABG Total CO2 (19-24) mmol/L ABG O2 Saturation (94-97) % Sodium (137-145) mmol/L Chloride (98-107) mmol/L BUN (7-17) mg/dL Creatinine (0.52-1.04) mg/dL Glucose (74-99) mg/dL POC Glucose (mg/dL) 160 H (70-110) mg/dL Troponin I 0.073 H* (0.000-0.034) ng/mL 01/04/22 Range/Units 07:04 RDW (11.5-15.5) % Plt Count (150-450) k/uL Lymphocytes # (1.0-4.8) k/uL D-Dimer (<0.60) mg/L FEU ABG pCO2 (35-45) mmHg ABG pO2 (83-108) mmHg ABG HCO3 (21-25) mmol/L ABG Total CO2 (19-24) mmol/L ABG O2 Saturation (94-97) % Sodium 134 L (137-145) mmol/L Chloride 95 L (98-107) mmol/L BUN 49 H (7-17) mg/dL Creatinine 5.14 H (0.52-1.04) mg/dL Glucose (74-99) mg/dL POC Glucose (mg/dL) (70-110) mg/dL Troponin I (0.000-0.034) ng/mL Assessment and Plan Plan: Altered mental status, currently under investigation. The patient's CAT scan of the brain showed no acute abnormalities and that showed old stroke with cerebral atrophy. On today's evaluation, she is arousable and awake and communicating. No focal neurological deficits. I would say she is more awake and alert compared to yesterday. We will like to proceed with hemodialysis. Hypotension, given a bolus of 2 mL of normal saline, currently normotensive and she is not requiring any pressors. No significant tachycardia. No leukocyto sis. No fever End-stage renal disease currently on hemodialysis via a fistula in the right upper extremity CHF with preserved LV function TAVR for severe aortic stenosis Volume overload with increased edema in lower extremities bilaterally Fall/syncope without any major facial or spine trauma. The patient has some bruising over the face on the right Hyperlipidemia History of hypertension Coronary artery disease with previous cardiac intervention and stenting Diabetes mellitus Gout COPD Previous history of COVID 19 infection in February 2022 Plan Septic workup and obtain blood cultures are done and the patient was given a dose of vancomycin pending further cultures. Complete hemodialysis today Myoclonus encephalopathy Belding was added for hypotension Keep antihypertensive medications on hold Keep the patient in the ICU for now She is a full CODE STATUS. Her oxygenation is stable. Avoid using Ativan for now.
[2022-01-04 11:07] LABS: Glucose,Whole Blood 89 mg/dL (70-110)
[2022-01-04 11:41] LABS: Glucose,Whole Blood 87 mg/dL (70-110)
--- NOTE | 2022-01-04 11:50 | P.PN ---
Subjective Patient is seen for follow-up for end-stage renal disease. She is maintained on a Saturday schedule. Patient was not dialyzed yesterday due to hypotension. Patient was admitted to the hospital with increased weakness, hypotension and mental status changes. Maintained on antibiotics. Currently not on pressors Patient is seen on hemodialysis. She is tolerating her treatment fairly okay. Systolic blood pressure in the high 90s. So far about 1.3 L of ultrafiltration. Objective - Vital Signs Vital signs: Vital Signs Temp 97.3 F L 01/04/22 08:00 Pulse 86 01/04/22 11:00 Resp 19 01/04/22 11:00 BP 86/64 01/04/22 11:00 Pulse Ox 98 01/04/22 10:00 FiO2 Intake & Output 01/03/22 01/04/22 01/04/22 18:59 06:59 18:59 Intake Total 118 490 80 Balance 118 490 80 Weight 93.6 kg Intake: IV 240 80 0.9 @ 20 240 80 Intake, IV Titration 250 Amount Vancomycin 1,500 mg In 250 Sodium Chloride 0.9% 250 ml @ 125 mls/hr IVPB ONCE ONE Rx#:[id number] Oral 118 Other: Voiding Method Diaper # Voids 0 0 0 - Exam Awake, comfortable, not in any acute distress Examination of the heart S1 and S2 Examination of the lungs bilateral breath sounds are heard Abdomen is soft nontender Examination lower extremity shows edema 2+ bilaterally with chronic skin changes - Labs CBC & Chem 7: 01/04/22 07:04 01/04/22 07:04 Labs: Abnormal Lab Results - Last 24 Hours (Table) 01/03/22 01/03/22 01/03/22 Range/Units 14:32 14:49 14:59 RDW 20.4 H (11.5-15.5) % Plt Count 120 L (150-450) k/uL Lymphocytes # 0.6 L (1.0-4.8) k/uL D-Dimer (<0.60) mg/L FEU ABG pCO2 47 H (35-45) mmHg ABG pO2 164 H (83-108) mmHg ABG HCO3 32 H (21-25) mmol/L ABG Total CO2 33 H (19-24) mmol/L ABG O2 Saturation 98.9 H (94-97) % Sodium (137-145) mmol/L Chloride (98-107) mmol/L BUN (7-17) mg/dL Creatinine (0.52-1.04) mg/dL Glucose (74-99) mg/dL POC Glucose (mg/dL) 129 H (70-110) mg/dL Troponin I (0.000-0.034) ng/mL 01/03/22 01/03/22 01/03/22 Range/Units 14:59 14:59 14:59 RDW (11.5-15.5) % Plt Count (150-450) k/uL Lymphocytes # (1.0-4.8) k/uL D-Dimer 2.28 H (<0.60) mg/L FEU ABG pCO2 (35-45) mmHg ABG pO2 (83-108) mmHg ABG HCO3 (21-25) mmol/L ABG Total CO2 (19-24) mmol/L ABG O2 Saturation (94-97) % Sodium 134 L (137-145) mmol/L Chloride 94 L (98-107) mmol/L BUN 45 H (7-17) mg/dL Creatinine 4.87 H (0.52-1.04) mg/dL Glucose 135 H (74-99) mg/dL POC Glucose (mg/dL) (70-110) mg/dL Troponin I 0.073 H* (0.000-0.034) ng/mL 01/04/22 01/04/22 01/04/22 Range/Units 06:35 07:04 07:04 RDW 20.1 H (11.5-15.5) % Plt Count 123 L (150-450) k/uL Lymphocytes # 0.6 L (1.0-4.8) k/uL D-Dimer (<0.60) mg/L FEU ABG pCO2 (35-45) mmHg ABG pO2 (83-108) mmHg ABG HCO3 (21-25) mmol/L ABG Total CO2 (19-24) mmol/L ABG O2 Saturation (94-97) % Sodium 134 L (137-145) mmol/L Chloride 95 L (98-107) mmol/L BUN 49 H (7-17) mg/dL Creatinine 5.14 H (0.52-1.04) mg/dL Glucose (74-99) mg/dL POC Glucose (mg/dL) 160 H (70-110) mg/dL Troponin I (0.000-0.034) ng/mL Assessment and Plan Assessment: 1. End-stage renal disease maintained on hemodialysis on Saturday schedule via right upper extremity AV fistula. 2. S/p Fall. Patient is hypotensive. No acute fracture noted. 3. Hypokalemia, replaced. 4. Acute on chronic diastolic CHF with moderate tricuspid regurgitation and pulmonary hypertension. 5. Volume overload. Plan: Repeat hemodialysis in a.m. Increase UF as tolerated Continue with empiric antibiotics Check blood cultures if not drawn
--- NOTE | 2022-01-04 12:26 | P.PN ---
Subjective Progress Note Date: 01/04/22 The patient is an 81-year-old female who is currently admitted to the hospital after experiencing a syncopal episode. She was found to be hypotensive on arrival. Yesterday her blood pressure medications were withheld and she underwent dialysis. He became agitated and was given Ativan. The patient then became obtunded and was ultimately transferred to the ICU for escalation of care. The patient is currently resting comfortably in bed. She is breathing well. She arouses to physical stimuli. She denies any pain or difficulty breathing. GENERAL: Well-appearing, well-nourished and in no acute distress. NECK: Supple without JVD or thyromegaly. LUNGS: Breath sounds diminished to auscultation bilaterally. Respiration equal and unlabored. Fine crackles noted in the right lower lobe HEART: Regular rate and rhythm. Soft systolic murmur. No rubs or gallops. S1 and S2 heard. EXTREMITIES: Normal range of motion, no edema. No clubbing or cyanosis. Peripheral pulses intact and strong. VITALS: Blood pressure 95/51, pulse 81, respiratory rate 14, SpO2 98% on 2 L nasal cannula TELEMETRY: Sinus rhythm overnight LABS: WBC 6.8, hemoglobin 13.3, hematocrit 42.4, platelet 123, sodium 134, potassium 4.5, BUN 49, creatinine 5.14 IMPRESSION: Chronic diastolic heart failure, will be due BNP Syncope and Collapse likely secondary to hypertension Elevated troponins, secondary to renal disease, flat trend End-stage renal disease on dialysis History of hypertension History dyslipidemia PLAN: Awaiting echocardiogram results Continue midodrine for hypotension No further recommendations from the cardiac standpoint I am dictating on behalf of Dr Billy Duarte's history/physical and assessment/plan. Objective - Vital Signs Vital signs: Vital Signs Temp 97.3 F L 01/04/22 08:00 Pulse 88 01/04/22 12:00 Resp 14 01/04/22 12:00 BP 101/61 01/04/22 12:00 Pulse Ox 98 01/04/22 10:00 FiO2 Intake & Output 01/03/22 01/04/22 01/04/22 18:59 06:59 18:59 Intake Total 118 490 100 Balance 118 490 100 Weight 93.6 kg Intake: IV 240 100 0.9 @ 20 240 100 Intake, IV Titration 250 Amount Vancomycin 1,500 mg In 250 Sodium Chloride 0.9% 250 ml @ 125 mls/hr IVPB ONCE ONE Rx#:[id number] Oral 118 Other: Voiding Method Diaper # Voids 0 0 0 - Labs CBC & Chem 7: 01/04/22 07:04 01/04/22 07:04 Labs: Abnormal Lab Results - Last 24 Hours (Table) 01/03/22 01/03/22 01/03/22 Range/Units 14:32 14:49 14:59 RDW 20.4 H (11.5-15.5) % Plt Count 120 L (150-450) k/uL Lymphocytes # 0.6 L (1.0-4.8) k/uL D-Dimer (<0.60) mg/L FEU ABG pCO2 47 H (35-45) mmHg ABG pO2 164 H (83-108) mmHg ABG HCO3 32 H (21-25) mmol/L ABG Total CO2 33 H (19-24) mmol/L ABG O2 Saturation 98.9 H (94-97) % Sodium (137-145) mmol/L Chloride (98-107) mmol/L BUN (7-17) mg/dL Creatinine (0.52-1.04) mg/dL Glucose (74-99) mg/dL POC Glucose (mg/dL) 129 H (70-110) mg/dL Troponin I (0.000-0.034) ng/mL 01/03/22 01/03/22 01/03/22 Range/Units 14:59 14:59 14:59 RDW (11.5-15.5) % Plt Count (150-450) k/uL Lymphocytes # (1.0-4.8) k/uL D-Dimer 2.28 H (<0.60) mg/L FEU ABG pCO2 (35-45) mmHg ABG pO2 (83-108) mmHg ABG HCO3 (21-25) mmol/L ABG Total CO2 (19-24) mmol/L ABG O2 Saturation (94-97) % Sodium 134 L (137-145) mmol/L Chloride 94 L (98-107) mmol/L BUN 45 H (7-17) mg/dL Creatinine 4.87 H (0.52-1.04) mg/dL Glucose 135 H (74-99) mg/dL POC Glucose (mg/dL) (70-110) mg/dL Troponin I 0.073 H* (0.000-0.034) ng/mL 01/04/22 01/04/22 01/04/22 Range/Units 06:35 07:04 07:04 RDW 20.1 H (11.5-15.5) % Plt Count 123 L (150-450) k/uL Lymphocytes # 0.6 L (1.0-4.8) k/uL D-Dimer (<0.60) mg/L FEU ABG pCO2 (35-45) mmHg ABG pO2 (83-108) mmHg ABG HCO3 (21-25) mmol/L ABG Total CO2 (19-24) mmol/L ABG O2 Saturation (94-97) % Sodium 134 L (137-145) mmol/L Chloride 95 L (98-107) mmol/L BUN 49 H (7-17) mg/dL Creatinine 5.14 H (0.52-1.04) mg/dL Glucose (74-99) mg/dL POC Glucose (mg/dL) 160 H (70-110) mg/dL Troponin I (0.000-0.034) ng/mL
--- NOTE | 2022-01-04 12:39 | CA ---
Transthoracic Echo Report Name: Beckie Arce Age: 81 Gender: F : 1940 Exam Date: 01/04/2022 09:00 Exam Location: [facility] Ht (in): 63 Wt (lb): 206 Ordering Physician: Mesfin Pham MD Attending/Referring Phys: Gameplay Engineer Joselin Espinoza RDCS Procedure CPT: Indications: Assess LV Function Cardiac Hx: Technical Quality: Contrast 1: Total Dose (mL): Contrast 2: Total Dose (mL): MEASUREMENTS (Male / Female) Normal Values 2D ECHO LV Diastolic Diameter PLAX 4.7 cm 4.2 - 5.9 / 3.9 - 5.3 cm LV Systolic Diameter PLAX 3.9 cm IVS Diastolic Thickness 1.2 cm 0.6 - 1.0 / 0.6 - 0.9 cm LVPW Diastolic Thickness 1.5 cm 0.6 - 1.0 / 0.6 - 0.9 cm LV Relative Wall Thickness 0.6 RV Internal Dim ED PLAX 2.9 cm LA Systolic Diameter LX 4.9 cm 3.0 - 4.0 / 2.7 - 3.8 cm RV Diastolic Mid Diameter 3.8 cm 2.7 - 3.3 cm M-MODE MV E Point Septal Separation 1.3 cm DOPPLER AV Peak Velocity 176.9 cm/s AV Peak Gradient 12.5 mmHg AV Mean Velocity 127.1 cm/s AV Mean Gradient 7.0 mmHg AV Velocity Time Integral 39.9 cm LVOT Peak Velocity 81.2 cm/s LVOT Peak Gradient 2.6 mmHg TR Peak Velocity 325.8 cm/s TR Peak Gradient 42.5 mmHg Right Ventricular Systolic Press 47.5 mmHg FINDINGS Left Ventricle Left ventricular ejection fraction is estimated at 40 %. Mildly increased left ventricular wall thickness. Septal hypokinesis. Right Ventricle Moderate pulmonary hypertension. Moderate right ventricular dilatation. Right Atrium Normal right atrial size. Left Atrium Severely increased left atrial diameter. Mitral Valve Structurally normal mitral valve. Moderate mitral regurgitation. Aortic Valve bioprosthetic aortic valve without stenosis with peak gradient 13 mmHg, mean gradient 7 mmHg. Echo density around the right coronary cusp with what appears to be some extension around the tricuspid valve. Cannot exclude annular abscess/endocarditis. Consider ALLEY if clinically indicated. Tricuspid Valve [id number] tricuspid regurgitation. Pulmonic Valve Structurally normal pulmonic valve. Pericardium Normal pericardium. Aorta Normal size aortic root and proximal ascending aorta. CONCLUSIONS Left ventricular ejection fraction 40% with global hypokinesis Moderately dilated right ventricle Severely dilated left atrium Normally functioning bioprosthetic aortic valve Echo density around the right coronary cusp with what appears to be some extension around the tricuspid valve. Cannot exclude annular abscess/endocarditis. Consider ALLEY if clinically indicated. Moderate to severe tricuspid regurgitation Moderate mitral regurgitation Previewed by: Dr. Dl Esteban DO (Electronically Signed) Final Date: 04 January 2022 12:39
[2022-01-04] MEDS ORDERED: VANCOMYCIN 1,500 MG in SODIUM CHLORIDE 0.9% 250 ML IVPB ONE (15:00)
[2022-01-04 16:51] LABS: Glucose,Whole Blood 115 mg/dL (70-110)
[2022-01-04 19:49] LABS: Glucose,Whole Blood 96 mg/dL (70-110)
[2022-01-04] MEDS: MULTIVITAMINS, THERA 1 EACH TAB PO SCH (20:16)
[2022-01-04] MEDS: allopurinoL 100 MG TAB PO SCH (20:16)
[2022-01-04] MEDS: ASPIRIN 81 MG PO SCH (20:16)
[2022-01-04] MEDS: MAGNESIUM OXIDE 400 MG TAB PO SCH (20:16)
[2022-01-04] MEDS: PANTOPRAZOLE 40 MG TABLET PO SCH (20:17)
[2022-01-04] MEDS: FLUTICASONE 50MCG/SPRAY NASAL 16GM EA NOSTRIL SCH (20:17)
[2022-01-04] MEDS: PRAVASTATIN SODIUM 20 MG TAB PO SCH (20:47)
[2022-01-05 05:08] LABS: Hepatitis A Antibody IgM Nonreactive (Nonreactive); Hepatitis B Core IgM Nonreactive (Nonreactive); Hepatitis B Surface Antigen Nonreactive (Nonreactive)
[2022-01-05 06:17] LABS: Glucose,Whole Blood 97 mg/dL (70-110)
[2022-01-05] MEDS: SYMBICORT 160-4.5 MCG INHALER INHALATION SCH ×2 (07:26→20:56)
[2022-01-05 08:03] LABS: Anisocytosis Moderate; Basophils % (A) 0 %; Eosinophils # (A) 0.1 k/uL (0-0.7); Eosinophils % (A) 1 %; HCT 46.9 % (34.0-46.0); Hypochromasia Marked; Lymphocytes # (A) 0.9 k/uL (1.0-4.8); Lymphocytes % (A) 11 %; MCH 27.8 pg (25.0-35.0); MCV 92.9 fL (80.0-100.0); Macrocytosis Slight; Mean Platelet Volume 8.6; Monocytes # (A) 0.4 k/uL (0-1.0); Monocytes % (A) 6 %; Neutrophils # (A) 6.5 k/uL (1.3-7.7); Neutrophils % (A) 81 %; Platelet Count 110 k/uL (150-450); RBC 5.04 m/uL (3.80-5.40); RDW 20.3 % (11.5-15.5); WBC 7.9 k/uL (3.8-10.6)
[2022-01-05 08:12] LABS: Potassium 4.8 mmol/L (3.5-5.1)
[2022-01-05 08:30] LABS: Vancomycin,Random 23.3 ug/mL
--- NOTE | 2022-01-05 10:01 | P.PN ---
Subjective Patient is seen in follow-up for end-stage renal disease. She is maintained on hemodialysis on Saturday schedule. Blood pressure is in the 90s to low 100s. Patient is a little confused. Not on vasopressor support. Cultures negative so far. Vital signs are stable. General: Awake. No acute distress. HEENT: Head exam is unremarkable. On nasal cannula. LUNGS: Breath sounds decreased. HEART: Rate and Rhythm are regular. ABDOMEN: Soft, no distention. EXTREMITITES: 2+ edema. Objective - Vital Signs Vital signs: Vital Signs Temp 97.5 F L 01/04/22 20:00 Pulse 98 01/05/22 07:00 Resp 17 01/05/22 07:00 BP 99/70 01/05/22 07:00 Pulse Ox 98 01/05/22 07:00 FiO2 Intake & Output 01/04/22 01/05/22 01/05/22 18:59 06:59 18:59 Intake Total 770 315 120 Output Total 2000 Balance -1230 315 120 Weight 95.6 kg Intake: IV 220 80 0 0.9 @ 20 220 80 0 Intake, IV Titration 250 Amount Vancomycin 1,500 mg In 250 Sodium Chloride 0.9% 250 ml @ 125 mls/hr IVPB ONCE ONE Rx#:[id number] Oral 235 120 Hemodialysis 300 Output: Hemodialysis 2000 Other: # Voids 0 0 0 # Bowel Movements 1 - Labs CBC & Chem 7: 01/05/22 07:39 01/05/22 07:39 Labs: Abnormal Lab Results - Last 24 Hours (Table) 01/04/22 01/04/22 01/05/22 Range/Units 07:04 16:39 07:39 Hct 46.9 H (34.0-46.0) % MCHC 30.0 L (31.0-37.0) g/dL RDW 20.3 H (11.5-15.5) % Plt Count 110 L (150-450) k/uL Lymphocytes # 0.9 L (1.0-4.8) k/uL Carbon Dioxide (22-30) mmol/L BUN (7-17) mg/dL Creatinine (0.52-1.04) mg/dL Glucose (74-99) mg/dL POC Glucose (mg/dL) 115 H (70-110) mg/dL Procalcitonin 0.60 H (0.02-0.09) ng/mL 01/05/22 Range/Units 07:39 Hct (34.0-46.0) % MCHC (31.0-37.0) g/dL RDW (11.5-15.5) % Plt Count (150-450) k/uL Lymphocytes # (1.0-4.8) k/uL Carbon Dioxide 31 H (22-30) mmol/L BUN 34 H (7-17) mg/dL Creatinine 4.28 H (0.52-1.04) mg/dL Glucose 117 H (74-99) mg/dL POC Glucose (mg/dL) (70-110) mg/dL Procalcitonin (0.02-0.09) ng/mL Microbiology - Last 24 Hours (Table) 01/03/22 15:44 Blood Culture - Preliminary Blood No Growth after 24 hours 01/03/22 15:04 Blood Culture - Preliminary Blood No Growth after 24 hours Assessment and Plan Plan: Assessment: 1. End-stage renal disease making on hemodialysis on Saturday schedule via right upper extremity AV fistula. 2. Fall. No acute fracture noted. 3. Hypokalemia, replaced. Improved. 4. Acute on chronic diastolic CHF with moderate tricuspid regurgitation and pulmonary hypertension. 5. Volume overload. Plan: Hemodialysis today. Stopped all antihypertensives. Increase midodrine. Hold for systolic blood pressure greater than 110. Phosphorus 3.5 this admission.
[2022-01-05] MEDS: MIDODRINE 5 MG TAB PO SCH ×3 (10:35→18:13)
[2022-01-05] MEDS: HEPARIN SODIUM,PORCINE/PF 5,000 UNIT/0.5 ML SYRINGE SQ SCH ×2 (10:38→21:29)
--- NOTE | 2022-01-05 11:00 | P.PN ---
Subjective Progress Note Date: 01/05/22 The patient is an 81-year-old female who is currently admitted to the hospital after experiencing a syncopal episode. She was found to be hypotensive on arrival. Blood pressure medications are being held and she is undergoing dialysis. She did have an episode of agitation, where she was given Ativan then became obtunded and was ultimately transferred to the ICU for escalation of care. Echocardiogram revealed EF of 40% with moderate pulmonary hypertension, R VSP 47 mmHg. Bioprosthetic aortic valve shows a possible echo density along the right coronary cusp, as well as moderate to severe tricuspid regurgitation and moderate mitral regurgitation. The patient is currently resting comfortably in bed. She is breathing well. She is alert and oriented. She denies any pain or difficulty breathing. GENERAL: Well-appearing, well-nourished and in no acute distress. NECK: Supple without JVD or thyromegaly. LUNGS: Breath sounds diminished to auscultation bilaterally. Respiration equal and unlabored. Fine crackles noted in the right lower lobe HEART: Regular rate and rhythm. Soft systolic murmur. No rubs or gallops. S1 and S2 heard. EXTREMITIES: Normal range of motion, no edema. No clubbing or cyanosis. Peripheral pulses intact and strong. VITALS: Blood pressure 95/51, pulse 81, respiratory rate 14, SpO2 98% on 2 L nasal cannula TELEMETRY: Sinus rhythm overnight LABS: WBC 6.8, hemoglobin 13.3, hematocrit 42.4, platelet 123, sodium 134, potassium 4.5, BUN 49, creatinine 5.14 IMPRESSION: Acute on chronic heart failure, recent EF 40% Syncope and collapse likely secondary to hypertension Elevated troponins, secondary to renal disease, flat trend End-stage renal disease on dialysis Valvular heart disease, history of bioprosthetic aortic valve replacement Echo density noted on right coronary cusp, patient is afebrile, no leukocytosis, and blood cultures are negative, no need for ALLEY at this time History of hypertension History dyslipidemia PLAN: Continue withholding antihypertensive regimen Continue midodrine for hypotension No need for ALLEY No further recommendations from the cardiac standpoint I am dictating on behalf of Dr Billy Duarte's history/physical and assessmen t/plan. Objective - Vital Signs Vital signs: Vital Signs Temp 97.6 F 01/05/22 08:00 Pulse 97 01/05/22 10:00 Resp 30 H 01/05/22 10:00 BP 108/75 01/05/22 10:00 Pulse Ox 98 01/05/22 10:00 FiO2 Intake & Output 01/04/22 01/05/22 01/05/22 18:59 06:59 18:59 Intake Total 770 315 520 Output Total 1999 Balance -1230 315 520 Weight 95.6 kg Intake: IV 220 80 0 0.9 @ 20 220 80 0 Intake, IV Titration 250 Amount Vancomycin 1,500 mg In 250 Sodium Chloride 0.9% 250 ml @ 125 mls/hr IVPB ONCE ONE Rx#:[id number] Oral 235 520 Hemodialysis 300 Output: Hemodialysis 1999 Other: # Voids 0 0 0 # Bowel Movements 1 - Labs CBC & Chem 7: 01/05/22 07:39 01/05/22 07:39 Labs: Abnormal Lab Results - Last 24 Hours (Table) 01/04/22 01/04/22 01/05/22 Range/Units 07:04 16:39 07:39 Hct 46.9 H (34.0-46.0) % MCHC 30.0 L (31.0-37.0) g/dL RDW 20.3 H (11.5-15.5) % Plt Count 110 L (150-450) k/uL Lymphocytes # 0.9 L (1.0-4.8) k/uL Carbon Dioxide (22-30) mmol/L BUN (7-17) mg/dL Creatinine (0.52-1.04) mg/dL Glucose (74-99) mg/dL POC Glucose (mg/dL) 115 H (70-110) mg/dL Procalcitonin 0.60 H (0.02-0.09) ng/mL 01/05/22 Range/Units 07:39 Hct (34.0-46.0) % MCHC (31.0-37.0) g/dL RDW (11.5-15.5) % Plt Count (150-450) k/uL Lymphocytes # (1.0-4.8) k/uL Carbon Dioxide 31 H (22-30) mmol/L BUN 34 H (7-17) mg/dL Creatinine 4.28 H (0.52-1.04) mg/dL Glucose 117 H (74-99) mg/dL POC Glucose (mg/dL) (70-110) mg/dL Procalcitonin (0.02-0.09) ng/mL Microbiology - Last 24 Hours (Table) 01/03/22 15:44 Blood Culture - Preliminary Blood No Growth after 24 hours 01/03/22 15:04 Blood Culture - Preliminary Blood No Growth after 24 hours
[2022-01-05 11:22] LABS: Glucose,Whole Blood 130 mg/dL (70-110)
--- NOTE | 2022-01-05 11:33 | P.PN ---
Subjective Progress Note Date: 01/05/22 81-year-old female patient with end-stage renal disease was having some difficulties with hypotension and altered mentation on the medical floor on the ICU consultation was requested. I came to see the patient and the patient was having borderline hypotension and the systolic blood pressure was ranging between 80 and 100 mmHg. She was arousable. Clinically however she was altered. She was unable to answer questions appropriately. She is mentally on hemodialysis 3 times a week Wednesdays and Fridays as scheduled and the patient has a functioning AV fistula in the right upper extremity. The patient was at home and she had a episode of fall/syncope. She sustained a trauma to her facial area. No reported seizure activity. When she came into the emergency, she was noted to have a lower blood pressure. She was taking medication at home and this included a combination of metoprolol and losartan. She is known to have diastolic heart failure. Left ejection fraction is preserved. She is known to have previous history of aortic valve stenosis that she has undergone a previous TAVR catheter procedure. No fever. No chills. No night sweats. While undergoing hemodialysis, the patient became more agitated. She was given a dose of Ativan 1 mg which made her more lethargic. Based on this, and ICU consultation was requested. The workup for now has included a chest x-ray that showed cardiomegaly and mild pulmonary vascular congestion. Otherwise no other significant abnormalities noted. No airspace disease. No consolidation. No lung collapse. No pneumothorax. The blood work shows a white cell count of 7.6 with a hemoglobin 12.5 and a platelet count of 120. The electrode from yesterday showed a BUN of 42 with a creatinine of 4.79. Sodium level was at 134 and the potassium level was at 4.6. Serum bicarb is at 28. Blood gas was done on 832% FiO2 and the patient's pH was 7.44 with episodes of 47 and pO2 of 164. The CAT scan of the face that was done in emergency department showed no evidence of any traumatic fracture involving the facial bones. X-ray of the lumbar and thoracic spine was done that shows spondylitic changes involving the L4-L5 spine and no acute fracture involving the thoracic and lumbar spine. CAT scan of the head of the cervical spine showed no evidence of any acute abnormalities. There was some cerebral atrophy and old right he mispheric cortical infarct. No evidence of any acute bleeding. The patient was afebrile. The patient was seen by the A team and the patient was given a bolus of 450 mL of fluid and her blood pressures under better control for now. She does have extensive edema in the lower extremities in the thighs and some in that upper extremity. She follows some occasional commands. She is still lethargic and confused at this point in time without any significant agitation. 01/04 2022, the patient remains quite lethargic and arousable. Upon stimulation, she wakes up and she follows commands and answers questions. Nevertheless, once left unstimulated, she will go down and relax and sleep. Her blood pressure still borderline. Her systolic blood pressure has been in the low 80s. The patient has extensive third spacing in extracellular edema and the patient is going to need hemodialysis today. Blood pressure is obviously concerned and would like to support the blood transfusion is needed if needed. Meanwhile, suspected an underlying septic event. Given a dose of vancomycin yesterday pending cultures. The white cell count of 6.15.3, platelet count of 123, blood gas from yesterday was adequate. His sodium level is at 134 with a potassium level of 4.5, knee and is a 49 with a creatinine of 5.1. Cultures are negative. Troponins were minimally elevated. ProBNP level is positive at 31,000. Note that she originally came into the hospital because of a fall/syncope. No skeletal injuries. Echocardiogram was ordered and it is also still pending for now. Meanwhile, we will going to proceed with dialysis and will try to do some 3 L of ultrafiltration if possible. Her pulse ox is 97% while her being on 2 L of action by nasal cannula. She passed her swallow and her appetite is poor oral intake is very much minimal or diminished at this point in time. The antihypertensive medication has been discontinued or placed on hold. 01/05/2022, the patient is more awake and alert. She is communicating. She underwent hemodialysis yesterday and a total of 2 L of fluid was removed. She did require pressors during the process and the patient was taken off norepinephrine at that A.m. this morning. She is currently on Lopressor speech is currently on midregion at a dose of 10 mg 3 times a day. Meanwhile, septic workup was done. The patient was given a dose of vancomycin. Blood cultures have been negative. The white cell count is still at 7.9. Resident exercise at all stable. Vancomycin is at 23. She is afebrile. She is on oxygen at 2 L nasal cannula with a pulse ox of 96%. No focal neurological deficits. Echo was done on 01/04/2022 and that is also consistent with mild LV dysfunction with an ejection fraction of 40% moderate RV dilatation and echodensity on the right coronary cusp extending to the tricuspid valve. ALLEY should be considered. Objective - Vital Signs Vital signs: Vital Signs Temp 97.6 F 01/05/22 08:00 Pulse 97 01/05/22 10:00 Resp 23 01/05/22 11:00 BP 109/63 01/05/22 11:00 Pulse Ox 96 01/05/22 11:00 FiO2 Intake & Output 01/04/22 01/05/22 01/05/22 18:59 06:59 18:59 Intake Total 770 315 520 Output Total 1999 Balance -1230 315 520 Weight 95.6 kg Intake: IV 220 80 0 0.9 @ 20 220 80 0 Intake, IV Titration 250 Amount Vancomycin 1,500 mg In 250 Sodium Chloride 0.9% 250 ml @ 125 mls/hr IVPB ONCE ONE Rx#:[id number] Oral 235 520 Hemodialysis 300 Output: Hemodialysis 1999 Other: # Voids 0 0 0 # Bowel Movements 1 - Exam General appearance the patient was lethargic, confused, no significant ag itation. Probably she was on the effect of Ativan and somewhat sedated on 2 L O2 nasal cannula with a pulse ox of 95%. Head exam was generally normal. There was no scleral icterus or corneal arcus. M ucous membranes were moist. HEENT: Head is atraumatic, normocephalic. Pupils are equal, round. Sclerae anicteric. Conjunctivae are clear. Mucous membranes of the mouth are moist. Neck is supple. There is no jugular venous distention. No carotid bruit is heard. CHEST EXAMINATION: Bilateral expiratory wheezes. No chest wall tenderness is noted on palpation or with deep breathing. HEART EXAMINATION: Heart regular rate and rhythm. S1, S2 heard. Systolic murmur. No gallops or rub. ABDOMEN: Soft, nontender. Bowel sounds are heard. No organomegaly noted. EXTREMITIES: 2+ peripheral pulses with no evidence of peripheral edema. The patient has a functioning AV fistula in the right upper extremity. NEUROLOGIC EXAMINATION: Patient is arousable, and she would withdraw to painful stimulation in all 4 extremities. She was able to squeeze my fingers using her hands and she was able to wiggle her toes upon command. Pupils are round 2-3 mm in size and reactive to light. No facial asymmetry. - Labs CBC & Chem 7: 01/05/22 07:39 01/05/22 07:39 Labs: Abnormal Lab Results - Last 24 Hours (Table) 01/04/22 01/04/22 01/05/22 Range/Units 07:04 16:39 07:39 Hct 46.9 H (34.0-46.0) % MCHC 30.0 L (31.0-37.0) g/dL RDW 20.3 H (11.5-15.5) % Plt Count 110 L (150-450) k/uL Lymphocytes # 0.9 L (1.0-4.8) k/uL Carbon Dioxide (22-30) mmol/L BUN (7-17) mg/dL Creatinine (0.52-1.04) mg/dL Glucose (74-99) mg/dL POC Glucose (mg/dL) 115 H (70-110) mg/dL Procalcitonin 0.60 H (0.02-0.09) ng/mL 01/05/22 01/05/22 Range/Units 07:39 11:21 Hct (34.0-46.0) % MCHC (31.0-37.0) g/dL RDW (11.5-15.5) % Plt Count (150-450) k/uL Lymphocytes # (1.0-4.8) k/uL Carbon Dioxide 31 H (22-30) mmol/L BUN 34 H (7-17) mg/dL Creatinine 4.28 H (0.52-1.04) mg/dL Glucose 117 H (74-99) mg/dL POC Glucose (mg/dL) 130 H (70-110) mg/dL Procalcitonin (0.02-0.09) ng/mL Microbiology - Last 24 Hours (Table) 01/03/22 15:44 Blood Culture - Preliminary Blood No Growth after 24 hours 01/03/22 15:04 Blood Culture - Preliminary Blood No Growth after 24 hours Assessment and Plan Plan: Altered mental status, currently under investigation. The patient's CAT scan of the brain showed no acute abnormalities and that showed old stroke with cerebral atrophy. On today's evaluation, she is arousable and awake and communicating. No focal neurological deficits. Clinically more alert compared to yesterday, nevertheless, she remains to be confused. The Brain Was Negative. No Evidence of Any Septicemia. She underwent hemodialysis yesterday. Hypotension, recovered and the patient is currently on Midrin. Hemodialysis was completed yesterday with the use of pressors. End-stage renal disease currently on hemodialysis via a fistula in the right upper extremity, completed hemodialysis yesterday and a repeat hemodialysis will be done today CHF with preserved LV function TAVR for severe aortic stenosis, Questionable abnormality along the tricuspid valve, possible vegetation. We'll discuss with cardiology Volume overload with increased edema in lower extremities bilaterally Fall/syncope without any major facial or spine trauma. The patient has some bruising over the face on the right Hyperlipidemia History of hypertension Coronary artery disease with previous cardiac intervention and stenting Diabetes mellitus Gout COPD Previous history of COVID 19 infection in February 2022 Plan Septic workup and obtain blood cultures are done and the patient was given a dose of vancomycin and the cultures are all negative. White cell count is not elevated. There is however a concern for endocarditis. We'll discuss this with cardiology and consider ALLEY on this patient to rule out the possibility of a vegetation involving the tricuspid valve. Complete hemodialysis today, she underwent hemodialysis with the assistance of some pressors yesterday and she is currently off pressors Continues to be confused and she continues to have some encephalopathy, workup is in progress Midodrine was added for hypotension Keep antihypertensive medications on hold Keep the patient in the ICU for now Consult neurology regarding her ongoing encephalopathy and mental status change. She is a full CODE STATUS. Her oxygenation is stable.
--- NOTE | 2022-01-05 14:02 | P.CNNES ---
History of Present Illness Consult date: 01/05/22 Requesting physician: Joseph David Reason for Consult: ongoing confusion, r/o septic emboli History of Present Illness: This is an 81-year-old woman with medical history of stroke, diabetes mellitus, hypertension, ESR on dialysis, CAD s/p stent, heart failure who present to the emergency department after a fall. Neurology is consulted for ongoing confusion and concern for septic emboli. Some of the history is obtained from medical records. Per ED note, patient daughter notified them that patient fell in the bathroom due to tripping on her walker hitting her head. The fall was unwitnessed and no loss of consciousness. She was complaining of intermittent chest pain after fall. She was confused during this hospital visit but seems to be somewhat improving after dialysis. During this hospital visit, she has hypotension as low as 70's to 80's systolic and diastolic as low as 40's to 50's. She had 2D echo and showed Echo density around the right coronary cusp with what appears to be some extension around the tricuspid valve. Cannot exclude annular abscess/endocarditis. Some of the work-up during this hospital visit consisted of: She is afebrile. her wbc is 10.8K on presentation but resolved. Calcium, phosphorous, magenesium is within normal limits. I personally reviewed CT head and agree her stroke are old and was seen in 2019. She had CT head which is reported as cerebral atrophy and old right hemipsheric cortical infarcts. No acute intracranial abnormality. No change compared to o ld exam. CT cervical spine is reported as spondylotic chagnes in the cervical spine. No fracture. No change. 2D echo is reported and Left EF 40%, moderlated ilate right ventricle. severely dilated left atrium. Echo density around the right coronary cusp with what appears to be some extension around the tricuspid valve. Cannot exclude annular abscess/endocarditis. Moderate to severe tricuspid regurgitation. Blood culture is no growth after 24 hours. She is on Vancomycin. She is also on Midodrine for hypotensive episodes. Review of Systems Review of system: The 12 point system was reviewed and apparent positive and negative per HPI. Past Medical History Past Medical History: Coronary Artery Disease (CAD), Heart Failure, Diabetes Mellitus, Hyperlipidemia, Hypertension, Renal Disease Additional Past Medical History / Comment(s): [facility],heart [facility]; Hx gout; see Dr Fu's H&P , gout, diastolic heart failure History of Any Multi-Drug Resistant Organisms: None Reported Past Surgical History: Appendectomy, Heart Catheterization, Heart Catheterizati on With Stent Additional Past Surgical History / Comment(s): IV catheter rt chest, Ovary removal, 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 Bilateral carotid endarterectomy. Aortic valve replacement 02/2018 Past Anesthesia/Blood Transfusion Reactions: No Reported Reaction Date of Last Stent Placement:: unknown Past Psychological History: Anxiety, Depression Smoking Status: Former smoker Past Alcohol Use History: None Reported Past Drug Use History: None Reported - Past Family History Mother Family Medical History: No Reported History Sister(s) Family Medical History: Cancer Father Family Medical History: Myocardial Infarction ([place]) Additional Family Medical History / Comment(s): Father of a [place] in his 60s. Medications and Allergies Home Medications Medication Instructions Recorded Confirmed Type Febuxostat [Uloric] 40 mg PO HS 08/03/17 01/02/22 History Pantoprazole Sodium [Protonix] 40 mg PO HS 08/03/17 01/02/22 History Pravastatin Sodium [Pravachol] 20 mg PO HS 08/03/17 01/02/22 History Mometasone/Formoterol [Dulera 200 2 puff INHALATION RT-BID 04/22/18 01/02/22 History Mcg-5 Mcg Inhaler] Aspirin EC [Ecotrin Low Dose] 81 mg PO HS 04/11/21 01/02/22 History Dialyvite 800 1 tab PO HS 04/11/21 01/02/22 History Lidocaine-Prilocaine Cream [Emla 1 applic TOPICAL DAILY PRN 04/11/21 01/02/22 History Cream 2.5%/2.5%] Furosemide [Lasix] 60 mg PO DAILY 01/02/22 01/02/22 History Sertraline [Zoloft] 50 mg PO DAILY 01/02/22 01/02/22 History levOCARNitine [Levocarnitine] 660 mg PO TID 01/02/22 01/02/22 History Allergies Allergy/AdvReac Type Severity Reaction Status Date / Time atorvastatin [From Lipitor] Allergy Unknown Verified 01/02/22 08:12 codeine Allergy Rash/Hives Verified 01/02/22 08:12 duloxetine [From Cymbalta] Allergy Unknown Verified 01/02/22 08:12 ezetimibe [From Zetia] Allergy Unknown Verified 01/02/22 08:12 fenofibrate [From Tricor] Allergy Unknown Verified 01/02/22 08:12 latex Allergy Rash/Hives Verified 01/02/22 08:12 niacin Allergy Unknown Verified 01/02/22 08:12 tetracycline Allergy Unknown Verified 01/02/22 08:12 Physical Examination - Vital Signs Vital Signs: Vital Signs Temp Pulse Pulse Resp BP BP Pulse Ox 01/05/22 11:00 23 109/63 96 01/05/22 10:00 97 30 H 108/75 98 01/05/22 09:00 43 H 111/67 01/05/22 08:00 97.6 F 96 32 H 90/55 98 01/05/22 07:00 98 98 27 H 106/92 99/70 97 01/05/22 06:00 93 96 24 97/63 106/92 98 01/05/22 05:00 93 14 95/58 95 01/05/22 04:00 106 H 16 82/61 01/05/22 03:00 97 23 94/62 01/05/22 02:00 94 20 136/55 01/05/22 01:00 95 14 94 L 01/05/22 00:00 93 24 107/45 01/04/22 23:00 90 16 79/52 01/04/22 22:33 19 91/36 01/04/22 22:00 96 21 84/62 96 01/04/22 21:00 92 21 101/60 97 01/04/22 20:00 97.5 F L 89 13 100/50 99 01/04/22 19:00 89 18 100/50 99 01/04/22 18:45 87 14 82/52 100 01/04/22 18:30 90 13 82/52 97 01/04/22 18:15 85 14 82/52 98 01/04/22 18:00 84 14 94/50 97 01/04/22 17:45 85 12 94/50 98 01/04/22 17:30 89 15 100/52 99 01/04/22 17:15 86 11 L 99/49 97 01/04/22 17:00 89 16 90/44 98 10/13/22 16:45 86 14 100/64 98 01/04/22 16:30 85 12 93/46 86 L 01/04/22 16:15 89 16 89/55 96 01/04/22 16:00 97.3 F L 88 13 95/51 100 01/04/22 15:30 87 13 93/53 99 01/04/22 15:15 87 13 89/50 99 01/04/22 15:00 86 13 79/52 99 01/04/22 14:00 90 12 94/44 97 01/04/22 13:00 91 20 88/54 96 Intake and Output 01/04/22 01/05/22 01/05/22 22:59 06:59 14:59 Intake Total 605 40 520 Balance 605 40 520 Intake: IV 120 40 0 0.9 @ 20 120 40 0 Intake, IV Titration 250 Amount Vancomycin 1,500 mg In 250 Sodium Chloride 0.9% 250 ml @ 125 mls/hr IVPB ONCE ONE Rx#:[id number] Oral 235 520 Other: # Voids 0 0 0 # Bowel Movements 1 Weight 95.6 kg GENERAL: The patient is lying in bed and is not in acute distress. HENT: Bruise over the right side face V2 (from fall) CHEST: The heart rate is regular rate rhythm. +ve murmurs to auscultation. LUNG: Clear to auscultation bilaterally no wheezing noted throughout. Not labored breathing. ABDOMEN/GI: Bowel sounds present in all 4 quadrants. No tenderness to palpation throughout. NEUROLOGICAL: Higher mental function: The patient is awake, alert, oriented to self and place. She could not tell me what year or month. She was able to name objects (watch and pen). Patient is following simple commands. No aphasia and no neglect. Cranial nerves: The pupils are round, equal and reactive to light. Visual burk are full to confrontation throughout. Extraocular movement is intact no nystagmus is noted. Facial sensation is normal to touch throughout. The facial strength is mild right lower facial weakness (central type). Hearing is moderately decrease bilaterally to hand rub. Tongue is midline and moved [id number] without any difficulty. No dysarthria is noted. Shoulder shrug is normal bilaterally. Motor: The strength is somewhat limited in assessing invidual muscles because of her cooperation (and stated does not want to continue with testing) but is moving the left side > right side. She is able to lift all extremities above gravity but again moving the left side more the right side (her right side dropped to bed after lifting compared to left). Mildly decrease tone over the right upper. Has edema in the right upper proximally. Normal bulk. Cerebellum: Unable to assess Sensation: Sensation is normal to touch throughout. Reflexes (right/left): 1+ throughout. Plantars are mute bilaterally. Results - Laboratory Findings CBC and BMP: 01/05/22 07:39 01/05/22 07:39 Abnormal Lab Findings: Abnormal Labs 01/01/22 01/01/22 01/01/22 21:28 21:28 21:28 WBC 10.8 H Hct MCHC RDW 19.9 H Plt Count 115 L Neutrophils # 9.5 H Lymphocytes # 0.6 L D-Dimer ABG pCO2 ABG pO2 ABG HCO3 ABG Total CO2 ABG O2 Saturation Sodium 134 L Potassium 3.4 L Chloride 95 L Carbon Dioxide BUN 29 H Creatinine 3.11 H Glucose POC Glucose (mg/dL) Calcium 8.1 L Total Bilirubin 1.8 H AST 55 H ALT 42 H Alkaline Phosphatase 161 H Troponin I 0.104 H* Total Protein 5.8 L Albumin 3.2 L Procalcitonin 01/02/22 01/02/22 01/03/22 00:29 03:19 08:54 WBC Hct MCHC RDW 20.5 H Plt Count 134 L Neutrophils # Lymphocytes # D-Dimer ABG pCO2 ABG pO2 ABG HCO3 ABG Total CO2 ABG O2 Saturation Sodium Potassium Chloride Carbon Dioxide BUN Creatinine Glucose POC Glucose (mg/dL) Calcium Total Bilirubin AST ALT Alkaline Phosphatase Troponin I 0.117 H* 0.109 H* Total Protein Albumin Procalcitonin 01/03/22 01/03/22 01/03/22 08:54 14:32 14:49 WBC Hct MCHC RDW Plt Count Neutrophils # Lymphocytes # D-Dimer ABG pCO2 47 H ABG pO2 164 H ABG HCO3 32 H ABG Total CO2 33 H ABG O2 Saturation 98.9 H Sodium 134 L Potassium Chloride 92 L Carbon Dioxide BUN 42 H Creatinine 4.79 H Glucose POC Glucose (mg/dL) 129 H Calcium Total Bilirubin AST ALT Alkaline Phosphatase Troponin I Total Protein Albumin Procalcitonin 01/03/22 01/03/22 01/03/22 14:59 14:59 14:59 WBC Hct MCHC RDW 20.4 H Plt Count 120 L Neutrophils # Lymphocytes # 0.6 L D-Dimer 2.28 H ABG pCO2 ABG pO2 ABG HCO3 ABG Total CO2 ABG O2 Saturation Sodium 134 L Potassium Chloride 94 L Carbon Dioxide BUN 45 H Creatinine 4.87 H Glucose 135 H POC Glucose (mg/dL) Calcium Total Bilirubin AST ALT Alkaline Phosphatase Troponin I Total Protein Albumin Procalcitonin 01/03/22 01/04/22 01/04/22 14:59 06:35 07:04 WBC Hct MCHC RDW 20.1 H Plt Count 123 L Neutrophils # Lymphocytes # 0.6 L D-Dimer ABG pCO2 ABG pO2 ABG HCO3 ABG Total CO2 ABG O2 Saturation Sodium Potassium Chloride Carbon Dioxide BUN Creatinine Glucose POC Glucose (mg/dL) 160 H Calcium Total Bilirubin AST ALT Alkaline Phosphatase Troponin I 0.073 H* Total Protein Albumin Procalcitonin 01/04/22 01/04/22 01/04/22 07:04 07:04 16:39 WBC Hct MCHC RDW Plt Count Neutrophils # Lymphocytes # D-Dimer ABG pCO2 ABG pO2 ABG HCO3 ABG Total CO2 ABG O2 Saturation Sodium 134 L Potassium Chloride 95 L Carbon Dioxide BUN 49 H Creatinine 5.14 H Glucose POC Glucose (mg/dL) 115 H Calcium Total Bilirubin AST ALT Alkaline Phosphatase Troponin I Total Protein Albumin Procalcitonin 0.60 H 01/05/22 01/05/22 01/05/22 07:39 07:39 11:21 WBC Hct 46.9 H MCHC 30.0 L RDW 20.3 H Plt Count 110 L Neutrophils # Lymphocytes # 0.9 L D-Dimer ABG pCO2 ABG pO2 ABG HCO3 ABG Total CO2 ABG O2 Saturation Sodium Potassium Chloride Carbon Dioxide 31 H BUN 34 H Creatinine 4.28 H Glucose 117 H POC Glucose (mg/dL) 130 H Calcium Total Bilirubin AST ALT Alkaline Phosphatase Troponin I Total Protein Albumin Procalcitonin Assessment and Plan Assessment: Encephalopathy of unknown etiology. Patient has hypotensive episode with possible concern for enodcarditis/abscess. Rule out septic emboli---mentation is improving On examination it appears she has right side weaker compared to left with mild right facial weakness: Rule out acute to subacute stroke Right coronary cusp with what appears to be some extension around the tricuspid valve. Cannot exclude annular abscess/endocarditis. on 2D echo Hypotensive episode Old stroke over the right hemisphere (CT unchanged since 2019). Over right frontal, parietal, right parietal/temporal region ESRD on dialysis DM History of hypertension but having hypotensive episode CAD s/p stent Cardiomyopathy Hx of aortic valve replacement (2018) Previous hx of COVID-19 Plan: I ordered MRI Brain, MRA head to rule out septic embolic stroke. As well carotid duplex. Ordered ammonia level, TSH, vitamin B12, folate and COVID-19 PCR. Cardiology is on board. Consider ALLEY to rule out vegitation. Continue ASA 81mg qhs. Is on pravastatin 20m qhs. Placed on Q4 hours neuro checks. continue cardiac monitoring. PT, OT and [employer] are consulted. Will defer the rest of medical management to primary and ICU team. For DVT prophylaxis: On subq heparin 500U every 12 hours. The plan is discussed with the patient's nurse. Will attempt to call family and get more information regarding patient mentation baseline compared to current condition and update them on plan. Thank you for the consultation. Dr. Brannon is providing neurology coverage this weekend then Dr. Saldana will start this Saturday A.M. Time with Patient: Greater than 30
[2022-01-05 17:42] LABS: Glucose,Whole Blood 97 mg/dL (70-110)
--- NOTE | 2022-01-05 19:50 | US ---
EXAMINATION TYPE: US carotid duplex BILAT DATE OF EXAM: 01/05/2022 COMPARISON: NONE CLINICAL HISTORY: stroke. stroke TECHNIQUE: Carotid duplex ultrasound examination. Indirect Doppler criteria was utilized. PT refused to do left side. Pt stated it was too uncomfortable. FINDINGS: EXAM MEASUREMENTS: RIGHT: Peak Systolic Velocity (PSV) cm/sec ----- Right CCA: 62.5 ----- Right ICA: 84.5 ----- Right ECA: 110.7 ICA/CCA ratio: 1.4 RIGHT: End Diastole cm/sec ----- Right CCA: 9.8 ----- Right ICA: 7.6 ----- Right ECA: 4.3 VERTEBRALS (direction of flow): Right Vertebral: Antegrade Rhythm: Normal SEPTIC TANK SERVICE TECHNICIAN NOTES: Plaque seen bilaterally throughout CCA, bulbs, ICA, and ECA. IMPRESSION: Left side not evaluated. On the right side the images and measurements suggest 30% stenosis in the le ft internal carotid artery. There is antegrade flow in the right vertebral artery. Criteria for Assigning % of Stenosis / Diameter reduction (Estimation based on the indirect measurements of the internal carotid artery velocities (ICA PSV). 1. Normal (no stenosis)=ICA PSV < 125 cm/s: ratio < 2.0: ICA EDV<40 cm/s. 2. Less than 50% stenosis=ICA PSV < 125 cm/s: ratio < 2.0: ICA EDV<40 cm/s. 3. 50 to 69% stenosis=ICA PSV of 125 to 230 cm/s: ration 2.0 ? 4.0: ICA EDV 40-100 cm/s. 4. Greater than 70% stenosis to near occlusion= ICA PSV > 230 cm/s: ratio > 4.0: ICA EDV > 100 cm/s. 5. Near occlusion= ICA PSV velocities may be low or undetectable: variable ratio and ICA EDV. 6. Total occlusion=unable to detect flow.
[2022-01-05 21:15] LABS: Glucose,Whole Blood 81 mg/dL (70-110)
[2022-01-05] MEDS: MAGNESIUM OXIDE 400 MG TAB PO SCH (21:28)
[2022-01-05] MEDS: allopurinoL 100 MG TAB PO SCH (21:28)
[2022-01-05] MEDS: MULTIVITAMINS, THERA 1 EACH TAB PO SCH (21:29)
[2022-01-05] MEDS: PANTOPRAZOLE 40 MG TABLET PO SCH (21:29)
[2022-01-05] MEDS: ASPIRIN 81 MG PO SCH (21:29)
[2022-01-05] MEDS: FLUTICASONE 50MCG/SPRAY NASAL 16GM EA NOSTRIL SCH (21:45)
[2022-01-05] MEDS: PRAVASTATIN SODIUM 20 MG TAB PO SCH (21:45)
--- NOTE | 2022-01-06 03:17 | EEG ---
ELECTROENCEPHALOGRAM REPORT DATE OF SERVICE: 01/05/2022 CLINICAL HISTORY: This is an 81-year-old woman with altered mental status. The video EEG is obtained to evaluate for seizure and epileptiform activity. RELEVANT MEDICATION: The patient is not on any antiepileptic drugs. EEG TYPE: A routine 21-channel EEG is performed with video using the 10/20 electrode placement system. DESCRIPTION: Wakefulness is only obtained. During awake state, the background consists of 10 hertz activity that is somewhat poorly modulated. Otherwise, there is no physiological sleep architecture. Rarely, the background consists of kln-gv-ratepnoo voltage of theta intermixed with delta activity. There is no focal slowing. There is moderate to severe diffuse myogenic artifact. Interictal and ictal is none. ACTIVATION PROCEDURE: Photic stimulation and hyperventilation is not performed. CLINICAL INTERPRETATION: This is an abnormal routine EEG. The background slowing is suggestive of mild encephalopathy. Otherwise, there is no focal slowing, epileptiform discharges or seizures during this EEG. Clinical correlation is recommended. MMRASTA / BAYRONN: [id number] / QUIANA
[2022-01-06 07:09] LABS: Glucose,Whole Blood 87 mg/dL (70-110)
[2022-01-06] MEDS: MIDODRINE 5 MG TAB PO SCH ×4 (07:16→20:50)
[2022-01-06] MEDS: SYMBICORT 160-4.5 MCG INHALER INHALATION SCH ×2 (07:31→20:11)
[2022-01-06] MEDS: HEPARIN SODIUM,PORCINE/PF 5,000 UNIT/0.5 ML SYRINGE SQ SCH ×2 (08:51→20:47)
--- NOTE | 2022-01-06 10:15 | P.PN ---
Subjective Progress Note Date: 01/06/22 81-year-old female patient with end-stage renal disease was having some difficulties with hypotension and altered mentation on the medical floor on the ICU consultation was requested. I came to see the patient and the patient was having borderline hypotension and the systolic blood pressure was ranging between 80 and 100 mmHg. She was arousable. Clinically however she was altered. She was unable to answer questions appropriately. She is mentally on hemodialysis 3 times a week Wednesdays and Fridays as scheduled and the patient has a functioning AV fistula in the right upper extremity. The patient was at home and she had a episode of fall/syncope. She sustained a trauma to her facial area. No reported seizure activity. When she came into the emergency, she was noted to have a lower blood pressure. She was taking medication at home and this included a combination of metoprolol and losartan. She is known to have diastolic heart failure. Left ejection fraction is preserved. She is known to have previous history of aortic valve stenosis that she has undergone a previous TAVR catheter procedure. No fever. No chills. No night sweats. While undergoing hemodialysis, the patient became more agitated. She was given a dose of Ativan 1 mg which made her more lethargic. Based on this, and ICU consultation was requested. The workup for now has included a chest x-ray that showed cardiomegaly and mild pulmonary vascular congestion. Otherwise no other significant abnormalities noted. No airspace disease. No consolidation. No lung collapse. No pneumothorax. The blood work shows a white cell count of 7.6 with a hemoglobin 12.5 and a platelet count of 120. The electrode from yesterday showed a BUN of 42 with a creatinine of 4.79. Sodium level was at 134 and the potassium level was at 4.6. Serum bicarb is at 28. Blood gas was done on 832% FiO2 and the patient's pH was 7.44 with episodes of 47 and pO2 of 164. The CAT scan of the face that was done in emergency department showed no evidence of any traumatic fracture involving the facial bones. X-ray of the lumbar and thoracic spine was done that shows spondylitic changes involving the L4-L5 spine and no acute fracture involving the thoracic and lumbar spine. CAT scan of the head of the cervical spine showed no evidence of any acute abnormalities. There was some cerebral atrophy and old right he mispheric cortical infarct. No evidence of any acute bleeding. The patient was afebrile. The patient was seen by the A team and the patient was given a bolus of 450 mL of fluid and her blood pressures under better control for now. She does have extensive edema in the lower extremities in the thighs and some in that upper extremity. She follows some occasional commands. She is still lethargic and confused at this point in time without any significant agitation. 01/04 2022, the patient remains quite lethargic and arousable. Upon stimulation, she wakes up and she follows commands and answers questions. Nevertheless, once left unstimulated, she will go down and relax and sleep. Her blood pressure still borderline. Her systolic blood pressure has been in the low 80s. The patient has extensive third spacing in extracellular edema and the patient is going to need hemodialysis today. Blood pressure is obviously concerned and would like to support the blood transfusion is needed if needed. Meanwhile, suspected an underlying septic event. Given a dose of vancomycin yesterday pending cultures. The white cell count of 6.15.3, platelet count of 123, blood gas from yesterday was adequate. His sodium level is at 134 with a potassium level of 4.5, knee and is a 49 with a creatinine of 5.1. Cultures are negative. Troponins were minimally elevated. ProBNP level is positive at 31,000. Note that she originally came into the hospital because of a fall/syncope. No skeletal injuries. Echocardiogram was ordered and it is also still pending for now. Meanwhile, we will going to proceed with dialysis and will try to do some 3 L of ultrafiltration if possible. Her pulse ox is 97% while her being on 2 L of action by nasal cannula. She passed her swallow and her appetite is poor oral intake is very much minimal or diminished at this point in time. The antihypertensive medication has been discontinued or placed on hold. 01/05/2022, the patient is more awake and alert. She is communicating. She underwent hemodialysis yesterday and a total of 2 L of fluid was removed. She did require pressors during the process and the patient was taken off norepinephrine at that A.m. this morning. She is currently on Lopressor speech is currently on midregion at a dose of 10 mg 3 times a day. Meanwhile, septic workup was done. The patient was given a dose of vancomycin. Blood cultures have been negative. The white cell count is still at 7.9. Resident exercise at all stable. Vancomycin is at 23. She is afebrile. She is on oxygen at 2 L nasal cannula with a pulse ox of 96%. No focal neurological deficits. Echo was done on 01/04/2022 and that is also consistent with mild LV dysfunction with an ejection fraction of 40% moderate RV dilatation and echodensity on the right coronary cusp extending to the tricuspid valve. ALLEY should be considered. 01/06/2022, the patient is calm and comfortable on no pressors. Her blood pressures remain soft. Noted the patient underwent hemodialysis yesterday and she did not require pressors during her hemodialysis process. She is resting comfortably in bed. She is currently on midodrine at a dose of 10 mg 3 times a day. Nephrology is on the case. Rental Clerk on the case. We raised the possibility of her needing a ALLEY and cardiology declines due to lack of cardiac indication for the procedure. In terms of cultures, all of his cultures came back negative I think it's reasonable to discontinue the vancomycin for now. She remains on oxygen at 2 L/m nasal cannula. Echocardiogram was noted, she has mild LV dysfunction and ejection fraction of 40%, questionable echodensity in the right coronary cusp extending into the tricuspid valve. The patient has no other new labs from today. Her creatinine today is 3.8. Tolerating diet. Still having episodes of coughing fits [place] oxygenation is essentially within normal limits. The carotid Dopplers showed no evidence of any hemodynamically significant stenosis. The patient had a 30% stenosis on the left. There was an anterograde flow in the vertebrobasilar system. Her EEG showed no evidence of any seizure. The patient was also seen by neurology and MRI of the brain was ordered due to consideration of a septic emboli. Objective - Vital Signs Vital signs: Vital Signs Temp 97.8 F 01/06/22 08:00 Pulse 92 01/06/22 09:00 Resp 18 01/06/22 09:00 BP 98/68 01/06/22 09:00 Pulse Ox 97 01/06/22 09:00 FiO2 Intake & Output 01/05/22 01/06/22 01/06/22 18:59 06:59 18:59 Intake Total 1020 775 170 Output Total 2500 Balance -1480 775 170 Weight 94.4 kg Intake: IV 0 0 0 0.9 @ 20 0 0 0 Oral 720 775 170 Hemodialysis 300 Output: Hemodialysis 2500 Other: # Voids 0 - Exam General appearance the patient was lethargic, confused, no significant agitation. Probably she was on the effect of Ativan and somewhat sedated on 2 L O2 nasal cannula with a pulse ox of 95%. Head exam was generally normal. There was no scleral icterus or corneal arcus. Mucous membranes were moist. HEENT: Head is atraumatic, normocephalic. Pupils are equal, round. Sclerae anicteric. Conjunctivae are clear. Mucous membranes of the mouth are moist. Neck is supple. There is no jugular venous distention. No carotid bruit is heard. CHEST EXAMINATION: Bilateral expiratory wheezes. No chest wall tenderness is noted on palpation or with deep breathing. HEART EXAMINATION: Heart regular rate and rhythm. S1, S2 heard. Systolic murmur. No gallops or rub. ABDOMEN: Soft, nontender. Bowel sounds are heard. No organomegaly noted. EXTREMITIES: 2+ peripheral pulses with no evidence of peripheral edema. The patient has a functioning AV fistula in the right upper extremity. NEUROLOGIC EXAMINATION: Patient is arousable, and she would withdraw to painful stimulation in all 4 extremities. She was able to squeeze my fingers using her hands and she was able to wiggle her toes upon command. Pupils are round 2-3 mm in size and reactive to light. No facial asymmetry. - Labs CBC & Chem 7: 01/05/22 07:39 01/06/22 07:35 Labs: Abnormal Lab Results - Last 24 Hours (Table) 01/05/22 01/05/22 01/06/22 Range/Units 11:21 14:34 07:35 Creatinine 3.83 H (0.52-1.04) mg/dL POC Glucose (mg/dL) 130 H (70-110) mg/dL Vitamin B12 1580.0 H (200.0-944.0) pg/mL Microbiology - Last 24 Hours (Table) 01/03/22 15:44 Blood Culture - Preliminary Blood No Growth after 48 hours 01/03/22 15:04 Blood Culture - Preliminary Blood No Growth after 48 hours Assessment and Plan Plan: Altered mental status, currently under investigation. The patient's CAT scan of the brain showed no acute abnormalities and that showed old stroke with cerebral atrophy. On today's evaluation, she is arousable and awake and communicating. No focal neurological deficits. Clinically more alert compared to yesterday, nevertheless, she remains to be confused. The Brain Was Negative. No Evidence of Any Septicemia. She underwent hemodialysis and during her last hemodialysis the patient did not require any pressors. Mental status is appropriate for now. Neurology is on the case. EEG showed no evidence of any seizure. CAT scan of the brain was noted. Carotid Dopplers showed no evidence of any hemodynamically significant stenosis. The patient is going to have an MRI of the brain. Clinically, the patient is still altered. Exact cause remains not clear. Suspect CVA. Suspect metabolic factors Hypotension, recovered and the patient is currently on Midrin. Patient is on no pressors for now End-stage renal disease currently on hemodialysis via a fistula in the right upper extremity, completed hemodialysis yesterday and a repeat hemodialysis will be done today CHF with preserved LV function TAVR for severe aortic stenosis, Questionable abnormality along the tricuspid valve, possible vegetation. We'll discuss with cardiology Volume overload with increased edema in lower extremities bilaterally Fall/syncope without any major facial or spine trauma. The patient has some bruising over the face on the right Hyperlipidemia History of hypertension Coronary artery disease with previous cardiac intervention and stenting Diabetes mellitus Gout COPD Previous history of COVID 19 infection in February 2022 Plan MRI of the brain was stable and once the patient is able to lay down in the machine Hemodialysis per nephrology Septic workup was negative and blood cultures were negative and the vancomycin can be discontinued Cardiology stated that there is no indication for the ALLEY Complete hemodialysis today, she underwent hemodialysis with the assistance of some pressors yesterday and she is currently off pressors Continues to be confused and she continues to have some encephalopathy, workup is in progress Midodrine was added for hypotension Keep antihypertensive medications on hold Keep the patient in the ICU for now Consult neurology regarding her ongoing encephalopathy and mental status change. She is a full CODE STATUS. Her oxygenation is stable. Transfer this patient to a medical surgical floor today.
[2022-01-06 11:29] LABS: Glucose,Whole Blood 105 mg/dL (70-110)
--- NOTE | 2022-01-06 13:19 | P.PN ---
Subjective Progress Note Date: 01/06/22 Principal diagnosis: This is a 81-year-old female on dialysis Saturday was admitted with a fall after feeling weak and likely hypotensive. She has underlying dementia for the last 4 months patient's daughter was in the room and give me some of the history. No nausea vomiting. Appetite is poor. She has history of moderate tricuspid regurg pulmonary hypertension and diastolic congestive heart failure This morning she is awake alert and alert and seems to be oriented. Objective - Vital Signs Vital signs: Vital Signs Temp 97.8 F 01/06/22 08:00 Pulse 96 01/06/22 12:00 Resp 27 H 01/06/22 12:00 BP 99/73 01/06/22 12:00 Pulse Ox 94 L 01/06/22 12:00 FiO2 Intake & Output 01/05/22 01/06/22 01/06/22 18:59 06:59 18:59 Intake Total 1020 775 170 Output Total 2500 Balance -1480 775 170 Weight 94.4 kg Intake: IV 0 0 0 0.9 @ 20 0 0 0 Oral 720 775 170 Hemodialysis 300 Output: Hemodialysis 2500 Other: # Voids 0 On examination awake alert oriented to person place. HEENT exam no JVP neck is supple no facial asymmetry Lungs are significant for bilateral fine crackles not clear but cough, a chest x-ray was suggestive congestive heart failure on 01/03/2022 Heart sounds unremarkable for any murmur rub gallop Abdomen soft nontender Extremity exam was trace edema Neurologically awake alert seems to be oriented moves all her extremities. - Labs CBC & Chem 7: 01/05/22 07:39 01/06/22 07:35 Labs: Abnormal Lab Results - Last 24 Hours (Table) 01/05/22 01/06/22 Range/Units 14:34 07:35 Creatinine 3.83 H (0.52-1.04) mg/dL Vitamin B12 1580.0 H (200.0-944.0) pg/mL Microbiology - Last 24 Hours (Table) 01/03/22 15:44 Blood Culture - Preliminary Blood No Growth after 48 hours 01/03/22 15:04 Blood Culture - Preliminary Blood No Growth after 48 hours Assessment and Plan Assessment: Impression 1. ESRD on dialysis Saturday 2. Admitted with fall after feeling weak likely hypotensive. 3. Mental status changes improving underlying dementia. Probably back to baseline. 4. History of TAB or for severe aortic stenosis 5. Congestive heart failure. 6. Mildly hypotensive on milligrams Recommendation 1. Check bladder scan because of slight suprapubic discomfort. 2. Maintain blood pressure, maintain minute 10 3. Check orthostatic blood pressure. 4. Watch for congestive heart
--- NOTE | 2022-01-06 14:14 | P.PN ---
Subjective Progress Note Date: 01/06/22 The patient is an 81-year-old female who is seen in neurologic follow- up on January 06, 2022, via teleneurology. This morning, the patient is reclining in the bed. She reports sleeping okay. According to her nurse, who is at the bedside. Patient was able to feed herself this morning. She does continue to have a cough. The patient denies headache. She continues to be intermittently confused. She was unable to tolerate the MRI of her brain, because of episodes of coughing. There is no family present in the room at the time of the evaluation. Further history is obtained entirely from the chart. In review of the chart and other notes, it is reported that the patient has a medical history of stroke, diabetes mellitus, hypertension, ESR on dialysis, CAD s/p stent, heart failure. She reportedly presented to the emergency department after a fall. Neurology is consulted for ongoing confusion and concern for septic emboli. Some of the history is obtained from medical records. Per ED note, patient daughter notified them that patient fell in the bathroom due to tripping on her walker, hitting her head. The fall was unwitnessed and no loss of consciousness. She was complaining of intermittent chest pain after fall. She was confused during this hospital visit but seems to be somewhat improving after dialysis. During this hospital visit, she has hypotension as low as 70's to 80's systolic and diastolic as low as 40's to 50's. She had 2D echo and showed Echo density around the right coronary cusp with what appears to be some extension around the tricuspid valve. Cannot exclude annular abscess/endocarditis. Some of the work-up during this hospital visit consisted of: I personally reviewed CT head and agree that her strokes are old and were seen in 2019. She had CT head which is reported as cerebral atrophy and old right hemipsheric cortical infarcts. No acute intracranial abnormality. No change compared to old exam. CT cervical spine is reported as spondylotic changess in the cervical spine. No fracture. No change. 2D echo is reported and Left EF 40%, moderately dilated right ventricle. Severely dilated left atrium. Echo density around the right coronary cusp with what appears to be some extension around the tricuspid valve. Cannot exclude a nnular abscess/endocarditis. Moderate to severe tricuspid regurgitation. Blood culture is no growth after hours. Objective - Vital Signs Vital signs: Vital Signs Temp 97.3 F L 01/05/22 16:00 Pulse 103 H 01/06/22 07:00 Resp 32 H 01/06/22 07:00 BP 92/64 01/06/22 07:00 Pulse Ox 96 01/06/22 07:00 FiO2 Intake & Output 01/05/22 01/06/22 01/06/22 18:59 06:59 18:59 Intake Total 1020 775 50 Output Total 2500 Balance -1480 775 50 Weight 94.4 kg Intake: IV 0 0 0.9 @ 20 0 0 Oral 720 775 50 Hemodialysis 300 Output: Hemodialysis 2500 Other: # Voids 0 - Exam Gen.: The patient is reclining in the bed. Her breakfast tray is in front of her. She reports that the food was "wonderful". Heart: Regular rate and rhythm Neurological examination Mental status: The patient does not wish to cooperate with the examination. She is able to accurately state her name, date of , age, location. Cranial nerves: 2-12 grossly intact, with the exception of mild right facial weakness Motor: Right upper extremity strength is diminished as compared to the left. Further neurologic examination not carried out because of lack of cooperation of patient Updated labs are reviewed. There is no indication of a treatable etiology for the the patient's encephalopathy. B12, folate, ammonia, TSH are all within normal limits - Labs CBC & Chem 7: 01/05/22 07:39 01/06/22 07:35 Labs: Abnormal Lab Results - Last 24 Hours (Table) 01/05/22 01/05/22 01/06/22 Range/Units 11:21 14:34 07:35 Creatinine 3.83 H (0.52-1.04) mg/dL POC Glucose (mg/dL) 130 H (70-110) mg/dL Vitamin B12 1580.0 H (200.0-944.0) pg/mL Microbiology - Last 24 Hours (Table) 01/03/22 15:44 Blood Culture - Preliminary Blood No Growth after 48 hours 01/03/22 15:04 Blood Culture - Preliminary Blood No Growth after 48 hours Assessment and Plan Assessment: 1. Encephalopathy of unknown etiology. The patient was unable to tolerate MRI. Possible concern for enodcarditis/abscess. Rule out septic emboli---mentation is improving Right coronary cusp with what appears to be some extension around the tricuspid valve. Cannot exclude annular abscess/endocarditis. on 2D echo 2. Hypotensive episode 3. Old stroke over the right hemisphere (CT unchanged since 2019). Over right frontal, parietal, right parietal/temporal region 4. ESRD on dialysis 5. DM 6. History of hypertension but having hypotensive episode 7. CAD s/p stent 8. Cardiomyopathy 9. Hx of aortic valve replacement (2018) 10. Previous hx of COVID-19 Plan: 1. Transesophageal echocardiogram to further evaluate possible cardiac vegetation and potential septic emboli (cardiology note reviewed, in light of negative blood cultures, they feel ALLEY is not indicated) 2. Physical and occupational therapy evaluations 3. Continue neuro checks 4. Check orthostatic vitals Time with Patient: Less than 30 (spent 25 minutes examining the patient, revie wing lab work, imaging and preparing a note)
[2022-01-06] MEDS: NOREPINEPHRINE 4 MG in SODIUM CHLORIDE 0.9% 250 ML IV SCH ×3 (18:40→20:50)
[2022-01-06 20:15] LABS: Glucose,Whole Blood 144 mg/dL (70-110)
[2022-01-06] MEDS: MAGNESIUM OXIDE 400 MG TAB PO SCH (20:47)
[2022-01-06] MEDS: MULTIVITAMINS, THERA 1 EACH TAB PO SCH (20:47)
[2022-01-06] MEDS: ASPIRIN 81 MG PO SCH (20:47)
[2022-01-06] MEDS: PANTOPRAZOLE 40 MG TABLET PO SCH (20:47)
[2022-01-06] MEDS: allopurinoL 100 MG TAB PO SCH (20:47)
[2022-01-06] MEDS: FLUTICASONE 50MCG/SPRAY NASAL 16GM EA NOSTRIL SCH (20:48)
[2022-01-06] MEDS: PRAVASTATIN SODIUM 20 MG TAB PO SCH (20:48)
[2022-01-07 08:01] LABS: Glucose,Whole Blood 98 mg/dL (70-110)
[2022-01-07] MEDS: HEPARIN SODIUM,PORCINE/PF 5,000 UNIT/0.5 ML SYRINGE SQ SCH ×2 (08:54→20:13)
[2022-01-07] MEDS: MIDODRINE 5 MG TAB PO SCH ×3 (08:55→17:21)
[2022-01-07] MEDS ORDERED: VANCOMYCIN 1,500 MG in SODIUM CHLORIDE 0.9% 250 ML IVPB ONE (09:00)
[2022-01-07] MEDS: SYMBICORT 160-4.5 MCG INHALER INHALATION SCH ×2 (09:17→20:49)
[2022-01-07 11:15] LABS: Glucose,Whole Blood 126 mg/dL (70-110)
--- NOTE | 2022-01-07 11:51 | P.PN ---
Subjective Progress Note Date: 01/07/22 Principal diagnosis: This is a 81-year-old female on dialysis Saturday was admitted with a fall after feeling weak and likely hypotensive. She has underlying dementia for the last 4 months patient's daughter was in the room and give me some of the history. No nausea vomiting. Appetite is poor. He is extremely weak barely able to turn around to be examined She has history of moderate tricuspid regurg pulmonary hypertension and diastolic congestive heart failure This morning she is awake alert and alert and disoriented which is slightly worse than yesterday Objective - Vital Signs Vital signs: Vital Signs Temp 98 F 01/07/22 05:00 Pulse 96 01/07/22 05:00 Resp 16 01/07/22 05:00 BP 96/50 01/07/22 05:00 Pulse Ox 98 01/07/22 05:00 FiO2 Intake & Output 01/06/22 01/07/22 01/07/22 18:59 06:59 18:59 Intake Total 170 780 Balance 170 780 Weight 99.5 kg Intake: IV 0 240 0.9 @ 20 0 240 Oral 170 540 Other: Voiding Method Diaper Diaper Diaper # Voids 1 On examination she is profoundly weak awake but disoriented No facial asymmetry noted Lungs are significant and occasional coarse crackle at bases with very poor air entry Heart sounds unremarkable Abdomen soft nontender 2+ edema Neurologically awake alert but disoriented and profoundly weak - Labs CBC & Chem 7: 01/05/22 07:39 01/07/22 06:23 Labs: Abnormal Lab Results - Last 24 Hours (Table) 01/06/22 01/07/22 01/07/22 Range/Units 20:13 06:23 11:13 Creatinine 4.53 H (0.52-1.04) mg/dL POC Glucose (mg/dL) 144 H 126 H (70-110) mg/dL Microbiology - Last 24 Hours (Table) 01/03/22 15:44 Blood Culture - Preliminary Blood No Growth after 72 hours 01/03/22 15:04 Blood Culture - Preliminary Blood No Growth after 72 hours Assessment and Plan Assessment: Impression 1. ESRD on dialysis Saturday 2. Admitted with fall after feeling weak likely hypotensive. 3. Mental status changes improving underlying dementia. Fluctuating level of orientation 4. History of TAVR or for severe aortic stenosis 5. Congestive heart failure. A 60 on 1012 suggestive of heart failure 6. Mildly hypotensive on Midrin 10 mg 3 times a day. Her hemoglobin is 14 and this should help her blood pressure Recommendation 1. Discontinue vancomycin as is no evidence of infection 2. Will dialyze her tomorrow attempt ultrafiltration of 2.5 L 3. Watch for congestive heart 4. Discontinue allopurinol unless she has history of recurrent gout
--- NOTE | 2022-01-07 12:30 | P.PN ---
Subjective Progress Note Date: 01/07/22 81-year-old female patient with end-stage renal disease was having some difficulties with hypotension and altered mentation on the medical floor on the ICU consultation was requested. I came to see the patient and the patient was having borderline hypotension and the systolic blood pressure was ranging between 80 and 100 mmHg. She was arousable. Clinically however she was altered. She was unable to answer questions appropriately. She is mentally on hemodialysis 3 times a week Wednesdays and Fridays as scheduled and the patient has a functioning AV fistula in the right upper extremity. The patient was at home and she had a episode of fall/syncope. She sustained a trauma to her facial area. No reported seizure activity. When she came into the emergency, she was noted to have a lower blood pressure. She was taking medication at home and this included a combination of metoprolol and losartan. She is known to have diastolic heart failure. Left ejection fraction is preserved. She is known to have previous history of aortic valve stenosis that she has undergone a previous TAVR catheter procedure. No fever. No chills. No night sweats. While undergoing hemodialysis, the patient became more agitated. She was given a dose of Ativan 1 mg which made her more lethargic. Based on this, and ICU consultation was requested. The workup for now has included a chest x-ray that showed cardiomegaly and mild pulmonary vascular congestion. Otherwise no other significant abnormalities noted. No airspace disease. No consolidation. No lung collapse. No pneumothorax. The blood work shows a white cell count of 7.6 with a hemoglobin 12.5 and a platelet count of 120. The electrode from yesterday showed a BUN of 42 with a creatinine of 4.79. Sodium level was at 134 and the potassium level was at 4.6. Serum bicarb is at 28. Blood gas was done on 832% FiO2 and the patient's pH was 7.44 with episodes of 47 and pO2 of 164. The CAT scan of the face that was done in emergency department showed no evidence of any traumatic fracture involving the facial bones. X-ray of the lumbar and thoracic spine was done that shows spondylitic changes involving the L4-L5 spine and no acute fracture involving the thoracic and lumbar spine. CAT scan of the head of the cervical spine showed no evidence of any acute abnormalities. There was some cerebral atrophy and old right he mispheric cortical infarct. No evidence of any acute bleeding. The patient was afebrile. The patient was seen by the A team and the patient was given a bolus of 450 mL of fluid and her blood pressures under better control for now. She does have extensive edema in the lower extremities in the thighs and some in that upper extremity. She follows some occasional commands. She is still lethargic and confused at this point in time without any significant agitation. 01/04 2022, the patient remains quite lethargic and arousable. Upon stimulation, she wakes up and she follows commands and answers questions. Nevertheless, once left unstimulated, she will go down and relax and sleep. Her blood pressure still borderline. Her systolic blood pressure has been in the low 80s. The patient has extensive third spacing in extracellular edema and the patient is going to need hemodialysis today. Blood pressure is obviously concerned and would like to support the blood transfusion is needed if needed. Meanwhile, suspected an underlying septic event. Given a dose of vancomycin yesterday pending cultures. The white cell count of 6.15.3, platelet count of 123, blood gas from yesterday was adequate. His sodium level is at 134 with a potassium level of 4.5, knee and is a 49 with a creatinine of 5.1. Cultures are negative. Troponins were minimally elevated. ProBNP level is positive at 31,000. Note that she originally came into the hospital because of a fall/syncope. No skeletal injuries. Echocardiogram was ordered and it is also still pending for now. Meanwhile, we will going to proceed with dialysis and will try to do some 3 L of ultrafiltration if possible. Her pulse ox is 97% while her being on 2 L of action by nasal cannula. She passed her swallow and her appetite is poor oral intake is very much minimal or diminished at this point in time. The antihypertensive medication has been discontinued or placed on hold. 01/05/2022, the patient is more awake and alert. She is communicating. She underwent hemodialysis yesterday and a total of 2 L of fluid was removed. She did require pressors during the process and the patient was taken off norepinephrine at that A.m. this morning. She is currently on Lopressor speech is currently on midregion at a dose of 10 mg 3 times a day. Meanwhile, septic workup was done. The patient was given a dose of vancomycin. Blood cultures have been negative. The white cell count is still at 7.9. Resident exercise at all stable. Vancomycin is at 23. She is afebrile. She is on oxygen at 2 L nasal cannula with a pulse ox of 96%. No focal neurological deficits. Echo was done on 01/04/2022 and that is also consistent with mild LV dysfunction with an ejection fraction of 40% moderate RV dilatation and echodensity on the right coronary cusp extending to the tricuspid valve. ALLEY should be considered. 01/06/2022, the patient is calm and comfortable on no pressors. Her blood pressures remain soft. Noted the patient underwent hemodialysis yesterday and she did not require pressors during her hemodialysis process. She is resting comfortably in bed. She is currently on midodrine at a dose of 10 mg 3 times a day. Nephrology is on the case. [employer] on the case. We raised the possibility of her needing a ALLEY and cardiology declines due to lack of cardiac indication for the procedure. In terms of cultures, all of his cultures came back negative I think it's reasonable to discontinue the vancomycin for now. She remains on oxygen at 2 L/m nasal cannula. Echocardiogram was noted, she has mild LV dysfunction and ejection fraction of 40%, questionable echodensity in the right coronary cusp extending into the tricuspid valve. The patient has no other new labs from today. Her creatinine today is 3.8. Tolerating diet. Still having episodes of coughing fits [place] oxygenation is essentially within normal limits. The carotid Dopplers showed no evidence of any hemodynamically significant stenosis. The patient had a 30% stenosis on the left. There was an anterograde flow in the vertebrobasilar system. Her EEG showed no evidence of any seizure. The patient was also seen by neurology and MRI of the brain was ordered due to consideration of a septic emboli. 01/07/2022, the patient got transferred out of the intensive care unit. She is still confused. No cervical hypotension. She is undergoing numerous regular basis. Septic workup has been negative. Neuro workup is also been negative. Objective - Vital Signs Vital signs: Vital Signs Temp 97.1 F L 01/07/22 11:31 Pulse 89 01/07/22 11:31 Resp 16 01/07/22 11:31 BP 96/62 01/07/22 11:31 Pulse Ox 98 01/07/22 11:31 FiO2 Intake & Output 01/06/22 01/07/22 01/07/22 18:59 06:59 18:59 Intake Total 170 780 Balance 170 780 Weight 99.5 kg Intake: IV 0 240 0.9 @ 20 0 240 Oral 170 540 Other: Voiding Method Diaper Diaper Diaper # Voids 1 - Exam General appearance the patient was lethargic, confused, no significant agitation. Probably she was on the effect of Ativan and somewhat sedated on 2 L O2 nasal cannula with a pulse ox of 95%. Head exam was generally normal. There was no scleral icterus or corneal arcus. Mucous membranes were moist. HEENT: Head is atraumatic, normocephalic. Pupils are equal, round. Sclerae anicteric. Conjunctivae are clear. Mucous membranes of the mouth are moist. Neck is supple. There is no jugular venous distention. No carotid bruit is heard. CHEST EXAMINATION: Bilateral expiratory wheezes. No chest wall tenderness is noted on palpation or with deep breathing. HEART EXAMINATION: Heart regular rate and rhythm. S1, S2 heard. Systolic murmur. No gallops or rub. ABDOMEN: Soft, nontender. Bowel sounds are heard. No organomegaly noted. EXTREMITIES: 2+ peripheral pulses with no evidence of peripheral edema. The patient has a functioning AV fistula in the right upper extremity. NEUROLOGIC EXAMINATION: Patient is arousable, and she would withdraw to painful stimulation in all 4 extremities. She was able to squeeze my fingers using her hands and she was able to wiggle her toes upon command. Pupils are round 2-3 mm in size and reactive to light. No facial asymmetry. - Labs CBC & Chem 7: 01/05/22 07:39 01/07/22 06:23 Labs: Abnormal Lab Results - Last 24 Hours (Table) 01/06/22 01/07/22 01/07/22 Range/Units 20:13 06:23 11:13 Creatinine 4.53 H (0.52-1.04) mg/dL POC Glucose (mg/dL) 144 H 126 H (70-110) mg/dL Microbiology - Last 24 Hours (Table) 01/03/22 15:44 Blood Culture - Preliminary Blood No Growth after 72 hours 01/03/22 15:04 Blood Culture - Preliminary Blood No Growth after 72 hours Assessment and Plan Plan: Altered mental status, currently under investigation. The patient's CAT scan of the brain showed no acute abnormalities and that showed old stroke with cerebral atrophy. On today's evaluation, she is arousable and awake and communicating. No focal neurological deficits. Clinically more alert compared to yesterday, nevertheless, she remains to be confused. The Brain Was Negative. No Evidence of Any Septicemia. She underwent hemodialysis and during her last hemodialysis the patient did not require any pressors. Mental status is appropriate for now. Neurology is on the case. EEG showed no evidence of any seizure. CAT scan of the brain was noted. Carotid Dopplers showed no evidence of any hemodynamically significant stenosis. The patient is going to have an MRI of the brain. Clinically, the patient is still altered. Exact cause remains not clear. Suspect CVA. Suspect metabolic factors. The patient does not fully recovered and she continues to have episodes of confusion Hypotension, recovered and the patient is currently on Midrin. Patient is on no pressors for now End-stage renal disease currently on hemodialysis via a fistula in the right upper extremity, completed hemodialysis yesterday and a repeat hemodialysis will be done today CHF with preserved LV function TAVR for severe aortic stenosis, Questionable abnormality along the tricuspid valve, possible vegetation. We'll discuss with cardiology Volume overload with increased edema in lower extremities bilaterally Fall/syncope without any major facial or spine trauma. The patient has some bruising over the face on the right Hyperlipidemia History of hypertension Coronary artery disease with previous cardiac intervention and stenting Diabetes mellitus Gout COPD Previous history of COVID 19 infection in February 2022 Plan Transferred out of the intensive care unit No active pulmonary or cardiac issue Continues to have episodes of confusion MRI of the brain Hemodialysis per nephrology Septic workup was negative and blood cultures were negative and the vancomycin can be discontinued Cardiology stated that there is no indication for the ALLEY Complete hemodialysis today, she underwent hemodialysis with the assistance of some pressors yesterday and she is currently off pressors Continues to be confused and she continues to have some encephalopathy, workup is in progress Midodrine was added for hypotension Keep antihypertensive medications on hold Keep the patient in the ICU for now Consult neurology regarding her ongoing encephalopathy and mental status change. She is a full CODE STATUS. Her oxygenation is stable. Pulmonary and critical care services will sign off the case
[2022-01-07 17:14] LABS: Glucose,Whole Blood 135 mg/dL (70-110)
[2022-01-07 19:39] LABS: Glucose,Whole Blood 134 mg/dL (70-110)
[2022-01-07] MEDS: PRAVASTATIN SODIUM 20 MG TAB PO SCH (20:13)
[2022-01-07] MEDS: MULTIVITAMINS, THERA 1 EACH TAB PO SCH (20:13)
[2022-01-07] MEDS: allopurinoL 100 MG TAB PO SCH (20:13)
[2022-01-07] MEDS: PANTOPRAZOLE 40 MG TABLET PO SCH (20:13)
[2022-01-07] MEDS: MAGNESIUM OXIDE 400 MG TAB PO SCH (20:13)
[2022-01-07] MEDS: ASPIRIN 81 MG PO SCH (20:13)
[2022-01-07] MEDS: FLUTICASONE 50MCG/SPRAY NASAL 16GM EA NOSTRIL SCH (20:14)
--- NOTE | 2022-01-08 02:24 | P.PN ---
Subjective Progress Note Date: 01/03/22 Patient is a 81-year-old female with a known history of chronic CHF with preserved ejection fraction, coronary artery disease history of stent placement, history of TAVR, moderate pulmonary hypertension and moderate MR, ESRD on hemodialysis Saturday and history of COVID-19 infection February 2020, anxiety depression and previous history of smoking presents to ER status post fall. Patient fell in the bathroom and hitting her head on the way down. Patient states that she fell due to tripping on her walker. Patient otherwise denied any loss of consciousness. Patient is an adequate his kaya. Patient states that she has been having intermittent chest pain since fall. No radiation of the pain. Also complains of back pain and neck pain. Patient has been afebrile. Denies any recent illnesses. CT head and cervical spine showed spondylitic changes in the cervical spine. No fracture. No change. Cerebral atrophy and wall right hemispheric cortical infarcts. No acute intracranial abnormality. No change from prior study. X-ray of the thoracic spine showed no compression fracture. No acute abnormality noted. X-ray of the lumbar spine shows spondylitic changes and degenerative positivity L4-L5 spondylolisthesis. No acute fracture seen. Chest x-ray showed interstitial fibrotic changes. Small pleural effusions. There is clearing of the bases consolidation left upper lobe compatible exam. Mild heart failure is possible. See clearly please showed no acute fracture traumatic injury of the facial bones. EKG showed sinus rhythm with occasional supraventricular premature complexes. Laboratory data WBC 10.8 hemoglobin 14.1 and platelets 115 Sodium 134 potassium 3.4 Chloride 95 BUN 29 and creatinine 3.11 AST 55 ALT 42 alk phos 161 Troponin 0.104 and 0.117 and 0.107 proBNP [id number] 01/03/2022 Patient is currently very anxious and also hypotensive. Patient was given a do se of Ativan 0.5 mg. Patient was initiated on hemodialysis. Hemodialysis could not be done due to hypotension and pulmonary was consulted. Possible infection was suspected and patient was started on IV antibiotics and oral vancomycin transferred to MICU. Patient denies any complaints of nausea or vomiting. No complaints of chest pain. No headache or dizziness. Patient is very anxious. Review of systems could not be obtained completely. Laboratory data showed WBC 7.6 hemoglobin 12.5 and platelets 120 D-dimer is 2.28 BUN 45 and creatinine 4.87. Troponin 0.073. Current medications reviewed. Objective - Vital Signs Vital signs: Vital Signs Temp 97.0 F L 01/03/22 20:00 Pulse 82 01/03/22 21:00 Resp 14 01/03/22 21:00 BP 96/60 01/03/22 21:00 Pulse Ox 99 01/03/22 21:00 FiO2 Intake & Output 01/03/22 01/03/22 01/04/22 06:59 18:59 06:59 Intake Total 540 118 250 Balance 540 118 250 Weight 94 kg Intake: Intake, IV Titration 250 Amount Vancomycin 1,500 mg In 250 Sodium Chloride 0.9% 250 ml @ 125 mls/hr IVPB ONCE ONE Rx#:[id number] Oral 540 118 Other: Voiding Method Diaper Diaper # Voids 0 0 0 - Exam PHYSICAL EXAMINATION: Patient is lying in the bed comfortably, no acute distress, awake alert and oriented but seems to be confused... HEENT: Normocephalic. Neck is supple. Pupils reactive. Nostrils clear. Oral cavity is moist. Neck reveals no JVD, carotid bruits, or thyromegaly. CHEST EXAMINATION: Trachea is central. Symmetrical expansion. Lung burk clear to auscultation and percussion. CARDIAC: Normal S1, S2 with no gallops. No murmurs ABDOMEN: Soft. Bowel sounds present. Nontender. No organomegaly. No abdominal bruits. Extremities: Bilateral 2+ pedal edema. No clubbing or cyanosis Neurologically awake, alert, oriented x2-3 with well-coordinated movements. No focal deficits noted Skin: No rash or skin lesions. Psychiatric: Coperative. Nonsuicidal, Musculoskeletal: No joint swelling or deformity. Normal range of motion. - Labs CBC & Chem 7: 01/05/22 07:39 01/07/22 06:23 Labs: Abnormal Lab Results - Last 24 Hours (Table) 01/03/22 01/03/22 01/03/22 Range/Units 08:54 08:54 14:32 RDW 20.5 H (11.5-15.5) % Plt Count 134 L (150-450) k/uL Lymphocytes # (1.0-4.8) k/uL D-Dimer (<0.60) mg/L FEU ABG pCO2 (35-45) mmHg ABG pO2 (83-108) mmHg ABG HCO3 (21-25) mmol/L ABG Total CO2 (19-24) mmol/L ABG O2 Saturation (94-97) % Sodium 134 L (137-145) mmol/L Chloride 92 L (98-107) mmol/L BUN 42 H (7-17) mg/dL Creatinine 4.79 H (0.52-1.04) mg/dL Glucose (74-99) mg/dL POC Glucose (mg/dL) 129 H (70-110) mg/dL Troponin I (0.000-0.034) ng/mL 01/03/22 01/03/22 01/03/22 Range/Units 14:49 14:59 14:59 RDW 20.4 H (11.5-15.5) % Plt Count 120 L (150-450) k/uL Lymphocytes # 0.6 L (1.0-4.8) k/uL D-Dimer 2.28 H (<0.60) mg/L FEU ABG pCO2 47 H (35-45) mmHg ABG pO2 164 H (83-108) mmHg ABG HCO3 32 H (21-25) mmol/L ABG Total CO2 33 H (19-24) mmol/L ABG O2 Saturation 98.9 H (94-97) % Sodium (137-145) mmol/L Chloride (98-107) mmol/L BUN (7-17) mg/dL Creatinine (0.52-1.04) mg/dL Glucose (74-99) mg/dL POC Glucose (mg/dL) (70-110) mg/dL Troponin I (0.000-0.034) ng/mL 01/03/22 01/03/22 Range/Units 14:59 14:59 RDW (11.5-15.5) % Plt Count (150-450) k/uL Lymphocytes # (1.0-4.8) k/uL D-Dimer (<0.60) mg/L FEU ABG pCO2 (35-45) mmHg ABG pO2 (83-108) mmHg ABG HCO3 (21-25) mmol/L ABG Total CO2 (19-24) mmol/L ABG O2 Saturation (94-97) % Sodium 134 L (137-145) mmol/L Chloride 94 L (98-107) mmol/L BUN 45 H (7-17) mg/dL Creatinine 4.87 H (0.52-1.04) mg/dL Glucose 135 H (74-99) mg/dL POC Glucose (mg/dL) (70-110) mg/dL Troponin I 0.073 H* (0.000-0.034) ng/mL Assessment and Plan Assessment: Acute altered mental status. CT head negative for acute CVA. Hypotension and possible underlying sepsis is also a consideration. Status post mechanical fall. Patient tripped over her walker and fell on the floor hitting her head. Acute on chronic CHF with preserved ejection fraction ESRD on hemodialysis Saturday and Saturday Elevated troponin level likely due to demand ischemia and CKD History of TAVR in February 2018 Moderate MR and moderate pulmonary hypertension. Mild transaminitis Hypokalemia Coronary artery history of stent placement Bilateral carotid endarterectomy Hypertension Hyperlipidemia Diabetes type 2 diet controlled Anxiety/depression Persistent smoking DVT prophylaxis with heparin subcu Plan: Patient be transferred to MICU. Started on vancomycin and made pressor support. Patient will continue on telemetry monitoring. 2D echocardiogram was ordered. Cardiology and nephrology is on board. Continue with aspirin and statins and metoprolol and other home medications. DuoNebs as needed. Continued pain management and follow-up closely. Time with Patient: Greater than 30
--- NOTE | 2022-01-08 02:27 | P.PN ---
Subjective Progress Note Date: 01/04/22 Patient is a 81-year-old female with a known history of chronic CHF with preserved ejection fraction, coronary artery disease history of stent placement, history of TAVR, moderate pulmonary hypertension and moderate MR, ESRD on hemodialysis Saturday and history of COVID-19 infection February 2020, anxiety depression and previous history of smoking presents to ER status post fall. Patient fell in the bathroom and hitting her head on the way down. Patient states that she fell due to tripping on her walker. Patient otherwise denied any loss of consciousness. Patient is an adequate his kaya. Patient states that she has been having intermittent chest pain since fall. No radiation of the pain. Also complains of back pain and neck pain. Patient has been afebrile. Denies any recent illnesses. CT head and cervical spine showed spondylitic changes in the cervical spine. No fracture. No change. Cerebral atrophy and wall right hemispheric cortical infarcts. No acute intracranial abnormality. No change from prior study. X-ray of the thoracic spine showed no compression fracture. No acute abnormality noted. X-ray of the lumbar spine shows spondylitic changes and degenerative positivity L4-L5 spondylolisthesis. No acute fracture seen. Chest x-ray showed interstitial fibrotic changes. Small pleural effusions. There is clearing of the bases consolidation left upper lobe compatible exam. Mild heart failure is possible. See clearly please showed no acute fracture traumatic injury of the facial bones. EKG showed sinus rhythm with occasional supraventricular premature complexes. Laboratory data WBC 10.8 hemoglobin 14.1 and platelets 115 Sodium 134 potassium 3.4 Chloride 95 BUN 29 and creatinine 3.11 AST 55 ALT 42 alk phos 161 Troponin 0.104 and 0.117 and 0.107 proBNP [id number] 01/03/2022 Patient is currently very anxious and also hypotensive. Patient was given a do se of Ativan 0.5 mg. Patient was initiated on hemodialysis. Hemodialysis could not be done due to hypotension and pulmonary was consulted. Possible infection was suspected and patient was started on IV antibiotics and oral vancomycin transferred to MICU. Patient denies any complaints of nausea or vomiting. No complaints of chest pain. No headache or dizziness. Patient is very anxious. Review of systems could not be obtained completely. Laboratory data showed WBC 7.6 hemoglobin 12.5 and platelets 120 D-dimer is 2.28 BUN 45 and creatinine 4.87. Troponin 0.073. 01/04/2022 Patient is currently in the MICU. Lethargic but arousable. Able to follow simple commands. Currently still hypotensive with blood pressure 80s. Patient is being current on vancomycin and also will be started on pressor support. Patient will need hemodialysis. Echocardiogram report is pending. Nephrology is planning for hemodialysis today. Laboratory pressure WBC 6.8 hemoglobin 13.3 and platelets 123 Sodium 134 potassium 4.5 chloride 95 bicarb is 29 BUN 49 creatinine 5.14 and procalcitonin level is 0.6 Acute hepatitis panel is negative Patient is being continued on antibiotics in the form of vancomycin. Current medications reviewed. Objective - Vital Signs Vital signs: Vital Signs Temp 97.3 F L 01/04/22 16:00 Pulse 89 01/04/22 19:00 Resp 18 01/04/22 19:00 BP 100/50 01/04/22 19:00 Pulse Ox 99 01/04/22 19:00 FiO2 Intake & Output 01/04/22 01/04/22 01/05/22 06:59 18:59 06:59 Intake Total 490 770 20 Output Total 1999 Balance 490 -1230 20 Weight 93.6 kg Intake: IV 240 220 20 0.9 @ 20 240 220 20 Intake, IV Titration 250 250 Amount Vancomycin 1,500 mg In 250 250 Sodium Chloride 0.9% 250 ml @ 125 mls/hr IVPB ONCE ONE Rx#:[id number] Hemodialysis 300 Output: Hemodialysis 2000 Other: # Voids 0 0 0 - Exam PHYSICAL EXAMINATION: Patient is lying in the bed comfortably, no acute distress, awake alert and oriented but seems to be confused... HEENT: Normocephalic. Neck is supple. Pupils reactive. Nostrils clear. Oral cavity is moist. Neck reveals no JVD, carotid bruits, or thyromegaly. CHEST EXAMINATION: Trachea is central. Symmetrical expansion. Lung burk clear to auscultation and percussion. CARDIAC: Normal S1, S2 with no gallops. No murmurs ABDOMEN: Soft. Bowel sounds present. Nontender. No organomegaly. No abdominal bruits. Extremities: Bilateral 2+ pedal edema. No clubbing or cyanosis Neurologically awake, alert, oriented x2-3 with well-coordinated movements. No focal deficits noted Skin: No rash or skin lesions. Psychiatric: Coperative. Nonsuicidal, Musculoskeletal: No joint swelling or deformity. Normal range of motion. - Labs CBC & Chem 7: 01/05/22 07:39 01/07/22 06:23 Labs: Abnormal Lab Results - Last 24 Hours (Table) 01/04/22 01/04/22 01/04/22 Range/Units 06:35 07:04 07:04 RDW 20.1 H (11.5-15.5) % Plt Count 123 L (150-450) k/uL Lymphocytes # 0.6 L (1.0-4.8) k/uL Sodium 134 L (137-145) mmol/L Chloride 95 L (98-107) mmol/L BUN 49 H (7-17) mg/dL Creatinine 5.14 H (0.52-1.04) mg/dL POC Glucose (mg/dL) 160 H (70-110) mg/dL Procalcitonin (0.02-0.09) ng/mL 01/04/22 01/04/22 Range/Units 07:04 16:39 RDW (11.5-15.5) % Plt Count (150-450) k/uL Lymphocytes # (1.0-4.8) k/uL Sodium (137-145) mmol/L Chloride (98-107) mmol/L BUN (7-17) mg/dL Creatinine (0.52-1.04) mg/dL POC Glucose (mg/dL) 115 H (70-110) mg/dL Procalcitonin 0.60 H (0.02-0.09) ng/mL Microbiology - Last 24 Hours (Table) 01/03/22 15:44 Blood Culture - Preliminary Blood No Growth after 24 hours 01/03/22 15:04 Blood Culture - Preliminary Blood No Growth after 24 hours Assessment and Plan Assessment: Acute altered mental status. CT head negative for acute CVA. Hypotension and possible underlying sepsis is also a consideration. Status post mechanical fall. Patient tripped over her walker and fell on the floor hitting her head. Acute on chronic CHF with preserved ejection fraction ESRD on hemodialysis Saturday and Saturday Elevated troponin level likely due to demand ischemia and CKD History of TAVR in February 2018 Moderate MR and moderate pulmonary hypertension. Mild transaminitis Hypokalemia Coronary artery history of stent placement Bilateral carotid endarterectomy Hypertension Hyperlipidemia Diabetes type 2 diet controlled Anxiety/depression Persistent smoking DVT prophylaxis with heparin subcu Plan: Patient be transferred to MICU. Started on vancomycin and made pressor support. Patient will continue on telemetry monitoring. 2D echocardiogram was ordered. Cardiology and nephrology is on board. Continue with aspirin and statins and metoprolol and other home medications. DuoNebs as needed. Continued pain management and follow-up closely. Time with Patient: Greater than 30
--- NOTE | 2022-01-08 02:29 | P.PN ---
Subjective Progress Note Date: 01/05/22 Patient is a 81-year-old female with a known history of chronic CHF with preserved ejection fraction, coronary artery disease history of stent placement, history of TAVR, moderate pulmonary hypertension and moderate MR, ESRD on hemodialysis Saturday and history of COVID-19 infection February 2020, anxiety depression and previous history of smoking presents to ER status post fall. Patient fell in the bathroom and hitting her head on the way down. Patient states that she fell due to tripping on her walker. Patient otherwise denied any loss of consciousness. Patient is an adequate his kaya. Patient states that she has been having intermittent chest pain since fall. No radiation of the pain. Also complains of back pain and neck pain. Patient has been afebrile. Denies any recent illnesses. CT head and cervical spine showed spondylitic changes in the cervical spine. No fracture. No change. Cerebral atrophy and wall right hemispheric cortical infarcts. No acute intracranial abnormality. No change from prior study. X-ray of the thoracic spine showed no compression fracture. No acute abnormality noted. X-ray of the lumbar spine shows spondylitic changes and degenerative positivity L4-L5 spondylolisthesis. No acute fracture seen. Chest x-ray showed interstitial fibrotic changes. Small pleural effusions. There is clearing of the bases consolidation left upper lobe compatible exam. Mild heart failure is possible. See clearly please showed no acute fracture traumatic injury of the facial bones. EKG showed sinus rhythm with occasional supraventricular premature complexes. Laboratory data WBC 10.8 hemoglobin 14.1 and platelets 115 Sodium 134 potassium 3.4 Chloride 95 BUN 29 and creatinine 3.11 AST 55 ALT 42 alk phos 161 Troponin 0.104 and 0.117 and 0.107 proBNP 16446 01/03/2022 Patient is currently very anxious and also hypotensive. Patient was given a do se of Ativan 0.5 mg. Patient was initiated on hemodialysis. Hemodialysis could not be done due to hypotension and pulmonary was consulted. Possible infection was suspected and patient was started on IV antibiotics and oral vancomycin transferred to MICU. Patient denies any complaints of nausea or vomiting. No complaints of chest pain. No headache or dizziness. Patient is very anxious. Review of systems could not be obtained completely. Laboratory data showed WBC 7.6 hemoglobin 12.5 and platelets 120 D-dimer is 2.28 BUN 45 and creatinine 4.87. Troponin 0.073. 01/04/2022 Patient is currently in the MICU. Lethargic but arousable. Able to follow simple commands. Currently still hypotensive with blood pressure 80s. Patient is being current on vancomycin and also will be started on pressor support. Patient will need hemodialysis. Echocardiogram report is pending. Nephrology is planning for hemodialysis today. Laboratory pressure WBC 6.8 hemoglobin 13.3 and platelets 123 Sodium 134 potassium 4.5 chloride 95 bicarb is 29 BUN 49 creatinine 5.14 and procalcitonin level is 0.6 Acute hepatitis panel is negative Patient is being continued on antibiotics in the form of vancomycin. 01/05/2022 Patient is currently in MICU. Underwent hemodialysis yesterday with 2 L of ultrafiltration. Patient was on pressor support and has been discontinued this morning. Currently patient is more awake. Also started on midodrine 10 mg 3 times daily. Cultures have been negative. Patient is being continued on antibiotics in the form of vancomycin. No leukocytosis. Patient is currently requiring 2 L oxygen via nasal cannula. 2D echocardiogram showed consistent with mild LV dysfunction with ejection fraction 40% moderate RV dilation and echodensity on the right coronary cusp extending to the tricuspid valve. Cardiology nephrology and pulmonary is on board. Laboratory test showed WBC 7.9 hemoglobin 14.0 and platelets 110 BUN 34 and creatinine 4.28 Current medications reviewed. Objective - Vital Signs Vital signs: Vital Signs Temp 97.3 F L 01/05/22 16:00 Pulse 88 01/05/22 19:00 Resp 16 01/05/22 19:00 BP 99/64 01/05/22 19:00 Pulse Ox 96 01/05/22 20:57 FiO2 Intake & Output 01/05/22 01/05/22 01/06/22 06:59 18:59 06:59 Intake Total 315 1020 0 Output Total 2500 Balance 315 -1480 0 Weight 95.6 kg Intake: IV 80 0 0 0.9 @ 20 80 0 0 Oral 235 720 Hemodialysis 300 Output: Hemodialysis 2500 Other: # Voids 0 0 # Bowel Movements 1 - Exam PHYSICAL EXAMINATION: Patient is lying in the bed comfortably, no acute distress, awake alert and oriented . HEENT: Normocephalic. Neck is supple. Pupils reactive. Nostrils clear. Oral cavity is moist. Neck reveals no JVD, carotid bruits, or thyromegaly. CHEST EXAMINATION: Trachea is central. Symmetrical expansion. Lung burk clear to auscultation and percussion. CARDIAC: Normal S1, S2 with no gallops. No murmurs ABDOMEN: Soft. Bowel sounds present. Nontender. No organomegaly. No abdominal bruits. Extremities: Bilateral 2+ pedal edema. No clubbing or cyanosis Neurologically awake, alert, oriented x2-3 with well-coordinated movements. No focal deficits noted Skin: No rash or skin lesions. Psychiatric: Coperative. Nonsuicidal, Musculoskeletal: No joint swelling or deformity. Normal range of motion. - Labs CBC & Chem 7: 01/05/22 07:39 01/07/22 06:23 Labs: Abnormal Lab Results - Last 24 Hours (Table) 01/05/22 01/05/22 01/05/22 Range/Units 07:39 07:39 11:21 Hct 46.9 H (34.0-46.0) % MCHC 30.0 L (31.0-37.0) g/dL RDW 20.3 H (11.5-15.5) % Plt Count 110 L (150-450) k/uL Lymphocytes # 0.9 L (1.0-4.8) k/uL Carbon Dioxide 31 H (22-30) mmol/L BUN 34 H (7-17) mg/dL Creatinine 4.28 H (0.52-1.04) mg/dL Glucose 117 H (74-99) mg/dL POC Glucose (mg/dL) 130 H (70-110) mg/dL Microbiology - Last 24 Hours (Table) 01/03/22 15:44 Blood Culture - Preliminary Blood No Growth after 48 hours 01/03/22 15:04 Blood Culture - Preliminary Blood No Growth after 48 hours Assessment and Plan Assessment: Acute altered mental status. CT head negative for acute CVA. Hypotension and possible underlying sepsis is also a consideration.Mentation is improving. Status post mechanical fall. Patient tripped over her walker and fell on the floor hitting her head. Acute on chronic CHF with preserved ejection fraction ESRD on hemodialysis Saturday and Saturday Elevated troponin level likely due to demand ischemia and CKD History of TAVR in February 2018 Moderate MR and moderate pulmonary hypertension. Mild transaminitis Hypokalemia Coronary artery history of stent placement Bilateral carotid endarterectomy Hypertension Hyperlipidemia Diabetes type 2 diet controlled Anxiety/depression Persistent smoking DVT prophylaxis with heparin subcu Plan: Patient be transferred to MICU. Started on vancomycin and was on pressor support. off currently.Blood cultures negative so far. Patient will continue on telemetry monitoring. 2D echocardiogram was ordered. Cardiology and nephrology is on board. Continue with aspirin and statins and metoprolol and other home medications. DuoNebs as needed. Continued pain management and follow-up closely. Time with Patient: Greater than 30
--- NOTE | 2022-01-08 02:31 | P.PN ---
Subjective Progress Note Date: 01/06/22 Patient is a 81-year-old female with a known history of chronic CHF with preserved ejection fraction, coronary artery disease history of stent placement, history of TAVR, moderate pulmonary hypertension and moderate MR, ESRD on hemodialysis Saturday and history of COVID-19 infection February 2020, anxiety depression and previous history of smoking presents to ER status post fall. Patient fell in the bathroom and hitting her head on the way down. Patient states that she fell due to tripping on her walker. Patient otherwise denied any loss of consciousness. Patient is an adequate his kaya. Patient states that she has been having intermittent chest pain since fall. No radiation of the pain. Also complains of back pain and neck pain. Patient has been afebrile. Denies any recent illnesses. CT head and cervical spine showed spondylitic changes in the cervical spine. No fracture. No change. Cerebral atrophy and wall right hemispheric cortical infarcts. No acute intracranial abnormality. No change from prior study. X-ray of the thoracic spine showed no compression fracture. No acute abnormality noted. X-ray of the lumbar spine shows spondylitic changes and degenerative positivity L4-L5 spondylolisthesis. No acute fracture seen. Chest x-ray showed interstitial fibrotic changes. Small pleural effusions. There is clearing of the bases consolidation left upper lobe compatible exam. Mild heart failure is possible. See clearly please showed no acute fracture traumatic injury of the facial bones. EKG showed sinus rhythm with occasional supraventricular premature complexes. Laboratory data WBC 10.8 hemoglobin 14.1 and platelets 115 Sodium 134 potassium 3.4 Chloride 95 BUN 29 and creatinine 3.11 AST 55 ALT 42 alk phos 161 Troponin 0.104 and 0.117 and 0.107 proBNP [id number] 01/03/2022 Patient is currently very anxious and also hypotensive. Patient was given a do se of Ativan 0.5 mg. Patient was initiated on hemodialysis. Hemodialysis could not be done due to hypotension and pulmonary was consulted. Possible infection was suspected and patient was started on IV antibiotics and oral vancomycin transferred to MICU. Patient denies any complaints of nausea or vomiting. No complaints of chest pain. No headache or dizziness. Patient is very anxious. Review of systems could not be obtained completely. Laboratory data showed WBC 7.6 hemoglobin 12.5 and platelets 120 D-dimer is 2.28 BUN 45 and creatinine 4.87. Troponin 0.073. 01/04/2022 Patient is currently in the MICU. Lethargic but arousable. Able to follow simple commands. Currently still hypotensive with blood pressure 80s. Patient is being current on vancomycin and also will be started on pressor support. Patient will need hemodialysis. Echocardiogram report is pending. Nephrology is planning for hemodialysis today. Laboratory pressure WBC 6.8 hemoglobin 13.3 and platelets 123 Sodium 134 potassium 4.5 chloride 95 bicarb is 29 BUN 49 creatinine 5.14 and procalcitonin level is 0.6 Acute hepatitis panel is negative Patient is being continued on antibiotics in the form of vancomycin. 01/05/2022 Patient is currently in MICU. Underwent hemodialysis yesterday with 2 L of ultrafiltration. Patient was on pressor support and has been discontinued this morning. Currently patient is more awake. Also started on midodrine 10 mg 3 times daily. Cultures have been negative. Patient is being continued on antibiotics in the form of vancomycin. No leukocytosis. Patient is currently requiring 2 L oxygen via nasal cannula. 2D echocardiogram showed consistent with mild LV dysfunction with ejection fraction 40% moderate RV dilation and echodensity on the right coronary cusp extending to the tricuspid valve. Cardiology nephrology and pulmonary is on board. Laboratory test showed WBC 7.9 hemoglobin 14.0 and platelets 110 BUN 34 and creatinine 4.28 01/06/2022 Patient is currently resting in the bed comfortably. Off pressor support. Blood pressure has been stable. No complaints of chest pain or shortness of breath. Currently maintained on midodrine 10 mg 3 times daily. Patient is being continued on vancomycin. Cultures have been negative so far. Patient was seen by neurology and MRI of the brain was ordered due to consideration of septic emboli. Laboratory data reviewed. Current medications reviewed. Objective - Vital Signs Vital signs: Vital Signs Temp 97.9 F 01/06/22 14:00 Pulse 86 01/06/22 14:00 Resp 17 01/06/22 14:00 BP 98/56 01/06/22 14:00 Pulse Ox 97 01/06/22 14:00 FiO2 Intake & Output 01/05/22 01/06/22 01/06/22 18:59 06:59 18:59 Intake Total 1020 775 170 Output Total 2500 Balance -1480 775 170 Weight 94.4 kg Intake: IV 0 0 0 0.9 @ 20 0 0 0 Oral 720 775 170 Hemodialysis 300 Output: Hemodialysis 2500 Other: # Voids 0 - Exam PHYSICAL EXAMINATION: Patient is lying in the bed comfortably, no acute distress, awake alert and oriented . HEENT: Normocephalic. Neck is supple. Pupils reactive. Nostrils clear. Oral cavity is moist. Neck reveals no JVD, carotid bruits, or thyromegaly. CHEST EXAMINATION: Trachea is central. Symmetrical expansion. Lung burk clear to auscultation and percussion. CARDIAC: Normal S1, S2 with no gallops. No murmurs ABDOMEN: Soft. Bowel sounds present. Nontender. No organomegaly. No abdominal bruits. Extremities: Bilateral 2+ pedal edema. No clubbing or cyanosis Neurologically awake, alert, oriented x2-3 with well-coordinated movements. No focal deficits noted Skin: No rash or skin lesions. Psychiatric: Coperative. Nonsuicidal, Musculoskeletal: No joint swelling or deformity. Normal range of motion. - Labs CBC & Chem 7: 01/05/22 07:39 01/07/22 06:23 Labs: Abnormal Lab Results - Last 24 Hours (Table) 01/05/22 01/06/22 Range/Units 14:34 07:35 Creatinine 3.83 H (0.52-1.04) mg/dL Vitamin B12 1580.0 H (200.0-944.0) pg/mL Microbiology - Last 24 Hours (Table) 01/03/22 15:44 Blood Culture - Preliminary Blood No Growth after 48 hours 01/03/22 15:04 Blood Culture - Preliminary Blood No Growth after 48 hours Assessment and Plan Assessment: Acute altered mental status. CT head negative for acute CVA. Hypotension and possible underlying sepsis is also a consideration.Mentation is improving. Status post mechanical fall. Patient tripped over her walker and fell on the floor hitting her head. Acute on chronic CHF with preserved ejection fraction ESRD on hemodialysis Saturday and Saturday Elevated troponin level likely due to demand ischemia and CKD History of TAVR in February 2018 Moderate MR and moderate pulmonary hypertension. Mild transaminitis Hypokalemia Coronary artery history of stent placement Bilateral carotid endarterectomy Hypertension Hyperlipidemia Diabetes type 2 diet controlled Anxiety/depression Persistent smoking DVT prophylaxis with heparin subcu Plan: Patient be transferred to MICU. Started on vancomycin and was on pressor support. off currently.Blood cultures negative so far. Patient will continue on telemetry monitoring. 2D echocardiogram was ordered. Cardiology and nephrology is on board. Continue with aspirin and statins and metoprolol and other home medications. DuoNebs as needed. Continued pain management and follow-up closely. Time with Patient: Greater than 30
--- NOTE | 2022-01-08 02:36 | P.PN ---
Subjective Progress Note Date: 01/07/22 Patient is a 81-year-old female with a known history of chronic CHF with preserved ejection fraction, coronary artery disease history of stent placement, history of TAVR, moderate pulmonary hypertension and moderate MR, ESRD on hemodialysis Saturday and history of COVID-19 infection February 2020, anxiety depression and previous history of smoking presents to ER status post fall. Patient fell in the bathroom and hitting her head on the way down. Patient states that she fell due to tripping on her walker. Patient otherwise denied any loss of consciousness. Patient is an adequate his kaya. Patient states that she has been having intermittent chest pain since fall. No radiation of the pain. Also complains of back pain and neck pain. Patient has been afebrile. Denies any recent illnesses. CT head and cervical spine showed spondylitic changes in the cervical spine. No fracture. No change. Cerebral atrophy and wall right hemispheric cortical infarcts. No acute intracranial abnormality. No change from prior study. X-ray of the thoracic spine showed no compression fracture. No acute abnormality noted. X-ray of the lumbar spine shows spondylitic changes and degenerative positivity L4-L5 spondylolisthesis. No acute fracture seen. Chest x-ray showed interstitial fibrotic changes. Small pleural effusions. There is clearing of the bases consolidation left upper lobe compatible exam. Mild heart failure is possible. See clearly please showed no acute fracture traumatic injury of the facial bones. EKG showed sinus rhythm with occasional supraventricular premature complexes. Laboratory data WBC 10.8 hemoglobin 14.1 and platelets 115 Sodium 134 potassium 3.4 Chloride 95 BUN 29 and creatinine 3.11 AST 55 ALT 42 alk phos 161 Troponin 0.104 and 0.117 and 0.107 proBNP [id number] 01/03/2022 Patient is currently very anxious and also hypotensive. Patient was given a do se of Ativan 0.5 mg. Patient was initiated on hemodialysis. Hemodialysis could not be done due to hypotension and pulmonary was consulted. Possible infection was suspected and patient was started on IV antibiotics and oral vancomycin transferred to MICU. Patient denies any complaints of nausea or vomiting. No complaints of chest pain. No headache or dizziness. Patient is very anxious. Review of systems could not be obtained completely. Laboratory data showed WBC 7.6 hemoglobin 12.5 and platelets 120 D-dimer is 2.28 BUN 45 and creatinine 4.87. Troponin 0.073. 01/04/2022 Patient is currently in the MICU. Lethargic but arousable. Able to follow simple commands. Currently still hypotensive with blood pressure 80s. Patient is being current on vancomycin and also will be started on pressor support. Patient will need hemodialysis. Echocardiogram report is pending. Nephrology is planning for hemodialysis today. Laboratory pressure WBC 6.8 hemoglobin 13.3 and platelets 123 Sodium 134 potassium 4.5 chloride 95 bicarb is 29 BUN 49 creatinine 5.14 and procalcitonin level is 0.6 Acute hepatitis panel is negative Patient is being continued on antibiotics in the form of vancomycin. 01/05/2022 Patient is currently in MICU. Underwent hemodialysis yesterday with 2 L of ultrafiltration. Patient was on pressor support and has been discontinued this morning. Currently patient is more awake. Also started on midodrine 10 mg 3 times daily. Cultures have been negative. Patient is being continued on antibiotics in the form of vancomycin. No leukocytosis. Patient is currently requiring 2 L oxygen via nasal cannula. 2D echocardiogram showed consistent with mild LV dysfunction with ejection fraction 40% moderate RV dilation and echodensity on the right coronary cusp extending to the tricuspid valve. Cardiology nephrology and pulmonary is on board. Laboratory test showed WBC 7.9 hemoglobin 14.0 and platelets 110 BUN 34 and creatinine 4.28 01/06/2022 Patient is currently resting in the bed comfortably. Off pressor support. Blood pressure has been stable. No complaints of chest pain or shortness of breath. Currently maintained on midodrine 10 mg 3 times daily. Patient is being continued on vancomycin. Cultures have been negative so far. Patient was seen by neurology and MRI of the brain was ordered due to consideration of septic emboli. Laboratory data reviewed. 01/07/2022. Patient was admitted to hospital due to altered mental status and status post fall and elevated BNP level. Patient was continued on IV diuresis and monitor hypotensive requiring pressor support. Possible sepsis is being considered and transferred to MICU. Currently cultures have been negative. On antibiotics with vancomycin. Neurology was consulted due to altered mental status. Patient is currently on the medical floor. Lying in the bed. Awake alert resting seems to be confused. Blood pressure is stable. currently on oxygen at 2 L via nasal cannula. Blood sugar is controlled. Creatinine 4.53 today. Blood cultures have been negative. Patient is being considered antibiotics at home vancomycin. Patient is undergoing neuro work-up with possible septic emboli. MRI of the brain and MR angiogram of the head without contrast was ordered. EEG was ordered and is pending. Current medications reviewed. Objective - Vital Signs Vital signs: Vital Signs Temp 97.1 F L 01/07/22 11:31 Pulse 89 01/07/22 11:31 Resp 16 01/07/22 11:31 BP 96/62 01/07/22 11:31 Pulse Ox 98 01/07/22 11:31 FiO2 Intake & Output 01/06/22 01/07/22 01/07/22 18:59 06:59 18:59 Intake Total 170 780 Balance 170 780 Weight 99.5 kg Intake: IV 0 240 0.9 @ 20 0 240 Oral 170 540 Other: Voiding Method Diaper Diaper Diaper # Voids 1 # Bowel Movements 1 - Exam PHYSICAL EXAMINATION: Patient is lying in the bed comfortably, no acute distress, awake alert and oriented confused. HEENT: Normocephalic. Neck is supple. Pupils reactive. Nostrils clear. Oral cavity is moist. Neck reveals no JVD, carotid bruits, or thyromegaly. CHEST EXAMINATION: Trachea is central. Symmetrical expansion. Lung burk clear to auscultation and percussion. CARDIAC: Normal S1, S2 with no gallops. No murmurs ABDOMEN: Soft. Bowel sounds present. Nontender. No organomegaly. No abdominal bruits. Extremities: Bilateral 2+ pedal edema. No clubbing or cyanosis Neurologically awake, alert, oriented x2-3 with well-coordinated movements. No focal deficits noted Skin: No rash or skin lesions. Psychiatric: Coperative. Musculoskeletal: No joint swelling or deformity. Normal range of motion. - Labs CBC & Chem 7: 01/05/22 07:39 01/07/22 06:23 Labs: Abnormal Lab Results - Last 24 Hours (Table) 01/06/22 01/07/22 01/07/22 Range/Units 20:13 06:23 11:13 Creatinine 4.53 H (0.52-1.04) mg/dL POC Glucose (mg/dL) 144 H 126 H (70-110) mg/dL Microbiology - Last 24 Hours (Table) 01/03/22 15:44 Blood Culture - Preliminary Blood No Growth after 72 hours 01/03/22 15:04 Blood Culture - Preliminary Blood No Growth after 72 hours Assessment and Plan Assessment: Acute altered mental status. CT head negative for acute CVA. Hypotension and possible underlying sepsis is also a consideration.Mentation is improving. Status post mechanical fall. Patient tripped over her walker and fell on the floor hitting her head. Acute on chronic CHF with preserved ejection fraction ESRD on hemodialysis Saturday and Saturday Elevated troponin level likely due to demand ischemia and CKD History of TAVR in February 2018 Moderate MR and moderate pulmonary hypertension. Mild transaminitis Hypokalemia Coronary artery history of stent placement Bilateral carotid endarterectomy Hypertension Hyperlipidemia Diabetes type 2 diet controlled Anxiety/depression Persistent smoking DVT prophylaxis with heparin subcu Plan: Patient is back to medical floor. Continue with vancomycin. Off pressor support. Blood cultures have been negative. Blood pressure is stable. Otherwise patient is still confused and is being worked up for neurological issues. 2D echocardiogram showed ejection fraction 40%. Patient is undergoing hemodialysis as per schedule. Nephrology cardiology and pulmonary is on board. Continue with aspirin and statins and metoprolol and other home medications. DuoNebs as needed. Continued pain management and follow-up closely. Time with Patient: Greater than 30
[2022-01-08 07:07] LABS: Glucose,Whole Blood 93 mg/dL (70-110)
[2022-01-08] MEDS: SYMBICORT 160-4.5 MCG INHALER INHALATION SCH ×2 (08:09→20:26)
[2022-01-08] MEDS: HEPARIN SODIUM,PORCINE/PF 5,000 UNIT/0.5 ML SYRINGE SQ SCH ×2 (08:50→21:40)
[2022-01-08] MEDS: MIDODRINE 5 MG TAB PO SCH ×4 (08:50→16:55)
[2022-01-08 11:10] LABS: Glucose,Whole Blood 131 mg/dL (70-110)
[2022-01-08 11:39] LABS: African American GFR (CKD) 7.9 (60.0-200.0); Anion Gap 12.3 mmol/L (10.00-18.00); BUN/Creat Ratio 7.72 Ratio (12.00-20.00); Blood Urea Nitrogen 41.7 mg/dL (9.0-27.0); Calcium 9.2 mg/dL (8.7-10.3); Carbon Dioxide 24.7 mmol/L (20.0-27.5); Non-African American GFR(CKD) 6.8 (60.0-200.0); Potassium 5.2 mmol/L (3.5-5.5)
[2022-01-08 12:33] LABS: Basophils # (A) 0.03 X 10*3/uL (0.00-0.10); Basophils % (A) 0.4 %; Eosinophils # (A) 0.06 X 10*3/uL (0.04-0.35); Eosinophils % (A) 0.7 %; HCT 39.1 % (37.2-46.3); HGB 12.5 g/dL (12.0-15.0); Immature Grans, Automated 0.4 %; Lymphocytes # (A) 1.34 X 10*3/uL (0.90-5.00); Lymphocytes % (A) 16.5 %; MCH 27.8 pg (27.0-32.0); MCV 86.9 fL (80.0-97.0); Mean Platelet Volume 11.2 fL (9.5-12.2); Monocytes # (A) 0.64 X 10*3/uL (0.20-1.00); Monocytes % (A) 7.9 %; NRBC Per 100 WBC 0 /100 WBCS (0.0-0.0); Neutrophils % (A) 74.1 %; Platelet Count 115 X 10*3/uL (140-440)
--- NOTE | 2022-01-08 13:25 | P.PN ---
Subjective Patient is seen for follow-up for end-stage renal disease. She is maintained on a Saturday schedule. No significant complaints today Trying to increase oral intake Scheduled for hemodialysis today Objective - Vital Signs Vital signs: Vital Signs Temp 97.6 F 01/08/22 11:30 Pulse 97 01/08/22 11:30 Resp 18 01/08/22 11:30 BP 127/70 01/08/22 11:30 Pulse Ox 98 01/08/22 11:30 FiO2 Intake & Output 01/07/22 01/08/22 01/08/22 18:59 06:59 18:59 Intake Total 540 Balance 540 Weight 97.5 kg Intake: Oral 540 Other: Voiding Method Diaper Diaper Diaper # Bowel Movements 1 - Exam Awake, comfortable, not in any acute distress Examination of the heart S1 and S2 Examination of the lungs bilateral breath sounds are heard Abdomen is soft nontender Examination lower extremity shows edema 2+ bilaterally with chronic skin changes - Labs CBC & Chem 7: 01/08/22 06:29 01/08/22 06:29 Labs: Abnormal Lab Results - Last 24 Hours (Table) 01/07/22 01/07/22 01/08/22 Range/Units 17:12 19:37 06:29 RDW (11.5-14.5) % Plt Count (140-440) X 10*3/uL Plt Count Comment Sodium 131 L (135-145) mmol/L Chloride 94 L (96-109) mmol/L BUN 41.7 H (9.0-27.0) mg/dL Creatinine 5.4 H (0.6-1.5) mg/dL Est GFR (CKD-EPI)AfAm 7.9 L (60.0-200.0) Est GFR (CKD-EPI)NonAf 6.8 L (60.0-200.0) BUN/Creatinine Ratio 7.72 L (12.00-20.00) Ratio POC Glucose (mg/dL) 135 H 134 H (70-110) mg/dL 01/08/22 01/08/22 Range/Units 06:29 11:09 RDW 23.0 H (11.5-14.5) % Plt Count 115 L (140-440) X 10*3/uL Plt Count Comment DECREASED A Sodium (135-145) mmol/L Chloride (96-109) mmol/L BUN (9.0-27.0) mg/dL Creatinine (0.6-1.5) mg/dL Est GFR (CKD-EPI)AfAm (60.0-200.0) Est GFR (CKD-EPI)NonAf (60.0-200.0) BUN/Creatinine Ratio (12.00-20.00) Ratio POC Glucose (mg/dL) 131 H (70-110) mg/dL Microbiology - Last 24 Hours (Table) 01/03/22 15:44 Blood Culture - Preliminary Blood No Growth after 96 hours 01/03/22 15:04 Blood Culture - Preliminary Blood No Growth after 96 hours Assessment and Plan Assessment: 1. End-stage renal disease maintained on hemodialysis on Saturday schedule via right upper extremity AV fistula. 2. S/p Fall. Patient was hypotensive, transferred out of ICU. No acute fracture noted. 3. Hypokalemia, replaced. 4. Acute on chronic diastolic CHF with moderate tricuspid regurgitation and pulmonary hypertension. 5. Volume overload. 6. History of TAVR for severe aortic stenosis Plan: Hemodialysis today Increase UF as tolerated Continue with midodrine
[2022-01-08 17:10] LABS: Glucose,Whole Blood 91 mg/dL (70-110)
--- NOTE | 2022-01-08 18:41 | P.PN ---
Subjective Progress Note Date: 01/08/22 Patient was seen for a follow-up. Patient initially seen by Dr. Brannon. Please refer to her note for details. Patient's daughter was also present at the time of this interview. Patient came to the hospital at 8:39 PM on 01/01/2022 after she lost balance and fell and smacked face on the right side. I reviewed the EMS flow sheet. Her vitals were stable, blood pressure 138/72 at the scene. However since she was in the hospital, her blood pressure had been running low, with systolic in the 70s to 80s. Patient also has history of ESRD on hemodialysis for last 2 years. Patient's daughter has noticed that she is very confused. There is some concern about dementia for the last 4-5 months. She forgets stuff easily. Sometimes she talks nonsense and is confused. No previous history of strokes or TIA. Please refer to examination for her level of orientation. Patient's telemetry monitoring showing sinus rhythm, with some PVCs and some trigeminy. No other arrhythmia. Objective - Vital Signs Vital signs: Vital Signs Temp 97.6 F 01/08/22 17:37 Pulse 96 01/08/22 17:37 Resp 15 01/08/22 17:37 BP 129/75 01/08/22 17:37 Pulse Ox 99 01/08/22 17:37 FiO2 Intake & Output 01/07/22 01/08/22 01/08/22 18:59 06:59 18:59 Intake Total 540 300 Output Total 2300 Balance 540 -2000 Weight 97.5 kg Intake: Oral 540 Hemodialysis 300 Output: Hemodialysis 2300 Other: Voiding Method Diaper Diaper Diaper # Voids 1 # Bowel Movements 1 1 - Exam On examination patient is an elderly female, who obviously appears slightly delirious, mildly encephalopathic. She appears slightly short of breath. Her speech and language functions are normal. She can name and repeat very well. She could not tell the current month or the year. She does not know what city she lives in although she knows that she is in [place]. A few minutes later she mentioned that she lives in [facility], which is correct. Patient knows name of the current president. She believes that she is in [facility]", and she believes that I am here to help her. She knows her date of , but could not tell how old she is. She was able to recognize her daughter Rosa was present there. On cranial nerve examination, pupils are equal, round and reactive to light. Visual burk appears full. She has very significant impaired attention span and concentration and sometimes would neglect the right lower quadrant, which could be related to impaired concentration, doubt organic pathology. Face is symmetric and tongue protrudes to the midline. On muscle strength testing (right/left) deltoid 2-3/5, biceps 5/5, carpenter refrigerator 5/5, tr iceps 5/5. Hip flexion 4+/4+, ankle dorsiflexion 5/5. Sensory to touch is equal with no neglect. Patient has very soft, but much distended abdomen, and she has some petichaea and some bruises over her extremities. She has very significant peripheral edema bilateral lower extremities, and the right upper extremity. - Labs CBC & Chem 7: 01/09/22 09:04 01/09/22 09:04 Labs: Abnormal Lab Results - Last 24 Hours (Table) 01/07/22 01/08/22 01/08/22 Range/Units 19:37 06:29 06:29 RDW 23.0 H (11.5-14.5) % Plt Count 115 L (140-440) X 10*3/uL Plt Count Comment DECREASED A Sodium 131 L (135-145) mmol/L Chloride 94 L (96-109) mmol/L BUN 41.7 H (9.0-27.0) mg/dL Creatinine 5.4 H (0.6-1.5) mg/dL Est GFR (CKD-EPI)AfAm 7.9 L (60.0-200.0) Est GFR (CKD-EPI)NonAf 6.8 L (60.0-200.0) BUN/Creatinine Ratio 7.72 L (12.00-20.00) Ratio POC Glucose (mg/dL) 134 H (70-110) mg/dL 01/08/22 Range/Units 11:09 RDW (11.5-14.5) % Plt Count (140-440) X 10*3/uL Plt Count Comment Sodium (135-145) mmol/L Chloride (96-109) mmol/L BUN (9.0-27.0) mg/dL Creatinine (0.6-1.5) mg/dL Est GFR (CKD-EPI)AfAm (60.0-200.0) Est GFR (CKD-EPI)NonAf (60.0-200.0) BUN/Creatinine Ratio (12.00-20.00) Ratio POC Glucose (mg/dL) 131 H (70-110) mg/dL Microbiology - Last 24 Hours (Table) 01/03/22 15:44 Blood Culture - Preliminary Blood No Growth after 120 hours 01/03/22 15:04 Blood Culture - Preliminary Blood No Growth after 120 hours Assessment and Plan Assessment: 1. Toxic metabolic Encephalopathy, likely multifactorial due to multiorgan dysfunction and other reasons as mentioned below. Possible concern for enodcard itis/abscess. Rule out septic emboli, Right coronary cusp with what appears to be some extension around the tricuspid valve. Cannot exclude annular abscess/endocarditis. on 2D echo 2. Hypotensive episode 3. Old stroke over the right hemisphere (CT unchanged since 2019). Over right frontal, parietal, right parietal/temporal region, in watershed territory 4. ESRD on dialysis 5. DM 6. History of hypertension but having hypotensive episode 7. CAD s/p stent 8. Cardiomyopathy, with EF 40% 9. Hx of aortic valve replacement (2018) 10. Elevated liver enzymes. 11. Right upper extremity edema. Peripheral edema bilateral lower extremity 12. Mild hyponatremia Plan: 1. Transthoracic 2-D echo revealed left ventricular ejection fraction is 40% w ith global hypokinesis. Severely dilated left atrium. Normally functioning bioprosthetic aortic valve. Echo density around the right coronary cusp with what appears to be some extension around the tricuspid valve. Cannot exclude annular abscess/endocarditis. ALLEY was recommended by Dr. Brannon. However per cardiology, in light of negative blood cultures, they feel ALLEY is not indicated 2. Physical and occupational therapy evaluations 3. Ultrasound right upper extremity to rule out DVT. 4. Medical management as per IM, and other specialties. 5. Carotid Doppler revealed left side not evaluated because patient did not cooperate. On the right side the images suggests 30% stenosis in the ICA. Antegrade flow in the right vertebral artery. 6. B12 1580, folate 19.3, TSH is normal 2.010. 7. EEG 03/07/2022 was abnormal due to background slowing of mild degree suggestive of encephalopathy. No epileptiform activity was seen. 8. MRI has been ordered by Dr. Gardner. 9. Patient has right shoulder weakness, likely due to rotator cuff tear versus central cause.
--- NOTE | 2022-01-08 20:09 | US ---
EXAMINATION TYPE: US venous doppler duplex UE RT DATE OF EXAM: 01/08/2022 COMPARISON: NONE CLINICAL HISTORY: Swelling RUE, rule out DVT. Right arm swelling SIDE PERFORMED: Right Exam done portable Right Arm: Visualized portions appear negative for DVT Bandage covering half of upper arm - limited visualization of brachial veins, basilic vein and ceph alic vein Radial veins not seen due to lower arm edema IMPRESSION: Limited evaluation with diffuse subcutaneous edema. No evidence for deep vein thrombosis.
[2022-01-08 20:13] LABS: Glucose,Whole Blood 106 mg/dL (70-110)
[2022-01-08] MEDS: FLUTICASONE 50MCG/SPRAY NASAL 16GM EA NOSTRIL SCH (21:33)
[2022-01-08] MEDS: MAGNESIUM OXIDE 400 MG TAB PO SCH (21:34)
[2022-01-08] MEDS: MULTIVITAMINS, THERA 1 EACH TAB PO SCH (21:34)
[2022-01-08] MEDS: PRAVASTATIN SODIUM 20 MG TAB PO SCH (21:34)
[2022-01-08] MEDS: PANTOPRAZOLE 40 MG TABLET PO SCH (21:34)
[2022-01-08] MEDS: allopurinoL 100 MG TAB PO SCH (21:34)
[2022-01-08] MEDS: ASPIRIN 81 MG PO SCH (21:35)
[2022-01-09 07:17] LABS: Glucose,Whole Blood 113 mg/dL (70-110)
[2022-01-09] MEDS: SYMBICORT 160-4.5 MCG INHALER INHALATION SCH ×2 (08:06→20:02)
[2022-01-09] MEDS: HEPARIN SODIUM,PORCINE/PF 5,000 UNIT/0.5 ML SYRINGE SQ SCH ×2 (08:21→21:03)
[2022-01-09] MEDS: MIDODRINE 5 MG TAB PO SCH ×3 (08:21→17:32)
--- NOTE | 2022-01-09 08:40 | P.PN ---
Subjective Progress Note Date: 01/08/22 Patient is a 81-year-old female with a known history of chronic CHF with preserved ejection fraction, coronary artery disease history of stent placement, history of TAVR, moderate pulmonary hypertension and moderate MR, ESRD on hemodialysis Saturday and history of COVID-19 infection February 2020, anxiety depression and previous history of smoking presents to ER status post fall. Patient fell in the bathroom and hitting her head on the way down. Patient states that she fell due to tripping on her walker. Patient otherwise denied any loss of consciousness. Patient is an adequate h istorian. Patient states that she has been having intermittent chest pain since fall. No radiation of the pain. Also complains of back pain and neck pain. Patient has been afebrile. Denies any recent illnesses. CT head and cervical spine showed spondylitic changes in the cervical spine. No fracture. No change. Cerebral atrophy and wall right hemispheric cortical infarcts. No acute intracranial abnormality. No change from prior study. X-ray of the thoracic spine showed no compression fracture. No acute abnormality noted. X-ray of the lumbar spine shows spondylitic changes and degenerative positivity L4-L5 spondylolisthesis. No acute fracture seen. Chest x-ray showed interstitial fibrotic changes. Small pleural effusions. There is clearing of the bases consolidation left upper lobe compatible exam. Mild heart failure is possible. See clearly please showed no acute fracture traumatic injury of the facial bones. EKG showed sinus rhythm with occasional supraventricular premature complexes. Laboratory data WBC 10.8 hemoglobin 14.1 and platelets 115 Sodium 134 potassium 3.4 Chloride 95 BUN 29 and creatinine 3.11 AST 55 ALT 42 alk phos 161 Troponin 0.104 and 0.117 and 0.107 proBNP 09218 01/03/2022 Patient is currently very anxious and also hypotensive. Patient was given a dose of Ativan 0.5 mg. Patient was initiated on hemodialysis. Hemodialysis could not be done due to hypotension and pulmonary was consulted. Possible infection was suspected and patient was started on IV antibiotics and oral vancomycin transferred to MICU. Patient denies any complaints of nausea or vomiting. No complaints of chest pain. No headache or dizziness. Patient is very anxious. Review of systems could not be obtained completely. Laboratory data showed WBC 7.6 hemoglobin 12.5 and platelets 120 D-dimer is 2.28 BUN 45 and creatinine 4.87. Troponin 0.073. 01/04/2022 Patient is currently in the MICU. Lethargic but arousable. Able to follow simple commands. Currently still hypotensive with blood pressure 80s. Patient is being current on vancomycin and also will be started on pressor support. Patient will need hemodialysis. Echocardiogram report is pending. Nephrology is planning for hemodialysis today. Laboratory pressure WBC 6.8 hemoglobin 13.3 and platelets 123 Sodium 134 potassium 4.5 chloride 95 bicarb is 29 BUN 49 creatinine 5.14 and procalcitonin level is 0.6 Acute hepatitis panel is negative Patient is being continued on antibiotics in the form of vancomycin. 01/05/2022 Patient is currently in MICU. Underwent hemodialysis yesterday with 2 L of ultrafiltration. Patient was on pressor support and has been discontinued this morning. Currently patient is more awake. Also started on midodrine 10 mg 3 times daily. Cultures have been negative. Patient is being continued on antibiotics in the form of vancomycin. No leukocytosis. Patient is currently requiring 2 L oxygen via nasal cannula. 2D echocardiogram showed consistent with mild LV dysfunction with ejection fraction 40% moderate RV dilation and echodensity on the right coronary cusp extending to the tricuspid valve. Cardiology nephrology and pulmonary is on board. Laboratory test showed WBC 7.9 hemoglobin 14.0 and platelets 110 BUN 34 and creatinine 4.28 01/06/2022 Patient is currently resting in the bed comfortably. Off pressor support. Blood pressure has been stable. No complaints of chest pain or shortness of breath. Currently maintained on midodrine 10 mg 3 times daily. Patient is being continued on vancomycin. Cultures have been negative so far. Patient was seen by neurology and MRI of the brain was ordered due to consideration of septic emboli. Laboratory data reviewed. 01/07/2022. Patient was admitted to hospital due to altered mental status and status post fall and elevated BNP level. Patient was continued on IV diuresis and monitor hypotensive requiring pressor support. Possible sepsis is being considered and transferred to MICU. Currently cultures have been negative. On antibiotics with vancomycin. Neurology was consulted due to altered mental status. Patient is currently on the medical floor. Lying in the bed. Awake alert resting seems to be confused. Blood pressure is stable. currently on oxygen at 2 L via nasal cannula. Blood sugar is controlled. Creatinine 4.53 today. Blood cultures have been negative. Patient is being considered antibiotics at home vancomycin. Patient is undergoing neuro work-up with possible septic emboli. MRI of the brain and MR angiogram of the head without contrast was ordered. EEG was ordered and is pending. 01/08/2022 Patient is seen and evaluated in follow-up today with multiple medical consultations following including pulmonary, cardiology, nephrology, and neurology. Patient undergoing neurological workup and tentatively scheduled for MRI once patient able to tolerate. Neurology had an EEG done which was showing an abnormal EEG suggestive of mild encephalopathy. Patient continues with c onfusion and is significantly weak. Patient also maintained on hemodialysis and will continue current regimen. PT/OT therapy recommending subacute rehab in case management/social work following working on possible ECF. Encouraged oral intake and increased activity as tolerated. Patient receive hemodialysis today. Patient is afebrile, currently off antibiotics, continued on inhalers with pulmonary following. Patient denies worsening shortness of breath and is currently maintained at 95% on 2 L via nasal cannula. No reports of nausea or vomiting noted. Review of systems: Unable to completely assess as patient is confused PHYSICAL EXAMINATION: Patient is lying in the bed awake alert and oriented x1-2, confused. HEENT: Normocephalic. Neck is supple. Pupils reactive. Nostrils clear. Oral cavity is moist. Neck reveals no JVD, carotid bruits, or thyromegaly. CHEST EXAMINATION: Trachea is central. Symmetrical expansion. Lung burk diminished with some scattered rhonchi noted. CARDIAC: S1, S2 muffled ABDOMEN: Soft. Bowel sounds present. Nontender. No organomegaly. No abdominal bruits. Extremities: Bilateral 2+ pedal edema. No clubbing or cyanosis Neurologically awake, alert, oriented x2 with well-coordinated movements. No focal deficits noted. Diffusely weak Skin: No rash or skin lesions. Psychiatric: Cooperative. Musculoskeletal: No joint swelling or deformity. Normal range of motion. Assessment: Acute altered mental status. CT head negative for acute CVA. Hypotension and possible underlying sepsis is also a consideration.Mentation is improving. Status post mechanical fall. Patient tripped over her walker and fell on the floor hitting her head. Acute on chronic CHF with preserved ejection fraction ESRD on hemodialysis Saturday and Saturday Elevated troponin level likely due to demand ischemia and CKD History of TAVR in February 2018 Moderate MR and moderate pulmonary hypertension. Mild transaminitis Hypokalemia Coronary artery history of stent placement Bilateral carotid endarterectomy Hypertension Hyperlipidemia Diabetes type 2 diet controlled Anxiety/depression Persistent smoking DVT prophylaxis with heparin subcu Plan: Patient is out of the ICU on MedSurg unit. Patient has been off of pressor support and antibiotics have been discontinued with cultures being negative. Patient continues with confusion and undergoing neurological workup and underwent EEG which was abnormal possibly secondary to metabolic encephalopathy. MRI is currently scheduled once patient able to tolerate. Will need to discuss with neurology and other consultations about discharge planning with social work following working on possible ECF. 2D echocardiogram showed ejection fraction 40%. Patient is undergoing hemodialysis as per schedule on Saturday/Saturday/Saturday. Due to multiple complex medical issues, multiple medical consultations are fo llowing and prognosis is guarded. Recommend PT/OT therapy daily and continue to follow with social work on possible ECF Encouraged oral intake and increased activity as tolerated The impression and plan of care has been dictated by Shey Hilliard, Nurse Practitioner as directed. Dr. Dayton MD I have performed a history and examination and MDM of this patient, discussed the same with the dictator, and agree with the dictator's assessment and plan as written ,documented as a scribe. Based on total visit time, I have performed more than 50% of the visit. Objective - Vital Signs Vital signs: Vital Signs Temp 97.8 F 01/08/22 16:47 Pulse 92 01/08/22 16:47 Resp 19 01/08/22 16:47 BP 105/60 01/08/22 16:47 Pulse Ox 98 01/08/22 11:30 FiO2 Intake & Output 01/07/22 01/08/22 01/08/22 18:59 06:59 18:59 Intake Total 540 300 Output Total 2300 Balance 540 -2000 Weight 97.5 kg Intake: Oral 540 Hemodialysis 300 Output: Hemodialysis 2300 Other: Voiding Method Diaper Diaper Diaper # Bowel Movements 1 - Labs CBC & Chem 7: 01/08/22 06:29 01/08/22 06:29 Labs: Abnormal Lab Results - Last 24 Hours (Table) 01/07/22 01/07/22 01/08/22 Range/Units 17:12 19:37 06:29 RDW (11.5-14.5) % Plt Count (140-440) X 10*3/uL Plt Count Comment Sodium 131 L (135-145) mmol/L Chloride 94 L (96-109) mmol/L BUN 41.7 H (9.0-27.0) mg/dL Creatinine 5.4 H (0.6-1.5) mg/dL Est GFR (CKD-EPI)AfAm 7.9 L (60.0-200.0) Est GFR (CKD-EPI)NonAf 6.8 L (60.0-200.0) BUN/Creatinine Ratio 7.72 L (12.00-20.00) Ratio POC Glucose (mg/dL) 135 H 134 H (70-110) mg/dL 01/08/22 01/08/22 Range/Units 06:29 11:09 RDW 23.0 H (11.5-14.5) % Plt Count 115 L (140-440) X 10*3/uL Plt Count Comment DECREASED A Sodium (135-145) mmol/L Chloride (96-109) mmol/L BUN (9.0-27.0) mg/dL Creatinine (0.6-1.5) mg/dL Est GFR (CKD-EPI)AfAm (60.0-200.0) Est GFR (CKD-EPI)NonAf (60.0-200.0) BUN/Creatinine Ratio (12.00-20.00) Ratio POC Glucose (mg/dL) 131 H (70-110) mg/dL Microbiology - Last 24 Hours (Table) 01/03/22 15:44 Blood Culture - Preliminary Blood No Growth after 96 hours 01/03/22 15:04 Blood Culture - Preliminary Blood No Growth after 96 hours
[2022-01-09 09:26] LABS: Anisocytosis Slight; Basophils % (A) 0 %; Eosinophils % (A) 0 %; HGB 12.1 gm/dL (11.4-16.0); Hypochromasia Marked; Lymphocytes # (A) 0.9 k/uL (1.0-4.8); Lymphocytes % (A) 12 %; MCH 28.2 pg (25.0-35.0); MCHC 31.1 g/dL (31.0-37.0); MCV 90.7 fL (80.0-100.0); Mean Platelet Volume 9.8; Monocytes # (A) 0.4 k/uL (0-1.0); Monocytes % (A) 5 %; Neutrophils # (A) 6.3 k/uL (1.3-7.7); Neutrophils % (A) 81 %; Platelet Count 113 k/uL (150-450); RBC 4.29 m/uL (3.80-5.40); RDW 19.6 % (11.5-15.5); WBC 7.8 k/uL (3.8-10.6)
[2022-01-09 09:48] LABS: African American GFR (CKD) 10 (>60 ml/min/1.73 sqM); Anion Gap 11 mmol/L; Blood Urea Nitrogen 37 mg/dL (7-17); Calcium 8.6 mg/dL (8.4-10.2); Carbon Dioxide 29 mmol/L (22-30); Chloride 93 mmol/L (98-107); Glucose 149 mg/dL (74-99); Non-African American GFR(CKD) 8 (>60 ml/min/1.73 sqM); Potassium 4.7 mmol/L (3.5-5.1); Sodium 133 mmol/L (137-145)
[2022-01-09 11:18] LABS: Glucose,Whole Blood 138 mg/dL (70-110)
--- NOTE | 2022-01-09 14:26 | CT ---
EXAMINATION TYPE: CT brain wo con DATE OF EXAM: 01/09/2022 COMPARISON: 01/01/2022 HISTORY: AMS CT DLP: 1159 mGycm Automated exposure control for dose reduction was used. FINDINGS: Exam is severely limited due to motion artifact and essentially nondiagnostic for hemorrhage. There a ppears to be diffuse cerebral atrophy with abnormal low attenuation in the white matter. Calvarium is intact. No obvious midline shift. Orbits symmetric. Craniocervical junction is maintained. Calcifica tion along the anterior interhemispheric fissure are stable prior exam low attenuations involving the basal ganglia and external capsule suggestive of remote lacunar infarct. IMPRESSION: NEARLY NONDIAGNOSTIC EXAM. DIFFUSE DEGENERATIVE AND NONSPECIFIC WHITE MATTER CHANGES MOST TYPICAL OF REMOTE ISCHEMIA. THE EXAM IS SEVERELY LIMITED FOR HEMORRHAGE. GROSSLY NO MIDLINE SHIFT, SIZABLE HEMO RRHAGE OR MASS EFFECT.
[2022-01-09 15:34] VITALS: BMI 38.0
[2022-01-09 17:06] LABS: Glucose,Whole Blood 144 mg/dL (70-110)
[2022-01-09 20:14] LABS: Glucose,Whole Blood 150 mg/dL (70-110)
[2022-01-09] MEDS: FLUTICASONE 50MCG/SPRAY NASAL 16GM EA NOSTRIL SCH (21:03)
[2022-01-09] MEDS: ASPIRIN 81 MG PO SCH (21:03)
[2022-01-09] MEDS: MULTIVITAMINS, THERA 1 EACH TAB PO SCH (21:03)
[2022-01-09] MEDS: MAGNESIUM OXIDE 400 MG TAB PO SCH (21:03)
[2022-01-09] MEDS: PANTOPRAZOLE 40 MG TABLET PO SCH (21:03)
[2022-01-09] MEDS: PRAVASTATIN SODIUM 20 MG TAB PO SCH (21:03)
[2022-01-09] MEDS: allopurinoL 100 MG TAB PO SCH (21:03)
--- NOTE | 2022-01-10 05:18 | P.PN ---
Subjective Progress Note Date: 01/09/22 Patient is a 81-year-old female with a known history of chronic CHF with preserved ejection fraction, coronary artery disease history of stent placement, history of TAVR, moderate pulmonary hypertension and moderate MR, ESRD on hemodialysis Saturday and history of COVID-19 infection February 2020, anxiety depression and previous history of smoking presents to ER status post fall. Patient fell in the bathroom and hitting her head on the way down. Patient states that she fell due to tripping on her walker. Patient otherwise denied any loss of consciousness. Patient is an adequate h istorian. Patient states that she has been having intermittent chest pain since fall. No radiation of the pain. Also complains of back pain and neck pain. Patient has been afebrile. Denies any recent illnesses. CT head and cervical spine showed spondylitic changes in the cervical spine. No fracture. No change. Cerebral atrophy and wall right hemispheric cortical infarcts. No acute intracranial abnormality. No change from prior study. X-ray of the thoracic spine showed no compression fracture. No acute abnormality noted. X-ray of the lumbar spine shows spondylitic changes and degenerative positivity L4-L5 spondylolisthesis. No acute fracture seen. Chest x-ray showed interstitial fibrotic changes. Small pleural effusions. There is clearing of the bases consolidation left upper lobe compatible exam. Mild heart failure is possible. See clearly please showed no acute fracture traumatic injury of the facial bones. EKG showed sinus rhythm with occasional supraventricular premature complexes. Laboratory data WBC 10.8 hemoglobin 14.1 and platelets 115 Sodium 134 potassium 3.4 Chloride 95 BUN 29 and creatinine 3.11 AST 55 ALT 42 alk phos 161 Troponin 0.104 and 0.117 and 0.107 proBNP 72099 01/03/2022 Patient is currently very anxious and also hypotensive. Patient was given a dose of Ativan 0.5 mg. Patient was initiated on hemodialysis. Hemodialysis could not be done due to hypotension and pulmonary was consulted. Possible infection was suspected and patient was started on IV antibiotics and oral vancomycin transferred to MICU. Patient denies any complaints of nausea or vomiting. No complaints of chest pain. No headache or dizziness. Patient is very anxious. Review of systems could not be obtained completely. Laboratory data showed WBC 7.6 hemoglobin 12.5 and platelets 120 D-dimer is 2.28 BUN 45 and creatinine 4.87. Troponin 0.073. 01/04/2022 Patient is currently in the MICU. Lethargic but arousable. Able to follow simple commands. Currently still hypotensive with blood pressure 80s. Patient is being current on vancomycin and also will be started on pressor support. Patient will need hemodialysis. Echocardiogram report is pending. Nephrology is planning for hemodialysis today. Laboratory pressure WBC 6.8 hemoglobin 13.3 and platelets 123 Sodium 134 potassium 4.5 chloride 95 bicarb is 29 BUN 49 creatinine 5.14 and procalcitonin level is 0.6 Acute hepatitis panel is negative Patient is being continued on antibiotics in the form of vancomycin. 01/05/2022 Patient is currently in MICU. Underwent hemodialysis yesterday with 2 L of ultrafiltration. Patient was on pressor support and has been discontinued this morning. Currently patient is more awake. Also started on midodrine 10 mg 3 times daily. Cultures have been negative. Patient is being continued on antibiotics in the form of vancomycin. No leukocytosis. Patient is currently requiring 2 L oxygen via nasal cannula. 2D echocardiogram showed consistent with mild LV dysfunction with ejection fraction 40% moderate RV dilation and echodensity on the right coronary cusp extending to the tricuspid valve. Cardiology nephrology and pulmonary is on board. Laboratory test showed WBC 7.9 hemoglobin 14.0 and platelets 110 BUN 34 and creatinine 4.28 01/06/2022 Patient is currently resting in the bed comfortably. Off pressor support. Blood pressure has been stable. No complaints of chest pain or shortness of breath. Currently maintained on midodrine 10 mg 3 times daily. Patient is being continued on vancomycin. Cultures have been negative so far. Patient was seen by neurology and MRI of the brain was ordered due to consideration of septic emboli. Laboratory data reviewed. 01/07/2022. Patient was admitted to hospital due to altered mental status and status post fall and elevated BNP level. Patient was continued on IV diuresis and monitor hypotensive requiring pressor support. Possible sepsis is being considered and transferred to MICU. Currently cultures have been negative. On antibiotics with vancomycin. Neurology was consulted due to altered mental status. Patient is currently on the medical floor. Lying in the bed. Awake alert resting seems to be confused. Blood pressure is stable. currently on oxygen at 2 L via nasal cannula. Blood sugar is controlled. Creatinine 4.53 today. Blood cultures have been negative. Patient is being considered antibiotics at home vancomycin. Patient is undergoing neuro work-up with possible septic emboli. MRI of the brain and MR angiogram of the head without contrast was ordered. EEG was ordered and is pending. 01/08/2022 Patient is seen and evaluated in follow-up today with multiple medical consultations following including pulmonary, cardiology, nephrology, and neurology. Patient undergoing neurological workup and tentatively scheduled for MRI once patient able to tolerate. Neurology had an EEG done which was showing an abnormal EEG suggestive of mild encephalopathy. Patient continues with c onfusion and is significantly weak. Patient also maintained on hemodialysis and will continue current regimen. PT/OT therapy recommending subacute rehab in case management/social work following working on possible ECF. Encouraged oral intake and increased activity as tolerated. Patient receive hemodialysis today. Patient is afebrile, currently off antibiotics, continued on inhalers with pulmonary following. Patient denies worsening shortness of breath and is currently maintained at 95% on 2 L via nasal cannula. No reports of nausea or vomiting noted. 01/09/2022 Patient seen today and awaiting MRI of the brain. Family at the bedside and discussing possible ecf. Social work following and plan is for possible [facility] as first choice. Arranging for outpatient dialysis there as well if accepted. Patient continues with significant weakness and PT/OT following. Neurology following as well and undergoing neuro work-up. Labs reviewed and stable at this time. Patient is afebrile and no reports of chest pain or shortness of breath noted. Review of systems: Unable to completely assess as patient is confused PHYSICAL EXAMINATION: Patient is lying in the bed awake alert and oriented x1-2, confused. HEENT: Normocephalic. Neck is supple. Pupils reactive. Nostrils clear. Oral cavity is moist. Neck reveals no JVD, carotid bruits, or thyromegaly. CHEST EXAMINATION: Trachea is central. Symmetrical expansion. Lung burk diminished with some scattered rhonchi noted. CARDIAC: S1, S2 muffled ABDOMEN: Soft. Bowel sounds present. Nontender. No organomegaly. No abdominal bruits. Extremities: Bilateral 2+ pedal edema. No clubbing or cyanosis Neurologically awake, alert, oriented x2 with well-coordinated movements. No focal deficits noted. Diffusely weak Skin: No rash or skin lesions. Psychiatric: Cooperative. Musculoskeletal: No joint swelling or deformity. Normal range of motion. Assessment: Acute altered mental status. CT head negative for acute CVA. Hypotension and possible underlying sepsis is also a consideration.Mentation is improving. Status post mechanical fall. Patient tripped over her walker and fell on the floor hitting her head. Acute on chronic CHF with preserved ejection fraction ESRD on hemodialysis Saturday and Saturday Elevated troponin level likely due to demand ischemia and CKD History of TAVR in February 2018 Moderate MR and moderate pulmonary hypertension. Mild transaminitis Hypokalemia Coronary artery history of stent placement Bilateral carotid endarterectomy Hypertension Hyperlipidemia Diabetes type 2 diet controlled Anxiety/depression Persistent smoking DVT prophylaxis with heparin subcu Plan: Patient is on MedSurg unit. Patient has been off of pressor support and antibiotics have been discontinued with cultures being negative. Patient continues with confusion and undergoing neurological workup and underwent EEG which was abnormal possibly secondary to metabolic encephalopathy. MRI is currently scheduled for today although nursing staff reports she will likely not tolerate due to having difficulty laying flat with her breathing. Neuro recommends repeat CT of the brain which is pending. Will need to discuss with neurology and other consultations about discharge planning with social work following working on possible ECF. 2D echocardiogram showed ejection fraction 40%. Patient is undergoing hemodialysis as per schedule on Saturday/Saturday/Saturday. Due to multiple complex medical issues, multiple medical consultations are following and prognosis is guarded. Recommend PT/OT therapy daily and continue to follow with social work on possible ECF, family would like [facility] Encouraged oral intake and increased activity as tolerated Possible discharge in 24-48 hours The impression and plan of care has been dictated by Shey Hilliard, Nurse Practitioner as directed. Dr. Dayton MD I have performed a history and examination and MDM of this patient, discussed the same with the dictator, and agree with the dictator's assessment and plan as written ,documented as a scribe. Based on total visit time, I have performed more than 50% of the visit. Objective - Vital Signs Vital signs: Vital Signs Temp 97.7 F 01/09/22 04:48 Pulse 89 01/09/22 04:48 Resp 20 01/09/22 04:48 BP 100/66 01/09/22 04:48 Pulse Ox 96 01/09/22 08:06 FiO2 Intake & Output 01/08/22 01/09/22 01/09/22 18:59 06:59 18:59 Intake Total 300 600 Output Total 2300 Balance -2000 600 Intake: Oral 600 Hemodialysis 300 Output: Hemodialysis 2300 Other: Voiding Method Diaper Diaper # Voids 1 # Bowel Movements 1 1 - Labs CBC & Chem 7: 01/09/22 09:04 01/09/22 09:04 Labs: Abnormal Lab Results - Last 24 Hours (Table) 01/08/22 01/08/22 01/08/22 Range/Units 06:29 06:29 11:09 RDW 23.0 H (11.5-14.5) % Plt Count 115 L (140-440) X 10*3/uL Plt Count Comment DECREASED A Sodium 131 L (135-145) mmol/L Chloride 94 L (96-109) mmol/L BUN 41.7 H (9.0-27.0) mg/dL Creatinine 5.4 H (0.6-1.5) mg/dL Est GFR (CKD-EPI)AfAm 7.9 L (60.0-200.0) Est GFR (CKD-EPI)NonAf 6.8 L (60.0-200.0) BUN/Creatinine Ratio 7.72 L (12.00-20.00) Ratio POC Glucose (mg/dL) 131 H (70-110) mg/dL 01/09/22 Range/Units 07:15 RDW (11.5-14.5) % Plt Count (140-440) X 10*3/uL Plt Count Comment Sodium (135-145) mmol/L Chloride (96-109) mmol/L BUN (9.0-27.0) mg/dL Creatinine (0.6-1.5) mg/dL Est GFR (CKD-EPI)AfAm (60.0-200.0) Est GFR (CKD-EPI)NonAf (60.0-200.0) BUN/Creatinine Ratio (12.00-20.00) Ratio POC Glucose (mg/dL) 113 H (70-110) mg/dL Microbiology - Last 24 Hours (Table) 01/03/22 15:44 Blood Culture - Preliminary Blood No Growth after 120 hours 01/03/22 15:04 Blood Culture - Preliminary Blood No Growth after 120 hours
[2022-01-10 07:04] LABS: Glucose,Whole Blood 96 mg/dL (70-110)
[2022-01-10] MEDS: MIDODRINE 5 MG TAB PO SCH ×3 (07:39→17:19)
[2022-01-10] MEDS: HEPARIN SODIUM,PORCINE/PF 5,000 UNIT/0.5 ML SYRINGE SQ SCH ×2 (07:39→20:58)
[2022-01-10] MEDS: SYMBICORT 160-4.5 MCG INHALER INHALATION SCH ×2 (07:54→20:35)
--- NOTE | 2022-01-10 08:57 | P.PN ---
Subjective Progress Note Date: 01/09/22 01/09/2022: Patient was seen for a follow-up. Patient is laying comfortably in bed. Offers no complains. Patient is somnolent. 01/08/2022: Patient was seen for a follow-up. Patient initially seen by Dr. Brannon. Please refer to her note for details. Patient's daughter was also present at the time of this interview. Patient came to the hospital at 8:39 PM on 01/01/2022 after she lost balance and fell and smacked face on the right side. I reviewed the EMS flow sheet. Her vitals were stable, blood pressure 138/72 at the scene. However since she was in the hospital, her blood pressure had been running low, with systolic in the 70s to 80s. Patient also has history of ESRD on hemodialysis for last 2 years. Patient's daughter has noticed that she is very confused. There is some concern about dementia for the last 4-5 months. She forgets stuff easily. Sometimes she talks nonsense and is confused. No previous history of strokes or TIA. Please refer to examination for her level of orientation. Patient's telemetry monitoring showing sinus rhythm, with some PVCs and some trigeminy. No other arrhythmia. Objective - Vital Signs Vital signs: Vital Signs Temp 98.7 F 01/10/22 04:49 Pulse 118 H 01/10/22 04:49 Resp 20 01/10/22 04:49 BP 102/71 01/10/22 04:49 Pulse Ox 98 01/10/22 04:49 FiO2 Intake & Output 01/09/22 01/10/22 01/10/22 18:59 06:59 18:59 Intake Total 240 Output Total 1 0 Balance -1 240 Weight 97.5 kg Intake: Oral 240 Output: Urine 0 Stool 1 Other: Voiding Method Diaper Diaper Diaper # Bowel Movements 1 1 - Exam 01/09/2022: Patient is laying comfortably in the bed. Her speech and language functions are normal. She is mildly short of breath. Patient continues to be weak in the right upper extremity particularly in the deltoid region. Her biceps and fixed income manager appears fairly equal. Patient has mild right facial asymmetry. 01/08/2022: On examination patient is an elderly female, who obviously appears slightly delirious, mildly encephalopathic. She appears slightly short of breath. Her speech and language functions are normal. She can name and repeat very well. She could not tell the current month or the year. She does not know what city she lives in although she knows that she is in [place]. A few minutes later she mentioned that she lives in [facility], which is correct. Patient knows name of the current president. She believes that she is in [facility]", and she believes that I am here to help her. She knows her date of , but could not tell how old she is. She was able to recognize her daughter Rosa was present there. On cranial nerve examination, pupils are equal, round and reactive to light. Visual burk appears full. She has very significant impaired attention span and concentration and sometimes would neglect the right lower quadrant, which could be related to impaired concentration, doubt organic pathology. Face is symmetric and tongue protrudes to the midline. On muscle strength testing (right/left) deltoid 2-3/5, biceps 5/5, fixed income manager 5/5, triceps 5/5. Hip flexion 4+/4+, ankle dorsiflexion 5/5. Sensory to touch is equal with no neglect. Patient has very soft, but much distended abdomen, and she has some petichaea and some bruises over her extremities. She has very significant peripheral edema bilateral lower extremities, and the right upper extremity. - Labs CBC & Chem 7: 01/09/22 09:04 01/09/22 09:04 Labs: Abnormal Lab Results - Last 24 Hours (Table) 01/09/22 01/09/22 01/09/22 Range/Units 09:04 09:04 11:17 RDW 19.6 H (11.5-15.5) % Plt Count 113 L (150-450) k/uL Lymphocytes # 0.9 L (1.0-4.8) k/uL Sodium 133 L (137-145) mmol/L Chloride 93 L (98-107) mmol/L BUN 37 H (7-17) mg/dL Creatinine 4.59 H (0.52-1.04) mg/dL Glucose 149 H (74-99) mg/dL POC Glucose (mg/dL) 138 H (70-110) mg/dL 01/09/22 01/09/22 Range/Units 17:04 20:12 RDW (11.5-15.5) % Plt Count (150-450) k/uL Lymphocytes # (1.0-4.8) k/uL Sodium (137-145) mmol/L Chloride (98-107) mmol/L BUN (7-17) mg/dL Creatinine (0.52-1.04) mg/dL Glucose (74-99) mg/dL POC Glucose (mg/dL) 144 H 150 H (70-110) mg/dL Microbiology - Last 24 Hours (Table) 01/03/22 15:44 Blood Culture - Final Blood No Growth after 144 hours 01/03/22 15:04 Blood Culture - Final Blood No Growth after 144 hours Assessment and Plan Assessment: 1. Toxic metabolic Encephalopathy, likely multifactorial due to multiorgan dysfunction and other reasons as mentioned below. Possible concern for enodcarditis/abscess. Rule out septic emboli, Right coronary cusp with what appears to be some extension around the tricuspid valve. Cannot exclude annular abscess/endocarditis on 2D echo 2. Hypotensive episode 3. Old stroke over the right hemisphere (CT unchanged since 2019). Over right frontal, parietal, right parietal/temporal region, in watershed territory 4. ESRD on dialysis 5. DM 6. History of hypertension but having hypotensive episode 7. CAD s/p stent 8. Cardiomyopathy, with EF 40% 9. Hx of aortic valve replacement (2018) 10. Elevated liver enzymes. 11. Right upper extremity edema. Peripheral edema bilateral lower extremity 12. Mild hyponatremia Plan: 1. Transthoracic 2-D echo revealed left ventricular ejection fraction is 40% with global hypokinesis. Severely dilated left atrium. Normally functioning bi oprosthetic aortic valve. Echo density around the right coronary cusp with what appears to be some extension around the tricuspid valve. Cannot exclude annular abscess/endocarditis. ALLEY was recommended by Dr. Brannon. However per cardiology, in light of negative blood cultures, they feel ALLEY is not indicated 2. Physical and occupational therapy evaluations 3. Doppler ultrasound of right upper extremity negative for DVT. 4. Medical management as per IM, and other specialties. 5. Carotid Doppler revealed left side not evaluated because patient did not cooperate. On the right side the images suggests 30% stenosis in the ICA. Antegrade flow in the right vertebral artery. 6. B12 1580, folate 19.3, TSH is normal 2.010. 7. EEG 03/07/2022 was abnormal due to background slowing of mild degree suggestive of encephalopathy. No epileptiform activity was seen. 8. Patient not able to tolerate MRI. Repeat CT head performed today reported as nearly nondiagnostic exam. Diffuse degenerative and nonspecific white matter changes, most typical of remote ischemia. I personally reviewed CT head. It is not technically as bad as reported by the radiologist. There is no change as compared to computed tomography scan of head from 01/01/2022. Still evidence of old ischemia involving the right posterior parietal temporal region, left > right external capsule, and small vessel disease. 9. Patient has right shoulder weakness, likely due to rotator cuff tear. CVA less likely with negative CT head. Consider orthopedic evaluation. 10. Neurologically clear. Recommend patient follow up with neurologist in 2-4 weeks.
[2022-01-10 11:24] LABS: Glucose,Whole Blood 130 mg/dL (70-110)
--- NOTE | 2022-01-10 17:05 | P.PN ---
Subjective Patient is seen for follow-up for end-stage renal disease. She is maintained on a Saturday schedule. No significant complaints today Trying to increase oral intake Seen on hemodialysis. Tolerating treatment well. Objective - Vital Signs Vital signs: Vital Signs Temp 97.5 F L 01/10/22 13:58 Pulse 103 H 01/10/22 13:58 Resp 24 01/10/22 13:58 BP 98/48 01/10/22 13:58 Pulse Ox 99 01/10/22 13:58 FiO2 Intake & Output 01/09/22 01/10/22 01/10/22 18:59 06:59 18:59 Intake Total 240 Output Total 1 0 Balance -1 240 Weight 97.5 kg Intake: Oral 240 Output: Urine 0 Stool 1 Other: Voiding Method Diaper Diaper Diaper # Bowel Movements 1 1 - Exam Awake, comfortable, not in any acute distress Abdomen is soft nontender Examination lower extremity shows edema 1+ bilaterally with chronic skin changes - Labs CBC & Chem 7: 01/09/22 09:04 01/09/22 09:04 Labs: Abnormal Lab Results - Last 24 Hours (Table) 01/09/22 01/09/22 01/10/22 Range/Units 17:04 20:12 11:22 POC Glucose (mg/dL) 144 H 150 H 130 H (70-110) mg/dL Microbiology - Last 24 Hours (Table) 01/03/22 15:44 Blood Culture - Final Blood No Growth after 144 hours 01/03/22 15:04 Blood Culture - Final Blood No Growth after 144 hours Assessment and Plan Assessment: 1. End-stage renal disease maintained on hemodialysis on Saturday schedule via right upper extremity AV fistula. 2. S/p Fall. Patient was hypotensive, transferred out of ICU. No acute fracture noted. 3. Hypokalemia, replaced. 4. Acute on chronic diastolic CHF with moderate tricuspid regurgitation and pulmonary hypertension. 5. Volume overload. 6. History of TAVR for severe aortic stenosis Plan: Maintain hemodialysis on Saturday schedule. Physical therapy Encourage increased oral intake
[2022-01-10 17:16] LABS: Glucose,Whole Blood 148 mg/dL (70-110)
[2022-01-10 20:25] LABS: Glucose,Whole Blood 120 mg/dL (70-110)
[2022-01-10] MEDS: MULTIVITAMINS, THERA 1 EACH TAB PO SCH (20:58)
[2022-01-10] MEDS: allopurinoL 100 MG TAB PO SCH (20:58)
[2022-01-10] MEDS: PRAVASTATIN SODIUM 20 MG TAB PO SCH (20:58)
[2022-01-10] MEDS: PANTOPRAZOLE 40 MG TABLET PO SCH (20:58)
[2022-01-10] MEDS: MAGNESIUM OXIDE 400 MG TAB PO SCH (20:58)
[2022-01-10] MEDS: ASPIRIN 81 MG PO SCH (20:58)
[2022-01-10] MEDS: FLUTICASONE 50MCG/SPRAY NASAL 16GM EA NOSTRIL SCH (21:02)
--- NOTE | 2022-01-11 06:48 | P.PN ---
Subjective Progress Note Date: 01/10/22 Patient is a 81-year-old female with a known history of chronic CHF with preserved ejection fraction, coronary artery disease history of stent placement, history of TAVR, moderate pulmonary hypertension and moderate MR, ESRD on hemodialysis Saturday and history of COVID-19 infection February 2020, anxiety depression and previous history of smoking presents to ER status post fall. Patient fell in the bathroom and hitting her head on the way down. Patient states that she fell due to tripping on her walker. Patient otherwise denied any loss of consciousness. Patient is an adequate h istorian. Patient states that she has been having intermittent chest pain since fall. No radiation of the pain. Also complains of back pain and neck pain. Patient has been afebrile. Denies any recent illnesses. CT head and cervical spine showed spondylitic changes in the cervical spine. No fracture. No change. Cerebral atrophy and wall right hemispheric cortical infarcts. No acute intracranial abnormality. No change from prior study. X-ray of the thoracic spine showed no compression fracture. No acute abnormality noted. X-ray of the lumbar spine shows spondylitic changes and degenerative positivity L4-L5 spondylolisthesis. No acute fracture seen. Chest x-ray showed interstitial fibrotic changes. Small pleural effusions. There is clearing of the bases consolidation left upper lobe compatible exam. Mild heart failure is possible. See clearly please showed no acute fracture traumatic injury of the facial bones. EKG showed sinus rhythm with occasional supraventricular premature complexes. Laboratory data WBC 10.8 hemoglobin 14.1 and platelets 115 Sodium 134 potassium 3.4 Chloride 95 BUN 29 and creatinine 3.11 AST 55 ALT 42 alk phos 161 Troponin 0.104 and 0.117 and 0.107 proBNP 54040 01/03/2022 Patient is currently very anxious and also hypotensive. Patient was given a dose of Ativan 0.5 mg. Patient was initiated on hemodialysis. Hemodialysis could not be done due to hypotension and pulmonary was consulted. Possible infection was suspected and patient was started on IV antibiotics and oral vancomycin transferred to MICU. Patient denies any complaints of nausea or vomiting. No complaints of chest pain. No headache or dizziness. Patient is very anxious. Review of systems could not be obtained completely. Laboratory data showed WBC 7.6 hemoglobin 12.5 and platelets 120 D-dimer is 2.28 BUN 45 and creatinine 4.87. Troponin 0.073. 01/04/2022 Patient is currently in the MICU. Lethargic but arousable. Able to follow simple commands. Currently still hypotensive with blood pressure 80s. Patient is being current on vancomycin and also will be started on pressor support. Patient will need hemodialysis. Echocardiogram report is pending. Nephrology is planning for hemodialysis today. Laboratory pressure WBC 6.8 hemoglobin 13.3 and platelets 123 Sodium 134 potassium 4.5 chloride 95 bicarb is 29 BUN 49 creatinine 5.14 and procalcitonin level is 0.6 Acute hepatitis panel is negative Patient is being continued on antibiotics in the form of vancomycin. 01/05/2022 Patient is currently in MICU. Underwent hemodialysis yesterday with 2 L of ultrafiltration. Patient was on pressor support and has been discontinued this morning. Currently patient is more awake. Also started on midodrine 10 mg 3 times daily. Cultures have been negative. Patient is being continued on antibiotics in the form of vancomycin. No leukocytosis. Patient is currently requiring 2 L oxygen via nasal cannula. 2D echocardiogram showed consistent with mild LV dysfunction with ejection fraction 40% moderate RV dilation and echodensity on the right coronary cusp extending to the tricuspid valve. Cardiology nephrology and pulmonary is on board. Laboratory test showed WBC 7.9 hemoglobin 14.0 and platelets 110 BUN 34 and creatinine 4.28 01/06/2022 Patient is currently resting in the bed comfortably. Off pressor support. Blood pressure has been stable. No complaints of chest pain or shortness of breath. Currently maintained on midodrine 10 mg 3 times daily. Patient is being continued on vancomycin. Cultures have been negative so far. Patient was seen by neurology and MRI of the brain was ordered due to consideration of septic emboli. Laboratory data reviewed. 01/07/2022. Patient was admitted to hospital due to altered mental status and status post fall and elevated BNP level. Patient was continued on IV diuresis and monitor hypotensive requiring pressor support. Possible sepsis is being considered and transferred to MICU. Currently cultures have been negative. On antibiotics with vancomycin. Neurology was consulted due to altered mental status. Patient is currently on the medical floor. Lying in the bed. Awake alert resting seems to be confused. Blood pressure is stable. currently on oxygen at 2 L via nasal cannula. Blood sugar is controlled. Creatinine 4.53 today. Blood cultures have been negative. Patient is being considered antibiotics at home vancomycin. Patient is undergoing neuro work-up with possible septic emboli. MRI of the brain and MR angiogram of the head without contrast was ordered. EEG was ordered and is pending. 01/08/2022 Patient is seen and evaluated in follow-up today with multiple medical consultations following including pulmonary, cardiology, nephrology, and neurology. Patient undergoing neurological workup and tentatively scheduled for MRI once patient able to tolerate. Neurology had an EEG done which was showing an abnormal EEG suggestive of mild encephalopathy. Patient continues with c onfusion and is significantly weak. Patient also maintained on hemodialysis and will continue current regimen. PT/OT therapy recommending subacute rehab in case management/social work following working on possible ECF. Encouraged oral intake and increased activity as tolerated. Patient receive hemodialysis today. Patient is afebrile, currently off antibiotics, continued on inhalers with pulmonary following. Patient denies worsening shortness of breath and is currently maintained at 95% on 2 L via nasal cannula. No reports of nausea or vomiting noted. 01/09/2022 Patient seen today and awaiting MRI of the brain. Family at the bedside and discussing possible ecf. Social work following and plan is for possible [facility] as [facility] choice. Arranging for outpatient dialysis there as well if accepted. Patient continues with significant weakness and PT/OT following. Neurology following as well and undergoing neuro work-up. Labs reviewed and stable at this time. Patient is afebrile and no reports of chest pain or shortness of breath noted. 01/10/2022 Patient is seen today and currently undergoing hemodialysis. M/W/F and will continue. Repeat CT of the brain suboptimal due to movement and will have patient follow up outpatient and has been cleared by neurology for rehab. Social work following and working on acceptance and insurance auth for [facility]. Patient is afebrile and denies chest pain or shortness of breath. Encouraged oral intake. Review of systems: Unable to completely assess as patient is confused PHYSICAL EXAMINATION: Patient is lying in the bed awake alert and oriented x1-2, confused. HEENT: Normocephalic. Neck is supple. Pupils reactive. Nostrils clear. Oral cavity is moist. Neck reveals no JVD, carotid bruits, or thyromegaly. CHEST EXAMINATION: Trachea is central. Symmetrical expansion. Lung burk dimin ished with some scattered rhonchi noted. CARDIAC: S1, S2 muffled ABDOMEN: Soft. Bowel sounds present. Nontender. No organomegaly. No abdominal bruits. Extremities: Bilateral 2+ pedal edema. No clubbing or cyanosis Neurologically awake, alert, oriented x2 with well-coordinated movements. No fo surendra deficits noted. Diffusely weak Skin: No rash or skin lesions. Psychiatric: Cooperative. Musculoskeletal: No joint swelling or deformity. Normal range of motion. Assessment: Acute altered mental status. CT head negative for acute CVA. Hypotension and possible underlying sepsis is also a consideration.Mentation is improving. Status post mechanical fall. Patient tripped over her walker and fell on the floor hitting her head. Acute on chronic CHF with preserved ejection fraction ESRD on hemodialysis Saturday and Saturday Elevated troponin level likely due to demand ischemia and CKD History of TAVR in February 2018 Moderate MR and moderate pulmonary hypertension. Mild transaminitis Hypokalemia, improved Coronary artery history of stent placement Bilateral carotid endarterectomy Hypertension Hyperlipidemia Diabetes type 2 diet controlled Anxiety/depression Persistent smoking DVT prophylaxis with heparin subcu Plan: Patient off antibiotics with cultures being negative. Patient continues with confusion and undergoing neurological workup and underwent EEG which was abnor mal possibly secondary to metabolic encephalopathy. Repeat ct of the brain is non-diagnostic and similar to previous exam. Neurology recommends outpatient follow up Patient is undergoing hemodialysis today as per schedule on Saturday/Saturday/Saturday. Due to multiple complex medical issues, multiple medical consultations are following and prognosis is guarded. Recommend PT/OT therapy daily and continue to follow with social work working on insurance authorization for [facility] Encouraged oral intake and increased activity as tolerated Possible discharge in 24 hours The impression and plan of care has been dictated by Shey Hilliard, Nurse Practitioner as directed. Dr. Dayton MD I have performed a history and examination and MDM of this patient, discussed the same with the dictator, and agree with the dictator's assessment and plan as written ,documented as a scribe. Based on total visit time, I have performed more than 50% of the visit. Objective - Vital Signs Vital signs: Vital Signs Temp 98.7 F 01/10/22 04:49 Pulse 118 H 01/10/22 04:49 Resp 20 01/10/22 04:49 BP 102/71 01/10/22 04:49 Pulse Ox 98 01/10/22 04:49 FiO2 Intake & Output 01/09/22 01/10/22 01/10/22 18:59 06:59 18:59 Intake Total 240 Output Total 1 0 Balance -1 240 Weight 97.5 kg Intake: Oral 240 Output: Urine 0 Stool 1 Other: Voiding Method Diaper Diaper Diaper # Bowel Movements 1 1 - Labs CBC & Chem 7: 01/09/22 09:04 01/09/22 09:04 Labs: Abnormal Lab Results - Last 24 Hours (Table) 01/09/22 01/09/22 01/09/22 Range/Units 09:04 09:04 11:17 RDW 19.6 H (11.5-15.5) % Plt Count 113 L (150-450) k/uL Lymphocytes # 0.9 L (1.0-4.8) k/uL Sodium 133 L (137-145) mmol/L Chloride 93 L (98-107) mmol/L BUN 37 H (7-17) mg/dL Creatinine 4.59 H (0.52-1.04) mg/dL Glucose 149 H (74-99) mg/dL POC Glucose (mg/dL) 138 H (70-110) mg/dL 01/09/22 01/09/22 Range/Units 17:04 20:12 RDW (11.5-15.5) % Plt Count (150-450) k/uL Lymphocytes # (1.0-4.8) k/uL Sodium (137-145) mmol/L Chloride (98-107) mmol/L BUN (7-17) mg/dL Creatinine (0.52-1.04) mg/dL Glucose (74-99) mg/dL POC Glucose (mg/dL) 144 H 150 H (70-110) mg/dL Microbiology - Last 24 Hours (Table) 01/03/22 15:44 Blood Culture - Final Blood No Growth after 144 hours 01/03/22 15:04 Blood Culture - Final Blood No Growth after 144 hours
[2022-01-11 07:10] LABS: Glucose,Whole Blood 119 mg/dL (70-110)
[2022-01-11] MEDS: SYMBICORT 160-4.5 MCG INHALER INHALATION SCH (07:39)
[2022-01-11] MEDS: MIDODRINE 5 MG TAB PO SCH ×2 (08:16→11:32)
[2022-01-11] MEDS: HEPARIN SODIUM,PORCINE/PF 5,000 UNIT/0.5 ML SYRINGE SQ SCH (08:16)
[2022-01-11] MEDS ORDERED: ACETAMINOPHEN TAB 325 MG TAB PO PRN (08:22)
[2022-01-11] MEDS ORDERED: ALPRAZolam 0.25 MG TAB PO STA (08:59)
[2022-01-11] MEDS ORDERED: SERTRALINE 50 MG TAB PO SCH (09:00)
[2022-01-11 12:02] LABS: Glucose,Whole Blood 122 mg/dL (70-110)
[2022-01-11 13:27] VITALS: BP 97/63; PULSE 106; RESP 22; TEMP 94.7
--- NOTE | 2022-01-11 13:40 | P.DS ---
Providers Date of admission: 01/02/22 00:09 Expected date of discharge: 01/11/22 Attending physician: Suki Burris Consults: 01/02/22 16:07 Consult Physician Routine Consulting Provider: Billy Duarte Consult Reason/Comments: pos trops, elevated BNP Do you want consulting provider notified?: Yes 01/02/22 21:12 Consult Physician Routine Consulting Provider: Amadou Weiss Consult Reason/Comments: CKD Do you want consulting provider notified?: Yes, Notify in am 01/03/22 17:24 Consult Physician Stat Consulting Provider: Joseph David Consult Reason/Comments: hypotension Do you want consulting provider notified?: Already Contacted 01/05/22 11:33 Consult Physician Routine Consulting Provider: Cortez Gardner Consult Reason/Comments: ongoing encephalitis, ? septic emboli? Do you want consulting provider notified?: Yes Primary care physician: Mellissa Aleman Hospital Course: Final diagnosis Acute altered mental status. CT head negative for acute CVA. Hypotension and possible underlying sepsis is also a consideration Status post mechanical fall. Patient tripped over her walker and fell on the floor hitting her head. Acute on chronic CHF with preserved ejection fraction ESRD on hemodialysis Saturday and Saturday Elevated troponin level likely due to demand ischemia and CKD History of TAVR in February 2018 Moderate MR and moderate pulmonary hypertension. Mild transaminitis Hypokalemia, improved Coronary artery history of stent placement Bilateral carotid endarterectomy Hypertension Hyperlipidemia Diabetes type 2 diet controlled Anxiety/depression Persistent smoking DVT prophylaxis Full code Discharge disposition Patient is being discharged in a stable condition with guarded prognosis to [facility] . Patient will follow-up with Dr. Aleman in the outpatient setting upon discharge. Patient is to continue with hemodialysis as scheduled. Patient will need outpatient neurology follow-up. Total time taken is greater than 35 minutes. Hospital course This is a 81-year-old female who was recently admitted with falls and has been progressively getting more weak at home. Per daughter at the bedside patient has also been forgetting to take her medications. Patient is on hemodialysis Saturday/Saturday/Saturday and recommend continue. Patient was seen and evaluated by neurology recommending outpatient follow-up in the next 1-2 weeks. Patient having continued periods of confusion with underlying dementia and recommending Seroquel at night. Patient has been cleared by consultations for discharge to [facility]. Patient with significant weakness and family would like patient to go to build up strength and mobility prior to coming home. Currently no reports of chest pain, shortness of breath, or palpitations. Patient is afebrile. No reports of nausea or vomiting and patient is tolerating diet. Patient needs encouragement with meals and recommend supplements 3 times a day between meals. Patient will be going to [facility] today. Extremely guarded prognosis. Physical exam: Gen: This is a 81-year-old female awake, alert and oriented 1-2, delayed responses. Well-developed, well-nourished HEENT: Head is atraumatic, normocephalic. Pupils equal, round. Sclerae is anicteric. NECK: Supple. No JVD. No lymphadenopathy. No thyromegaly. LUNGS: Diminished breath sounds bilaterally with no wheezes or rhonchi. No intercostal retractions. HEART: S1, S2 are muffled ABDOMEN: Soft. Bowel sounds are present. No masses. No tenderness. EXTREMITIES: No pedal edema. No calf tenderness. NEUROLOGICAL: Patient is awake, alert and oriented x3. Diffusely weak Please refer to medication reconciliation sheet for a list of medications. The impression and plan of care has been dictated by Shey Hilliard, Nurse Practitioner as directed. Dr. Dayton MD I have performed a history and examination and MDM of this patient, discussed the same with the dictator, and agree with the dictator's assessment and plan as written ,documented as a scribe. Based on total visit time, I have performed more than 50% of the visit. Patient Condition at Discharge: Fair Plan - Discharge Summary Discharge Rx Participant: No New Discharge Prescriptions: New Fluticasone Nasal [place] [Flonase Nasal [place]] 2 spray EA NOSTRIL HS ml Midodrine [ProAmatine] 10 mg PO AC-TID tab QUEtiapine [SEROquel] 25 mg PO HS tab Acetaminophen Tab [Tylenol] 650 mg PO Q6HR PRN tab PRN Reason: Fever And/ Or Pain Magnesium Oxide [Mag-Ox] 200 mg PO HS tab Nitroglycerin Sl Tabs [Nitrostat] 0.4 mg SUBLINGUAL Q5M PRN tab PRN Reason: Chest Pain Heparin Sodium,Porcine [Heparin Sodium] 5,000 unit SQ Q12HR 30 Days #60 each Continue Pravastatin Sodium [Pravachol] 20 mg PO HS Pantoprazole Sodium [Protonix] 40 mg PO HS Febuxostat [Uloric] 40 mg PO HS Mometasone/Formoterol [Dulera 200 Mcg-5 Mcg Inhaler] 2 puff INHALATION RT-BID Lidocaine-Prilocaine Cream [Emla Cream 2.5%/2.5%] 1 applic TOPICAL DAILY PRN PRN Reason: port access Aspirin EC [Ecotrin Low Dose] 81 mg PO HS Dialyvite 800 1 tab PO HS Sertraline [Zoloft] 50 mg PO DAILY Discontinued levOCARNitine [Levocarnitine] 660 mg PO TID Furosemide [Lasix] 60 mg PO DAILY Discharge Medication List Febuxostat [Uloric] 40 mg PO HS 08/03/17 [History] Pantoprazole Sodium [Protonix] 40 mg PO HS 08/03/17 [History] Pravastatin Sodium [Pravachol] 20 mg PO HS 08/03/17 [History] Mometasone/Formoterol [Dulera 200 Mcg-5 Mcg Inhaler] 2 puff INHALATION RT-BID 04/22/18 [History] Aspirin EC [Ecotrin Low Dose] 81 mg PO HS 04/11/21 [History] Dialyvite 800 1 tab PO HS 04/11/21 [History] Lidocaine-Prilocaine Cream [Emla Cream 2.5%/2.5%] 1 applic TOPICAL DAILY PRN 04/11/21 [History] Sertraline [Zoloft] 50 mg PO DAILY 01/02/22 [History] Acetaminophen Tab [Tylenol] 650 mg PO Q6HR PRN tab 01/11/22 [Rx] Fluticasone Nasal [place] [Flonase Nasal [place]] 2 spray EA NOSTRIL HS ml 01/11/22 [Rx] Heparin Sodium,Porcine [Heparin Sodium] 5,000 unit SQ Q12HR 30 Days #60 each 01/11/22 [Rx] Magnesium Oxide [Mag-Ox] 200 mg PO HS tab 01/11/22 [Rx] Midodrine [ProAmatine] 10 mg PO AC-TID tab 01/11/22 [Rx] Nitroglycerin Sl Tabs [Nitrostat] 0.4 mg SUBLINGUAL Q5M PRN tab 01/11/22 [Rx] QUEtiapine [SEROquel] 25 mg PO HS tab 01/11/22 [Rx] Follow up Appointment(s)/Referral(s): Mellissa Aleman DO [Primary Care Provider] - 1-2 days [facility] [NON-STAFF] - Nicole Benito MD [STAFF PHYSICIAN] - 1 Week Vishal Ruiz MD [Medical Doctor] - 1 Week Activity/Diet/Wound Care/Special Instructions: Patient will require a wheel chair to complete ADLs which cannot be done with a cane or walker r/t weakness, difficulty with ambulation, CHF, end stage renal disease. Patient will have someone to propel her in wheel chair. Patient is going to [facility] Activity as tolerated Continue with hemodialysis Saturday/Saturday/Saturday and follow-up with nephrology outpatient Continue heart healthy dysphasia 2 ground diet with supervision with meals and head of the bed elevated 45 at all times and maintain aspiration precautions Continue with ensure supplements 3 times a day with meals patient prefers chocolate Continue supplemental oxygen and wean as tolerated currently 2 L Recommend outpatient follow-up with primary care provider on discharge along with neurology outpatient follow-up in 1-2 weeks Discharge Disposition: TRANSFER TO SNF/ECF
--- NOTE | 2022-01-11 14:27 | P.PN ---
Subjective Patient is seen for follow-up for end-stage renal disease. She is maintained on a Saturday schedule. No significant complaints today Trying to increase oral intake Tolerated hemodialysis well yesterday Objective - Vital Signs Vital signs: Vital Signs Temp 94.7 F L 01/11/22 13:26 Pulse 106 H 01/11/22 13:26 Resp 22 01/11/22 13:26 BP 97/63 01/11/22 13:26 Pulse Ox 94 L 01/11/22 13:26 FiO2 Intake & Output 01/10/22 01/11/22 01/11/22 18:59 06:59 18:59 Intake Total 200 Balance 200 Weight 89.5 kg Intake: Oral 200 Other: Voiding Method Diaper Diaper Diaper # Bowel Movements 1 1 - Exam Awake, comfortable, not in any acute distress Abdomen is soft nontender Examination lower extremity shows edema 1+ bilaterally with chronic skin changes - Labs CBC & Chem 7: 01/09/22 09:04 01/09/22 09:04 Labs: Abnormal Lab Results - Last 24 Hours (Table) 01/10/22 01/10/22 01/11/22 Range/Units 17:15 20:23 07:09 POC Glucose (mg/dL) 148 H 120 H 119 H (70-110) mg/dL 01/11/22 Range/Units 12:00 POC Glucose (mg/dL) 122 H (70-110) mg/dL Assessment and Plan Assessment: 1. End-stage renal disease maintained on hemodialysis on Saturday schedule via right upper extremity AV fistula. 2. S/p Fall. Patient was hypotensive. 3. Hypokalemia, replaced. 4. Acute on chronic diastolic CHF with moderate tricuspid regurgitation and pulmonary hypertension. 5. Volume overload. 6. History of TAVR for severe aortic stenosis Plan: Hemodialysis in a.m.
[2022-01-11] MEDS ORDERED: QUEtiapine 25 MG TAB PO SCH (21:00)
--- NOTE | 2022-01-14 21:32 | CDI ---
Documentation Clarification Form Date: 01/14/2022 09:19:11 PM From: Kacey Dowd Phone: Admit Date: 01/02/2022 12:09:00 AM Patient Name: Beckie Arce Visit Number: [id number] Discharge Date: 01/11/2022 02:05:00 PM ATTENTION: The Clinical Documentation Specialists (CDI) and [facility] Coding Staff appreciate your assistance in clarifying documentation. Please respond to the clarification below the line at the bottom and electronically sign. The CDI & [facility] Coding staff will review the response and follow-up if needed. Please note: Queries are made part of the Legal Health Record. If you have any questions, please contact the author of this message via ITS. Dr. Suki Burris Hypotension is documented in the ED Note and throughout. Additional clarification regarding this diagnosis is requested. History/Risk Factors: 81yo F, Hypotension, sp fall, ACDCHF, ESRD, demand ischemia, Hx TAVR, MR, pHTN, Mild transaminitis, Hypokalemia, CAD w stent, HTN, HLD, DMII, Dementia w Anxiety/depression Clinical Indicators: VS: 83/53 01/03/22; Hemodialysis could not be done due to hypotension Treatment: midodrine 10 mg 3 times daily Can the hypotension be further specified? [ ] Chronic Hypotension [ ] Drug Induced Hypotension [ ] Hypotension due to hemodialysis [ ] Orthostatic Hypotension [ ] Postural Hypotension [ ] Other Condition, please specify [ ] Unable to determine (Template Last Revised: May 2020) Chronic Hypotension MTDD
--- NOTE | 2022-01-18 10:15 | CDI ---
Documentation Clarification Form Date: 01/18/2022 09:55:42 AM From: Kacey Dowd Phone: Admit Date: 01/02/2022 12:09:00 AM Patient Name: Beckie Arce Visit Number: [id number] Discharge Date: 01/11/2022 02:05:00 PM ATTENTION: The Clinical Documentation Specialists (CDI) and [facility] Coding Staff appreciate your assistance in clarifying documentation. Please respond to the clarification below the line at the bottom and electronically sign. The CDI & [facility] Coding staff will review the response and follow-up if needed. Please note: Queries are made part of the Legal Health Record. If you have any questions, please contact the author of this message via ITS. Dr. Suki Burris The patient presented with the following clinical indicators. Additional clarification regarding the etiology/cause of the clinical indicators is requested. History/Risk Factors: 81yo F, chronic hTN, sp fall, ACDCHF, DMII w ESRD, demand ischemia, Hx TAVR, MR, pHTN, Mild transaminases, Hypokalemia, CAD w stent, HTN, HLD, Dementia w Anxiety/depression Clinical Indicators: WBC: 10.8 Blood cultures: blood cultures are negative Vitals signs: BP 95/51, pulse 81, respiratory rate 14, SpO2 98% on 2 L NC Treatment: Antibiotics: patient was given a dose of vancomycin pending further cultures; late d/c IV Bolus: (Chronic) Hypotension, given a bolus of 2 mL of normal saline, currently normotensive and she is not requiring any pressors. In your professional opinion, please clarify if these findings signify one of the following conditions: [ ] Sepsis due to POA [ ] Sepsis ruled out [ ] Other, please specify [ ] Unable to determine SIRS Criteria: 2 or more of the following may indicate SIRS -Temperature < 96.8F (36C) or > 101.0F (38.3C) -Heart Rate > 90 bpm -Respiratory Rate > 20 breaths/min or PaCO2 < 32 mmHg -White Blood Cell Count > 12,000 or < 4,000 cells/mm3 or > 10% bands (Template Last Reviewed: April 2020) possible sepsis due to hospital acquired pneumonia, kaciea with recent admission and discharge one day prior MTDD
== END 2022-01-11 14:05 | DRG 871 ==
LOC: EC 20:39 → 3SCARD 01-02 00:09 → 2SICU 01-03 17:05 → 5NMEDONC 01-06 15:29
PROVIDERS: ADMIT Hospitalist; ATTEND Hospitalist
PROC: 5A1D70Z Performance of Urinary Filtration, Intermittent, Less than 6 Hours Per Day (ICD-10-PCS; principal; 2022-01-03)
DX: A41.89 Other specified sepsis (principal); G92.8 Other toxic encephalopathy; I50.33 Acute on chronic diastolic (congestive) heart failure; N18.6 End stage renal disease; F03.94 Unspecified dementia, unspecified severity, with anxiety; I13.2 Hypertensive heart and chronic kidney disease with heart failure and with stage 5 chronic kidney disease, or end stage renal disease; F03.93 Unspecified dementia, unspecified severity, with mood disturbance; I24.8 Other forms of acute ischemic heart disease; I42.9 Cardiomyopathy, unspecified; E87.1 Hypo-osmolality and hyponatremia; I95.89 Other hypotension; I27.20 Pulmonary hypertension, unspecified; E11.22 Type 2 diabetes mellitus with diabetic chronic kidney disease; I08.1 Rheumatic disorders of both mitral and tricuspid valves; I25.10 Atherosclerotic heart disease of native coronary artery without angina pectoris; E78.5 Hyperlipidemia, unspecified; W18.09XA Striking against other object with subsequent fall, initial encounter; E87.6 Hypokalemia; R74.01 Elevation of levels of liver transaminase levels; M54.9 Dorsalgia, unspecified; M43.16 Spondylolisthesis, lumbar region; Z53.29 Procedure and treatment not carried out because of patient's decision for other reasons; M54.2 Cervicalgia; R00.8 Other abnormalities of heart beat; I49.1 Atrial premature depolarization; I49.3 Ventricular premature depolarization; Z20.822 Contact with and (suspected) exposure to COVID-19; Z99.2 Dependence on renal dialysis; Y92.002 Bathroom of unspecified non-institutional (private) residence as the place of occurrence of the external cause; Z95.3 Presence of xenogenic heart valve; Z86.73 Personal history of transient ischemic attack (TIA), and cerebral infarction without residual deficits; Z87.891 Personal history of nicotine dependence; Z79.899 Other long term (current) drug therapy; Z79.51 Long term (current) use of inhaled steroids; Z79.82 Long term (current) use of aspirin; Z86.16 Personal history of COVID-19; Z95.5 Presence of coronary angioplasty implant and graft; Z88.5 Allergy status to narcotic agent; Z91.040 Latex allergy status; Z88.1 Allergy status to other antibiotic agents; Z88.8 Allergy status to other drugs, medicaments and biological substances
CPT/HCPCS: 36415; 36600; 70450; 70486; 71045; 72070; 72100; 72125; 80048; 80053; 80202; 82140; 82565; 82607; 82746; 82805; 83605; 83735; 83880; 84100; 84145; 84443; 84484; 85025; 85379; 86705; 86709; 87040; 87340; 87635; 90935; 93005; 93306; 93880; 94640; 94760; 95816; 96360; 96361; 99285

== ENCOUNTER 2022-01-12 10:52 | Inpatient (IN) | payer MEDICARE ==
--- NOTE | 2022-01-12 11:55 | ED ---
Abdominal Pain HPI - General Chief Complaint: Abdominal Pain Stated Complaint: urinary retention Time Seen by Provider: 01/12/22 11:06 Source: family, EMS, RN notes reviewed Mode of arrival: EMS Limitations: altered mental status - History of Present Illness Initial Comments: This is an 81-year-old female who presents to the emergency department for urin julieta retention and abdominal pain. She was discharged from here yesterday for a CHF exacerbation and altered mental status. She was discharged to the [facility]. Her daughter states that she was supposed to have dialysis today, but was unable to due to abdominal pain. She is also exhibiting urinary retention, and subsequently had a Waite catheter placed. Despite having several different Waite catheters placed, they have not been able to obtain any urine. Her daughter is concerned about altered mental status, and states that she seems very weak and unlike herself. This is been going on for over a week, and they have not been able to determine a cause for this change in mentation. She did have a neurology evaluation and computed tomography scan of the brain during her admission, and there was nothing identified to account for the patient's symptoms. her daughter requests an MRI for further evaluation. This was unable to be done during her last admission due to patient's poor respiratory status. Additionally, over the last couple of days she has had swelling to the right arm. This is where her hemodialysis graft is placed. She receives hemodialysis Saturday, Saturday, and Saturday. Her daughter states that the swelling has doubled in size since yesterday. Denies any fevers, chills, sore throat, cough, dyspnea, chest pain, palpitations, nausea, vomiting, diarrhea, back pain, or headaches. MD Complaint: abdominal pain - Related Data Home Medications Medication Instructions Recorded Confirmed Febuxostat [Uloric] 40 mg PO HS 08/03/17 01/02/22 Pantoprazole Sodium [Protonix] 40 mg PO HS 08/03/17 01/02/22 Pravastatin Sodium [Pravachol] 20 mg PO HS 08/03/17 01/02/22 Mometasone/Formoterol [Dulera 200 2 puff INHALATION RT-BID 04/22/18 01/02/22 Mcg-5 Mcg Inhaler] Aspirin EC [Ecotrin Low Dose] 81 mg PO HS 04/11/21 01/02/22 Dialyvite 800 1 tab PO HS 04/11/21 01/02/22 Lidocaine-Prilocaine Cream [Emla 1 applic TOPICAL DAILY PRN 04/11/21 01/02/22 Cream 2.5%/2.5%] Sertraline [Zoloft] 50 mg PO DAILY 01/02/22 01/02/22 Previous Rx's Medication Instructions Recorded Acetaminophen Tab [Tylenol] 650 mg PO Q6HR PRN tab 01/11/22 Fluticasone Nasal [place] [Flonase 2 spray EA NOSTRIL HS ml 01/11/22 Nasal [place]] Heparin Sodium,Porcine [Heparin 5,000 unit SQ Q12HR 30 Days #60 01/11/22 Sodium] each Magnesium Oxide [Mag-Ox] 200 mg PO HS tab 01/11/22 Midodrine [ProAmatine] 10 mg PO AC-TID tab 01/11/22 Nitroglycerin Sl Tabs [Nitrostat] 0.4 mg SUBLINGUAL Q5M PRN tab 01/11/22 QUEtiapine [SEROquel] 25 mg PO HS tab 01/11/22 Allergies Allergy/AdvReac Type Severity Reaction Status Date / Time atorvastatin [From Lipitor] Allergy Unknown Verified 01/02/22 08:12 codeine Allergy Rash/Hives Verified 01/02/22 08:12 duloxetine [From Cymbalta] Allergy Unknown Verified 01/02/22 08:12 ezetimibe [From Zetia] Allergy Unknown Verified 01/02/22 08:12 fenofibrate [From Tricor] Allergy Unknown Verified 01/02/22 08:12 latex Allergy Rash/Hives Verified 01/02/22 08:12 niacin Allergy Unknown Verified 01/02/22 08:12 tetracycline Allergy Unknown Verified 01/02/22 08:12 Review of Systems ROS Statement: Those systems with pertinent positive or pertinent negative responses have been documented in the HPI. ROS Other: All systems not noted in ROS Statement are negative. Past Medical History Past Medical History: Coronary Artery Disease (CAD), Heart Failure, Diabetes Mellitus, Hyperlipidemia, Hypertension, Renal Disease Additional Past Medical History / Comment(s): has hemodialysis MON,WED,FRI for 3 1/2 in [facility] Feb 2020,heart murmur; Hx gout; see Dr Fu's H&P , gout, diastolic heart failure History of Any Multi-Drug Resistant Organisms: None Reported Past Surgical History: Appendectomy, Heart Catheterization, Heart Catheterization With Stent Additional Past Surgical History / Comment(s): IV catheter rt chest, Ovary removal, 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 Bilateral carotid endarterectomy. Aortic valve replacement 02/2018 Past Anesthesia/Blood Transfusion Reactions: No Reported Reaction Date of Last Stent Placement:: unknown Past Psychological History: Anxiety, Depression Smoking Status: Former smoker Past Alcohol Use History: None Reported Past Drug Use History: None Reported - Past Family History Mother Family Medical History: No Reported History Sister(s) Family Medical History: Cancer Father Family Medical History: Myocardial Infarction ([place]) Additional Family Medical History / Comment(s): Father of a [place] in his 60s. General Exam Limitations: altered mental status General appearance: alert, other (Drowsy) Head exam: Present: atraumatic, normocephalic, normal inspection Neck exam: Present: normal inspection. Absent: tenderness, meningismus, lymphadenopathy Respiratory exam: Present: rhonchi Cardiovascular Exam: Present: regular rate, normal rhythm, normal heart sounds. Absent: systolic murmur, diastolic murmur, rubs, gallop, clicks GI/Abdominal exam: Present: soft, normal bowel sounds. Absent: distended, ten derness Extremities exam: Present: other (Diffuse swelling of the right upper extremity from the top of the arm to the phalanges.) Neurological exam: Present: alert Skin exam: Present: warm, dry, intact, normal color. Absent: rash Course Vital Signs 01/12/22 01/12/22 10:54 16:11 Temperature 97.5 F L Pulse Rate 107 H 107 H Respiratory 22 20 Rate Blood Pressure 95/58 95/54 O2 Sat by Pulse 97 99 Oximetry Medical Decision Making - Medical Decision Making This is an 81-year-old female who presents to the emergency department for abdominal pain and urinary retention. Lab work reveals leukocytosis, hy perkalemia, and transaminitis. Computed tomography scan of the abdomen and pelvis obtained revealing sludge in the gallbladder and a large fecal ball. Bladder scan did reveal 400-600 mL in the bladder, however we are not able to get any urine output from the Waite catheter. Patient is likely getting to the point, where she is anuric and her kidneys are no longer able to produce any urine. The bladder scan is not always reliable and may have been picking up the large fecal ball. Duplex ultrasound of the right upper extremity obtained due to the swelling, this did not identify any signs of a blood clot. Given the transaminitis and the sludge in the gallbladder, an ultrasound of the gallb ladder was subsequently obtained. This again revealed sludge, but no signs of an acute cholecystitis. Additionally, the exam was very limited due to the patient's body habitus. She was given 1 g of calcium gluconate for the hyperkalemia, however this is most likely due to the patient needing her dialysis. Case discussed with ED attending Dr. Hernandez, who had a conversation with the patient's family and myself. We discussed that she is essentially in multiorgan failure and end of life discussions need to be had. Patient wishes are that she remains full code, however the family does not agree with this and understands that resuscitation would not be successful. She does not currently have a power of supervisor estimator and drafter. Patient will be admitted to medicine with palliative care and hospice consults for end-of-life discussions and goals of care. Patient given IV Zosyn due to leukocytosis and possible associated infection. I spoke with Dr. Benito, nephrology, who is agreeable to the patient getting dialysis tonight. Palliative care and hospice were consulted to discuss goals of care and end of life decisions with the patient and her family. Case management consulted as well to help the family designate a power of supervisor estimator and drafter. Chest x-ray ordered, as the patient started coughing. Results pending at the time of admission. This case was discussed in detail with the attending ED physician. Presentation, findings, and treatment plan discussed in detail as well. - Lab Data Result diagrams: 01/12/22 12:47 01/12/22 12:47 Lab Results 01/12/22 01/12/22 01/12/22 Range/Units 12:47 12:47 12:47 WBC 13.5 H (3.8-10.6) k/uL RBC 4.58 (3.80-5.40) m/uL Hgb 12.7 (11.4-16.0) gm/dL Hct 41.1 (34.0-46.0) % MCV 89.7 (80.0-100.0) fL MCH 27.7 (25.0-35.0) pg MCHC 30.9 L (31.0-37.0) g/dL RDW 20.2 H (11.5-15.5) % Plt Count 221 (150-450) k/uL MPV 9.5 Neutrophils % 88 % Lymphocytes % 8 % Monocytes % 4 % Eosinophils % 0 % Basophils % 0 % Neutrophils # 11.8 H (1.3-7.7) k/uL Lymphocytes # 1.0 (1.0-4.8) k/uL Monocytes # 0.5 (0-1.0) k/uL Eosinophils # 0.0 (0-0.7) k/uL Basophils # 0.0 (0-0.2) k/uL Hypochromasia Moderate Anisocytosis Moderate Sodium 136 L (137-145) mmol/L Potassium 6.1 H* (3.5-5.1) mmol/L Chloride 98 (98-107) mmol/L Carbon Dioxide 20 L (22-30) mmol/L Anion Gap 18 mmol/L BUN 55 H (7-17) mg/dL Creatinine 5.21 H (0.52-1.04) mg/dL Est GFR (CKD-EPI)AfAm 8 (>60 ml/min/1.73 sqM) Est GFR (CKD-EPI)NonAf 7 (>60 ml/min/1.73 sqM) Glucose 76 (74-99) mg/dL Lactic Ac Sepsis Rflx Plasma Lactic Acid Jeet 5.7 H* (0.7-2.0) mmol/L Calcium 9.3 (8.4-10.2) mg/dL Total Bilirubin 2.2 H (0.2-1.3) mg/dL AST 515 H (14-36) U/L ALT 174 H (4-34) U/L Alkaline Phosphatase 150 H (38-126) U/L NT-Pro-B Natriuret Pep pg/mL Total Protein 6.2 L (6.3-8.2) g/dL Albumin 3.4 L (3.5-5.0) g/dL Amylase 36 (30-110) U/L Lipase 93 (23-300) U/L 01/12/22 01/12/22 Range/Units 12:47 14:18 WBC (3.8-10.6) k/uL RBC (3.80-5.40) m/uL Hgb (11.4-16.0) gm/dL Hct (34.0-46.0) % MCV (80.0-100.0) fL MCH (25.0-35.0) pg MCHC (31.0-37.0) g/dL RDW (11.5-15.5) % Plt Count (150-450) k/uL MPV Neutrophils % % Lymphocytes % % Monocytes % % Eosinophils % % Basophils % % Neutrophils # (1.3-7.7) k/uL Lymphocytes # (1.0-4.8) k/uL Monocytes # (0-1.0) k/uL Eosinophils # (0-0.7) k/uL Basophils # (0-0.2) k/uL Hypochromasia Anisocytosis Sodium (137-145) mmol/L Potassium (3.5-5.1) mmol/L Chloride (98-107) mmol/L Carbon Dioxide (22-30) mmol/L Anion Gap mmol/L BUN (7-17) mg/dL Creatinine (0.52-1.04) mg/dL Est GFR (CKD-EPI)AfAm (>60 ml/min/1.73 sqM) Est GFR (CKD-EPI)NonAf (>60 ml/min/1.73 sqM) Glucose (74-99) mg/dL Lactic Ac Sepsis Rflx Y Plasma Lactic Acid Jeet (0.7-2.0) mmol/L Calcium (8.4-10.2) mg/dL Total Bilirubin (0.2-1.3) mg/dL AST (14-36) U/L ALT (4-34) U/L Alkaline Phosphatase (38-126) U/L NT-Pro-B Natriuret Pep 271335 pg/mL Total Protein (6.3-8.2) g/dL Albumin (3.5-5.0) g/dL Amylase (30-110) U/L Lipase (23-300) U/L - EKG Data EKG Comments: Ectopic atrial tachycardia. Possible left atrial enlargement. Right axis deviation. Ventricular rate 104 bpm, WV interval 207 ms, QRS duration 152 ms, QTc 432 ms. - Radiology Data Radiology results: report reviewed, image reviewed Disposition Clinical Impression: Renal failure, Multiorgan failure Disposition: ADMITTED IP TO THIS [facility] Referrals: Mellissa Espinal DO [Primary Care Provider] - 1-2 days
--- NOTE | 2022-01-12 12:43 | US ---
EXAMINATION TYPE: US venous doppler duplex UE RT DATE OF EXAM: 01/12/2022 COMPARISON: 01/08/2022 CLINICAL HISTORY: Right arm swelling. Right upper arm fistula per family member. Right arm is bandag ed. Poor historian. AMS. SIDE PERFORMED: Right Limited due to edema, Cephalic vein not visualized. Right Arm: Negative for DVT. Swelling. Possible patent fistula seen. Grayscale, color doppler, spectral doppler imaging performed of the deep veins of the upper extremiti es. There is normal flow, compressibility and vascular waveforms. IMPRESSION: 1. Negative for DVT. 2. Right arm fistula. Fistula appears patent. 3. Limited evaluation of the cephalic vein. 4. Subcutaneous edema.
[2022-01-12 13:15] LABS: Albumin 3.4 g/dL (3.5-5.0); Calcium 9.3 mg/dL (8.4-10.2); Total Bilirubin 2.2 mg/dL (0.2-1.3); Total Protein 6.2 g/dL (6.3-8.2)
[2022-01-12 13:28] LABS: Anisocytosis Moderate; Basophils % (A) 0 %; Eosinophils % (A) 0 %; HCT 41.1 % (34.0-46.0); HGB 12.7 gm/dL (11.4-16.0); Hypochromasia Moderate; Lymphocytes % (A) 8 %; MCH 27.7 pg (25.0-35.0); MCHC 30.9 g/dL (31.0-37.0); MCV 89.7 fL (80.0-100.0); Mean Platelet Volume 9.5; Monocytes # (A) 0.5 k/uL (0-1.0); Monocytes % (A) 4 %; Neutrophils # (A) 11.8 k/uL (1.3-7.7); Neutrophils % (A) 88 %; Platelet Count 221 k/uL (150-450); RBC 4.58 m/uL (3.80-5.40); RDW 20.2 % (11.5-15.5); WBC 13.5 k/uL (3.8-10.6)
--- NOTE | 2022-01-12 13:39 | CT ---
EXAMINATION TYPE: CT abdomen pelvis wo con DATE OF EXAM: 01/12/2022 COMPARISON: None HISTORY: 81-year-old female Abdominal pain CT DLP: 1375 mGycm. Automated exposure control for dose reduction was used. TECHNIQUE: Contiguous axial scanning of the abdomen and pelvis without IV contrast. Coronal and sagit jody reconstructions performed. FINDINGS: Marked generalized anasarca change. Heart mildly enlarged. Moderate right and trace left pleural effu sions. Adjacent atelectasis. Mild to moderate abdominal ascites. More moderate to large pelvic ascites. Liver enlarged at 19.1 cm. Otherwise, noncontrast appearance of the liver, spleen, and atrophic pancr eas show no gross abnormality. Suspect some layering sludge in the gallbladder. No abnormal gallbladder distention. Atrophic bilateral kidneys. Mild thickening of the adrenal glands without discrete nodularity. Moderate prostatic calcifications throughout the abdominal aorta and iliac arteries. No dilated small bowel or free air. No significant stool burden. There is sigmoid diverticulosis. No definite pericolic inflammatory change. We see a large stools were all measuring 8.1 x 5.1 cm exiting the distal rectum and anus. Waite catheter in place decompressing the bladder. Uterus anteverted. Ovaries not well delineated due to the ascites fluid. There is some pelvic floor relaxation noted. Bones: Moderate degenerative change of the hips. Moderate spondylotic change throughout the mid and l ower lumbar spine. Grade 1 anterolisthesis L4-L5. IMPRESSION: 1. Severe anasarca with extensive body wall edema. Mild to moderate abdominal and moderate to large pelvic ascites. 2. Moderate right and trace left pleural effusions with adjacent atelectasis. 3. Large 8.1 x 5.1 cm stool ball currently exiting at the distal rectum and anus. 4. We note pelvic floor relaxation. 5. Sigmoid diverticulosis.
[2022-01-12 14:17] LABS: Potassium 6.1 mmol/L (3.5-5.1)
[2022-01-12] MEDS ORDERED: CALCIUM GLUCONATE IN NACL 1 GM in SALINE 1 100ML.BAG IVPB ONE (14:21)
--- NOTE | 2022-01-12 15:54 | US ---
EXAMINATION TYPE: US gallbladder DATE OF EXAM: 01/12/2022 COMPARISON: CT 2021 CLINICAL HISTORY: Elevated LFTs, abnormal CT findings. TECHNIQUE: Multiple sonographic images of the right upper quadrant are obtained. FINDINGS: Exam is limited by patient body habitus. EXAM MEASUREMENTS: Liver Length: 19.1 cm Gallbladder Wall: 0.3 cm CBD: 0.3 cm Right Kidney: 6.3 x 4.1 x 3.8 cm Difficult and limited study due to patient body habitus Pancreas: visualized portions wnl, limited by overlying midline bowel gas Liver: enlarged somewhat coarse echotexture Gallbladder: sludge, wall borderline thickened Evidence for sonographic Ellington's sign: n/a CBD: visualized portions wnl, limited by overlying bowel gas Right Kidney: small in size with increased cortical echogenicity. Free fluid seen RLQ IMPRESSION: Hepatomegaly, correlate for possible hepatocellular disease, there is ascites. Correlate for medical renal disease. Suspect tumefactive sludge, borderline gallbladder wall thickening. Limited exam.
[2022-01-12] MEDS ORDERED: NALOXONE 0.4 MG/ML 1 ML VIAL IV PRN (16:51)
[2022-01-12] MEDS ORDERED: BENZONATATE 100 MG CAP PO STA (16:58)
--- NOTE | 2022-01-12 18:55 | XR ---
EXAMINATION TYPE: XR chest 1V DATE OF EXAM: 01/12/2022 COMPARISON: 01/03/2022 HISTORY: Short of breath TECHNIQUE: FINDINGS: There is pulmonary vascular congestion. There is blunting of the costophrenic angles more o n the right side than the left. There are chest leads. There is pulmonary edema. Bony thorax is intac t. IMPRESSION: There is increased pulmonary edema compared to last exam and consistent with worsening he art failure. Right-sided pneumonia also possible.
[2022-01-12] MEDS: PIPERACILLIN-TAZOBACTAM 3.375 GM in SODIUM CHLORIDE 0.9% 100 ML IVPB SCH ×2 (22:55→23:28)
[2022-01-13] MEDS ORDERED: QUEtiapine 25 MG TAB PO SCH (00:45)
[2022-01-13] MEDS ORDERED: PRAVASTATIN SODIUM 40 MG TAB PO SCH (01:00)
[2022-01-13] MEDS ORDERED: HYDROmorphone 0.5 MG/0.5 ML SYRINGE IVP STA (05:00)
[2022-01-13] MEDS: MIDODRINE 5 MG TAB PO SCH ×3 (05:39→16:38)
[2022-01-13 06:34] LABS: Glucose,Whole Blood 77 mg/dL (70-110)
[2022-01-13] MEDS ORDERED: SODIUM ZIRCONIUM CYCLOSILICATE 10 GM PACKET PO ONE (06:41)
[2022-01-13] MEDS ORDERED: INSULIN REGULAR 100 UNIT/ML VIAL (IV) IV ONE (06:41)
[2022-01-13] MEDS ORDERED: DEXTROSE 50% SYRINGE 50 ML IVP STA (06:41)
[2022-01-13] MEDS ORDERED: SYMBICORT 160-4.5 MCG INHALER INHALATION SCH (08:00)
[2022-01-13 08:39] LABS: Calcium 9.2 mg/dL (8.4-10.2); Potassium 5.2 mmol/L (3.5-5.1)
[2022-01-13] MEDS: PIPERACILLIN-TAZOBACTAM 3.375 GM in SODIUM CHLORIDE 0.9% 100 ML IVPB SCH ×2 (09:20→14:24)
[2022-01-13] MEDS: ACETAMINOPHEN IV (For NPO) 1,000 MG in EMPTY BAG 1 BAG IVPB SCH ×2 (09:52→16:21)
--- NOTE | 2022-01-13 11:09 | P.HPIM ---
History of Present Illness This is a pleasant 81 years old female with multiple past medical history as below Patient presents because of urinary retention abdominal pain and because of her symptoms she missed her hemodialysis yesterday. Patient was mildly hypotensive and tachycardic on admission. Before going into the room for patient encounter I was approached by the bedside nurse that family including her and 3 daughters decided for proceeding with hospice care due to her complex advanced illness including end-stage renal disease, advanced liver disease, encephalopathy and all other problems, as per nurse's also that suggested by the carpenter inspector on the case. When he walked into the room patient was obtunded getting hemodialysis, at beds yulissa was her daughter Rosa and she confirmed to me that the patient is DO NOT RESUSCITATE now and they want to proceed with hospice care and that all the 3 daughters and their father who is the are in agreement with this decision because they want her more comfortable Patient with little hypotensive and tachycardic. Showing potassium 5.2, creatinine 4.7. Lactic acid elevated at 2.9. CBC showed mild leukocytosis of 13.5. EKG showing ectopic atrial tachycardia Gallbladder ultrasound: Hepatomegaly correlates for hepatocellular disease. There is ascites. 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 Ascites. Moderate right and trace left pleural effusion. Sigmoid diverticulosis Chest x-ray: There is increased pulmonary edema compared to last exam and consistent with worsening heart failure. Right-sided pneumonia is also as possible Ultrasound: Negative for DVT, right arm fistula which appears patent. In the emergency room patient received calcium, cough medicine, Dilaudid insulin. An emergency room palliative care consult and nephrology team were consulted Review of Systems Review of systems CONSTITUTIONAL: No fever, no malaise, no fatigue. HEENT: No recent visual problems or hearing problems. Denied any sore throat. CARDIOVASCULAR: No orthopnea, PND, no palpitations, no syncope. PULMONARY: No shortness of breath, no cough, no hemoptysis. GASTROINTESTINAL: No diarrhea, no nausea, no vomiting, no abdominal pain. Normoactive bowel sounds. NEUROLOGICAL: No headaches, no weakness, no numbness. HEMATOLOGICAL: Denies any bleeding or petechiae. GENITOURINARY: Denies any burning micturition, frequency, or urgency. MUSCULOSKELETAL/RHEUMATOLOGICAL: Denies any joint pain, swelling, or any muscle pain. ENDOCRINE: Denies any polyuria or polydipsia. ROS unobtainable: due to mental status Past Medical History Past Medical History: Coronary Artery Disease (CAD), Heart Failure, Diabetes Mellitus, Hyperlipidemia, Hypertension, Renal Disease Additional Past Medical History / Comment(s): has hemodialysis MON,WED,FRI for 3 1/2 in [facility] Feb 2020,heart murmur; Hx gout; see Dr Fu's H&P , gout, diastolic heart failure History of Any Multi-Drug Resistant Organisms: None Reported Past Surgical History: Appendectomy, Heart Catheterization, Heart Catheterization With Stent Additional Past Surgical History / Comment(s): IV catheter rt chest, Ovary removal, 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 Bilateral carotid endarterectomy. Aortic valve replacement 02/2018 Past Anesthesia/Blood Transfusion Reactions: No Reported Reaction Date of Last Stent Placement:: unknown Past Psychological History: Anxiety, Depression Smoking Status: Former smoker Past Alcohol Use History: None Reported Past Drug Use History: None Reported - Past Family History Mother Family Medical History: No Reported History Sister(s) Family Medical History: Cancer Father Family Medical History: Myocardial Infarction ([place]) Additional Family Medical History / Comment(s): Father of a [place] in his 60s. Medications and Allergies Home Medications Medication Instructions Recorded Confirmed Type Febuxostat [Uloric] 40 mg PO HS 08/03/17 01/12/22 History Pantoprazole Sodium [Protonix] 40 mg PO DAILY 08/03/17 01/12/22 History Pravastatin Sodium [Pravachol] 20 mg PO HS 08/03/17 01/12/22 History Aspirin EC [Ecotrin Low Dose] 81 mg PO DAILY 04/11/21 01/12/22 History Lidocaine-Prilocaine Cream [Emla 1 applic TOPICAL DAILY PRN 04/11/21 01/12/22 History Cream 2.5%/2.5%] Sertraline [Zoloft] 50 mg PO DAILY 01/02/22 01/12/22 History Acetaminophen Tab [Tylenol] 650 mg PO Q6HR PRN tab 01/11/22 01/12/22 Rx Heparin Sodium,Porcine [Heparin 5,000 unit SQ Q12HR 30 Days #60 01/11/22 01/12/22 Rx Sodium] each QUEtiapine [SEROquel] 25 mg PO HS tab 01/11/22 01/12/22 Rx ALPRAZolam [Xanax] 0.25 mg PO Q8H PRN 01/12/22 01/12/22 History Budesonide/Formoterol Fumarate 2 puff INHALATION RT-BID 01/12/22 01/12/22 History [Symbicort 160-4.5 Mcg Inhaler] Fluticasone Nasal [place] [Flonase 2 spr EA NOSTRIL HS 01/12/22 01/12/22 History Nasal [place]] Magnesium Oxide [Mag-Ox] 200 mg PO DAILY 01/12/22 01/12/22 History Midodrine HCl [ProAmatine] 10 mg PO TID 01/12/22 01/12/22 History Nitroglycerin Sl Tabs [Nitrostat] 0.4 mg SL Q5M PRN 01/12/22 01/12/22 History Allergies Allergy/AdvReac Type Severity Reaction Status Date / Time atorvastatin [From Lipitor] Allergy Unknown Verified 01/12/22 17:40 codeine Allergy Rash/Hives Verified 01/12/22 17:40 duloxetine [From Cymbalta] Allergy Unknown Verified 01/12/22 17:40 ezetimibe [From Zetia] Allergy Unknown Verified 01/12/22 17:40 fenofibrate [From Tricor] Allergy Unknown Verified 01/12/22 17:40 latex Allergy Rash/Hives Verified 01/12/22 17:40 niacin Allergy Unknown Verified 01/12/22 17:40 tetracycline Allergy Unknown Verified 01/12/22 17:40 Physical Exam Vitals: Vital Signs Temp Pulse Pulse Resp BP BP Pulse Ox 01/13/22 07:42 97 01/13/22 04:00 97.5 F L 105 H 20 99/62 100 01/12/22 23:50 97.6 F 101 H 18 100/66 98 01/12/22 21:25 98.3 F 100 22 106/71 98 01/12/22 21:12 96 01/12/22 20:27 97.8 F 102 H 22 95/61 95 01/12/22 16:11 107 H 20 95/54 99 01/12/22 10:54 97.5 F L 107 H 22 95/58 97 Intake and Output 01/12/22 01/13/22 01/13/22 22:59 06:59 14:59 Intake Total 50 Balance 50 Intake: Intake, IV Titration 50 Amount Piperacillin-Tazobactam 3 50 .375 gm In Sodium Chloride 0.9% 100 ml @ 25 mls/hr IVPB Q8HR [facility], [facility] Rx# :[id number] Oral 0 Other: Voiding Method Indwelling Catheter Indwelling Catheter # Voids 0 # Bowel Movements 1 Weight 72.575 kg -GENERAL: The patient is distended and getting dialysis HEENT: Pupils are round and equally reacting to light. EOMI. No scleral icterus. No conjunctival pallor. Normocephalic, atraumatic. No pharyngeal erythema. No thyromegaly. CARDIOVASCULAR: S1 and S2 present. No murmurs, rubs, or gallops. PULMONARY: Chest is clear to auscultation, no wheezing or crackles. ABDOMEN: Soft, nontender, nondistended, normoactive bowel sounds. No palpable organomegaly. MUSCULOSKELETAL: No joint swelling or deformity. EXTREMITIES: No cyanosis, clubbing, or pedal edema. NEUROLOGICAL: Gross neurological examination did not reveal any focal deficits. SKIN: No rashes. no petechiae. Results CBC & Chem 7: 01/12/22 12:47 01/13/22 06:10 Labs: Abnormal Lab Results - Last 24 Hours (Table) 01/12/22 01/12/22 01/12/22 Range/Units 12:47 12:47 12:47 WBC 13.5 H (3.8-10.6) k/uL MCHC 30.9 L (31.0-37.0) g/dL RDW 20.2 H (11.5-15.5) % Neutrophils # 11.8 H (1.3-7.7) k/uL Sodium 136 L (137-145) mmol/L Potassium 6.1 H* (3.5-5.1) mmol/L Carbon Dioxide 20 L (22-30) mmol/L BUN 55 H (7-17) mg/dL Creatinine 5.21 H (0.52-1.04) mg/dL Plasma Lactic Acid Jeet 5.7 H* (0.7-2.0) mmol/L Total Bilirubin 2.2 H (0.2-1.3) mg/dL AST 515 H (14-36) U/L ALT 174 H (4-34) U/L Alkaline Phosphatase 150 H (38-126) U/L Total Protein 6.2 L (6.3-8.2) g/dL Albumin 3.4 L (3.5-5.0) g/dL 01/12/22 01/12/22 01/13/22 Range/Units 16:20 21:28 00:31 WBC (3.8-10.6) k/uL MCHC (31.0-37.0) g/dL RDW (11.5-15.5) % Neutrophils # (1.3-7.7) k/uL Sodium (137-145) mmol/L Potassium (3.5-5.1) mmol/L Carbon Dioxide (22-30) mmol/L BUN (7-17) mg/dL Creatinine (0.52-1.04) mg/dL Plasma Lactic Acid Jeet 4.6 H* 3.2 H* 3.1 H* (0.7-2.0) mmol/L Total Bilirubin (0.2-1.3) mg/dL AST (14-36) U/L ALT (4-34) U/L Alkaline Phosphatase (38-126) U/L Total Protein (6.3-8.2) g/dL Albumin (3.5-5.0) g/dL 01/13/22 01/13/22 01/13/22 Range/Units 03:14 06:10 06:10 WBC (3.8-10.6) k/uL MCHC (31.0-37.0) g/dL RDW (11.5-15.5) % Neutrophils # (1.3-7.7) k/uL Sodium (137-145) mmol/L Potassium 5.2 H (3.5-5.1) mmol/L Carbon Dioxide (22-30) mmol/L BUN 50 H (7-17) mg/dL Creatinine 4.76 H (0.52-1.04) mg/dL Plasma Lactic Acid Jeet 2.9 H* 2.9 H* (0.7-2.0) mmol/L Total Bilirubin (0.2-1.3) mg/dL AST (14-36) U/L ALT (4-34) U/L Alkaline Phosphatase (38-126) U/L Total Protein (6.3-8.2) g/dL Albumin (3.5-5.0) g/dL Thrombosis Risk Factor Assmnt - Choose All That Apply Any of the Below Risk Factors Present?: Yes Each Factor Represents 1 point: Obesity (BMI >25) Other Risk Factors: Yes Each Risk Factor Represents 2 Points: Patient confined to bed Each Risk Factor Represents 3 Points: Age 75 years or older Other congenital or acquired thrombophilia - If yes, enter type in comment: No Thrombosis Risk Factor Assessment Total Risk Factor Score: 6 Thrombosis Risk Factor Assessment Level: High Risk Assessment and Plan Assessment: Acute urinary retention metabolic/toxic encephalopathy Chronic kidney disease on hemodialysis Gallbladder sludge with borderline gallbladder wall thickening fecal impaction Diverticulosis f History of Coronary Artery Disease status post cardiac cath and stenting Chronic heart failure Diabetes mellitus Hypertension Hyperlipidemia History of counts History of anxiety and depression Plan: This is a pleasant 81 years old female who presents with acute kidney injury, end-stage renal disease, encephalopathy, heart failure and others as above Family decided to proceed with hospice care, which looks reasonable given complex multiple medical problems 3 daughters and the are agreeable with this decision as per Rosa Francis at bedside We are going to consult hospice team Pain medication Patient looks comfortable currently No codes Prognosis is extremely poor
--- NOTE | 2022-01-13 11:40 | P.NPCON ---
History of Present Illness - Reason for Consult end stage renal disease - History of Present Illness Reason for consultation: End-stage renal disease History of present illness: Patient is a 81-year-old female seen in renal consultation for end-stage renal disease. She is maintained on hemodialysis on Saturday schedule. Patient completed hemodialysis yesterday and is undergoing another treatment today mostly for ultrafiltration. Potassium level this morning was 5.2. Patient is quite lethargic. Daughter is present at bedside. Patient was recently admitted for CHF and altered mental status and was subsequently discharged to extended care facility. She developed abdominal pain with concern for urinary retention. Waite catheter was placed and she was sent to the hospital. Overall the patient is quite lethargic and has progressively declined. Blood pressure runs on the lower side. Afebrile. Chest x-ray suggestive of fluid overload. CT of the abdomen and pelvis showed severe anasarca and body wall edema. Pleural effusions were noted as well. Gallbladder ultrasound showed hepatomegaly with possible hepatocellular disease. So far she is tolerating dialysis well. Vital signs are stable. General: Resting in bed. HEENT: Head exam is unremarkable. On nasal cannula. LUNGS: Breath sounds decreased. HEART: Tachycardic. ABDOMEN: Soft, distention noted. EXTREMITITES: 2+ edema. Past Medical History Past Medical History: Coronary Artery Disease (CAD), Heart Failure, Diabetes Mellitus, Hyperlipidemia, Hypertension, Renal Disease Additional Past Medical History / Comment(s): has hemodialysis SAT,SAT,SAT for 3 1/2 in [facility] Feb 2020,heart murmur; Hx gout; see Dr Fu's H&P , gout, diastolic heart failure History of Any Multi-Drug Resistant Organisms: None Reported Past Surgical History: Appendectomy, Heart Catheterization, Heart Catheterization With Stent Additional Past Surgical History / Comment(s): IV catheter rt chest, Ovary removal, 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 Bilateral carotid endarterectomy. Aortic valve replacement 02/2018 Past Anesthesia/Blood Transfusion Reactions: No Reported Reaction Date of Last Stent Placement:: unknown Past Psychological History: Anxiety, Depression Smoking Status: Former smoker Past Alcohol Use History: None Reported Past Drug Use History: None Reported - Past Family History Mother Family Medical History: No Reported History Sister(s) Family Medical History: Cancer Father Family Medical History: Myocardial Infarction ([place]) Additional Family Medical History / Comment(s): Father of a [place] in his 60s. Medications and Allergies Home Medications Medication Instructions Recorded Confirmed Type Febuxostat [Uloric] 40 mg PO HS 08/03/17 01/12/22 History Pantoprazole Sodium [Protonix] 40 mg PO DAILY 08/03/17 01/12/22 History Pravastatin Sodium [Pravachol] 20 mg PO HS 08/03/17 01/12/22 History Aspirin EC [Ecotrin Low Dose] 81 mg PO DAILY 04/11/21 01/12/22 History Lidocaine-Prilocaine Cream [Emla 1 applic TOPICAL DAILY PRN 04/11/21 01/12/22 History Cream 2.5%/2.5%] Sertraline [Zoloft] 50 mg PO DAILY 01/02/22 01/12/22 History Acetaminophen Tab [Tylenol] 650 mg PO Q6HR PRN tab 01/11/22 01/12/22 Rx Heparin Sodium,Porcine [Heparin 5,000 unit SQ Q12HR 30 Days #60 01/11/22 01/12/22 Rx Sodium] each QUEtiapine [SEROquel] 25 mg PO HS tab 01/11/22 01/12/22 Rx ALPRAZolam [Xanax] 0.25 mg PO Q8H PRN 01/12/22 01/12/22 History Budesonide/Formoterol Fumarate 2 puff INHALATION RT-BID 01/12/22 01/12/22 History [Symbicort 160-4.5 Mcg Inhaler] Fluticasone Nasal [place] [Flonase 2 spr EA NOSTRIL HS 01/12/22 01/12/22 History Nasal [place]] Magnesium Oxide [Mag-Ox] 200 mg PO DAILY 01/12/22 01/12/22 History Midodrine HCl [ProAmatine] 10 mg PO TID 01/12/22 01/12/22 History Nitroglycerin Sl Tabs [Nitrostat] 0.4 mg SL Q5M PRN 01/12/22 01/12/22 History Allergies Allergy/AdvReac Type Severity Reaction Status Date / Time atorvastatin [From Lipitor] Allergy Unknown Verified 01/12/22 17:40 codeine Allergy Rash/Hives Verified 01/12/22 17:40 duloxetine [From Cymbalta] Allergy Unknown Verified 01/12/22 17:40 ezetimibe [From Zetia] Allergy Unknown Verified 01/12/22 17:40 fenofibrate [From Tricor] Allergy Unknown Verified 01/12/22 17:40 latex Allergy Rash/Hives Verified 01/12/22 17:40 niacin Allergy Unknown Verified 01/12/22 17:40 tetracycline Allergy Unknown Verified 01/12/22 17:40 Physical Exam Vitals: Vital Signs Temp Pulse Pulse Resp BP BP Pulse Ox 01/13/22 08:00 97.5 F L 101 H 20 100/60 100 01/13/22 07:42 97 01/13/22 04:00 97.5 F L 105 H 20 99/62 100 01/12/22 23:50 97.6 F 101 H 18 100/66 98 01/12/22 21:25 98.3 F 100 22 106/71 98 01/12/22 21:12 96 01/12/22 20:27 97.8 F 102 H 22 95/61 95 01/12/22 16:11 107 H 20 95/54 99 Intake and Output 01/12/22 01/13/22 01/13/22 22:59 06:59 14:59 Intake Total 50 Balance 50 Intake: Intake, IV Titration 50 Amount Piperacillin-Tazobactam 3 50 .375 gm In Sodium Chloride 0.9% 100 ml @ 25 mls/hr IVPB Q8HR [facility] Rx# :[id number] Oral 0 Other: Voiding Method Indwelling Catheter Indwelling Catheter Indwelling Catheter # Voids 0 # Bowel Movements 1 Weight 72.575 kg Results - Lab Results Most recent lab results Calcium 9.2 mg/dL (8.4-10.2) 01/13/22 06:10 01/12/22 12:47 01/13/22 06:10 Assessment and Plan Plan: Assessment: 1. End-stage renal disease maintained on hemodialysis on Saturday schedule. 2. Volume overload. 3. Hyperkalemia secondary to chronic kidney disease and lactic acidosis. 4. Acute hypoxic respiratory failure. 5. Chronic hypotension maintained on midodrine. 6. Multiorgan failure. 7. Acute on chronic systolic CHF with ejection fraction of 40% with moderate to severe tricuspid regurgitation, moderate mitral regurgitation. Plan: Currently seen while undergoing hemodialysis. Ultrafiltration as able to tolerate. Maintain midodrine. Prognosis guarded. Family considering hospice. Thank you for the consultation. I will continue to follow the patient with you during her hospital stay.
[2022-01-13 13:48] VITALS: TEMP 96.9
[2022-01-13 16:46] VITALS: BP 99/64; PULSE 95; RESP 10
[2022-01-13] MEDS ORDERED: PIPERACILLIN-TAZOBACTAM 3.375 GM in SODIUM CHLORIDE 0.9% 100 ML IVPB SCH (21:00)
== END 2022-01-13 18:23 | disposition hospice, inpatient (51) | DRG 682 ==
LOC: EC 10:52 → 3SCARD 16:31
PROVIDERS: ADMIT Hospitalist; ATTEND Hospitalist
PROC: 5A1D70Z Performance of Urinary Filtration, Intermittent, Less than 6 Hours Per Day (ICD-10-PCS; principal; 2022-01-12)
DX: N17.9 Acute kidney failure, unspecified (principal); G92.8 Other toxic encephalopathy; J96.01 Acute respiratory failure with hypoxia; I50.23 Acute on chronic systolic (congestive) heart failure; J18.9 Pneumonia, unspecified organism; I13.2 Hypertensive heart and chronic kidney disease with heart failure and with stage 5 chronic kidney disease, or end stage renal disease; R18.8 Other ascites; E87.20 Acidosis, unspecified; I47.1 Supraventricular tachycardia; I95.89 Other hypotension; E11.22 Type 2 diabetes mellitus with diabetic chronic kidney disease; N18.6 End stage renal disease; K56.41 Fecal impaction; Z66 Do not resuscitate; Z51.5 Encounter for palliative care; Z99.2 Dependence on renal dialysis; K76.9 Liver disease, unspecified; E87.5 Hyperkalemia; E78.5 Hyperlipidemia, unspecified; I08.1 Rheumatic disorders of both mitral and tricuspid valves; I25.10 Atherosclerotic heart disease of native coronary artery without angina pectoris; K82.8 Other specified diseases of gallbladder; K57.30 Diverticulosis of large intestine without perforation or abscess without bleeding; R33.9 Retention of urine, unspecified; M10.9 Gout, unspecified; F32.A Depression, unspecified; F41.9 Anxiety disorder, unspecified; Z79.82 Long term (current) use of aspirin; Z79.51 Long term (current) use of inhaled steroids; Z79.899 Other long term (current) drug therapy; Z87.891 Personal history of nicotine dependence; Z95.5 Presence of coronary angioplasty implant and graft; Z95.2 Presence of prosthetic heart valve; Z86.16 Personal history of COVID-19; Z88.1 Allergy status to other antibiotic agents; Z91.040 Latex allergy status; Z88.5 Allergy status to narcotic agent; Z88.8 Allergy status to other drugs, medicaments and biological substances
CPT/HCPCS: 71045; 74176; 76705; 80048; 80053; 82150; 83605; 83690; 83880; 85025; 87040; 93005; 94760; 99285

== ENCOUNTER 2022-01-13 17:28 | Inpatient (IN) | payer MEDICAID ==
[2022-01-13] MEDS ORDERED: MORPHINE SULFATE 2 MG/ML SYRINGE IV PRN (17:51)
[2022-01-13] MEDS ORDERED: ONDANSETRON 4 MG/2 ML VIAL IVP PRN (17:51)
[2022-01-13] MEDS ORDERED: LORazepam 1 MG/0.5 ML VIAL IV PRN (17:51)
[2022-01-13] MEDS ORDERED: ACETAMINOPHEN SUPPOSITORY 650 MG SUPP RECTAL PRN (17:51)
[2022-01-13] MEDS ORDERED: SCOPOLAMINE 1 MG/72 HR PATCH TRANSDERM SCH (18:30)
[2022-01-13] MEDS: MORPHINE SULFATE (100 MG/2 ML) 100 MG in SODIUM CHLORIDE 0.9% 100 ML IV SCH (20:16)
[2022-01-13 21:33] VITALS: BP 95/59; TEMP 97.9
[2022-01-14 03:44] VITALS: PULSE 98
--- NOTE | 2022-01-14 17:51 | P.HPIM ---
History of Present Illness This is a pleasant 81 years old female with multiple past medical history as below Patient presents because of urinary retention abdominal pain and because of her symptoms she missed her hemodialysis yesterday. Patient was mildly hypotensive and tachycardic on admission. Before going into the room for patient encounter I was approached by the bedside nurse that family including her and 3 daughters decided for proceeding with hospice care due to her complex advanced illness including end-stage renal disease, advanced liver disease, encephalopathy and all other problems, as per nurse's also that suggested by the hand mica plate layer on the case. When he walked into the room patient was obtunded getting hemodialysis, at beds yulissa was her daughter Rosa and she confirmed to me that the patient is DO NOT RESUSCITATE now and they want to proceed with hospice care and that all the 3 daughters and their father who is the are in agreement with this decision because they want her more comfortable Patient with little hypotensive and tachycardic. Showing potassium 5.2, creatinine 4.7. Lactic acid elevated at 2.9. CBC showed mild leukocytosis of 13.5. EKG showing ectopic atrial tachycardia Gallbladder ultrasound: Hepatomegaly correlates for hepatocellular disease. There is ascites. 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 Ascites. Moderate right and trace left pleural effusion. Sigmoid diverticulosis Chest x-ray: There is increased pulmonary edema compared to last exam and consistent with worsening heart failure. Right-sided pneumonia is also as possible Ultrasound: Negative for DVT, right arm fistula which appears patent. In the emergency room patient received calcium, cough medicine, Dilaudid insulin. An emergency room palliative care consult and nephrology team were consulted Review of Systems ROS unobtainable: due to mental status Past Medical History Past Medical History: Coronary Artery Disease (CAD), Heart Failure, Diabetes Mellitus, Hyperlipidemia, Hypertension, Renal Disease Additional Past Medical History / Comment(s): has hemodialysis MON,WED,FRI for 3 1/2 in [facility] Feb 2020,heart murmur; Hx gout; see Dr Fu's H&P , gout, diastolic heart failure History of Any Multi-Drug Resistant Organisms: None Reported Past Surgical History: Appendectomy, Heart Catheterization, Heart Catheterization With Stent Additional Past Surgical History / Comment(s): IV catheter rt chest, Ovary removal, 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 Bilateral carotid endarterectomy. Aortic valve replacement 02/2018 Past Anesthesia/Blood Transfusion Reactions: No Reported Reaction Date of Last Stent Placement:: unknown Past Psychological History: Anxiety, Depression Smoking Status: Former smoker Past Alcohol Use History: None Reported Past Drug Use History: None Reported - Past Family History Mother Family Medical History: No Reported History Additional Family Medical History / Comment(s): Mother was healthy Sister(s) Family Medical History: Cancer Father Family Medical History: Myocardial Infarction ([place]) Additional Family Medical History / Comment(s): Father of a [place] in his 60s. Medications and Allergies Home Medications Medication Instructions Recorded Confirmed Type Febuxostat [Uloric] 40 mg PO HS 08/03/17 01/13/22 History Pantoprazole Sodium [Protonix] 40 mg PO DAILY 08/03/17 01/13/22 History Pravastatin Sodium [Pravachol] 20 mg PO HS 08/03/17 01/13/22 History Aspirin EC [Ecotrin Low Dose] 81 mg PO DAILY 04/11/21 01/13/22 History Lidocaine-Prilocaine Cream [Emla 1 applic TOPICAL DAILY PRN 04/11/21 01/13/22 History Cream 2.5%/2.5%] Sertraline [Zoloft] 50 mg PO DAILY 01/02/22 01/13/22 History Acetaminophen Tab [Tylenol] 650 mg PO Q6HR PRN tab 01/11/22 01/13/22 Rx Heparin Sodium,Porcine [Heparin 5,000 unit SQ Q12HR 30 Days #60 01/11/22 01/13/22 Rx Sodium] each QUEtiapine [SEROquel] 25 mg PO HS tab 01/11/22 01/13/22 Rx ALPRAZolam [Xanax] 0.25 mg PO Q8H PRN 01/12/22 01/13/22 History Budesonide/Formoterol Fumarate 2 puff INHALATION RT-BID 01/12/22 01/13/22 History [Symbicort 160-4.5 Mcg Inhaler] Fluticasone Nasal [place] [Flonase 2 spr EA NOSTRIL HS 01/12/22 01/13/22 History Nasal [place]] Magnesium Oxide [Mag-Ox] 200 mg PO DAILY 01/12/22 01/13/22 History Midodrine HCl [ProAmatine] 10 mg PO TID 01/12/22 01/13/22 History Nitroglycerin Sl Tabs [Nitrostat] 0.4 mg SL Q5M PRN 01/12/22 01/13/22 History Allergies Allergy/AdvReac Type Severity Reaction Status Date / Time atorvastatin [From Lipitor] Allergy Unknown Verified 01/12/22 17:40 codeine Allergy Rash/Hives Verified 01/12/22 17:40 duloxetine [From Cymbalta] Allergy Unknown Verified 01/12/22 17:40 ezetimibe [From Zetia] Allergy Unknown Verified 01/12/22 17:40 fenofibrate [From Tricor] Allergy Unknown Verified 01/12/22 17:40 latex Allergy Rash/Hives Verified 01/12/22 17:40 niacin Allergy Unknown Verified 01/12/22 17:40 tetracycline Allergy Unknown Verified 01/12/22 17:40 Physical Exam Vitals: Vital Signs Temp Pulse Resp BP Pulse Ox 01/14/22 08:00 98 6 L 01/14/22 03:20 98 10 L 99 01/14/22 00:00 97 12 99 01/13/22 22:20 102 H 15 95 01/13/22 19:20 97.9 F 97 20 95/59 98 01/13/22 19:15 100 Intake and Output 01/13/22 01/14/22 01/14/22 22:59 06:59 14:59 Intake Total 13.175 Output Total 0 Balance 13.175 Intake: Intake, IV Titration 13.175 Amount Morphine Sulfate (100 mg/ 13.175 2 ml) 100 mg In Sodium Chloride 0.9% 100 ml @ 1 MG/HR 1.02 mls/hr IV . Q24H [facility] Rx#:[id number] Oral 0 Output: Urine 0 Other: Weight 75 kg -GENERAL: The patient is obtunded and unresponsive. Does not look in distress or pain HEENT: Pupils are round and equally reacting to light. EOMI. No scleral icterus. No conjunctival pallor. Normocephalic, atraumatic. No pharyngeal erythema. No thyromegaly. CARDIOVASCULAR: S1 and S2 present. No murmurs, rubs, or gallops. PULMONARY: Chest is clear to auscultation, no wheezing or crackles. ABDOMEN: Soft, nontender, nondistended, normoactive bowel sounds. No palpable organomegaly. MUSCULOSKELETAL: No joint swelling or deformity. EXTREMITIES: No cyanosis, clubbing, or pedal edema. NEUROLOGICAL: Gross neurological examination did not reveal any focal deficits. SKIN: No rashes. no petechiae. Assessment and Plan Assessment: End-of-life care, hospice care Acute urinary retention metabolic/toxic encephalopathy Chronic kidney disease on hemodialysis Gallbladder sludge with borderline gallbladder wall thickening fecal impaction Diverticulosis f History of Coronary Artery Disease status post cardiac cath and stenting Chronic heart failure Diabetes mellitus Hypertension Hyperlipidemia History of counts History of anxiety and depression Plan: Family requested hospice care which looks appropriate Continue with pain medication morphine as needed May use morphine drip if needed to make the patient more comfortable and relaxed Scopolamine No code Prognosis is extremely poor and life expectancy is hours to days anyway
[2022-01-14] MEDS: MORPHINE SULFATE (100 MG/2 ML) 100 MG in SODIUM CHLORIDE 0.9% 100 ML IV SCH (18:47)
[2022-01-15 01:18] VITALS: RESP 6
== END 2022-01-15 05:50 | disposition expired | DRG 951 ==
LOC: 3SCARD 18:24
PROVIDERS: ADMIT Hospitalist; ATTEND Hospitalist
DX: Z51.5 Encounter for palliative care (principal); G92.8 Other toxic encephalopathy; J18.9 Pneumonia, unspecified organism; N18.6 End stage renal disease; I13.2 Hypertensive heart and chronic kidney disease with heart failure and with stage 5 chronic kidney disease, or end stage renal disease; I47.1 Supraventricular tachycardia; I50.32 Chronic diastolic (congestive) heart failure; R18.8 Other ascites; E87.20 Acidosis, unspecified; Z66 Do not resuscitate; E11.22 Type 2 diabetes mellitus with diabetic chronic kidney disease; E78.5 Hyperlipidemia, unspecified; F32.A Depression, unspecified; F41.9 Anxiety disorder, unspecified; Z95.5 Presence of coronary angioplasty implant and graft; Z99.2 Dependence on renal dialysis; R33.9 Retention of urine, unspecified; M10.9 Gout, unspecified; I25.10 Atherosclerotic heart disease of native coronary artery without angina pectoris; I95.9 Hypotension, unspecified; K56.41 Fecal impaction; K57.30 Diverticulosis of large intestine without perforation or abscess without bleeding; K76.9 Liver disease, unspecified; K82.8 Other specified diseases of gallbladder; Z79.51 Long term (current) use of inhaled steroids; Z79.82 Long term (current) use of aspirin; Z79.899 Other long term (current) drug therapy; Z82.49 Family history of ischemic heart disease and other diseases of the circulatory system; Z87.891 Personal history of nicotine dependence; Z95.2 Presence of prosthetic heart valve; Z88.5 Allergy status to narcotic agent; Z88.8 Allergy status to other drugs, medicaments and biological substances; Z88.1 Allergy status to other antibiotic agents; Z91.040 Latex allergy status
CPT/HCPCS: 94760